=== PATIENT | female | born 1995 | race Caucasian/White ===

== ENCOUNTER → 2021-03-24 14:12 | Outpatient (CLI) | payer OTHER, SELFPAY ==
[2021-03-24 16:12] LABS: T4 Free Direct 0.92 ng/dL (0.76-1.46); Thyroid Stim Hormone (TSH) 1.01 uIU/mL (0.358-3.74)
== END ==
PROVIDERS: PCP Family Medicine; Referring Provider Family Medicine; Visit Provider Family Medicine
DX: L65.9 Nonscarring hair loss, unspecified (principal)
CPT/HCPCS: 36415; 84439; 84443

== ENCOUNTER 2021-07-17 16:51 | Outpatient (CLI) | payer OTHER, SELFPAY ==
[2021-07-21 12:01] LABS: Chlamydia By Nucleic Acid AMP Negative (Negative)
[2021-07-21 12:23] LABS: Gonococcus By Nucleic Acid AMP Negative (Negative)
[2021-07-26 15:49] LABS: HPV Reflexed? NOT INDICATED
== END 2021-07-17 23:59 | disposition home or self-care (01) ==
PROVIDERS: PCP Family Medicine; Visit Provider Obstetrics & Gynecology
DX: Z11.3 Encounter for screening for infections with a predominantly sexual mode of transmission (principal); Z12.4 Encounter for screening for malignant neoplasm of cervix
CPT/HCPCS: 87491; 87591; 88175; G0145

== ENCOUNTER → 2023-04-13 | Outpatient (CLI) | payer OTHER, SELFPAY ==
[2023-04-13 16:09] LABS: Anion Gap 9 (5-15); BUN 13 mg/dL (7-18); BUN/Creat Ratio 17.9 RATIO (10-20); Calcium,Total 9.5 mg/dL (8.5-10.1); Chloride 107 mmol/L (98-107); Creatinine, Serum 0.73 mg/dL (0.55-1.02); EST Glomerular Filtration Rate 103 mL/min (>60); Est Glom Filt Rate - Afr Amer 125 mL/min (>60); Glucose 81 mg/dL (74-106); Potassium 3.9 mmol/L (3.5-5.1); Sodium Level 140 mmol/L (136-145)
== END | disposition home or self-care (01) ==
PROVIDERS: PCP Family Medicine; Referring Provider Family Medicine; Visit Provider Family Medicine
DX: Z90.5 Acquired absence of kidney (principal)
CPT/HCPCS: 36415; 80048; 81001

== ENCOUNTER → 2023-11-01 | Outpatient (CLI) | payer OTHER, SELFPAY ==
[2023-11-01 18:07] LABS: hCG Titer Quant., Serum < 1 mIU/mL (1-3)
[2023-11-01 18:34] LABS: T4 Free Direct 0.79 ng/dL (0.76-1.46); Thyroid Stim Hormone (TSH) 1.23 uIU/mL (0.358-3.74)
== END | disposition home or self-care (01) ==
PROVIDERS: PCP Family Medicine; Referring Provider Family Medicine; Visit Provider Family Medicine
DX: N92.6 Irregular menstruation, unspecified (principal)
CPT/HCPCS: 36415; 84439; 84443; 84702

== ENCOUNTER → 2024-06-20 | Outpatient (CLI) | payer OTHER, SELFPAY ==
[2024-06-22 21:07] LABS: Chlamydia By Nucleic Acid AMP Negative (Negative); Gonococcus By Nucleic Acid AMP Negative (Negative)
[2024-06-28 10:35] LABS: HPV Reflexed? NOT INDICATED
== END | disposition home or self-care (01) ==
LOC: LABSPEC 15:46
PROVIDERS: PCP Family Medicine; Referring Provider Obstetrics & Gynecology; Visit Provider Obstetrics & Gynecology
DX: O09.90 Supervision of high risk pregnancy, unspecified, unspecified trimester (principal); Z12.4 Encounter for screening for malignant neoplasm of cervix; Z3A.00 Weeks of gestation of pregnancy not specified
CPT/HCPCS: 87086; 87491; 87591; 88175; G0145

== ENCOUNTER → 2024-07-04 | Outpatient (CLI) | payer OTHER, SELFPAY ==
[2024-07-04 15:19] LABS: Absolute Lymphocyte Count 2.31 X10^3/uL (0.83-4.51); Absolute Neutrophil Count 7.1 X10^3/uL (2.0-7.7); Basophil# 0.02 X10^3/uL; Basophil% 0.2 % (0-1); Eosinophil# 0.05 X10^3/uL; Eosinophils% 0.5 % (0-5); Hematocrit 38.3 % (37-47); Hemoglobin 13.2 g/dL (12.0-15.0); Lymphocyte # 2.31 X10^3/ul (0.83-4.51); Lymphocyte % 23.3 % (19-41); Mean Corp Hgb Conc 34.5 g/dL (32-36); Mean Corpuscular Volume 84.2 fL (81-99); Mean Platelet Vol. 9.4 fl (6.2-12.0); Monocyte# 0.35 X10^3/uL; Monocyte% 3.5 % (0-10); NRBC Flagged by Analyzer 0 % (0-5); Neutrophil # 7.14 X10^3/uL (2.7-7.7); Neutrophil % 72.2 % (47-70); Platelet Count 258 K/mm3 (150-450); RBC Distribution Width CV 12.9 % (11.6-14.6); RBC Distribution Width SD 39.3 fl (35.1-43.9); Red Blood Count 4.55 M/mm3 (4.2-5.4); White Blood Count 9.9 K/mm3 (4.4-11.0)
[2024-07-04 16:50] LABS: Hepatitis B Surface Antigen Nonreactive (Nonreactive); Hepatitis C Antibody Nonreactive (Nonreactive); Syphilis Antibodies Nonreactive (Nonreactive)
[2024-07-04 16:57] LABS: Rubella IgG REAC (Nonreactive)
[2024-07-04 17:05] LABS: HIV Nonreactive (Nonreactive)
[2024-07-04 22:27] LABS: Hemoglobin A1c 5.3 % (<=5.6)
== END | disposition home or self-care (01) ==
PROVIDERS: PCP Family Medicine; Referring Provider Obstetrics & Gynecology; Visit Provider Obstetrics & Gynecology
DX: O09.90 Supervision of high risk pregnancy, unspecified, unspecified trimester (principal); Z3A.00 Weeks of gestation of pregnancy not specified
CPT/HCPCS: 36415; 83036; 85025; 86703; 86762; 86780; 86803; 86850; 86900; 86901; 87340

== ENCOUNTER → 2024-08-20 | Outpatient (CLI) | payer OTHER, SELFPAY | END | disposition home or self-care (01) | PROVIDERS: PCP Family Medicine; Referring Provider Obstetrics & Gynecology; Visit Provider Obstetrics & Gynecology | DX: Z34.90 Encounter for supervision of normal pregnancy, unspecified, unspecified trimester (principal); Z3A.00 Weeks of gestation of pregnancy not specified | CPT/HCPCS: 36415 ==

== ENCOUNTER → 2024-10-15 | Outpatient (CLI) | payer OTHER, SELFPAY ==
[2024-10-15 17:07] LABS: Hematocrit 33.8 % (37-47); Hemoglobin 11.3 g/dL (12.0-15.0); Immature Granulocytes Count 0.060 X10^3/uL (0.0-0.0); Mean Corp Hgb Conc 33.4 g/dL (32-36); Mean Corpuscular Volume 87.6 fL (81-99); Mean Platelet Vol. 9.7 fl (6.2-12.0); NRBC Flagged by Analyzer 0 % (0-5); Platelet Count 252 K/mm3 (150-450); RBC Distribution Width CV 13.8 % (11.6-14.6); RBC Distribution Width SD 44.2 fl (35.1-43.9); Red Blood Count 3.86 M/mm3 (4.2-5.4); White Blood Count 9.8 K/mm3 (4.4-11.0)
[2024-10-15 18:05] LABS: Glucose Challenge Gest 1H 50g 106 mg/dL (70-140); HIV Nonreactive (Nonreactive); Syphilis Antibodies Nonreactive (Nonreactive)
--- OUTSIDE RECORDS SUMMARY | 2024-10-18 02:09 | XMS RPT_ITS | CCD ---
Author Organization [facility] CliniSymt Care Team Providers Care Spring Clipper Name Role Phone HESHAM ST H Unavailable Unavailable KINKOPFFIDELINA Unavailable Unavailable ZULYCUBA HESHAM H Unavailable Unavailable Dr. Ji Baer Primary Care Provider [phone] Dr. Ji Baer Referring Provider Dr. Karina Bravo Attending Provider Dr. Ji Baer Primary Care Provider Dr. Ji Baer Referring Provider TRISH Young Attending Provider Keyur LEROY, Dr. Sen Primary Care Provider Keyur LEROY, Dr. Sen Referring Provider Dr. Karina Bravo DO Attending Provider Dr. Karina Bravo DO Referring Provider Tomi Cavanaugh CNM Attending Provider [phone] Dr. Mayelin Garcia MD Attending Provider Dr. Mayelin Garcia MD Referring Provider Ekaterina Lagos Attending Provider [phone] TOMI CAVANAUGH Referring Unavailable KASI PADGETT Attending Unavailable NO PRIMARY CARE, Primary Care Unavailable TOMI CAVANAUGH Referring Unavailable NO PRIMARY CARE, Primary Care Unavailable TOMI CAVANAUGH Attending Unavailable ABRAN BRAR Attending Unavailable AARON LAI Referring Unavailable COCO BAER B Primary Care UnavailCoco Espinosa Primary Care Unavailable Karina Bravo Attending Unavailabl e [place], [facility] [place] Referring Unavailable [facility] Primary Care Unavailable Vande Rubi, Karina Attending Unavailabl e [place], [facility] Referring Unavailable [facility] [place] Primary Care Unavailable Ekaterina Kim NP Attending Unavailable [place], [facility] [place] Referring Unavailable [place], [facility] Unavailable Tomi Cavanaugh Attending Unavailable [place], [facility] [place] Referring Unavailable Mayelin Garcia Attending Unavailable [place], [place] Primary Care Unavailable [place], [facility] Referring Unavailable Tomi Cavanaugh Attending Unavailable [place], [facility] Primary [facility] Unavailable [place], [facility] Referring Unavailable [facility] Primary [facility] Unavailable Kam Venegas, Karina Attending Unavailabl e Vande Gomezde, Karina Referring Unavailabl e [place], [place] Primary Care Unavailable Vanddeedee Venegas, Karina Attending Unavailabl e Vande Velde, Karina Referring Unavailabl e [place], [facility] Referring Unavailable [facility] [place] Primary Care Unavailable [facility] Attending Unavailable [facility] Primary Care Unavailable Mayelin Garcia Attending Unavailable Mayelin Garcia Referring Unavailable Medications Current Medications Medication Drug Class(es) Dates Sig (Normalized) Sig (Original) Mv-Mn 777-Ym-Yx6-Dha-Epa-F thom 180 mcg-35 mg- 25 mg-5 mg tablet,chewable (3 sources) Start: 05-29-2024 Mv-Mn 120-Pb-Zk3-Dha-Epa- Fish 180 mcg-35 mg- 25 mg-5 mg tablet,chewable Active {tbl} PO May 29, 2024 1:00am Pnv No.967-Vx-Ef6-Dha-Ep a-Fish 180 mcg-35 mg- 25 mg-5 mg tablet,chewable (2 sources) Start: 05-29-2024 Pnv No.464-Gr-An2-Dha-E pa-Fish 180 mcg-35 mg- 25 mg-5 mg tablet,chewable Active {tbl} PO May 29, 2024 1:00am Completed/Discontinued Medications Medication Drug Class(es) Dates Sig (Normalized) Sig (Original) cephalexin 500 mg oral capsule (6 sources) Cephalosporin Antibacterial Start: 04-13-2023 End: 04-23-2023 take 1 capsule by mouth every twelve hours Cephalexin 500 mg capsule Discontinued 500 mg PO Q12H 20 10 0 April 13, 2023 1:00am April 22, 2023 1:00am April 23, 2023 1:27am docosahexaenoic acid 200 mg oral capsule (5 sources) Start: 12-07-2023 End: 05-29-2024 Docosahexaenoic Acid ( Dha) 200 mg capsule Discontinued mg PO December 07, 2023 12:00am May 29, 2024 10:47am doxycycline hyclate 100 mg oral capsule (11 sources) Tetracycline-class Drug Start: 12-07-2023 End: 12-14-2023 take 1 capsule by mouth twice daily Doxycycline Hyclate 100 mg capsule Discontinued 100 mg PO TWICE A DAY 14 7 0 December 07, 2023 2:45pm December 13, 2023 12:00am December 14, 2023 12:03am Start: 04-13-2023 End: 07-22-2023 take 1 capsule by mouth once daily Doxycycline Hyclate 100 mg capsule Discontinued 100 mg PO DAILY April 13, 2023 1:00am July 22, 2023 4:30pm levonorgestrel 0.767988 mg/hr intrauterine system (12 sources) Progestin, Progestin-containing Intrauterine Device Start: 07-20-2022 End: 12-07-2023 Levonorgestrel (Ina) 14 mcg/24 hrs (3 yrs) 13.5 mg intrauterine device Discontinued 1 NMA INTRA-UTER ONCE July 20, 2022 12:00am December 07, 2023 2:21pm as a single dose Start: 07-20-2022 Levonorgestrel (Ina) 14 mcg/24 hrs (3 yrs) 13.5 mg intrauterine device Active 1 DEVICE INTRA-UTER ONCE July 19, 2022 11:00pm as a single dose Start: 08-14-2021 End: 07-20-2022 Levonorgestrel (Liletta) 20. 1 mcg/24 hrs (6 yrs) 52 mg intrauterine device Discontinued 1 NMA INTRA-UTER ONCE August 14, 2021 12:00am July 20, 2022 8:41am as a single dose Start: 08-14-2021 End: 07-20-2022 Levonorgestrel (Liletta) 20. 1 mcg/24 hrs (6 yrs) 52 mg intrauterine device Discontinued 1 DEVICE INTRA-UTER ONCE August 13, 2021 11:00pm July 20, 2022 7:41am as a single dose Problems Active Problems Problem Classification Problem Date Documented Date Episodic/Chronic Anxiety disorders (20 sources) Anxiety; Translations: [Anxiety disorder, unspecified] Onset: 08-20-2024 05-29-2024 Chronic Contraceptive and procreative management (5 sources) Patient encounter status; Translations: [Encounter for removal of intrauterine contraceptive device] 05-29-2024 Episodic Genitourinary symptoms and ill-defined conditions (7 sources) Dysuria; Translations: [Dysuria] 04-13-2023 Episodic Immunizations and screening for infectious disease (1 source) Contact with and (suspected) exposure to other viral communicable diseases; Translations: [Contact with or suspected exposure to other viral communicable disease] Episodic Menstrual disorders (1 source) Irregular menstruation, unspecified; Translations: [Irregular menstruation, unspecified] Onset: 11-19-2023 Chronic Other complications of (19 sources) Maternal obesity complicating , childbirth and the puerperium, antepartum; Translations: [Obesity complicating , unspecified trimester] 05-29-2024 Chronic Comment on above: HgbA1c Other complications of (1 source) Obesity complicating , unspecified trimester; Translations: [Obesity complicating , unspecified trimester] Onset: 08-20-2024 Chronic Other complications of (19 sources) High risk ; Translations: [Supervision of high risk , unspecified, unspecified trimester] 05-29-2024 Episodic Comment on above: , YESI 01/22/25, Espinoza PRR,, YESI , Espinoza Other complications of (1 source) Supervision of high risk , unspecified, unspecified trimester; Translations: [Supervision of high risk , unspecified, unspecified trimester] Onset: 09-17-2024 Episodic Other and delivery including normal (20 sources) ; Translations: [Encounter for supervision of normal , unspecified, unspecified trimester] Onset: 08-24-2024 05-29-2024 Episodic Comment on above: elects NIPT with Gen ale & Carrier testing NIPT low risk, jalen er declined afp ordered. NIPT low risk, jalen er declined. AFP negative. Other skin disorders (17 sources) Hidradenitis suppurativa; Translations: [Hidradenitis suppurativa] 04-13-2023 Episodic Other skin disorders (1 source) Hidradenitis suppurativa; Translations: [Hidradenitis suppurativa] Onset: 08-20-2024 Episodic Residual codes; unclassified (6 sources) History of nephrectomy; Translations: [Acquired absence of kidney] 07-17-2021 Episodic Comment on above: left-didn't develop Residual codes; unclassified (1 source) 17 weeks gestation of ; Translations: [17 weeks gestation of ] Onset: 08-20-2024 Episodic Screening and history of mental health and substance abuse codes (17 sources) History of clinical finding in subject; Translations: [Personal history of nicotine dependence] Onset: 08-20-2024 05-29-2024 Episodic Comment on above: Pt stopped vaping 05/19/24, education provided Past or Other Problems Problem Classification Problem Date Documented Da te Episodic/Chronic Other screening for suspected conditions (not mental disorders or infectious disease) (1 source) Encounter for screening for malignant neoplasm of cervix; Translations: [Encounter for screening for malignant neoplasm of cervix] Onset: 07-04-2024 Episodic Results Test Name Value Interpretation Reference Range Facility Progress Noteon 10-01-2024 Director Of Assessment Authentication Interface Message Text New patient 10/02/2024 RE: Chetna Rodriguez Caitlin : 1995 AGE: 29 y.o. [facility]#: [id number] Gestational Age: 24 Weeks Delivery Hospital: [facility] Reason for visit: Chief Complaint Patient presents with ECHO echo for inadequate cardiac views on perinatologist ultrasound. Other indications:None OB History 1 Para Term AB Living 0 SAB IAB Ectopic Multiple Live Births Counseling and/or coordination of care (face to face time in the office/outpatient setting or floor/unit time in the hospital) was greater than 40 minutes which is more than 50% of the total time of 60 minutes spent on the encounter. In addition, the following items were performed before, during, and after this visit: Synthesis of current imaging findings. Results for orders placed or performed in visit on 10/01/24 Echo [facility] [place] [address] [email or web address] ------- Echocardiogram Report M-mode, complete 2D, complete spectral Doppler, and color Doppler PATIENT: Chetna Tucker STUDY DATE/TIME: Oct 01 2024 12:04PM HEIGHT: : 1995 WEIGHT: AGE: 29year(s) BSA/BMI: / 35kg/m^2 GENDER: F BP: 131 / 57 LOCATION: [facility] REFERRING PHYSICIAN: Aaron Lai ORDERING PROVIDER: Aaron Lai READING PHYSICIAN: JANET Elkins HR RECRUITER: Jacqueline Ricks RDCS ------- SUMMARY: No significant congenital heart disease identified. 1. Normal echocardiogram. 2. Normal biventricular size and function. 3. No atrioventricular valve regurgitation. 4. Normal three vessel view, main pulmonary artery 4.2 mm, aorta 3.6 mm and superior vena cava 2.6 mm. 5. Normally related great arteries. 6. Left aortic arch with left patent ductus arteriosus. 7. Normal systemic and pulmonary venous connections. 8. This study is limited in evaluating minor valve abnormalities, septal defects, partial anomalous pulmonary venous connection, and aortic arch abnormalities. 9. The above findings, including the limitations, were discussed with the patient. Recommendations: follow-up if java j2ee architect hears a heart murmur or otherwise clinically indicated. ------- REASON FOR EXAM: Suboptimal cardiac views. ------- : : - Maternal age: 30yr. - : 1. - Parity: 0. - Estimated delivery date: 01/22/2025. - Gestational age: 23 [id number]. ------- STUDY AND PROCEDURE DATA: The patient is . Procedure Description: New ([id number]) . Study status: Routine. Location: lab. Procedure: Transabdominal echocardiogram was performed for congenital heart disease evaluation. Patient status: Outpatient. Blood pressure: 131/57 ------- FINDINGS: DESCRIPTION One fetus is present. Normal three vessel view,main pulmonary artery 4.5 mm, aorta 3.6 mm and superior vena cava 2.6 mm. The rhythm is sinus rhythm, with a heart rate of 155bpm. The position is vertex. Normal Doppler pattern of the ductus venosus, umbilical artery, and vein. Three vessel cord. ANATOMIC RELATIONSHIPS - Normal viceral situs. Left sided stomach. Left sided cardiac apex (levocardia). Normally related great vessels. VEINS AND ATRIA Atrial septum - There is a patent foramen ovale. There is a cubie-xu-morr shunt. Left atrium: - The atrium is normal in size. Right atrium: - The atrium is normal in size. Systemic veins - Inferior vena cava and superior vena cava seen entering normally into the right atrium. Pulmonary veins - There are at least 2 out of 4 pulmonary veins seen entering normally into the left atrium, with normal Doppler pattern. A-V CANAL Tricuspid valve - The valve is structurally normal. There is no regurgitation. - There is normal biphasic inflow spectral Doppler. Mitral valve - The valve is structurally normal. There is no regurgitation. - There is normal biphasic inflow spectral Doppler. VENTRICLES Right ventricle - The cavity size is normal. Wall thickness is normal. Systolic function is qualitatively normal. Ventricular septum - There is no evidence of a ventricular septal defect. Left ventricle - The cavity size is normal. Wall thickness is normal. Systolic function is quantitatively normal. The fractional shortening (MM) is 41%. The ejection fraction (MM, Teichholz) is 77%. CONOTRUNCUS Aortic valve - The valve is str (more content not included)... Normal [facility] Laboratory - Chemistry and C hemistry - challengeOrdered By: Ekaterina Kim on 09-17-2024 Glucose Ql (U) Negative [facility] Laboratory - UrinalysisOrder ed By: Ekaterina Kim on 09-17-2024 Protein Ql (U) Negative [facility] Digital Designer Office Visit Reporton 09-17-2024 Digital Designer Office Visit Report [facility]'s [address], [address] [place] [address] OFFICE VISIT Date of Service: 09/17/24 MR#: [id number] Acct: [id number] Name: CHETNA TUCKER Rep #: [id number] : 1995 Provider: SIOBHAN noyola Age/Sex: 29/F Location: [facility] [place] Status: Signed Intake Vital Signs 07/23/24 13:51 08/20/24 13:44 09/17/24 13:45 Height 5 ft 9 in 5 ft 9 in 5 ft 9 in Weight: 242 lb BMI 35.7 BP 124/82 H Intake Visit Reasons: 22wk ob Chief Complaint: 22 Week OB Hypo Splasher Required: No Is patient in pain?: No Allergies No Known Allergies Allergy (Verified 09/17/24 13:46) Medications ???Medication ???Instructions ???Recorded ???Confirmed ???Type mv-mn 110-FA 180 mcg-om3 35 mg-dha tab PO 05/29/24 09/17/24 History 25 mg-epa 5 mg-fish oil chew tablet Last Menstrual Period: 04/17/24 Zika: Zika virus screening: Negative : No PFSH PFSH Medical History History of nicotine vaping Hidradenitis suppurativa Encounter for IUD removal Seasonal allergies S/p nephrectomy Surgical History [place] teeth extracted History of nephrectomy, right Family History Mother Kidney disease Heart disease Hypertension Grandmother Heart disease Maternal Kidney disease Maternal Hypertension Maternal Diabetes Maternal Father Hypertension Social History adopted: No household members: spouse housing: house current occupational status: employed current occupation: [employer] current occupational exposures/hazards: No pets and animals: Yes (2) pets and animals: dog(s) history of recent travel: No sexually active: Yes Smoking Status: Former smoker quit date: 05/19/24 Electronic Cigarette Use: with nicotine how long ago did patient quit smokin weeks ago quit status: quit date established alcohol intake: current details: occasionally- not while drinking substance use type: does not use well-balanced diet: about half the time caffeine: Yes Type: coffee Number of servings: 1 eating out: 1-3 times/week during the past year weight has: remained stable what type of physical activity do you participate in: none frequency: 1-2 times per week dat/sikhism: None seatbelt use: always do you feel safe at home: Yes additional social history: -[facility] History 1 Elective abortions Hx Para 0 Spontaneous abortions Hx # Term Pregnancies Ectopic pregnancies Hx # Pregnancies Multiple births # of living children HPI 22wk ob Details: CHETNA TUCKER is a 29 year old who presents for routine OB visit. OB Visit YESI Calculator Estimated Delivery Date Method Current WG Current Estimate 01/22/25 LMP (Certain) 21w 6d Other Estimates 01/23/25 Ultrasound #1 21w 5d Expected Delivery Route/Plan Labor Preferences- CB/BF classes: [] labor support person: [] labor intervention preferences: [] pain management options preferred: [] cut cord/dad catch: [] : [] PP control planned: [] discussed possible routes of delivery and associated risks: [] special requests: [] Specific Issue/Plans Covid status: [] Flu vaccine: [] Tdap vaccine: [] Rhogam: [] LARC form signed: [] Problem list reviewed and updated with the most current plan of care details and appropriate orders placed. Relevant counseling for the gestational age provided. Continue routine care and follow up unless otherwise noted in visit notes/problem list details Initial Weight: 237 lb Date -???-???-???-???-???-?? ?-???-???-???-???-???-? ??- EGA Weight BP Urine Prot -???-???-???-???-???-?? ?-???-???-???-???-???-? ??- Glucose FHR FuHt Pres Dilation -???-???-???-???-???-?? ?-???-???-???-???-???-? ??- Effaced St Visit Note 06/20/24 -???-???-???-???-???-?? ?-???-???-???-???-???-? ??- 9w 1d 237 lb 4 oz (+4 oz) 128/84 -???-???-???-???-???-?? ?-???-???-???-???-???-? ??- 185 -???-???-???-???-???-?? ?-???-???-???-???-???-? ??- JV- CRL cons istent with LMP. desires NIPT. 07/23/24 -???-???-???-???-???-?? ?-???-???-???-???-???-? ??- 13w 6d 235 lb (-2 lb) 133/85 Negative -???-???-???-???-???-?? ?-???-???-???-???-???-? ??- Negative 160 -???-???-???-???-???-?? ?-???-???-???-???-???-? ??- KW- no vb/cr amping. US ordered. handheld US and fht and movement noted. KW- no vb/cramping. US ordered. shah ndheld US and fht and movement noted. accepts AFP next visit 08/20/24 -???-???-???-???-???-?? ?-???-???-???-???-???-? ??- 17w 6d 237 lb (+0 oz) 121/82 Negative (more content not included)... Normal [facility] [id number] 09-07-2024 [facility] Misc. Normal [facility] Comment on above: Order Comment: [id number] 1msAFP SERUM RT Result Comment: TEST RESULTS LIMITS AFP, Serum, Open Spina Bifida Results The MOM and risk factors of this report have been modified based on new information supplied to us by the client or their designated patient admitting representative. The Weight was changed from Not provided. to 237. This is a corrected report. The previously reported result was: Test Results: *Screen Negative* Gest. Age on Collection Date 17.9 weeks Gestat. Age Based On As provided Recalculations are not recommended when gestational dating by LMP and ultrasound are within 10 days. [age] YESI [age] yr Race Weight 237 lbs Insulin Dep Diabetes No Multiple Gestation No AFP Value 26.3 ng/mL AFP MoM 0.81 OSBR Risk 1 [place] [id number] Interpretation Interpretation: Screen Negative This result is screen negative for OSB. The AFP MoM calculated is based on the gestational age provided. MS-AFP can identify up to 80% of open neural tube defects. Closed neural tube defects and some open defects may not be detected by this test. This test does not screen for Down Syndrome or Trisomy 18. If screening for Down Syndrome or Trisomy 18 is desired, contact [facility] to discuss available options. The [employer] recommends amniocentesis be offered to women age 35 and older. Comment: Dulce Ramirez, Ph.D., [facility] Director References: Available Upon Request. Multiples Of Median Cutoffs For AFP Elevations Dawn 2.5 Black 2.8 IDD 2.0 Twins 4.5 Abbreviation Definitions IDD - Insulin Dep Diabetes OSBR - Open Spina Bifida Risk For further inquiries contact [facility] or [facility] at [phone]. This test was developed and its performance characteristics determined by [employer]. It has not been cleared or approved by the Food and Drug Administration. TESTING PERFORMED AT [facility]. ORIGINAL REPORT ON FILE IN LAB CONTAINS ADDITIONAL TEST SITE INFORMATION. Performed By: #### L [id number] ####[facility] [id number] [place], [place], [id number] Laboratory - Chemistry and C hemistry - challengeOrdered By: Mayelin Garcia on 08-20-2024 Glucose Ql (U) Negative [facility] Laboratory - UrinalysisOrder ed By: Mayelin Garcia on 08-20-2024 Protein Ql (U) Negative [facility] Digital Designer Office Visit Reporton 08-20-2024 Digital Designer Office Visit Report [facility]'s [address], [address] [place] [address] OFFICE VISIT Date of Service: 08/20/24 MR#: [id number] Acct: [id number] Name: CHETNA TUCKER Rep #: [id number] : 1995 Provider: Dr. Mayelin grullon MD Age/Sex: 28/F Location: [facility] [place] Status: Signed Intake Vital Signs 06/20/24 14:06 07/23/24 13:51 08/20/24 13:43 08/20/24 13:44 Height 5 ft 9 in 5 ft 9 in 5 ft 9 in 5 ft 9 in Weight: 235 lb 237 lb BMI 34.7 34.9 BP 133/85 H 121/82 H Intake Visit Reasons: 18wk ob Hypo Splasher Required: No Is patient in pain?: No Allergies No Known Allergies Allergy (Verified 08/20/24 13:43) Medications ???Medication ???Instructions ???Recorded ???Confirmed ???Type PNV 178-FA 180 mcg-om3 35 mg-dha tab PO 05/29/24 08/20/24 History 25 mg-epa 5 mg-fish oil chew tablet Last Menstrual Period: 04/17/24 Zika: Zika virus screening: Negative : No PFSH PFSH Medical History (Updated 08/20/24 @ 14:[address] Mayelin Garcia MD) History of nicotine vaping Hidradenitis suppurativa Encounter for IUD removal Seasonal allergies S/p nephrectomy Surgical History [place] teeth extracted History of nephrectomy, right Family History Mother Kidney disease Heart disease Hypertension Grandmother Heart disease Maternal Kidney disease Maternal Hypertension Maternal Diabetes Maternal Father Hypertension Social History adopted: No household members: spouse housing: house current occupational status: employed current occupation: [employer] current occupational exposures/hazards: No pets and animals: Yes (2) pets and animals: dog(s) history of recent travel: No sexually active: Yes Smoking Status: Former smoker quit date: 05/19/24 Electronic Cigarette Use: with nicotine how long ago did patient quit smokin weeks ago quit status: quit date established alcohol intake: current details: occasionally- not while drinking substance use type: does not use well-balanced diet: about half the time caffeine: Yes Type: coffee Number of servings: 1 eating out: 1-3 times/week during the past year weight has: remained stable what type of physical activity do you participate in: none frequency: 1-2 times per week dat/sikhism: None seatbelt use: always do you feel safe at home: Yes additional social history: -[facility] History 1 Elective abortions Hx Para 0 Spontaneous abortions Hx # Term Pregnancies Ectopic pregnancies Hx # Pregnancies Multiple births # of living children HPI 18wk ob Details: CHETNA TUCKER is a 28 year old who presents for routine OB visit. OB Visit YESI Calculator Estimated Delivery Date Method Current WG Current Estimate 01/22/25 LMP (Certain) 17w 6d Other Estimates 01/23/25 Ultrasound #1 17w 5d Expected Delivery Route/Plan Labor Preferences- CB/BF classes: [] labor support person: [] labor intervention preferences: [] pain management options preferred: [] cut cord/dad catch: [] : [] PP control planned: [] discussed possible routes of delivery and associated risks: [] special requests: [] Specific Issue/Plans Covid status: [] Flu vaccine: [] Tdap vaccine: [] Rhogam: [] LARC form signed: [] Problem list reviewed and updated with the most current plan of care details and appropriate orders placed. Relevant counseling for the gestational age provided. Continue routine care and follow up unless otherwise noted in visit notes/problem list details Initial Weight: 237 lb Date -???-???-???-???-???-?? ?-???-???-???-???-???-? ??- EGA Weight BP Urine Prot -???-???-???-???-???-?? ?-???-???-???-???-???-? ??- Glucose FHR FuHt Pres Dilation -???-???-???-???-???-?? ?-???-???-???-???-???-? ??- Effaced St Visit Note 06/20/24 -???-???-???-???-???-?? ?-???-???-???-???-???-? ??- 9w 1d 237 lb 4 oz (+4 oz) 128/84 -???-???-???-???-???-?? ?-???-???-???-???-???-? ??- 185 -???-???-???-???-???-?? ?-???-???-???-???-???-? ??- JV- CRL cons istent with LMP. desires NIPT. 07/23/24 -???-???-???-???-???-?? ?-???-???-???-???-???-? ??- 13w 6d 235 lb (-2 lb) 133/85 Negative -???-???-???-???-???-?? ?-???-???-???-???-???-? ??- Negative 160 -???-???-???-???-???-?? ?-???-???-???-???-???-? ??- KW- no vb/cr amping. US ordered. handheld US and fht and movement noted. KW- no vb/cramping. US ordered. shah ndheld US and fht and movement noted. accepts AFP next visit 08/20/24 -???-???-???-???-???-?? ?-???-???-???-???-???-? ??- 17w 6d 237 lb (+ (more content not included)... Normal [facility] Laboratory - Chemistry and C hemistry - challengeOrdered By: Tomi Cavanaugh on 07-23-2024 Glucose Ql (U) Negative [facility] Laboratory - UrinalysisOrder ed By: Tomi Cavanaugh on 07-23-2024 Protein Ql (U) Negative [facility] Digital Designer Office Visit Reporton 07-23-2024 Digital Designer Office Visit Report [facility]'s [address], [address] [place] [address] OFFICE VISIT Date of Service: 07/23/24 MR#: [id number] Acct: [id number] Name: CHETNA TUCKER Rep #: [id number] : 1995 Provider: ROZINA Nolan ams Age/Sex: 28/F Location: [facility] [place] Status: Signed Intake Vital Signs 12/07/23 14:21 06/20/24 14:06 07/23/24 13:51 Height 5 ft 9 in 5 ft 9 in 5 ft 9 in Weight: 237 lb 4 oz 235 lb BMI 35.0 34.7 BP 128/84 H 133/85 H Intake Visit Reasons: 14wk OB Chief Complaint: 14wk OB Hypo Splasher Required: No Is patient in pain?: No Allergies No Known Allergies Allergy (Verified 07/23/24 13:48) Medications ???Medication ???Instructions ???Recorded ???Confirmed ???Type PNV 178-FA 180 mcg-om3 35 mg-dha tab PO 05/29/24 07/23/24 History 25 mg-epa 5 mg-fish oil chew tablet Last Menstrual Period: 04/17/24 : No PFSH PFSH Medical History Encounter for IUD removal Seasonal allergies S/p nephrectomy Surgical History [place] teeth extracted History of nephrectomy, right Family History Mother Kidney disease Heart disease Hypertension Grandmother Heart disease Maternal Kidney disease Maternal Hypertension Maternal Diabetes Maternal Father Hypertension Social History adopted: No household members: spouse housing: house current occupational status: employed current occupation: [employer] current occupational exposures/hazards: No pets and animals: Yes (2) pets and animals: dog(s) history of recent travel: No sexually active: Yes Smoking Status: Former smoker quit date: 05/19/24 Electronic Cigarette Use: with nicotine how long ago did patient quit smokin weeks ago quit status: quit date established alcohol intake: current details: occasionally- not while drinking substance use type: does not use well-balanced diet: about half the time caffeine: Yes Type: coffee Number of servings: 1 eating out: 1-3 times/week during the past year weight has: remained stable what type of physical activity do you participate in: none frequency: 1-2 times per week dat/sikhism: None seatbelt use: always do you feel safe at home: Yes additional social history: -[facility] History 1 Elective abortions Hx Para 0 Spontaneous abortions Hx # Term Pregnancies Ectopic pregnancies Hx # Pregnancies Multiple births # of living children HPI 14wk OB Details: CHETNA TUCKER is a 28 year old who presents for routine OB visit. OB Visit YESI Calculator Estimated Delivery Date Method Current WG Current Estimate 01/22/25 LMP (Certain) 13w 6d Other Estimates 01/23/25 Ultrasound #1 13w 5d Expected Delivery Route/Plan Labor Preferences- CB/BF classes: [] labor support person: [] labor intervention preferences: [] pain management options preferred: [] cut cord/dad catch: [] : [] PP control planned: [] discussed possible routes of delivery and associated risks: [] special requests: [] Specific Issue/Plans Covid status: [] Flu vaccine: [] Tdap vaccine: [] Rhogam: [] LARC form signed: [] Problem list reviewed and updated with the most current plan of care details and appropriate orders placed. Relevant counseling for the gestational age provided. Continue routine care and follow up unless otherwise noted in visit notes/problem list details Initial Weight: Not Recorded Date -???-???-???-???-???-?? ?-???-???-???-???-???-? ??- EGA Weight BP Urine Prot -???-???-???-???-???-?? ?-???-???-???-???-???-? ??- Glucose FHR FuHt Pres Dilation -???-???-???-???-???-?? ?-???-???-???-???-???-? ??- Effaced St Visit Note 06/20/24 -???-???-???-???-???-?? ?-???-???-???-???-???-? ??- 9w 1d 237 lb 4 oz 128/84 -???-???-???-???-???-?? ?-???-???-???-???-???-? ??- 185 -???-???-???-???-???-?? ?-???-???-???-???-???-? ??- JV- CRL cons istent with LMP. desires NIPT. 07/23/24 -???-???-???-???-???-?? ?-???-???-???-???-???-? ??- 13w 6d 235 lb 133/85 Negative -???-???-???-???-???-?? ?-???-???-???-???-???-? ??- Negative 160 -???-???-???-???-???-?? ?-???-???-???-???-???-? ??- KW- no vb/cr amping. US ordered. handheld US and fht and movement noted. KW- no vb/cramping. US ordered. shah ndheld US and fht and movement noted. accepts AFP next visit ACOG First Trimester First Trimester: Discussed ROS Const Reports system reviewed and no additional complaints, except as documented Eyes Reports system reviewed and no additional co (more content not included)... Normal [facility] Absolute lymphocyte countOrd ered By: Karina Rubi on 07-04-2024 Lymphocytes Auto (Unsp spec) [#/Vol] 2.31 10*3/uL 0.83-4.51 [facility] Absolute neutrophil countOrd ered By: Karina Rubi on 07-04-2024 Neutrophils (Bld) [#/Vol] 7.1 10*3/uL 2.0-7.7 [facility] Automated lymphocyte count a s percentage of total leukocytesOrdered By: Karina Rubi on 07-04-2024 Lymphocytes/100 WBC Auto (Unsp spec) 23.3 % 19-41 [facility] Basophil percentageOrdered B y: Karina Rubi on 07-04-2024 Basophils/100 WBC (Bld) 0.2 % 0-1 [facility] CBC W/Diff, Automatedon 06-10 Absolute Lymph 2.31 X10 3/uL Normal 0.83-4.51 [facility] Comment on above: Performed By: #### L 900.0098, L3890.6006, L509.4006, L501.9985, L3890.6102, BTS, L3890.6301, L100.0100, L509.8002 #### [facility] Laboratory [address] [place], [place], [id number] Absolute Neut 7.1 X10 3/uL Normal 2.0-7.7 [facility] Comment on above: Performed By: #### L 900.0098, L3890.6006, L509.4006, L501.9985, L3890.6102, BTS, L3890.6301, L100.0100, L509.8002 #### [facility] [address] [place], [address] Basophils/100 WBC (Bld) 0.2 % Normal 0-1 [facility] Comment on above: Performed By: #### L 900.0098, L3890.6006, L509.4006, L501.9985, L3890.6102, BTS, L3890.6301, L100.0100, L509.8002 #### [facility] [address] [place], [address] Eosinophils/100 WBC (Bld) 0.5 % Normal 0-5 [facility] Comment on above: Performed By: #### L 900.0098, L3890.6006, L509.4006, L501.9985, L3890.6102, BTS, L3890.6301, L100.0100, L509.8002 #### [facility] [address] [place], [address] Erythrocyte distribution width (RBC) [Ratio] 12.9 % Normal 11.6-14.6 [facility] Comment on above: Performed By: #### L 900.0098, L3890.6006, L509.4006, L501.9985, L3890.6102, BTS, L3890.6301, L100.0100, L509.8002 #### [facility] [address] [place], [address] Hematocrit (Bld) [Volume fraction] 38.3 % Normal 37-47 [facility] Comment on above: Performed By: #### L 900.0098, L3890.6006, L509.4006, L501.9985, L3890.6102, BTS, L3890.6301, L100.0100, L509.8002 #### [facility] [address] [place], [address] Hemoglobin (Bld) [Mass/Vol] 13.2 g/dL Normal 12.0-15.0 [facility] Comment on above: Performed By: #### L 900.0098, L3890.6006, L509.4006, L501.9985, L3890.6102, BTS, L3890.6301, L100.0100, L509.8002 #### [facility] [address] [place], [address] IG% 0.300 Normal 0.0-0.9 [facility] Comment on above: Result Comment: IG% - Immature Granulocytes (promyelocytes, myelocytes and metamyelocytes) > 1% indicates that a LEFT SHIFT is Present. Performed By: #### L 900.0098, L3890.6006, L509.4006, L501.9985, L3890.6102, BTS, L3890.6301, L100.0100, L509.8002 #### [facility] [address] [place], [address] Lymphocytes/100 WBC (Bld) 23.3 % Normal 19-41 [facility] Comment on above: Performed By: #### L 900.0098, L3890.6006, L509.4006, L501.9985, L3890.6102, BTS, L3890.6301, L100.0100, L509.8002 #### [facility] [address] [place], [address] MCH (RBC) [Entitic mass] 29.0 pg Normal 27.0-32.0 [facility] Comment on above: Performed By: #### L 900.0098, L3890.6006, L509.4006, L501.9985, L3890.6102, BTS, L3890.6301, L100.0100, L509.8002 #### [facility] [address] [place], [address] MCHC (RBC) [Mass/Vol] 34.5 g/dL Normal 32-36 [facility] Comment on above: Performed By: #### L 900.0098, L3890.6006, L509.4006, L501.9985, L3890.6102, BTS, L3890.6301, L100.0100, L509.8002 #### [facility] [address] [place], [address] MCV (RBC) [Entitic vol] 84.2 fL Normal 81-99 [facility] Comment on above: Performed By: #### L 900.0098, L3890.6006, L509.4006, L501.9985, L3890.6102, BTS, L3890.6301, L100.0100, L509.8002 #### [facility] [address] [place], [address] Monocytes/100 WBC (Bld) 3.5 % Normal 0-10 [facility] Comment on above: Performed By: #### L 900.0098, L3890.6006, L509.4006, L501.9985, L3890.6102, BTS, L3890.6301, L100.0100, L509.8002 #### [facility] [address] [place], [address] Neutrophils/100 WBC (Bld) 72.2 % High 47-70 [facility] Comment on above: Performed By: #### L 900.0098, L3890.6006, L509.4006, L501.9985, L3890.6102, BTS, L3890.6301, L100.0100, L509.8002 #### [facility] [address] [place], [address] Nucleated RBC (Bld) [#/Vol] 0 10*3/uL Normal 0-5 [facility] Comment on above: Performed By: #### L 900.0098, L3890.6006, L509.4006, L501.9985, L3890.6102, BTS, L3890.6301, L100.0100, L509.8002 #### [facility] [address] [place], [address] ( Platelet mean volume (Bld) [Entitic vol] 9.4 fL Normal 6.2-12.0 [facility] Comment on above: Performed By: #### L 900.0098, L3890.6006, L509.4006, L501.9985, L3890.6102, BTS, L3890.6301, L100.0100, L509.8002 #### [facility] [address] [place], [address] ( Platelets (Bld) [#/Vol] 258 10*3/uL Normal 150-450 [facility] Comment on above: Performed By: #### L 900.0098, L3890.6006, L509.4006, L501.9985, L3890.6102, BTS, L3890.6301, L100.0100, L509.8002 #### [facility] [address] [place], [address] ( RBC (Bld) [#/Vol] 4.55 10*6/uL Normal 4.2-5.4 [facility] Comment on above: Performed By: #### L 900.0098, L3890.6006, L509.4006, L501.9985, L3890.6102, BTS, L3890.6301, L100.0100, L509.8002 #### [facility] [address] [place], [address] RDW SD 39.3 fl Normal 35.1-43.9 [facility] Comment on above: Performed By: #### L 900.0098, L3890.6006, L509.4006, L501.9985, L3890.6102, BTS, L3890.6301, L100.0100, L509.8002 #### [facility] [address] [place], [address] WBC (Bld) [#/Vol] 9.9 10*3/uL Normal 4.4-11.0 [facility] Comment on above: Performed By: #### L 900.0098, L3890.6006, L509.4006, L501.9985, L3890.6102, BTS, L3890.6301, L100.0100, L509.8002 #### [facility] [address] [place], [place], [id number] (352) Eosinophil percentageOrdered By: Karina Venegas on 07-04-2024 Eosinophils/100 WBC (Bld) 0.5 % 0-5 [facility] Erythrocyte distribution wid th ratioOrdered By: Karina Venegas on 07-04-2024 Erythrocyte distribution width (RBC) [Ratio] 12.9 % 11.6-14.6 [facility] Erythrocyte distribution wid th standard deviationOrdered By: Karina Venegas on 07-04-2024 Erythrocyte distribution width (RBC) [Entitic vol] 39.3 fL 35.1-43.9 [facility] Erythrocyte distribution width (RBC) [Ratio] 39.3 fl 35.1-43.9 [facility] HBV surface Ag Ql (S)Ordered By: Karina Venegas on 07-04-2024 Hepatitis B Surface Antigen Non-Reactive Nonreactive [facility] Comment on above: Reactive: Presumptiv e evidence of HBV. Repeatedly reactive samples must be confirmed using a neutralization test ([employer] HBsAg Confirmatory Test)Non-Reactive: HBsAg not detected; does not exclude the possibility of exposure to HBV Hematocrit Auto (Bld) [Volum e fraction]Ordered By: Karina Venegas on 07-04-2024 Hematocrit (Bld) [Volume fraction] 38.3 % 37-47 [facility] Hemoglobin A1con 07-04-2024 HbA1c (Bld) [Mass fraction] 5.3 % Low <=5.6 [facility] Comment on above: Performed By: #### L 900.0098, L3890.6006, L509.4006, L501.9985, L3890.6102, BTS, L3890.6301, L100.0100, L509.8002 ####[facility] [id number] [place], [address] Hemoglobin A1c percentageOrd ered By: Karina Venegas on 07-04-2024 HbA1c (Bld) [Mass fraction] 5.3 % Low >5.7 [facility] Hemoglobin measurementOrdere d By: Karina Venegas on 07-04-2024 Hemoglobin (Bld) [Mass/Vol] 13.2 g/dL 12.0-15.0 [facility] Hepatitis C antibodyOrdered By: Karina Venegas on 07-04-2024 Hepatitis C Antibody Non-Reactive Nonreactive [facility] Comment on above: Reactive: Presumptiv e evidence of antibodies to HCV. Follow CDC recommendations for supplemental testing.Non-Reactive: Antibodies to HCV were not detected; does not exclude the possibility of exposure to HCVReactive Results are presumptive evidence of antibodies to HCV. Follow CDC recommendations for supplemental testing.Order confirmation testing: HCV Quant by PCR testing - HCVPCR #[id number] Non Reactive: < 0.8 Equivocal: >/= 0.8 to < 1.0 Reactive: >/= 1.0The CDC requires that a reactive/equivocal HCV antibody result be sent out for confirmation. HCV Quant by PCR testing. Immature granulocytes/100 WB C Auto (Bld)Ordered By: Karina Venegas on 07-04-2024 Immature granulocytes/100 WBC (Bld) 0.300 % 0.0-0.9 [facility] Comment on above: IG% - Immature Granu locytes (promyelocytes, myelocytes and metamyelocytes) > 1% indicates that a LEFT SHIFT is Present. L3890.6006on 07-04-2024 HIV Non-Reactive Normal Nonreactive [facility] Comment on above: Result Comment: Non- Reactive Reactive Repeatedly reactive samples must be confirmed according to CDC recommended confirmatory algorithms. The subresults for either HIVAG or AHIV can be used as an aid in the selection of the confirmation algorithm for reactive samples. [facility]. Order the HIV antibody detection and differentiation: [id number] Performed By: #### L 900.0098, L3890.6006, L509.4006, L501.9985, L3890.6102, BTS, L3890.6301, L100.0100, L509.8002 ####[facility] [id number] [facility]. [place], [place], [address] L3890.6102on 07-04-2024 HEP B Surf Ag Non-Reactive Normal Nonreactive [facility] Comment on above: Result Comment: Reac tive: Presumptive evidence of HBV. Repeatedly reactive samples must be confirmed using a neutralization test ([employer] HBsAg Confirmatory Test) Non-Reactive: HBsAg not detected; does not exclude the possibility of exposure to HBV Performed By: #### L 900.0098, L3890.6006, L509.4006, L501.9985, L3890.6102, BTS, L3890.6301, L100.0100, L509.8002 ####[facility] [address] [place], [place], [id number] L3890.6301on 07-04-2024 Hepatitis C Ab Non-Reactive Normal Nonreactive [facility] Comment on above: Result Comment: Reac tive: Presumptive evidence of antibodies to HCV. Follow CDC recommendations for supplemental testing. Non-Reactive: Antibodies to HCV were not detected; does not exclude the possibility of exposure to HCV Reactive Results are presumptive evidence of antibodies to HCV. Follow CDC recommendations for supplemental testing. Order confirmation testing: HCV Quant by PCR testing - HCVPCR #[id number] Non Reactive: < 0.8 Equivocal: >/= 0.8 to < 1.0 Reactive: >/= 1.0 The CDC requires that a reactive/equivocal HCV antibody result be sent out for confirmation. HCV Quant by PCR testing. Performed By: #### L 900.0098, L3890.6006, L509.4006, L501.9985, L3890.6102, BTS, L3890.6301, L100.0100, L509.8002 ####[facility] [id number] [facility] [place], [address] L509.4006on 07-04-2024 Rubella IgG REAC Normal Nonreactive [facility] Comment on above: Result Comment: Anti body Result: Interpretation Non-Reactive: Non-Immune Reactive: Immune The following results were obtained with the [employer] Rubella IgG assay. Results from assays of other manufacturers cannot be used interchangeably. Performed By: #### L 900.0098, L3890.6006, L509.4006, L501.9985, L3890.6102, BTS, L3890.6301, L100.0100, L509.8002 #### [facility] [address] [place], [address] L509.8002on 07-04-2024 Syphilis Abs Non-Reactive Normal Nonreactive [facility] Comment on above: Performed By: #### L 900.0098, L3890.6006, L509.4006, L501.9985, L3890.6102, BTS, L3890.6301, L100.0100, L509.8002 ####[facility] [id number] [facility]. [place], [place], [address] Laboratory - Microbiology an d Antimicrobial susceptibilityOrdered By: Karina Venegas on 07-04-2024 HBV surface Ag Ql (S) Non-Reactive Nonreactive [facility] Comment on above: Reactive: Presumptiv e evidence of HBV. Repeatedly reactive samples must be confirmed using a neutralization test ([employer] HBsAg Confirmatory Test)Non-Reactive: HBsAg not detected; does not exclude the possibility of exposure to HBV Lymphocytes Auto (Unsp spec) [#/Vol]Ordered By: Karina Venegas on 07-04-2024 Lymphocytes (Bld) [#/Vol] 2.31 10*3/uL 0.83-4.51 [facility] Lymphocytes/100 WBC Auto (Un sp spec)Ordered By: Karina Venegas on 07-04-2024 Lymphocytes/100 WBC (Bld) 23.3 % 19-41 [facility] MCV (mean corpuscular volume ) determinationOrdered By: Karina Venegas on 07-04-2024 MCV (RBC) [Entitic vol] 84.2 fL 81-99 [facility] Mean corpuscular hemoglobin (MCH) determinationOrdered By: Karina Venegas on 07-04-2024 MCH (RBC) [Entitic mass] 29.0 pg 27.0-32.0 [facility] Mean corpuscular hemoglobin concentration (MCHC) determinationOrdered By: Karina Venegas on 07-04-2024 MCHC (RBC) [Mass/Vol] 34.5 g/dL 32-36 [facility] Mean platelet volume determi nationOrdered By: Karina Venegas on 07-04-2024 Platelet mean volume (Bld) [Entitic vol] 9.4 fL 6.2-12.0 [facility] Miscellaneous procedureOrder ed By: Karina Venegas on 07-04-2024 Miscellaneous Test Comment SEE SCANNED REPORT [facility] Monocyte percentageOrdered B y: Karina Venegas on 07-04-2024 Monocytes/100 WBC (Bld) 3.5 % 0-10 [facility] NATERAon 07-04-2024 NATURA SEE SCANNED REPORT Normal [facility] Comment on above: Order Comment: Comme nts: NIPT with gender carrier testing Performed By: #### L 900.0098, L3890.6006, L509.4006, L501.9985, L3890.6102, BTS, L3890.6301, L100.0100, L509.8002 #### [facility] [address] [place], [address] Neutrophil percentageOrdered By: Karina Venegas on 07-04-2024 Neutrophils/100 WBC (Bld) 72.2 % High 47-70 [facility] No Panel InformationOrdered By: Karina Venegas on 07-04-2024 HIV (1&2) Antibody Non-Reactive Nonreactive [facility] Comment on above: Non-ReactiveReactive Repeatedly reactive samples must be confirmed according to CDC recommended confirmatory algorithms. The subresults for either HIVAG or AHIV can be used as an aid in the selection of the confirmation algorithm for reactive samples.Send out specimens with Reactive results to [facility] for confirmation.Order the HIV antibody detection and differentiation: roman#[id number] Nucleated red blood cell per centageOrdered By: Karina Venegas on 07-04-2024 Nucleated RBC/100 WBC (Bld) [Ratio] 0 % 0-5 [facility] Platelet countOrdered By: Richmond Venegas on 07-04-2024 Platelets (Bld) [#/Vol] 258 10*3/uL 150-450 [facility] RBC Auto (Bld) [#/Vol]Ordere d By: Karina Venegas on 07-04-2024 RBC (Bld) [#/Vol] 4.55 10*6/uL 4.2-5.4 [facility] Rubella immune status determ ination by IgG antibody assayOrdered By: Karina Venegas on 07-04-2024 Rubella IgG Antibody REAC Nonreactive [facility] Comment on above: Antibody Result: Int erpretationNon-Reactive: Non-ImmuneReactive: ImmuneThe following results were obtained with the [employer] Rubella IgG assay. Results from assays of other manufacturers cannot be used interchangeably. T. pallidum abOrdered By: Richmond Venegas on 07-04-2024 Syphilis Total Antibody Non-Reactive Nonreactiv e [facility] Type AND Screenon 07-04-2024 Ab SCREEN GEL Negative Normal [facility] Comment on above: Order Comment: PN Performed By: #### L 900.0098, L3890.6006, L509.4006, L501.9985, L3890.6102, BTS, L3890.6301, L100.0100, L509.8002 #### [facility] [address] [place], [address] White blood cell (WBC) count Ordered By: Karina Venegas on 07-04-2024 WBC (Bld) [#/Vol] 9.9 10*3/uL 4.4-11.0 [facility] PAP I-G w/rfx hrHPV-Aptimaon 06-27-2024 ADEQ Comment Normal . [facility] Comment on above: Order Comment: Speci men Comment: [id number] Specimen Comment: Source.............Cervix Specimen Comment: LMP / Prev Treat...[id number] Specimen Comment: Other.............. Specimen Comment: No. of containers..01 ThinPrep Vial Result Comment: Sati sfactory for evaluation. Endocervical and/or squamous metaplastic cells (endocervical component) are present. Performed By: #### M 100.2200, L7000.1800, L7400.0353 #### [facility] [address] [facility]. [place], [place], [id number] COMM . Normal . [facility] Comment on above: Order Comment: Speci men Comment: [id number] Specimen Comment: Source.............Cervix Specimen Comment: LMP / Prev Treat...[id number] Specimen Comment: Other.............. Specimen Comment: No. of containers..01 ThinPrep Vial Performed By: #### M 100.2200, L7000.1800, L7400.0353 #### [facility] [address] [facility]. [place], [place], [id number] COMMENT Comment Normal . [facility] Comment on above: Order Comment: Speci men Comment: [id number] Specimen Comment: Source.............Cervix Specimen Comment: LMP / Prev Treat...[id number] Specimen Comment: Other.............. Specimen Comment: No. of containers..01 ThinPrep Vial Result Comment: This liquid based ThinPrep(R) pap test was screened with the use of an image guided system. Performed By: #### M 100.2200, L7000.1800, L7400.0353 #### [facility] [address] [place], [place], [id number] DIAG Comment Normal . [facility] Comment on above: Order Comment: Speci men Comment: [id number] Specimen Comment: Source.............Cervix Specimen Comment: LMP / Prev Treat...[id number] Specimen Comment: Other.............. Specimen Comment: No. of containers..01 ThinPrep Vial Result Comment: NEGA TIVE FOR INTRAEPITHELIAL LESION OR MALIGNANCY. THIS SPECIMEN WAS RESCREENED PART OF OUR LARGE ENGINE ASSEMBLER PROGRAM. Performed By: #### M 100.2200, L7000.1800, L7400.0353 #### [facility] [address] [place], [place], [id number] HPV RFLX Comment Normal . [facility] Comment on above: Order Comment: Speci men Comment: [id number] Specimen Comment: Source.............Cervix Specimen Comment: LMP / Prev Treat...[id number] Specimen Comment: Other.............. Specimen Comment: No. of containers..01 ThinPrep Vial Result Comment: The HPV DNA reflex criteria were not met with this specimen result therefore, no HPV testing was performed. Performed at: [facility] - [address] [id number] Soda Dialyzer: Kathleen Plata MD, Phone: [phone] Performed at: [facility] [id number] [place] [id number] Soda Dialyzer: Hermann Zee MD, Phone: [phone] Performed By: #### M 100.2200, L7000.1800, L7400.0353 #### [facility] [address] [place], [place], [id number] PAPSMR Comment Normal . [facility] Comment on above: Order Comment: Speci men Comment: [id number] Specimen Comment: Source.............Cervix Specimen Comment: LMP / Prev Treat...[id number] Specimen Comment: Other.............. Specimen Comment: No. of containers..01 ThinPrep Vial Result Comment: The Pap smear is a screening test designed to aid in the detection of premalignant and malignant conditions of the uterine cervix. It is not a diagnostic procedure and should not be used as the sole means of detecting cervical cancer. Both false-positive and false-negative reports do occur. Performed By: #### M 100.2200, L7000.1800, L7400.0353 #### [facility] [address] [place], [place], [id number] PERFORM Comment Normal . [facility] Comment on above: Order Comment: Speci men Comment: [id number] Specimen Comment: Source.............Cervix Specimen Comment: LMP / Prev Treat...[id number] Specimen Comment: Other.............. Specimen Comment: No. of containers..01 ThinPrep Vial Result Comment: Maisha Roberts Clay Miller (ASCP) Performed By: #### M 100.2200, L7000.1800, L7400.0353 #### [facility] [address] [place], [place], [id number] QC REV Comment Normal . [facility] Comment on above: Order Comment: Speci men Comment: [id number] Specimen Comment: Source.............Cervix Specimen Comment: LMP / Prev Treat...[id number] Specimen Comment: Other.............. Specimen Comment: No. of containers..01 ThinPrep Vial Result Comment: Robert Flowers, Clay Miller Performed By: #### M 100.2200, L7000.1800, L7400.0353 #### [facility] [address] [place], [address] Chlamydia/GC LANNY aptimaon CHLAMY,NUC ACID Negative Normal Negative [facility] Comment on above: Performed By: #### M 100.2200, L7000.1800, L7400.0353 #### [facility] [address] [place], [address] GC BY NUC ACID Negative Normal Negative [facility] Comment on above: Result Comment: Perf ormed at: =[facility] - [facility] [address] [id number] Soda Dialyzer: Kathleen Plata MD, Phone: [phone] Performed By: #### M 100.2200, L7000.1800, L7400.0353 #### [facility] [address] [place], [address] Urine Cultureon 06-21-2024 URC Culture exhibits no growth. Normal [facility] Comment on above: Performed By: #### M 100.2200, L7000.1800, L7400.0353 #### [facility] [address] [place], [address] C. trachomatis rRNA LANNY+prob e Ql (Unsp spec)Ordered By: Karina Venegas on 06-20-2024 Chlamydia DNA (LANNY) Negative Negative [facility] Cervical or vagninal specime n microscopic examination by cytology stain (reported asOrdered By: Karina Venegas on 06-20-2024 Cytology report Cyto stain Doc (Cvx/Vag) Comment . [facility] Comment on above: The Pap smear is a s creening test designed to aid in thedetection of premalignant and malignant conditions of theuterine cervix. It is not a diagnostic procedure andshould not be used as the sole means of detecting cervicalcancer. Both false-positive and false-negative reports dooccur. Chlamydia trachomatis rRNA d etection by probe and target amplification methodOrdered By: Karina Venegas on 06-20-2024 C. trachomatis rRNA LANNY+probe Ql (Unsp spec) Negative Negative [facility] Blow Pit Helper Cyto stain Nom (C vx/Vag) [ID]Ordered By: Karina Venegas on 06-20-2024 Pap Smear Performed By Comment . [facility] Comment on above: Jovita Roberts, Cyto technologist (ASCP) Cytology report Cyto stain D oc (Cvx/Vag)Ordered By: Karina Venegas on 06-20-2024 Thin Prep Pap Smear Comment . [facility] Comment on above: The Pap smear is a s creening test designed to aid in thedetection of premalignant and malignant conditions of theuterine cervix. It is not a diagnostic procedure andshould not be used as the sole means of detecting cervicalcancer. Both false-positive and false-negative reports dooccur. Image-guided ThinPrep PapOrd ered By: Karina Venegas on 06-20-2024 Pap Smear Note Comment . [facility] Comment on above: This liquid based Th inPrep(R) pap test was screened withthe use of an image guided system. Image-guided liquid-based Pa pOrdered By: Karina Venegas on 06-20-2024 Pap Smear Diagnosis Comment . [facility] Comment on above: NEGATIVE FOR INTRAEP ITHELIAL LESION OR MALIGNANCY.THIS SPECIMEN WAS RESCREENED PART OF OUR LARGE ENGINE ASSEMBLER PROGRAM. Image-guided liquid-based ce rvical Pap w high-risk HPV+reflex to HPV 16+18Ordered By: Karina Venegas on 06-20-2024 Human Papillomavirus Screen Comment . [facility] Comment on above: The HPV DNA reflex c nidia were not met with this specimenresult therefore, no HPV testing was performed.Performed at: [facility] - [facility] [id number] Director: Kathleen Plata MD, Phone: [phone] at: [facility] [id number] [place], [place] [id number] Director: Hermann Zee MD, Phone: [phone] Laboratory - CytologyOrdered By: Karina Venegas on 06-20-2024 Blow Pit Helper Cyto stain Nom (Cvx/Vag) [ID] Comment . [facility] Comment on above: Jovita Roberts, Cyto technologist (ASCP) Laboratory - Miscellaneous t estsOrdered By: Karina Venegas on 06-20-2024 Service comment (Unsp spec) [Interp] . . [facility] Neisseria gonorrhoeae nuclei c acid detection by amplified probe techniqueOrdered By: Karina Venegas on 06-20-2024 N. gonorrhoeae DNA LANNY+probe Ql (Unsp spec) Negative Negative [facility] Comment on above: Performed at: [address] [id number] Director: Kathleen Plata MD, Phone: [phone] No Panel InformationOrdered By: Karina Venegas on 06-20-2024 Pap Smear QC Review Comment . [facility] Comment on above: Brenda Flowers Cyto technologist Pap Smear Specimen Adequacy Comment . [facility] Comment on above: Satisfactory for mary luation. Endocervical and/or squamous metaplasticcells (endocervical component) are present. Digital Designer Office Visit Reporton 06-20-2024 Digital Designer Office Visit Report [facility] [address], [address] [place] [address] OFFICE VISIT Date of Service: 06/20/24 MR#: [id number] Acct: [id number] Name: CHETNA TUCKER Rep #: [id number] : 1995 Provider: Dr. Karina Shaikh, Age/Sex: 28/F Location: [facility] [place] Status: Signed Intake Vital Signs 12/07/23 14:21 06/20/24 14:06 Height 5 ft 9 in 5 ft 9 in Weight: 237 lb 4 oz BMI 35.0 BP 128/84 H Intake Visit Reasons: New OB, LMP 04/17, YESI 01/22 Hypo Splasher Required: No Is patient in pain?: No Allergies No Known Allergies Allergy (Verified 06/20/24 14:06) Medications ???Medication ???Instructions ???Recorded ???Confirmed ???Type PNV 178-FA 180 mcg-om3 35 mg-dha tab PO 05/29/24 06/20/24 History 25 mg-epa 5 mg-fish oil chew tablet Last Menstrual Period: 04/17/24 Zika: Zika virus screening: Negative : No PFSH PFSH Medical History Encounter for IUD removal Seasonal allergies S/p nephrectomy Surgical History [place] teeth extracted History of nephrectomy, right Family History Mother Kidney disease Heart disease Hypertension Grandmother Heart disease Maternal Kidney disease Maternal Hypertension Maternal Diabetes Maternal Father Hypertension Social History adopted: No household members: spouse housing: house service: No current occupational status: employed current occupation: [employer] current occupational exposures/hazards: No pets and animals: Yes (2) pets and animals: dog(s) history of recent travel: No sexually active: Yes Smoking Status: Former smoker quit date: 05/19/24 Electronic Cigarette Use: with nicotine smoking status stop date: 05/19/24 how long ago did patient quit smokin weeks ago quit status: quit date established alcohol intake: current details: occasionally- not while drinking substance use type: does not use well-balanced diet: about half the time caffeine: Yes Type: coffee Number of servings: 1 eating out: 1-3 times/week during the past year weight has: remained stable what type of physical activity do you participate in: none frequency: 1-2 times per week dat/sikhism: None seatbelt use: always do you feel safe at home: Yes additional social history: -[facility] History 1 Elective abortions Hx Para 0 Spontaneous abortions Hx # Term Pregnancies Ectopic pregnancies Hx # Pregnancies Multiple births # of living children HPI New OB, LMP 04/17, YESI 01/22 Details: CHETNA TUCKER is a 28 year old who presents for New OB visit. OB Visit YESI Calculator Estimated Delivery Date Method Current WG Current Estimate 01/22/25 LMP (Certain) 9w 1d Other Estimates 01/23/25 Ultrasound #1 9w 0d Comments: HIV: Urine Culture: Sequential Screen: NIPT Screen: Estimated Due Date: 01/22/25 Expected Delivery Route/Plan Labor Preferences- CB/BF classes: [] labor support person: [] labor intervention preferences: [] pain management options preferred: [] cut cord/dad catch: [] : [] PP control planned: [] discussed possible routes of delivery and associated risks: [] special requests: [] Specific Issue/Plans Covid status: [] Flu vaccine: [] Tdap vaccine: [] Rhogam: [] LARC form signed: [] Problem list reviewed and updated with the most current plan of care details and appropriate orders placed. Relevant counseling for the gestational age provided. Continue routine care and follow up unless otherwise noted in visit notes/problem list details Initial Weight: Not Recorded Date -???-???-???-???-???-?? ?-???-???-???-???-???-? ??- EGA Weight BP Urine Prot -???-???-???-???-???-?? ?-???-???-???-???-???-? ??- Glucose FHR FuHt Pres Dilation -???-???-???-???-???-?? ?-???-???-???-???-???-? ??- Effaced St Visit Note 06/20/24 -???-???-???-???-???-?? ?-???-???-???-???-???-? ??- 9w 1d 237 lb 4 oz 128/84 -???-???-???-???-???-?? ?-???-???-???-???-???-? ??- 185 -???-???-???-???-???-?? ?-???-???-???-???-???-? ??- JV- CRL cons istent with LMP. desires NIPT. Menstrual History Last Menstrual Period: 04/17/24 Reported LMP: definite Normal amount/duration: Yes Frequency in days: 28 On hormonal BC at conception: No hCG+: 05/21/24 Antepartum Record Genetic Screening: Congenital Heart Defect: Other, Neural Tube Defect: Other, Hemoglobinopathy Or Carrier: Other, Cystic Fibrosis: Other, Chromosome Abnormality: Other, Bjorn-Sachs: Other, Hemophilia: Other, I (more content not included)... Normal [facility] Service comment (Unsp spec) [Interp]Ordered By: Karina Venegas on 06-20-2024 Pap Smear Comment (3) . . [facility] Urine cultureOrdered By: Amalia Venegas on 06-20-2024 Bacteria identified Cx Nom (U) Culture exhibits no growth. [facility] Digital Designer Office Visit Reporton 12-07-2023 Digital Designer Office Visit Report [facility] [address] [place] [address], [address] [place] [address] OFFICE VISIT Date of Service: 12/07/23 MR#: [id number] Acct: [id number] Name: CHETNA TUCKER Rep #: [id number] : 1995 Provider: Dr. Karina Shaikh DO Age/Sex: 28/F Location: [facility] [place] Status: Signed Intake Vital Signs 07/22/23 16:26 12/07/23 14:21 12/07/23 14:21 Height 5 ft 9 in 5 ft 9 in 5 ft 9 in Weight: 236 lb 6 oz BMI 34.9 BP 129/88 H Intake Visit Reasons: IUD REMOVAL Hypo Splasher Required: No Is patient in pain?: No Allergies No Known Allergies Allergy (Verified 07/22/23 16:24) Medications ???Medication ???Instructions ???Recorded ???Confirmed ???Type docosahexaenoic acid 200 mg mg PO 12/07/23 12/07/23 History capsule ( DHA) doxycycline hyclate 100 mg capsule 100 mg PO BID 7 days #14 caps 12/07/23 12/07/23 Rx Post menopausal: No Patient : No : No PFSH Medical History S/p nephrectomy Family History Mother Kidney disease Heart disease Grandmother Heart disease Father Hypertension Social History Smoking Status: Never smoker alcohol intake: current details: occasionally substance use type: does not use caffeine: Yes what type of physical activity do you participate in: walking and weight training frequency: 1-2 times per week seatbelt use: always do you feel safe at home: Yes additional social history: -[employer] HPI IUD REMOVAL Details: CHETNA TUCKER is a 28 year old who presents for IUD removal. she would like to get . She also has an active HS outbreak. History 0 Elective abortions Hx Para Spontaneous abortions Hx # Term Pregnancies Ectopic pregnancies Hx # Pregnancies Multiple births # of living children ROS Const ROS Unobtainable: All systems reviewed are unremarkable except as noted in H Resp Resp: Reports system reviewed and no additional complaints, except as documented; Denies cough GI GI: Reports as per HPI Psych Psych: Reports system reviewed and no additional complaints, except as documented Exam Const General: cooperative, healthy appearing, comfortable and no acute distress Resp Effort Inspection: normal respiratory effort General: bimanual renal exam normal bilaterally External Female Exam: normal appearance of the urethra Urethra: normal appearance of the urethra Speculum Exam - Vagina: normal appearance of the vagina Speculum Exam - Cervix: normal appearance of the cervix Bimanual Exam- Adnexa, other: normal adnexae Other: The IUD strings appear normal and adequately placed IUD is suspected based on the exam today. Skin General: no rashes or lesions noted Psych Appearance: grossly normal Speech and Movement: speech and movement normal Office Procedures IUD Removal IUD Removal Details: Sign out documentation: Completed Procedure: Speculum placed in vagina, IUD string visualized and grasped with ring forceps. IUD easily removed in its entirety and patient tolerated well. Coding Level of Care Code Off vis,est,level 3 Diagnoses Encounter for IUD removal Z30.432 Hidradenitis suppurativa L73.2 Assessment and Plan Assessment and Plan (1) Encounter for IUD removal: Status: Acute Plan: IUD removed without complications recommend continuing PNV (2) Hidradenitis suppurativa: Status: Acute Plan: rx for doxycline sent to pharmacy Orders: Orders IUD Removal Today Z30.432 - Encounter for removal of intrauterine contraceptive device Medications: Changed From doxycycline hyclate 100 mg PO DAILY To doxycycline hyclate 100 mg PO BID 14 caps 0RF 7 days 12/07/23 1448 Date Karina Bravo DO [facility] Signature: Date (if applicable) CC: Normal [facility] T4 Free Directon 11-01-2023 T4 FREE DIRECT 0.79 ng/dL Normal 0.76-1.46 [facility] Comment on above: Order Comment: Order Date: 11/01/23Order Info: [id number] - TSHOrder Info: 3024-7 - T4F Performed By: #### L 501.9520, L506.0400 ####[facility] [address] [facility]. [place], [place], [id number] Thyroid Stim Hormone (TSH)on 11-01-2023 TSH 1.23 uIU/mL Normal 0.358-3.74 [facility] Comment on above: Order Comment: Order Date: 11/01/23Order Info: [id number] - TSHOrder Info: 3024-7 - T4F Performed By: #### L 501.9520, L506.0400 ####[facility] [address] [place], [place], [address] hCG Titer Quant., Serumon HCG QUANT. < 1 Normal 1-3 [facility] Comment on above: Result Comment: hCG levels with Gestational Age Gestational Age hCG mIU/mL (IU/L) 0.2 - 1 week 5 - 50 1-2 weeks 50 - 500 2-3 weeks 100 - 5000 3-4 weeks 500 - 22983 4-5 weeks 1000 - 86679 5-6 weeks 07269 - 100,000 6-8 weeks 14876 - 200,000 2-3 months 71712 - 100,000 Performed By: #### L 700.8000 ####[facility] [address] [place], [address] Basophil percentageOrdered B y: Ji Baer on 04-13-2023 Chloride [Moles/Vol] 107 mmol/L 98-107 [facility] Glucose [Mass/Vol] 81 mg/dL 74-106 [facility] Potassium [Moles/Vol] 3.9 mmol/L 3.5-5.1 [facility] Sodium [Moles/Vol] 140 mmol/L 136-145 [facility] Laboratory - Chemistry and C hemistry - challengeOrdered By: Ji Baer on 04-13-2023 CO2 [Moles/Vol] 24.0 mmol/L 21.0-32.0 [facility] Urea nitrogen/Creatinine [Mass ratio] 17.9 mg/mg 10-20 [facility] Laboratory - Chemistry and C hemistry - challengeon 04-13-2023 Bilirubin Ql (U) Negative [facility] Glucose Ql (U) Negative [facility] HCG ( test) Ql (U) Negative [facility] Ketones Ql (U) Negative [facility] pH (U) 5.0 [pH] [facility] Specific gravity (U) [Rel density] 1.005 [facility] Urobilinogen (U) [Mass/Vol] 1 mg/dL [facility] Laboratory - Hematology and Cell countson 04-13-2023 Hemoglobin Ql (U) Trace [facility] Laboratory - Specimen inform ationon 04-13-2023 Clarity (U) Cloudy [facility] Color (U) STRAW [facility] Laboratory - Urinalysison Nitrite Ql (U) Negative [facility] Protein Ql (U) Negative [facility] No Panel InformationOrdered By: Ji Baer on 04-13-2023 Estimated GFR (MDRD) Amer 125 mL/min >60 [facility] Comment on above: GFR Calc Estimated GFR (MDRD) Non-Af Amer 103 mL/min >60 [facility] Comment on above: Non- GFR Calc No Panel Informationon 04-13 Urine Leukocytes Positive [facility] Urine Non-Hemolyzed Blood Non-Hemolyzed [facility] Serum or plasma calcium aubree urement (mass/volume)Ordered By: Ji Baer on 04-13-2023 Calcium [Mass/Vol] 9.5 mg/dL 8.5-10.1 [facility] Serum or plasma creatinine m easurement (mass/volume)Ordered By: Ji Baer on 04-13-2023 Creatinine [Mass/Vol] 0.73 mg/dL 0.55-1.02 [facility] Comment on above: The validity of the calculated GFR & GFRAA in patients over 70 years has not been determined. Clinical correlation is essential. Serum or plasma urea nitroge n measurement (mass/volume)Ordered By: Ji Baer on 04-13-2023 Urea nitrogen [Mass/Vol] 13 mg/dL 7-18 [facility] Thin prep Papanicolaou smear with manual screeningOrdered By: Ji Baer on 04-13-2023 Thin prep Papanicolaou smear with manual screening 9 5-15 [facility] Chlamydia trachomatis rRNA d etection by probe and target amplification methodon 07-17-2021 C. trachomatis rRNA LANNY+probe Ql (Unsp spec) Negative Negative [facility] Work Phone: Laboratory - Microbiology an d Antimicrobial susceptibilityon 07-17-2021 N. gonorrhoeae DNA LANNY+probe Ql (Unsp spec) Negative Negative [facility] Work Phone: Comment on above: Performed at: = - [address] [id number] Director: Kathleen Plata MD, Phone: [phone] Laboratory - Chemistry and C hemistry - challengeon 03-24-2021 Free T4 [Mass/Vol] 0.92 ng/dL 0.76-1.46 [facility] Work Phone: No Panel Informationon 03-24 Thyroid Stimulating Hormone (TSH) 1.01 uIU/mL 0.358-3.74 [facility] Work Phone: .GFRon 06-01-2017 eGFR (non-black) mL/min/{1.73_m2} Normal [facility] ([place]) Comment on above: Result Comment: GFR Population mean for , Non- Americans Ages 20-29 = 116 mL/min/1.73 sq.m. Ages 30-39 = 107 mL/min/1.73 sq.m. Ages 40-49 = 99 mL/min/1.73 sq.m. Ages 50-59 = 93 mL/min/1.73 sq.m. Ages 60-69 = 85 mL/min/1.73 sq.m. Ages 70+ = 75 mL/min/1.73 sq.m.Chronic Kidney Disease: Less than 60 mL/min/1.73 square metersEnd Stage Renal Disease: Less than 15 mL/min/1.73 square meters Performed By: #### B MP, GFR ####[place] [address] BMPon 06-01-2017 BUN/Creatinine Ratio 22.1 ratio High 10.0-22.0 [facility] ([place]) Comment on above: Performed By: #### B MP, GFR ####[place] [address] Calcium 9.6 mg/dL Normal 8.4-10.1 [facility] ([place]) Comment on above: Performed By: #### B MP, GFR ####[address] [address] Chloride 108 mmol/L Normal 98-110 [facility] ([place]) Comment on above: Performed By: #### B MP, GFR ####[place] [address] CO2 28 mmol/L Normal 22-32 [facility] ([place]) Comment on above: Performed By: #### B MP, GFR ####[place] [address] Creatinine 0.68 mg/dL Normal 0.50-1.20 [facility] ([place]) Comment on above: Performed By: #### B MP, GFR ####[place] [address] Electrolyte Balance 7.0 mEq/L Normal 4.0-15.0 [facility] ([place]) Comment on above: Performed By: #### B MP, GFR ####[place] [address] Glucose mass conc 107 mg/dL Normal 70-110 [facility] ([place]) Comment on above: Performed By: #### B MP, GFR ####[place] [address] Potassium molar conc 3.9 mmol/L Normal 3.5-5.0 [facility] ([place]) Comment on above: Performed By: #### B MP, GFR ####[place] [address] Sodium 143 mmol/L Normal 136-145 [facility] ([place]) Comment on above: Performed By: #### B MP, GFR ####[place] [address] Urea nitrogen 15.0 mg/dL Normal 8.0-22.0 [facility] ([place]) Comment on above: Performed By: #### B MP, GFR ####[place] [address] ED Note-Provideron 8 ED Note-Provider Normal [facility] ([place]) Pat Eduon 06-01-2017 [facility] ([place]) Patient Summary Documentson 06-01-2017 Patient Summary Documents Normal [facility] [place]) UAon 06-01-2017 UA Appear Cloudy Abnormal [facility] ([place]) Comment on above: Performed By: #### U A, UAMIC ####[address] [address] UA Blood Large Abnormal Neg-Trace [facility] ([place]) Comment on above: Performed By: #### U A, UAMIC ####[address] [address] UA Leuk Est Small Abnormal Negative [facility] ([place]) Comment on above: Performed By: #### U A, UAMIC ####[place] [address] UA Nitrite Negative Normal Negative [facility] ([place]) Comment on above: Performed By: #### U A, UAMIC ####[place] [address] UA pH 6.5 Normal 5.0 - 8.0 [facility] ([place]) Comment on above: Performed By: #### U A, UAMIC ####[place] [address] UA Protein 100 mg/dL Abnormal Negative [facility] ([place]) Comment on above: Performed By: #### U A, UAMIC ####[place] [address] UA Spec Grav 1.015 Normal [facility] ([place]) Comment on above: Performed By: #### U A, UAMIC ####[place] [address] UA Specimen Type Clean Catch Normal [facility] ([place]) Comment on above: Performed By: #### U A, UAMIC ####[place] [address] UA Urobilinogen 0.2 E.U./dL Normal [facility] ([place]) Comment on above: Performed By: #### U A, UAMIC ####[place] [address] Urine, color Straw Normal [facility] ([place]) Comment on above: Performed By: #### U A, UAMIC ####[place] [address] Urine, glucose Negative Normal Negative [facility] ([place]) Comment on above: Performed By: #### U A, UAMIC ####[place] [address] Urine, ketones presence Negative Normal Negative A [facility] ([place]) Comment on above: Performed By: #### U A, UAMIC ####[place] [address] Urine, urobilinogen Negative Normal Neg-Trace [facility] ([place]) Comment on above: Performed By: #### U A, UAMIC ####[place] [address] [place] [address] UAMICon 06-01-2017 UA Bacteria 4+ /hpf Abnormal Negative [facility] ([place]) Comment on above: Performed By: #### U A, UAMIC ####[place] [address] [place], [place] [id number] UA Squam Epithelial 0-2 Normal 0-20 [facility] ([place]) Comment on above: Performed By: #### U A, UAMIC ####[facility] [place], [place] [phone] UA WBC 50-100 Abnormal 0-5 [facility] ([place]) Comment on above: Performed By: #### U A, UAMIC ####[place] [address] [place] [address] Urine, erythrocytes 5-10 Abnormal 0-2 [facility] ([place]) Comment on above: Performed By: #### U A, UAMIC ####[place] [address] CNOVon 12-31-2016 CNOV Office Visit (WSTR) CHETNA GARCIA I ([id number]) 1995 FDate Time Provider Department12/31/16 3:30 PM VÍCTOR KELLEY (KELSEA) WS During your visit today, we recorded the following information about you: Temperature Pulse Respiration Blood pressure 97.9 degrees 72/minute 16/minute 120/80 Weight Last Period 86.7 kg 12/28/16Víctor Kelley CNP 12/31/2016 4:[address] [facility] Basilio I Franco is a 21 year old female who presents today for CC of sinuscongestion. This started 4 days ago. Has tried multiple otc medications withlittle relief. Risk factors recently participated at the fair. Deniespossibility of being .Review of SystemsConstitutional: Negative for chills, fever and weight loss.HENT: Positive for congestion and sore throat. Negative for ear pain andnosebleeds.Eyes: Negative for pain, discharge and redness.Respiratory: Positive for cough. Negative for shortness of breath and wheezing.Musculoskeleta l: Negative for neck pain.No past medical history on file.No past surgical history on file.ALLERGIES Review of patient's allergies indicates no known allergies.MEDICATIONS No prescriptions on file.No family history on file.Social HistorySubstance Use Topics- Smoking status: Never Smoker- Smokeless tobacco: Not on file- Alcohol use Not on fileBlood pressure 120/80, pulse 72, temperature 36.6 ?C (97.9 ?F), temperaturesource Tympanic, resp. rate 16, weight 86.7 kg (191 lb 3.2 oz), last menstrualperiod 12/28/2016.Physical ExamConstitutional: She is well-developed, well-nourished, and in no distress. Nodistress.HENT:Head: Normocephalic and atraumatic.Right Ear: Hearing, tympanic membrane, external ear and ear canal normal.Left Ear: Hearing, tympanic membrane, external ear and ear canal normal.Nose: Nose normal.Mouth/Throat: Uvula is midline, oropharynx is clear and moist and mucousmembranes are normal.Eyes: Conjunctivae, EOM and lids are normal. Pupils are equal, round, andreactive to light. Lids are everted and swept, no foreign bodies found. Righteye exhibits no discharge. Left eye exhibits no discharge. No scleral icterus.Neck: Trachea normal and normal range of motion. Neck supple.Cardiovascular: Normal rate, regular rhythm and normal heart sounds.Pulmonary/Chest: Effort normal and breath sounds normal.Lymphadenopathy: She has no cervical adenopathy.Skin: No rash noted. She is not diaphoretic.ASSESSMENT/ PLAN:1. URI, acute - ICD9: 465.9, ICD10: J06.9- Discussed viral etiology and rationale for treatment.- Symptomatic treatment with prn analgesia- Supportive care with fluids and rest- The patient may also use OTC cough and cold meds as needed, warm salt watergargles, throat lozenges and/or OTC throat spray as needed and nasal salinegtts and suction prn.- Follow up in 3-5 days if symptoms persist or sooner if worsening of symptoms- FLUTICASONE 50 MCG/ACTUATION NASAL SPRAY,SUSPENSIONPrescri ption instructions reviewed with patient as applicable. Patient advisedif symptoms do not improve or if symptoms worsen sooner, to contact the officefor further evaluation by either myself or their primary care physician.Potential red flag symptoms discussed with the patient. Reviewed appropriateaction plan to take if red flag symptoms occur. Patient agreeable to treatmentplan.Cande Suero CNP 12/31/2016 4:14 PM SignedRESPIRATORY INFECTIONGENERAL INFORMATION:An upper respiratory tract infection, or cold, is a viral infection of theairway passages. It can be caused by any one of almost 200 different viruses.Common symptoms include a runny or stuffy nose, sneezing, watery eyes, sorethroat, cough, and slight fever. Colds are contagious, especially during thefirst 3 or 4 days and cannot be cured by antibiotics. They are spread bycoughs, sneezes, and direct contact, especially hqev-oz-jskg. A respiratorytract infection usually clears up in a few days, but some people may be sickfor a week or two.INSTRUCTIONS:1. Be careful not to blow your nose too hard because this may cause a nosebleed.2. Use a cool-mist humidifier (vaporizer) to increase air moisture. This willmake it easier for you to breathe. Do not use hot steam.3. Rest as much as possible and get plenty of sleep.4. Wash your hands often, especially after you blow your nose. Cover yourmouth and nose with a tissue when you sneeze or cough.5. Drink plenty of clear fluids (8 glasses a day) such as water, fruit juice,tea, clear soups, and carbonated beverages.CONTACT YOUR DOCTOR IF :1. Your fever lasts more than 3 days.2. You have a sore throat that gets worse or you see white or yellow spots inyour throat.3. Your cough gets worse or lasts more than 10 days.4. You develop a rash anywhere on your skin.5. You have an earache or a headache.6. You have thick greenish or yellowish discharge from your nose.RETURN IMMEDIATELY IF:1. You cough up thick yellow, green, lackey, or bloody sputum.2. You have difficulty breathing, pain in your chest, or your skin or nailslook lackey or blue.3. You have shaking chills or a temperature over 102 F (39 C).Alley Donahue LPN 12/31/2016 6:11 PM SignedAddended by: ALLEY DONAHUE LPN on: 12/31/2016 06:11 PM Modules accepted: OrdersReferring Provider: SELF [[id number]]Allergies As of Date: 12/31/2016(No Known Allergies)Date Reviewed: 12/31/2016Reviewed by: Víctor ([facility]) [facility] for Visit: Head Congestion [234] Cmt: x4 daysPrimary Visit Diagnosis:URI, acute [J06.9]Order(s):flutica sone (FLONASE) 50 mcg/actuation nasal sprayUse 2 Sprays in each nostril once daily. Rinse mouth after use.Disp: 1 BottleRfl: 1 RAPID STREP TEST B/O [[id number]] Order #: [id number] as of 12/31/2016 Sig: FLUTICASONE 50 MCG/ACTUATION * Use 2 Sprays in each nostril *Problem List As Of Date: 12/31/2016(None) Other instructions from your clinician: RESPIRATORY INFECTION GENERAL INFORMATION: An upper respiratory tract infection, or cold, is a viral infection of the airway passages. It can be caused by any one of almost 200 different viruses. Common symptoms include a runny or stuffy nose, sneezing, watery eyes, sore throat, cough, and slight fever. Colds are contagious, especially during the first 3 or 4 days and cannot be cured by antibiotics. They are spread by coughs, sneezes, and direct contact, especially ctxj-uc-cget. A respiratory tract infection usually clears up in a few days, but some people may be sick for a week or two. INSTRUCTIONS: 1. Be careful not to blow your nose too hard because this may cause a nosebleed. 2. Use a cool-mist humidifier (vaporizer) to increase air moisture. This will make it easier for you to breathe. Do not use hot steam. 3. Rest as much as possible and get plenty of sleep. 4. Wash your hands often, especially after you blow your nose. Cover your mouth and nose with a tissue when you sneeze or cough. 5. Drink plenty of clear fluids (8 glasses a day) such as water, fruit juice, tea, clear soups, and carbonated beverages. CONTACT YOUR DOCTOR IF : 1. Your fever lasts more than 3 days. 2. You have a sore throat that gets worse or you see white or yellow spots in your throat. 3. Your cough gets worse or lasts more than 10 days. 4. You develop a rash anywhere on your skin. 5. You have an earache or a headache. 6. You have thick greenish or yellowish discharge from your nose. RETURN IMMEDIATELY IF: 1. You cough up thick yellow, green, lackey, or bloody sputum. 2. You have difficulty breathing, pain in your chest, or your skin or nails look lackey or blue. 3. You have shaking chills or a temperature over 102 F (39 C).Prescriptions ordered this encounter Disp Refills Start End FLUTICASONE 50 MCG/ACTUATION NASAL S* 1 Jerod* 1 12/31/2016 Route: EACH NOSTRIL Sig: Use 2 Sprays in each nostril once daily. Rinse mouth after use.Letter TextWoosterDepartment of Urgent CareVíctor Kelley CNP[address] [place], [place] [address]Paqci: [phone] Gamez CC# [id number] [address] [place] [id number] WHOM IT MAY CONCERN:This is to confirm that Chetna Shira Gamez had an appointment [facility] by Trisha Suazo 12/31/2016.Sincerely yours,Víctor Kelley CNPEnccarlos Number: [id number] Status:Closed by VÍCTOR KELLEY CNP on 12/31/16 [facility] PROGRESSon 12-31-2016 PROGRESS HNO ID: [id number]: Víctor Toribio) Service: (none)Author Type: Nurse PractitionerType: Progress NotesFiled: 12/31/2016 4:16 PMNote Text:HPIHPI Chetna Gamez is a 21 year old female who presents today for CC ofsinus congestion. This started 4 days ago. Has tried multiple otcmedications with little relief. [facility] Denies possibility of being .Review of SystemsConstitutional: Negative for chills, fever and weight loss.HENT: Positive for congestion and sore throat. Negative for ear pain andnosebleeds.Eyes: Negative for pain, discharge and redness.Respiratory: Positive for cough. Negative for shortness of breath andwheezing.Musculoskel etal: Negative for neck pain.No past medical history on file.No past surgical history on file.ALLERGIES Review of patient's allergies indicates no known allergies.MEDICATIONS No prescriptions on file.No family history on file.Social HistorySubstance Use Topics- Smoking status: Never Smoker- Smokeless tobacco: Not on file- Alcohol use Not on fileBlood pressure 120/80, pulse 72, temperature 36.6 ?C (97.9 ?F),temperature source Tympanic, resp. rate 16, weight 86.7 kg (191 lb 3.2oz), last menstrual period 12/28/2016.Physical ExamConstitutional: She is well-developed, well-nourished, and in no distress.No distress.HENT:Head: Normocephalic and atraumatic.Right Ear: Hearing, tympanic membrane, external ear and ear canal normal.Left Ear: Hearing, tympanic membrane, external ear and ear canal normal.Nose: Nose normal.Mouth/Throat: Uvula is midline, oropharynx is clear and moist and mucousmembranes are normal.Eyes: Conjunctivae, EOM and lids are normal. Pupils are equal, round, andreactive to light. Lids are everted and swept, no foreign bodies found.Right eye exhibits no discharge. Left eye exhibits no discharge. Noscleral icterus.Neck: Trachea normal and normal range of motion. Neck supple.Cardiovascular: Normal rate, regular rhythm and normal heart sounds.Pulmonary/Chest: Effort normal and breath sounds normal.Lymphadenopathy: She has no cervical adenopathy.Skin: No rash noted. She is not diaphoretic.ASSESSMENT/ PLAN:1. URI, acute - ICD9: 465.9, ICD10: J06.9- Discussed viral etiology and rationale for treatment.- Symptomatic treatment with prn analgesia- Supportive care with fluids and rest- The patient may also use OTC cough and cold meds as needed, warm saltwater gargles, throat lozenges and/or OTC throat spray as needed and nasalsaline gtts and suction prn.- Follow up in 3-5 days if symptoms persist or sooner if worsening ofsymptoms- FLUTICASONE 50 MCG/ACTUATION NASAL SPRAY,SUSPENSIONPrescri ption instructions reviewed with patient as applicable. Patientadvised if symptoms do not improve or if symptoms worsen sooner, tocontact the office for further evaluation by either myself or theircarteret health carery care physician. Potential red flag symptoms discussed with thepatient. Reviewed appropriate action plan to take if red flag symptomsoccur. Patient agreeable to treatment plan.Víctor Kelley CNP Normal [facility] Vital Signs Date Time Vital Sign Value Performing Clinician Juan mohan 10-15-2024 14:50-0400 Body height 175.[address] Coco Baer MD Work Phone: [facility] 10-15-2024 14:50-0400 Body mass index (BMI) [Ratio] 35.8 kg/m2 Dr. Coco Baer MD Work Phone: [facility] 10-15-2024 14:50-0400 Body weight 109.[address] Coco Bear MD Work Phone: [facility] 10-15-2024 14:50-0400 Diastolic blood pressure 77 mm[Hg] Dr. Coco Baer MD Work Phone: [facility] 10-15-2024 14:50-0400 Systolic blood pressure 126 mm[Hg] Dr. Coco Baer MD Work Phone: [facility] 09-17-2024 13:45-0400 Body height 175.[address] Coco Baer MD Work Phone: [facility] 09-17-2024 13:45-0400 Body mass index (BMI) [Ratio] 35.7 kg/m2 Dr. Coco Baer MD Work Phone: [facility] 09-17-2024 13:45-0400 Body weight 109.[address] Coco Baer MD Work Phone: [facility] 09-17-2024 13:45-0400 Diastolic blood pressure 82 mm[Hg] Dr. Coco Baer MD Work Phone: 3(252)396-907539 [place] [address] 09-17-2024 13:45-0400 Systolic blood pressure 124 mm[Hg] Dr. Coco Baer MD Work Phone: 3(155)942-929548 [address] 08-20-2024 13:44-0400 Body height 175.[address] Coco Baer MD Work Phone: 3(279)704-241348 [address] 08-20-2024 13:43-0400 Body mass index (BMI) [Ratio] 34.9 kg/m2 Dr. Coco Baer MD Work Phone: 1(321)653-424539 [place] [address] 08-20-2024 13:43-0400 Body weight 107.[address] Coco Baer MD Work Phone: 6(296)092-056939 [place] [address] 08-20-2024 13:43-0400 Diastolic blood pressure 82 mm[Hg] Dr. Coco Baer MD Work Phone: 3(354)433-360339 [place] [address] 08-20-2024 13:43-0400 Systolic blood pressure 121 mm[Hg] Dr. Coco Baer MD Work Phone: 4(076)723-834739 [place] [address] 07-23-2024 13:51-0400 Body mass index (BMI) [Ratio] 34.7 kg/m2 Dr. Coco Baer MD Work Phone: 1(665)290-819739 [place] [address] 07-23-2024 13:51-0400 Body weight 106.[address] Coco Baer MD Work Phone: [facility] 07-23-2024 13:51-0400 Diastolic blood pressure 85 mm[Hg] Dr. Coco Baer MD Work Phone: [facility] 07-23-2024 13:51-0400 Systolic blood pressure 133 mm[Hg] Dr. Coco Baer MD Work Phone: [facility] 06-20-2024 14:06-0400 Body height 175.[address] Coco Baer MD Work Phone: 9(065)800-854439 [place] [address] 06-20-2024 14:06-0400 Body mass index (BMI) [Ratio] 35 kg/m2 Dr. Coco Baer MD Work Phone: 2(927)590-044239 [place] [address] 06-20-2024 14:06-0400 Body weight 107.[address] Coco Baer MD Work Phone: 4(262)490-446448 [address] 06-20-2024 14:06-0400 Diastolic blood pressure 84 mm[Hg] Dr. Coco Baer MD Work Phone: 1(170)147-832739 [place] [address] 06-20-2024 14:06-0400 Systolic blood pressure 128 mm[Hg] Dr. Coco Baer MD Work Phone: 2(404)479-513539 [place] [address] 04-13-2023 11:42-0500 Body temperature 97.8 [degF] Dr. Ji Baer Work Phone: [facility] 04-13-2023 11:42-0500 Diastolic blood pressure 72 mm[Hg] Dr. Ji Baer Work Phone: 1(042)064-291839 [place] [address] 04-13-2023 11:42-0500 Heart rate 66 /min Dr. Ji Baer Work Phone: [facility] 04-13-2023 11:42-0500 Respiratory rate 16 /min Dr. Ji Baer Work Phone: [facility] 04-13-2023 11:42-0500 SaO2% (BldA) [Mass fraction] 100 % Dr. Ji Baer Work Phone: 4(969)714-148339 [place] [address] 04-13-2023 11:42-0500 Systolic blood pressure 102 mm[Hg] Dr. Ji Baer Work Phone: [facility] 07-17-2021 10:05-0400 Body height 175.[address] Ji Baer Work Phone: [facility] Work Phone: 07-17-2021 10:05-0400 Body mass index (BMI) [Ratio] 32.5 kg/m2 Dr. Ji Baer Work Phone: [facility] Work Phone: 07-17-2021 10:05-0400 Body weight 99.[address] Ji Baer Work Phone: [facility] Work Phone: 07-17-2021 10:05-0400 Diastolic blood pressure 90 mm[Hg] Dr. Ji Baer Work Phone: [facility] Work Phone: 07-17-2021 10:05-0400 Systolic blood pressure 124 mm[Hg] Dr. Ji Baer Work Phone: [facility] Work Phone: Encounters Encounter Date Encounter Type Care Provider Facility Start: 10-15-2024 End: 10-15-2024 ambulatory Coco Baer Facility:[facility] Start: 10-15-2024 End: 10-15-2024 Patient encounter procedure Tomi Cavanaugh CNM -[facility] Work Phone: Start: 10-01-2024 End: 10-01-2024 ambulatory ABRAN [facility] Start: 09-17-2024 End: 09-17-2024 Patient encounter procedure Ekaterina MCCANN -[facility] Work Phone: Start: 09-17-2024 End: 09-17-[address] Coco Baer MD Work Phone: [facility] Work Phone: Start: 08-28-2024 End: 08-28-2024 ambulatory TOMI CAVANAUGH [facility] Start: 08-20-2024 End: 08-20-[address] Mayelin Garcia MD -[facility] Work Phone: Start: 08-20-2024 End: 08-20-[address] Coco Baer MD Work Phone: [facility] Work Phone: Start: 08-20-2024 End: 08-20-2024 ambulatory Coco Baer Facility:[facility] Start: 07-23-2024 End: 07-23-2024 Patient encounter procedure Tomi Cavanaugh CNM -[facility] Work Phone: Start: 07-23-2024 End: 07-23-2024 ambulatory Tomi Cavanaugh Facility:[facility] Start: 07-04-2024 End: 07-04-[address] Coco Baer MD Work Phone: [facility] Work Phone: Start: 07-04-2024 End: 07-04-[address] Karina Hill, [facility] Start: 07-04-2024 End: 07-04-2024 ambulatory Coco Baer Facility:[facility] Start: 06-20-2024 End: 06-20-[address] Coco Baer MD Work Phone: [facility] Work Phone: Start: 06-20-2024 End: 06-20-[address] Karina Oliveira, [facility] Work Phone: Start: 06-20-2024 End: 06-20-[address] Karina Bravo DO -[facility] Work Phone: Start: 06-20-2024 End: 06-20-2024 ambulatory Coco Baer Facility:[facility] Start: 06-20-2024 End: 06-20-2024 ambulatory Coco Baer Facility:[facility] Start: 12-07-2023 End: 12-07-2023 ambulatory Coco Baer Facility:[facility] Start: 11-01-2023 End: 11-01-2023 ambulatory Coco Baer Facility:[facility] Start: 04-13-2023 End: 04-13-[address] Ji Baer Work Phone: [facility] Work Phone: Start: 04-13-2023 End: 04-13-[address] Ji Baer Work Phone: [facility] Work Phone: Start: 07-17-2021 End: 07-17-[address] Ji Baer Work Phone: [facility] Start: 07-17-2021 End: 07-17-[address] Ji aBer Work Phone: [facility] Start: 03-24-[address] [facility] [place] Start: 06-01-2017 End: 06-01-2017 Emergency department patient visit [address] Facility: Start: 12-31-2016 End: 12-31-2016 [facility] Date Procedure Procedure Detail Performing Clinician Start: 08-20-[address] Coco Baer MD Work Phone: Comment on above: TEST RESULTS LIMITSAFP, Serum, Open Spin a Bifida Results The MOM and risk factors of this report have been modified based on new information supplied to us by the client or their designated patient admitting representative. The Weight was changed from Not provided. to 237. This is a corrected report. The previously reported result was: Test Results: *Screen Negative* Gest. Age on Collection Date 17.9 weeks Gestat. Age Based On As provided Recalculations are not recommended when gestational dating by LMP and ultrasound are within 10 days. Maternal Age At YESI 29.3 [age] Race Weight 237 lbs Insulin Dep Diabetes No Multiple Gestation No AFP Value 26.3 ng/mL AFP MoM 0.81 OSBR Risk 1 [place] [id number] Interpretation: Screen NegativeThis result is screen negative for OSB. The AFP MoM calculated is based on the gestational age provided. MS-AFP can identify up to 80% of open neural tube defects. Closed neural tube defects and some open defects may not be detected by this test. This test does not screen for Down Syndrome or Trisomy 18. If screening for Down Syndrome or Trisomy 18 is desired, contact [facility] to discuss available options. The [employer] recommends amniocentesis be offered to women age 35 and older.Comment: Dulce Ramirez, Ph.D., DABCCDirectorReferences: Available Upon Request.Multiples Of Median Cutoffs For AFP ElevationsSingleton 2.5 Black 2.8IDD 2.0 Twins 4.5 Abbreviation DefinitionsIDD - Insulin Dep DiabetesOSBR - Open Spina Bifida RiskFor further inquiries contact [employer] at [phone].This test was developed and its performance characteristicsdetermined by [facility]. It has not been cleared or approvedby the Food and Drug Administration. TESTING PERFORMED AT [facility]. ORIGINAL REPORT ON FILE IN LAB CONTAINS ADDITIONAL TEST SITE INFORMATION. Start: 07-04-2024 Hepatitis C antibody measurement Dr. Jesica Baer MD Work Phone: Comment on above: Reactive: Presumptive evidence of antibo dies to HCV. Follow CDC recommendations for supplemental testing.Non-Reactive: Antibodies to HCV were not detected; does not exclude the possibility of exposure to HCVReactive Results are presumptive evidence of antibodies to HCV. Follow CDC recommendations for supplemental testing.Order confirmation testing: HCV Quant by PCR testing - HCVPCR #[id number] Non Reactive: < 0.8 Equivocal: >/= 0.8 to < 1.0 Reactive: >/= 1.0The CDC requires that a reactive/equivocal HCV antibody result be sent out for confirmation. HCV Quant by PCR testing. Start: 07-04-[address] Coco Baer MD Work Phone: Start: 07-04-[address] Coco Baer MD Work Phone: Comment on above: Antibody Result: InterpretationNon-React norma: Non-ImmuneReactive: ImmuneThe following results were obtained with the [employer] Rubella IgG assay. Results from assays of other manufacturers cannot be used interchangeably. Start: 07-04-2024 Serologic test for syphilis Dr. Joellen Baer MD Work Phone: Start: 06-20-2024 Liquid based cervical cytology screening Dr. Coco Baer MD Work Phone: Comment on above: NEGATIVE FOR INTRAEPITHELIAL LESION OR M ALIGNANCY.THIS SPECIMEN WAS RESCREENED PART OF OUR [employer] PROGRAM. This liquid based Th inPrep(R) pap test was screened withthe use of an image guided system. The HPV DNA reflex c riteria were not met with this specimenresult therefore, no HPV testing was performed.Performed at: [facility] [id number] Director: Kathleen Plata MD, Phone: [phone] at: [facility] [id number] [place], [place] [id number] Director: Hermann Zee MD, Phone: [phone] Start: 06-20-[address] Coco Baer MD Work Phone: H/O: surgery S/p nephrectomy Dr. Joellen Baer Work Phone: Plan of Treatment Date Care Activity Detail Author Start: 10-15-2024 CBC W Auto Different ial panel - Blood [facility] Start: 10-15-2024 Measurement of gluco se 2 hours after glucose challenge for glucose tolerance test [facility] Start: 10-15-2024 Serologic test for syphilis [facility] Start: 10-15-2024 [facility] Start: 08-20-2024 Procedure [facility] CBC W Auto Different ial panel - Blood [facility] CBC W Auto Different ial panel - Blood [facility] Erythrocyte mean cor puscular volume determination [facility] Hematocrit [Volume F raction] of Blood [facility] Hemoglobin [Mass/volume] in Blood [facility] Hemoglobin A1c/Hemog lobin.total in Blood [facility] Hepatitis B surface antigen measurement [facility] Hepatitis C antibody measurement [facility] HIV 1+2 Ab+HIV1 p24 Ag [Presence] in Serum or Plasma by Immunoassay [facility] Leukocytes [#/volume] in Blood [facility] Mean corpuscular hem oglobin concentration determination [facility] Mean corpuscular hem oglobin determination [facility] Measurement of gluco se 2 hours after glucose challenge for glucose tolerance test [facility] Neutrophil count [facility] Neutrophil percent d ifferential count [facility] Platelets [#/volume] in Blood [facility] Procedure [facility] Red blood cell count [facility] Red cell distributio n width determination [facility] Rubella IgG measurement [facility] Serologic test for syphilis [facility] Treponema sp Ab [Pre sence] in Serum [facility] Payers Date Payer Category Payer Self-pay [id number] 2023 Unknown [id number] 2017 Unknown [id number] 1997 Unknown [id number] 2.16. [id number] 1997 Unknown [id number] 2.. [id number] 1997 Unknown [id number] 2.16. [id number] Private Health Insurance [id number] Unknown [id number] 2.16.8 [id number] Unknown [id number] 2.16.8 [id number] Unknown [id number] 2.16.8 [id number] Unknown [id number] 2.16.8 [id number] Unknown [id number] 2.16.8 [id number] Unknown [id number] 2.16.8 [id number] Unknown [id number] 2.16.8 [id number] Unknown [id number] 2.16.8 [id number] Unknown [id number] 2.16.8 [id number] Unknown [id number] 2.16.8 [id number] Social History Date Type Detail Facility Start: 07-17-2021 End: 04-13-2023 Tobacco smoking status TNIS Unknown if ever smoked [facility] Start: 1995 Sex Assigned At Female [facility] Start: 05-29-2024 Tobacco smoking stat us TNIS Ex-smoker (finding) [facility] Start: 06-29-2024 End: 07-09-2024 Sex Female (finding) [facility] Clinical Notes 06-20-2024 to 10-15-2024 Note Date & Type Note Facility 10-15-2024 Progress note [facility] 10-15-2024 Progress note Note Date/Time October 15, 2024 3:25pm [facility] [address], [address] [place] [address] OFFICE VISIT Date of Service: 10/15/24 MR#: [id number] Acct: [id number] Name: CHETNA TUCKER Rep # : [id number] : 1995 Provider: ROZINA Cavanaugh Age/Sex: 29/F Location: [facility] [place] Status: Signed Intake Vital Signs 07/23/24 13:51 09/17/24 13:45 10/15/24 14:50 Height 5 ft 9 in 5 ft 9 in 5 ft 9 in Weight: 242 lb 8 oz BMI 35.8 BP 126/77 H Intake Visit Reasons: 26wk ob Chief Complaint: 26wk OB Hypo Splasher Required: No Is patient in pain?: No Allergies No Known Allergies Allergy (Verified 10/15/24 14:49) Medications ?Medication ?Instructions ?Recorded ?Confirmed ?Type mv-mn 110-FA 180 mcg-om3 35 mg-dha tab PO 05/29/2411/02 History 25 mg-epa 5 mg-fish oil chew tablet Last Menstrual Period: 04/17/24 : No PFSH PFSH Medical History History of nicotine vaping Hidradenitis suppurativa Encounter for IUD removal Seasonal allergies S/p nephrectomy Surgical History [place] teeth extracted History of nephrectomy, right Family History Mother Kidney disease Heart disease Hypertension Grandmother Heart disease Maternal Kidney disease Maternal Hypertension Maternal Diabetes Maternal Father Hypertension Social History adopted: No household members: spouse housing: house current occupational status: employed current occupation: [employer] current occupational exposures/hazards: No pets and animals: Yes (2) pets and animals: dog(s) history of recent travel: No sexually active: Yes Smoking Status: Former smoker quit date: 05/19/24 Electronic Cigarette Use: with nicotine how long ago did patient quit smokin weeks ago quit status: quit date established alcohol intake: current details: occasionally- not while drinking substance use type: does not use well-balanced diet: about half the time caffeine: Yes Type: coffee Number of servings: 1 eating out: 1-3 times/week during the past year weight has: remained stable what type of physical activity do you participate in: none frequency: 1-2 times per week dat/sikhism: None seatbelt use: always do you feel safe at home: Yes additional social history: -[facility] [place] History 1 Elective abortions Hx Para 0 Spontaneous abortions Hx # Term Pregnancies Ectopic pregnancies Hx # Pregnancies Multiple births # of living children HPI 26wk ob Details: CHETNA TUCKER is a 29 year old who presents for routine OB visit. OB Visit YESI Calculator Estimated Delivery Date Method Current WG Current Estimate 01/22/25 LMP (Certain) 25w 6d Other Estimates 01/23/25 Ultrasound #1 25w 5d Expected Delivery Route/Plan Labor Preferences- CB/BF classes: [] labor support person: [] labor intervention preferences: [] pain management options preferred: [] cut cord/dad catch: [] : [] PP control planned: [] discussed possible routes of delivery and associated risks: [] special requests: [] Specific Issue/Plans Covid status: [] Flu vaccine: [] Tdap vaccine: [] Rhogam: [] LARC form signed: [] Problem list reviewed and updated with the most current plan of care details and appropriate orders placed. Relevant counseling for the gestational age provided. Continue routine care and follow up unless otherwise noted in visit notes/problem list details Initial Weight: 237 lb Date -?-?-?-?-?-?-?-?-?-?-?-?- EGA Weight BP Urine Prot -?-?-?-?-?-?-?-?-?-?-?-?- Glucose FHR FuHt Pres Dilation -?-?-?-?-?-?-?-?-?-?-?-?- Effaced St Visit Note 06/20/24 -?-?-?-?-?-?-?-?-?-?-?-?- 9w 1d 237 lb 4 oz (+4 oz) 128/84 -?-?-?-?-?-?-?-?-?-?-?-?- 185 -?-?-?-?-?-?-?-?-?-?-?-?- JV- CRL consiste nt with LMP. desires NIPT. 07/23/24 -?-?-?-?-?-?-?-?-?-?-?-?- 13w 6d 235 lb (-2 lb) 133/85 Negative -?-?-?-?-?-?-?-?-?-?-?-?- Negative 160 -?-?-?-?-?-?-?-?-?-?-?-?- KW- no vb/crampi ng. US ordered. handheld US and fht and movement noted. KW- no vb/cramping. US order ed. handheld US and fht and movement noted. accepts AFP next visit 08/20/24 -?-?-?-?-?-?-?-?-?-?-?-?- 17w 6d 237 lb (+0 oz) 121/82 Negative -?-?-?-?-?-?-?-?-?-?-?-?- Negative 150 -?-?-?-?-?-?-?-?-?-?-?-?- SM- no vb crampi ng 09/17/24 -?-?-?-?-?-?-?-?-?-?-?-?- 21w 6d 242 lb (+5 lb) 124/82 Negative -?-?-?-?-?-?-?-?-?-?-?-?- Negative 161 -?-?-?-?-?-?-?-?-?-?-?-?- MH-No VB. Feels well. Has rpt US MFM today to complete anatomy 10/15/24 -?-?-?-?-?-?-?-?-?-?-?-?- 25w 6d 242 lb 8 oz (+5 lb 8 oz) 126/77 Negative -?-?-?-?-?-?-?-?-?-?-?-?- Negative 165 26 -?-?-?-?-?-?-?-?-?-?-?-?- KW- no vb/lof/ct x. good fm. ACOG First Trimester First Trimester: Discussed ROS Const Reports system reviewed and no additional complaints, except as documented Eyes Reports system reviewed and no additional complaints, except as documented ENT Reports system reviewed and no additional complaints, except as documented Card Reports system reviewed and no additional complaints, except as documented Resp Reports system reviewed and no additional complaints, except as documented GI Reports system reviewed and no additional complaints, except as documented, Denies nausea and Denies vomiting Reports system reviewed and no additional complaints, except as documented Musc Reports system reviewed and no additional complaints, except as documented Skin/Breast Reports system reviewed and no additional complaints, except as documented Neuro Yes system reviewed and no additional complaints, except as documented Psych Reports system reviewed and no additional complaints, except as documented Endo Reports system reviewed and no additional complaints, except as documented Tim/Lymph Reports system reviewed and no additional complaints, except as documented Aller/Immun Reports system reviewed and no additional complaints, except as documented Exam Const General: cooperative, healthy appearing and no acute distress Orientation: alert, awake and oriented x3 Neck Neck: normal visual inspection and full ROM Resp Effort & Inspection: normal respiratory effort, able to speak in complete sentences and symmetric chest movement GI Inspection: normal to inspection Palpation: soft and other Other: gravid Skin General: no rashes or lesions noted Neuro General: patient alert, patient awake and patient oriented x3 Cognition: normal cognition Speech: speech normal Gait: normal gait Motor: muscle tone normal throughout Extrem General: normal to inspection and full ROM Psych Appearance: grossly normal Mental Status: mental status grossly normal Mood: congruent mood Affect: normal affect Speech and Movement: speech and movement normal Attitude: cooperative Thought Process: normal Thought Content: normal Judgment: judgment good Results POC Urinalysis 2 Dip (Clinic) Office Urine Glucose Negative Last Edit by Meka Brock on 10/15/24 14:56 Office Urine Protein Negative Last Edit by Meka Brock on 10/15/24 14:56 Coding Level of Care Code OB Routine Diagnoses Supervision of high risk in second trimester O09.92 Trimester: second trimester 25 weeks gestation of Z3A.25 Weeks of gestation: 25 weeks Obesity affecting in second trimester, unspecified obesity type O99.212 Obesity type affecting : unspecified obesity Trimester: second trimester Anxiety F41.9 Assessment and Plan Assessment and Plan (1) Supervision of high-risk : Status: Acute Qualifiers: Trimester: second trimester Qualified Code(s): O09.92 - Supervision of high risk , unspecified, second trimester Comment: PRR,, YESI 01/22/25, Espinoza (2) : Status: Acute Qualifiers: Weeks of gestation: 25 weeks Qualified Code(s): Z3A.25 - 25 weeks gestation of Comment: NIPT low risk, carrier declined. AFP negative. (3) Obesity affecting : Status: Acute Qualifiers: Obesity type affecting : unspecified obesity Trimester: second trimester Qualified Code(s): O99.212 - Obesity complicating , second trimester Comment: HgbA1c (4) Anxiety: Status: Acute Orders: Orders POC Urinalysis 2 Dip (Clinic) Today Plan Details Additional Comments: ACOG trimester education reviewed and updated. see problem list details for updated plan management information and see below for orders placed at this visit. GA appropriate handout given. 10/15/24 1982 <Electronically signed by Tomi lewis CNM> Date _ Tomi Cavanaugh CNM Cosigner Signature: Date (if applicable) CC: ~ [facility] Work Phone: 1(923) 185-484603-12-2025 NotePap Smear Specimen AdequacyMarch 2024 11:59pmComment.Satisfactory for evaluation. Endocervical and/or squamous metaplasticcells (endocervical component)are present.[facility] A#[id number] on above:Satisfactory for evaluation. Endocervical and/or squamous metaplasticcells (endocervical component)are present.06-20-2024 NotePap Smear Specimen AdequacyMarch 2024 11:59pmComment.Satisfactory for evaluation. Endocervical and/or squamous metaplasticcells (endocervical component)are present.[facility] A#[id number] Community HospitalComment on above:Satisfactory for evaluation. Endocervical and/or squamous metaplasticcells (endocervical component)are present.06-20-2024 Evaluation note* Diagnosis Onset Date Resolution Status Admit Date Anxiety acute June 20 1:58pm Hidradenitis suppurativa acute June 20, 2024 1:58pm History of nicotine vaping acute June 20, 2024 1:58pm Obesity affecting acute June 20, 2024 1:58pm acute June 20 1:58pm Supervision of high-risk acute June 20, 2024 1:58pm [facility] Work Phone: 1(701) 347-976003-12-2025 Evaluation note* Diagnosis Onset Date Resolution Status Admit Date Anxiety acute June 20 1:58pm Obesity affecting acute June 20, 2024 1:58pm acute June 20 1:58pm Supervision of high-risk acute June 20, 2024 1:58pm Hidradenitis suppurativa inactive June 20, 2024 1:58pm History of nicotine vaping inactive June 20, 2024 1:58pm Anxiety acute July 23 1:48pm Obesity affecting acute July 23, 2024 1:48pm acute July 23 1:48pm Supervision of high-risk acute July 23, 2024 1:48pm Hidradenitis suppurativa inactive July 23, 2024 1:48pm History of nicotine vaping inactive July 23, 2024 1:48pm Anxiety acute August 20, 2024 1:38pm Obesity affecting acute August 20, 2024 1:38pm acute August 20, 2024 1:38pm Supervision of high-risk acute August 20, 2024 1 :38pm Hidradenitis suppurativa inactive August 20, 2024 1:38pm History of nicotine vaping inactive August 20, 2024 1:38pm [facility] Work Phone: 1(692) 710-594903-12-2025 Evaluation note* Diagnosis Onset Date Resolution Status Admit Date Anxiety acute June 20 1:58pm Obesity affecting acute June 20, 2024 1:58pm acute June 20 1:58pm Supervision of high-risk acute June 20, 2024 1:58pm Hidradenitis suppurativa inactive June 20, 2024 1:58pm History of nicotine vaping inactive June 20, 2024 1:58pm Anxiety acute July 23 1:48pm Obesity affecting acute July 23, 2024 1:48pm acute July 23 1:48pm Supervision of high-risk acute July 23, 2024 1:48pm Hidradenitis suppurativa inactive July 23, 2024 1:48pm History of nicotine vaping inactive July 23, 2024 1:48pm Anxiety acute August 20, 2024 1:38pm Obesity affecting acute August 20, 2024 1:38pm acute August 20, 2024 1:38pm Supervision of high-risk acute August 20, 2024 1 :38pm Hidradenitis suppurativa inactive August 20, 2024 1:38pm History of nicotine vaping inactive August 20, 2024 1:38pm Anxiety acute September 17, 2024 1:33pm Obesity affecting acute September 17, 2024 1:33pm acute September 17, 2024 1:33pm Supervision of high-risk acute September 17, 2024 1 :33pm [facility] Work Phone: 1(360) 984-819003-12-2025 Evaluation note* Diagnosis Onset Date Resolution Status Admit Date Anxiety acute June 20 1:58pm Obesity affecting acute June 20, 2024 1:58pm acute June 20 1:58pm Supervision of high-risk acute June 20, 2024 1:58pm Hidradenitis suppurativa inactive June 20, 2024 1:58pm History of nicotine vaping inactive June 20, 2024 1:58pm Anxiety acute July 23 1:48pm Obesity affecting acute July 23, 2024 1:48pm acute July 23 1:48pm Supervision of high-risk acute July 23, 2024 1:48pm Hidradenitis suppurativa inactive July 23, 2024 1:48pm History of nicotine vaping inactive July 23, 2024 1:48pm Anxiety acute August 20, 2024 1:38pm Obesity affecting acute August 20, 2024 1:38pm acute August 20, 2024 1:38pm Supervision of high-risk acute August 20, 2024 1 :38pm Hidradenitis suppurativa inactive August 20, 2024 1:38pm History of nicotine vaping inactive August 20, 2024 1:38pm Anxiety acute September 17, 2024 1:33pm Obesity affecting acute September 17, 2024 1:33pm acute September 17, 2024 1:33pm Supervision of high-risk acute September 17, 2024 1 :33pm Anxiety acute October 15, 2024 2:28pm Obesity affecting acute October 15, 2024 2:28pm acute October 15, 2024 2:28pm Supervision of high-risk acute October 15, 2024 2 :28pm [facility] Work Phone: Evaluation noteNo assessment information available [facility] Work Phone: Evaluation note* Diagnosis Onset Date Resolution Status Dysuria acute [facility] Work Phone: Reason for referral (narrative)No reason for referral information available[facility] Work Phone: Summary Purpose Family History Relationship Condition Age at Onset Recorded Date/T rosario mother Kidney disorder Unknown Cardiac disease Unknown grandmother Cardiac disease Unknown father Hypertension Unknown Relationship Condition Age at Onset Recorded Date/T rosario mother Kidney disorder Unknown Cardiac disease Unknown Hypertension Unknown grandmother Cardiac disease Unknown Kidney disorder Unknown Diabetes mellitus Unknown father Hypertension Unknown Advance Directives No Advanced Directives Records FoundNo Advanced Directives Records FoundNo Advanced Directives Records FoundNo Advanced Directives Records Found Chief Complaint and Reason for Visit 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) Chief Complaint POSSIBLE UTI EORDER Reason for Visit Dysuria Chief Complaint Admit Date New OB, LMP 1, YESI 01/22June 20, 2 025 1:58pm Reason for Visit Admit Date Anxiety June 20, 2024 1:5 8pm Hidradenitis suppurativa June 20 1:58pm History of nicotine vaping June 20, 2 025 1:58pm Obesity affecting June 20, 2024 1:58pm June 20, 2024 1:5 8pm Supervision of high-risk June 20, 2024 1:58pm Chief Complaint Admit Date New OB, LMP 1, YESI 01/22June 20, 2 025 1:58pm 14wk OB July 23, 2024 1:4 8pm 18wk ob August 20, 2024 1:38p m Reason for Visit Admit Date Anxiety June 20, 2024 1:5 8pm Obesity affecting June 20, 2024 1:58pm June 20, 2024 1:5 8pm Supervision of high-risk June 20, 2024 1:58pm Hidradenitis suppurativa June 20 1:58pm History of nicotine vaping June 20 025 1:58pm Anxiety July 23, 2024 1:4 8pm Obesity affecting July 23, 2024 1:48pm July 23, 2024 1:4 8pm Supervision of high-risk July 23, 2024 1:48pm Hidradenitis suppurativa July 23 1:48pm History of nicotine vaping July 23 025 1:48pm Anxiety August 20, 2024 1:38p m Obesity affecting August 20 1:38pm August 20, 2024 1:38p m Supervision of high-risk August 092024 1:38pm Hidradenitis suppurativa August 20, 2024 1:38pm History of nicotine vaping August 20 1:38pm Chief Complaint Admit Date New OB, LMP 1/7, YESI 01/22June 20, 2 025 1:58pm 14wk OB July 23, 2024 1:4 8pm 18wk ob August 20, 2024 1:38p m 22wk ob September 17, 2024 1:33p m Reason for Visit Admit Date Anxiety June 20, 2024 1:5 8pm Obesity affecting June 20, 2024 1:58pm June 20, 2024 1:5 8pm Supervision of high-risk June 20, 2024 1:58pm Hidradenitis suppurativa June 20 1:58pm History of nicotine vaping June 20 2 025 1:58pm Anxiety July 23, 2024 1:4 8pm Obesity affecting July 23, 2024 1:48pm July 23, 2024 1:4 8pm Supervision of high-risk July 23, 2024 1:48pm Hidradenitis suppurativa July 23 1:48pm History of nicotine vaping July 23 2 025 1:48pm Anxiety August 20, 2024 1:38p m Obesity affecting August 20 1:38pm August 20, 2024 1:38p m Supervision of high-risk August 092024 1:38pm Hidradenitis suppurativa August 20, 2024 1:38pm History of nicotine vaping August 20 1:38pm Anxiety September 17, 2024 1:33p m Obesity affecting September 17 1:33pm September 17, 2024 1:33p m Supervision of high-risk September 17, 2024 1:33pm Chief Complaint Admit Date New OB, LMP 04/17, YESI 01/22June 20 2 025 1:58pm 14wk OB July 23, 2024 1:4 8pm 18wk ob August 20, 2024 1:38p m 22wk ob September 17, 2024 1:33p m 26wk ob October 15, 2024 2:28p m Reason for Visit Admit Date Anxiety June 20, 2024 1:5 8pm Obesity affecting June 20, 2024 1:58pm June 20, 2024 1:5 8pm Supervision of high-risk June 20, 2024 1:58pm Hidradenitis suppurativa June 20 1:58pm History of nicotine vaping June 20 2 025 1:58pm Anxiety July 23, 2024 1:4 8pm Obesity affecting July 23, 2024 1:48pm July 23, 2024 1:4 8pm Supervision of high-risk July 23, 2024 1:48pm Hidradenitis suppurativa July 23 1:48pm History of nicotine vaping July 23, 2 025 1:48pm Anxiety August 20, 2024 1:38p m Obesity affecting August 20 1:38pm August 20, 2024 1:38p m Supervision of high-risk August 092024 1:38pm Hidradenitis suppurativa August 20, 2024 1:38pm History of nicotine vaping August 20 1:38pm Anxiety September 17, 2024 1:33p m Obesity affecting September 17 1:33pm September 17, 2024 1:33p m Supervision of high-risk September 17, 2024 1:33pm Anxiety October 15, 2024 2:28p m Obesity affecting October 15 2:28pm October 15, 2024 2:28p m Supervision of high-risk October 15, 2024 2:28pm Additional Source Comments INFORMATION SOURCE (unrecogn ized section and content) DATE CREATED AUTHOR 10/05/2017 [facility] DATE CREATED AUTHOR AUTHOR'S ORGANIZ ATION 10/13/2017 [facility] ([place] DATE CREATED AUTHOR AUTHOR'S ORGANIZ ATION 10/03/2024 [facility] DATE CREATED AUTHOR AUTHOR'S ORGANIZ ATION 10/12/2024 [facility] Goals (unrecognized section and content) Goals may be documented in a n alternate sectionGoals may be documented in an alternate sectionGoals may be documented in an alternate sectionGoals may be documented in an alternate sectionGoals may be documented in an alternate sectionGoals may be documented in an alternate sectionGoals may be documented in an alternate section Care Teams (unrecognized sec tion and content) Team Status: Active Member Role Status Dates Dr. Ji Baer MD Primary Care Provider Activ e Team Status: Inactive Member Role Status Dates Dr. Ji Baer MD Primary Care Provider, [facility] Provider Active Valerio [place]AM[place], [place] Attending Provider Active Team Status: Inactive Member Role Status Dates Dr. Ji Baer MD Primary Care Provider, Attending Provider, Referring Provider Active Team Status: Active Member Role Status Dates Dr. Coco Baer MD Primary Care Provider Acti ve Team Status: Inactive Member Role Status Dates Dr. Coco Baer MD Primary Care Provider Acti ve Start: June 20, 2024 End: June 20, 2024 Dr. Coco Baer MD Referring Provider Active Start: June 20, 2024 End: June 20, 2024 Dr. Karina Bravo DO Attending Provider Activ e Start: June 20, 2024 End: June 20, 2024 Team Status: Inactive Member Role Status Dates Dr. Coco Baer MD Primary Care Provider Acti ve Start: June 20, 2024 End: June 20, 2024 Dr. Karina Bravo DO Attending Provider Activ e Start: June 20, 2024 End: June 20, 2024 Dr. Karina Bravo DO Referring Provider Activ e Start: June 20, 2024 End: June 20, 2024 Team Status: Inactive Member Role Status Dates Dr. Coco Baer MD Primary Care Provider Acti ve Start: July 04, 2024 End: July 04, 2024 Dr. Karina Bravo DO Attending Provider Activ e Start: July 04, 2024 End: July 04, 2024 Dr. Karina Bravo DO Referring Provider Activ e Start: July 04, 2024 End: July 04, 2024 Team Status: Inactive Member Role Status Dates Dr. Coco Baer MD Primary Care Provider Acti ve Start: July 23, 2024 End: July 23, 2024 Dr. Coco Baer MD Referring Provider Active Start: July 23, 2024 End: July 23, 2024 Tomi Cavanaugh CNM Attending Provider Active S tart: July 23, 2024 End: July 23, 2024 Team Status: Inactive Member Role Status Dates Dr. Coco Baer MD Primary Care Provider Acti ve Start: August 20, 2024 End: August 20, 2024 Dr. Coco Baer MD Referring Provider Active Start: August 20, 2024 End: August 20, 2024 Dr. Mayelin Garcia MD Attending Provider Active Start: August 20, 2024 End: August 20, 2024 Team Status: Inactive Member Role Status Dates Dr. Coco Baer MD Primary Care Provider Acti ve Start: August 20, 2024 End: August 20, 2024 Dr. Mayelin Garcia MD Attending Provider Active Start: August 20, 2024 End: August 20, 2024 Dr. Mayelin Garcia MD Referring Provider Active Start: August 20, 2024 End: August 20, 2024 Team Status: Inactive Member Role Status Dates Dr. Coco Baer MD Primary Care Provider Acti ve Start: September 17, 2024 End: September 17, 2024 Dr. Coco Baer MD Referring Provider Active Start: September 17, 2024 End: September 17, 2024 Ekaterina Kim NP, [employer] Attending Provider Active Start: September 17, 2024 End: September 17, 2024 Team Status: Active Member Role/Relationship Status Dates Dr. Coco Baer MD Primary Care Provider Acti ve Team Status: Inactive Member Role/Relationship Status Dates Dr. Coco Baer MD Primary Care Provider Acti ve Start: June 20, 2024 End: June 20, 2024 Dr. Coco Baer MD Referring Provider Active Start: June 20, 2024 End: June 20, 2024 Dr. Karina Bravo DO Attending Provider Activ e Start: June 20, 2024 End: June 20, 2024 Team Status: Inactive Member Role/Relationship Status Dates Dr. Coco Baer MD Primary Care Provider Acti ve Start: June 20, 2024 End: June 20, 2024 Dr. Karina Bravo DO Attending Provider Activ e Start: June 20, 2024 End: June 20, 2024 Dr. Karina Bravo DO Referring Provider Activ e Start: June 20, 2024 End: June 20, 2024 Team Status: Inactive Member Role/Relationship Status Dates Dr. Coco Baer MD Primary Care Provider Acti ve Start: July 04, 2024 End: July 04, 2024 Dr. Karina Bravo DO Attending Provider Activ e Start: July 04, 2024 End: July 04, 2024 Dr. Karina Bravo DO Referring Provider Activ e Start: July 04, 2024 End: July 04, 2024 Team Status: Inactive Member Role/Relationship Status Dates Dr. Coco Baer MD Primary Care Provider Acti ve Start: July 23, 2024 End: July 23, 2024 Dr. Coco Baer MD Referring Provider Active Start: July 23, 2024 End: July 23, 2024 Tomi Cavanaugh CNM Attending Provider Active S tart: July 23, 2024 End: July 23, 2024 Team Status: Inactive Member Role/Relationship Status Dates Dr. Coco Baer MD Primary Care Provider Acti ve Start: August 20, 2024 End: August 20, 2024 Dr. Coco Baer MD Referring Provider Active Start: August 20, 2024 End: August 20, 2024 Dr. Mayelin Garcia MD Attending Provider Active Start: August 20, 2024 End: August 20, 2024 Team Status: Inactive Member Role/Relationship Status Dates Dr. Coco Baer MD Primary Care Provider Acti ve Start: August 20, 2024 End: August 20, 2024 Dr. Mayelin Garcia MD Attending Provider Active Start: August 20, 2024 End: August 20, 2024 Dr. Mayelin Garcia MD Referring Provider Active Start: August 20, 2024 End: August 20, 2024 Team Status: Inactive Member Role/Relationship Status Dates Dr. Coco Baer MD Primary Care Provider Acti ve Start: September 17, 2024 End: September 17, 2024 Dr. Coco Baer MD Referring Provider Active Start: September 17, 2024 End: September 17, 2024 Ekaterina Kim NP [employer] Attending Provider Active Start: September 17, 2024 End: September 17, 2024 Team Status: Inactive Member Role/Relationship Status Dates Dr. Coco Baer MD Primary Care Provider Acti ve Start: October 15, 2024 End: October 15, 2024 Dr. Coco Baer MD Referring Provider Active Start: October 15, 2024 End: October 15, 2024 Tomi Cavanaugh CNM Attending Provider Active S tart: October 15, 2024 End: October 15, 2024 Team Status: Active Member Role/Relationship Status Dates Dr. Coco Baer MD Primary Care Provider Acti ve Start: October 15, 2024 Ekaterina Kim NP [employer] Attending Provider Active Start: October 15, 2024 FOR RECORDS PERTAINING TO PATIENTS WHO ARE OR HAVE BEEN ENROLLED IN A CHEMICAL DEPENDENCY/SUBSTANCEABUSE PROGRAM, SOME INFORMATION MAY BE OMITTED. This clinical summary was aggregated from multiple sources. Caution should be exercised in using it in the provision of clinical care. This summary normalizes information from multiple sources, and as a consequence, information in this document may materially change the coding, format and clinical context of patient data. In addition, data may be omitted in some cases. CLINICAL DECISIONS SHOULD BE BASED ON THE PRIMARY CLINICAL RECORDS. [facility]. provides no warranty or guarantee of the accuracy or completeness of information in this document.
--- OUTSIDE RECORDS SUMMARY | 2024-10-18 02:09 | XMS RPT_ITS | CCD ---
Author Organization [facility] CliniSyms Care Team Providers Care Files Supervisor Name Role Phone HESHAM ST H Unavailable Unavailable KINKOPFFIDELINA Unavailable Unavailable ZULYCUBA HESHAM H Unavailable Unavailable Dr. Ji Baer Primary Care Provider Dr. Ji Baer Referring Provider Dr. Karina Bravo Attending Provider Dr. Ji Baer Primary Care Provider [phone] Dr. Ji Baer Referring Provider TRISH Young Attending Provider Keyur LEROY, Dr. Sen Primary Care Provider Keyur LEROY, Dr. Sen Referring Provider Dr. Karina Bravo DO Attending Provider Dr. Karina Bravo DO Referring Provider Tomi Cavanaugh CNM Attending Provider [phone] Dr. Mayelin Garcia MD Attending Provider [phone] Dr. Mayelin Garcia MD Referring Provider [phone] Ekaterina Lagos Attending Provider TOMI CAVANAUGH Referring Unavailable KASI PADGETT Attending Unavailable NO PRIMARY CARE, Primary Care Unavailable TOMI CAVANAUGH Referring Unavailable NO PRIMARY CARE, Primary Care Unavailable TOMI CAVANAUGH Attending Unavailable ABRAN BRAR Attending Unavailable AARON LAI Referring Unavailable COCO BAER B Primary Care UnavailCoco Espinosa Primary Care Unavailable Karina Bravo Attending Unavailabl e [facility] Referring Unavailable [facility] Primary Care Unavailable Vande Rubi, Karina Attending Unavailabl e [facility] Referring Unavailable [facility], [place] Primary Care Unavailable Ekaterina Kim NP Attending Unavailable [place], [facility] Referring Unavailable [facility] Unavailable Tomi Cavanaugh Attending Unavailable [place], [facility] Referring Unavailable Mayelin Garcia Attending Unavailable [place], [place] Primary Care Unavailable [facility] Referring Unavailable Tomi Cavanaugh Attending Unavailable [facility] Unavailable [facility] Referring Unavailable [facility] Unavailable Kam Venegas, Karina Attending Unavailabl e Vande Gomezde, Karina Referring Unavailabl e [place], [place] Primary Care Unavailable Vanddeedee Venegas, Karina Attending Unavailabl e Vande Velde, Karina Referring Unavailabl e [facility], [facility] Referring Unavailable [facility], [place] Primary Care [facility]ending Unavailable [facility] Primary Care Unavailable Mayelin Garcia Attending Unavailable Mayelin Garcia Referring Unavailable Medications Current Medications Medication Drug Class(es) Dates Sig (Normalized) Sig (Original) Mv-Mn 074-Lq-Df6-Dha-Epa-F thom 180 mcg-35 mg- 25 mg-5 mg tablet,chewable (3 sources) Start: 05-29-2024 Mv-Mn 437-Gp-Io3-Dha-Epa- Fish 180 mcg-35 mg- 25 mg-5 mg tablet,chewable Active {tbl} PO May 29, 2024 1:00am Pnv No.330-Hb-Xc3-Dha-Ep a-Fish 180 mcg-35 mg- 25 mg-5 mg tablet,chewable (2 sources) Start: 05-29-2024 Pnv No.915-Rp-Kf7-Dha-E pa-Fish 180 mcg-35 mg- 25 mg-5 mg [...] 2023 1:00am July 22, 2023 4:30pm levonorgestrel 0.642002 mg/hr intrauterine system (12 sources) Progestin, Progestin-containing [...] Interpretation Reference Range Facility Progress Noteon 10-01-2024 Senior Investment Manager Authentication Interface Message Text New patient 10/02/2024 RE: Chetna Rodriguez Caitlin : 1995 AGE: 29 y.o. [facility]#: [id number] Gestational Age: 24 Weeks Delivery Hospital: [facility] Reason for visit: Chief Complaint Patient presents [...] performed in visit on 10/01/24 Echo [facility] [place] [address] [email or web address] My [email or web address] ------- Echocardiogram Report M-mode, complete 2D, complete spectral Doppler, and color Doppler PATIENT: Chetna Tucker STUDY DATE/TIME: Oct 01 2024 12:04PM HEIGHT: : 1995 WEIGHT: AGE: 29year(s) BSA/BMI: / 35kg/m^2 GENDER: F BP: 131 / 57 LOCATION: [facility] REFERRING PHYSICIAN: Aaron Lai ORDERING PROVIDER: Aaron Lai READING PHYSICIAN: JANET Elkins DATA CAPTURE CLERK: Jacqueline Ricks RDCS ------- SUMMARY: No significant [...] discussed with the patient. Recommendations: follow-up if lingo cleaner hears a heart murmur or otherwise clinically indicated. ------- REASON FOR EXAM: Suboptimal cardiac views. ------- : : - Maternal age: 30yr. - : 1. - Parity: 0. - Estimated delivery date: 01/22/2025. - Gestational age: 23 dyrpt2uhyd. ------- STUDY AND PROCEDURE DATA: The patient is . Procedure Description: New ([id number]) . Study status: Routine. Location: lab. Procedure: [...] a patent foramen ovale. There is a vmlde-zd-fxtx shunt. Left atrium: - The atrium is [...] is str (more content not included)... Normal [facility] Laboratory - Chemistry and C hemistry - challengeOrdered By: Ekaterina Kim on 09-17-2024 Glucose Ql (U) Negative [facility] Laboratory - UrinalysisOrder ed By: Ekaterina Kim on 09-17-2024 Protein Ql (U) Negative [facility] Identity Access Management Architect Office Visit Reporton 09-17-2024 Identity Access Management Architect Office Visit Report [facility] [address], [address] [place] [address] OFFICE VISIT Date of Service: 09/17/24 MR#: [id number] Acct: [id number] Name: CHETNA TUCKER Rep #: [id number] : 1995 Provider: SIOBHAN noyola Age/Sex: 29/F Location: [facility] Status: Signed Intake Vital Signs 07/23/24 13:51 08/20/24 13:44 09/17/24 13:45 Height 5 ft 9 in 5 ft 9 in 5 ft 9 in Weight: 242 lb BMI 35.7 BP 124/82 H Intake Visit Reasons: 22wk ob Chief Complaint: 22 Week OB Blending Line Attendant Required: No Is patient in pain?: No [...] removal Seasonal allergies S/p nephrectomy Surgical History [place] teeth extracted History of nephrectomy, right Family [...] in: none frequency: 1-2 times per week dat/mormonism: None seatbelt use: always do you feel safe at home: Yes additional social history: -[facility] History 1 Elective abortions Hx Para 0 [...] 121/82 Negative (more content not included)... Normal [facility] L3410.9992on 09-07-2024 [facility] Misc. Normal [facility] Comment on above: Order Comment: [id number] 1msAFP SERUM RT Result Comment: TEST RESULTS LIMITS AFP, Serum, Open Spina Bifida Results The MOM and risk factors of this report have been modified based on new information supplied to us by the client or their designated safety representative. The Weight was changed from Not [...] AFP MoM 0.81 [place] [address] Interpretation Interpretation: Screen Negative This result is [...] Customer Services to discuss available options. The [employer] recommends amniocentesis be offered to women age 35 and older. Comment: Dulce Ramirez, Ph.D., [facility] Director References: Available Upon Request. Multiples Of Median Cutoffs For AFP Elevations Dawn 2.5 Black 2.8 IDD 2.0 Twins 4.5 Abbreviation Definitions IDD - Insulin Dep Diabetes OSBR - Open Spina Bifida Risk For further inquiries contact [facility] at [phone]. This test was developed and its performance characteristics determined by [employer]. It has not been cleared or approved by the Food and Drug Administration. TESTING PERFORMED AT [facility]. ORIGINAL REPORT ON FILE IN LAB CONTAINS ADDITIONAL TEST SITE INFORMATION. Performed By: #### L 3410.9992 ####[facility] [id number] [place], [place], [id number] Laboratory - Chemistry and C hemistry - challengeOrdered By: Mayelin Garcia on 08-20-2024 Glucose Ql (U) Negative [facility] Laboratory - UrinalysisOrder ed By: Mayelin Garcia on 08-20-2024 Protein Ql (U) Negative [facility] Identity Access Management Architect Office Visit Reporton 08-20-2024 Identity Access Management Architect Office Visit Report [facility] [address], [address] [place] [address] OFFICE VISIT Date of Service: 08/20/24 MR#: [id number] Acct: [id number] Name: CHETNA TUCKER Rep #: [id number] : 1995 Provider: Dr. Mayelin grullon MD Age/Sex: 28/F Location: [facility] Status: Signed Intake Vital Signs 06/20/24 14:06 07/23/24 13:51 08/20/24 13:43 08/20/24 13:44 Height 5 ft 9 in 5 ft 9 in 5 ft 9 in 5 ft 9 in Weight: 235 lb 237 lb BMI 34.7 34.9 BP 133/85 H 121/82 H Intake Visit Reasons: 18wk ob Blending Line Attendant Required: No Is patient in pain?: No [...] removal Seasonal allergies S/p nephrectomy Surgical History [place] teeth extracted History of nephrectomy, right Family [...] in: none frequency: 1-2 times per week dat/mormonism: None seatbelt use: always do you feel safe at home: Yes additional social history: -[facility] History 1 Elective abortions Hx Para 0 [...] lb (+ (more content not included)... Normal [facility] Laboratory - Chemistry and C hemistry - challengeOrdered By: Tomi Cavanaugh on 07-23-2024 Glucose Ql (U) Negative [facility] Laboratory - UrinalysisOrder ed By: Tomi Cavanaugh on 07-23-2024 Protein Ql (U) Negative [facility] Identity Access Management Architect Office Visit Reporton 07-23-2024 Identity Access Management Architect Office Visit Report [facility] [address], [address] [place] [address] OFFICE VISIT Date of Service: 07/23/24 MR#: [id number] Acct: [id number] Name: CHETNA TUCKER Rep #: [id number] : 1995 Provider: ROZINA Nolan ams Age/Sex: 28/F Location: [facility] Status: Signed Intake Vital Signs 12/07/23 14:21 06/20/24 14:06 07/23/24 13:51 Height 5 ft 9 in 5 ft 9 in 5 ft 9 in Weight: 237 lb 4 oz 235 lb BMI 35.0 34.7 BP 128/84 H 133/85 H Intake Visit Reasons: 14wk OB Chief Complaint: 14wk OB Blending Line Attendant Required: No Is patient in pain?: No Allergies No Known Allergies Allergy (Verified 07/23/24 13:48) Medications ???Medication ???Instructions ???Recorded ???Confirmed ???Type PNV 178-FA 180 mcg-om3 35 mg-dha tab PO 05/29/24 07/23/24 History 25 mg-epa 5 mg-fish oil chew tablet Last Menstrual Period: 04/17/24 : No PFSH PFSH Medical History Encounter for IUD removal Seasonal allergies S/p nephrectomy Surgical History [place] teeth extracted History of nephrectomy, right Family [...] in: none frequency: 1-2 times per week dat/mormonism: None seatbelt use: always do you feel safe at home: Yes additional social history: -[facility] History 1 Elective abortions Hx Para 0 [...] additional co (more content not included)... Normal [facility] Absolute lymphocyte countOrd ered By: Karina Rubi on 07-04-2024 Lymphocytes Auto (Unsp spec) [#/Vol] 2.31 10*3/uL 0.83-4.51 [facility] Absolute neutrophil countOrd ered By: Karina Rubi on 07-04-2024 Neutrophils (Bld) [#/Vol] 7.1 10*3/uL 2.0-7.7 [facility] Automated lymphocyte count a s percentage of total leukocytesOrdered By: Karina Rubi on 07-04-2024 Lymphocytes/100 WBC Auto (Unsp spec) 23.3 % 19-41 [facility] Basophil percentageOrdered B y: Karina Rubi on 07-04-2024 Basophils/100 WBC (Bld) 0.2 % 0-1 [facility] CBC W/Diff, Automatedon 06-10 Absolute Lymph 2.31 X10 3/uL Normal 0.83-4.51 [facility] Comment on above: Performed By: #### L 900.0098, L3890.6006, L509.4006, L501.9985, L3890.6102, BTS, L3890.6301, L100.0100, L509.8002 #### [facility] Laboratory [address] [place], [place], [id number] Absolute Neut 7.1 X10 3/uL Normal 2.0-7.7 [facility] Comment on above: Performed By: #### L 900.0098, L3890.6006, L509.4006, L501.9985, L3890.6102, BTS, L3890.6301, L100.0100, L509.8002 #### [facility] [address] [place], [address] Basophils/100 WBC (Bld) 0.2 % Normal 0-1 [facility] Comment on above: Performed By: #### L 900.0098, L3890.6006, L509.4006, L501.9985, L3890.6102, BTS, L3890.6301, L100.0100, L509.8002 #### [facility] [address] [place], [address] Eosinophils/100 WBC (Bld) 0.5 % Normal 0-5 [facility] Comment on above: Performed By: #### L 900.0098, L3890.6006, L509.4006, L501.9985, L3890.6102, BTS, L3890.6301, L100.0100, L509.8002 #### [facility] [address] [place], [address] Erythrocyte distribution width (RBC) [Ratio] 12.9 % Normal 11.6-14.6 [facility] Comment on above: Performed By: #### L 900.0098, L3890.6006, L509.4006, L501.9985, L3890.6102, BTS, L3890.6301, L100.0100, L509.8002 #### [facility] [address] [place], [address] Hematocrit (Bld) [Volume fraction] 38.3 % Normal 37-47 [facility] Comment on above: Performed By: #### L 900.0098, L3890.6006, L509.4006, L501.9985, L3890.6102, BTS, L3890.6301, L100.0100, L509.8002 #### [facility] [address] [place], [address] Hemoglobin (Bld) [Mass/Vol] 13.2 g/dL Normal 12.0-15.0 [facility] Comment on above: Performed By: #### L 900.0098, L3890.6006, L509.4006, L501.9985, L3890.6102, BTS, L3890.6301, L100.0100, L509.8002 #### [facility] [address] [place], [address] IG% 0.300 Normal 0.0-0.9 [facility] Comment on above: Result Comment: IG% - Immature Granulocytes (promyelocytes, myelocytes and metamyelocytes) > 1% indicates that a LEFT SHIFT is Present. Performed By: #### L 900.0098, L3890.6006, L509.4006, L501.9985, L3890.6102, BTS, L3890.6301, L100.0100, L509.8002 #### [facility] [address] [place], [address] Lymphocytes/100 WBC (Bld) 23.3 % Normal 19-41 [facility] Comment on above: Performed By: #### L 900.0098, L3890.6006, L509.4006, L501.9985, L3890.6102, BTS, L3890.6301, L100.0100, L509.8002 #### [facility] [address] [place], [address] MCH (RBC) [Entitic mass] 29.0 pg Normal 27.0-32.0 [facility] Comment on above: Performed By: #### L 900.0098, L3890.6006, L509.4006, L501.9985, L3890.6102, BTS, L3890.6301, L100.0100, L509.8002 #### [facility] [address] [place], [address] MCHC (RBC) [Mass/Vol] 34.5 g/dL Normal 32-36 [facility] Comment on above: Performed By: #### L 900.0098, L3890.6006, L509.4006, L501.9985, L3890.6102, BTS, L3890.6301, L100.0100, L509.8002 #### [facility] [address] [place], [address] MCV (RBC) [Entitic vol] 84.2 fL Normal 81-99 [facility] Comment on above: Performed By: #### L 900.0098, L3890.6006, L509.4006, L501.9985, L3890.6102, BTS, L3890.6301, L100.0100, L509.8002 #### [facility] [address] [place], [address] Monocytes/100 WBC (Bld) 3.5 % Normal 0-10 [facility] Comment on above: Performed By: #### L 900.0098, L3890.6006, L509.4006, L501.9985, L3890.6102, BTS, L3890.6301, L100.0100, L509.8002 #### [facility] [address] [place], [address] Neutrophils/100 WBC (Bld) 72.2 % High 47-70 [facility] Comment on above: Performed By: #### L 900.0098, L3890.6006, L509.4006, L501.9985, L3890.6102, BTS, L3890.6301, L100.0100, L509.8002 #### [facility] [address] [place], [address] Nucleated RBC (Bld) [#/Vol] 0 10*3/uL Normal 0-5 [facility] Comment on above: Performed By: #### L 900.0098, L3890.6006, L509.4006, L501.9985, L3890.6102, BTS, L3890.6301, L100.0100, L509.8002 #### [facility] [address] [place], [address] ( Platelet mean volume (Bld) [Entitic vol] 9.4 fL Normal 6.2-12.0 [facility] Comment on above: Performed By: #### L 900.0098, L3890.6006, L509.4006, L501.9985, L3890.6102, BTS, L3890.6301, L100.0100, L509.8002 #### [facility] [address] [place], [address] ( Platelets (Bld) [#/Vol] 258 10*3/uL Normal 150-450 [facility] Comment on above: Performed By: #### L 900.0098, L3890.6006, L509.4006, L501.9985, L3890.6102, BTS, L3890.6301, L100.0100, L509.8002 #### [facility] [address] [place], [address] ( RBC (Bld) [#/Vol] 4.55 10*6/uL Normal 4.2-5.4 [facility] Comment on above: Performed By: #### L 900.0098, L3890.6006, L509.4006, L501.9985, L3890.6102, BTS, L3890.6301, L100.0100, L509.8002 #### [facility] [address] [place], [address] RDW SD 39.3 fl Normal 35.1-43.9 [facility] Comment on above: Performed By: #### L 900.0098, L3890.6006, L509.4006, L501.9985, L3890.6102, BTS, L3890.6301, L100.0100, L509.8002 #### [facility] [address] [place], [address] WBC (Bld) [#/Vol] 9.9 10*3/uL Normal 4.4-11.0 [facility] Comment on above: Performed By: #### L 900.0098, L3890.6006, L509.4006, L501.9985, L3890.6102, BTS, L3890.6301, L100.0100, L509.8002 #### [facility] [address] [place], [place], [id number] (898) Eosinophil percentageOrdered By: Karina Venegas on 07-04-2024 Eosinophils/100 WBC (Bld) 0.5 % 0-5 [facility] Erythrocyte distribution wid th ratioOrdered By: Karina Venegas on 07-04-2024 Erythrocyte distribution width (RBC) [Ratio] 12.9 % 11.6-14.6 [facility] Erythrocyte distribution wid th standard deviationOrdered By: Karina Venegas on 07-04-2024 Erythrocyte distribution width (RBC) [Entitic vol] 39.3 fL 35.1-43.9 [facility] Erythrocyte distribution width (RBC) [Ratio] 39.3 fl 35.1-43.9 [facility] HBV surface Ag Ql (S)Ordered By: Karina Venegas on 07-04-2024 Hepatitis B Surface Antigen Non-Reactive Nonreactive [facility] Comment on above: Reactive: Presumptiv e evidence of HBV. Repeatedly reactive samples must be confirmed using a neutralization test ([employer] HBsAg Confirmatory Test)Non-Reactive: HBsAg not detected; does not exclude the possibility of exposure to HBV Hematocrit Auto (Bld) [Volum e fraction]Ordered By: Karina Venegas on 07-04-2024 Hematocrit (Bld) [Volume fraction] 38.3 % 37-47 [facility] Hemoglobin A1con 07-04-2024 HbA1c (Bld) [Mass fraction] 5.3 % Low <=5.6 [facility] Comment on above: Performed By: #### L 900.0098, L3890.6006, L509.4006, L501.9985, L3890.6102, BTS, L3890.6301, L100.0100, L509.8002 ####[facility] [id number] [place], [address] Hemoglobin A1c percentageOrd ered By: Karina Venegas on 07-04-2024 HbA1c (Bld) [Mass fraction] 5.3 % Low >5.7 [facility] Hemoglobin measurementOrdere d By: Karina Venegas on 07-04-2024 Hemoglobin (Bld) [Mass/Vol] 13.2 g/dL 12.0-15.0 [facility] Hepatitis C antibodyOrdered By: Karina Venegas on 07-04-2024 Hepatitis C Antibody Non-Reactive Nonreactive [facility] Comment on above: Reactive: Presumptiv e evidence of antibodies to HCV. Follow CDC recommendations for supplemental testing.Non-Reactive: Antibodies to HCV were not detected; does not exclude the possibility of exposure to HCVReactive Results are presumptive evidence of antibodies to HCV. Follow CDC recommendations for supplemental testing.Order confirmation testing: HCV Quant by PCR testing - HCVPCR #[id number] Non Reactive: < 0.8 Equivocal: >/= 0.8 to < 1.0 Reactive: >/= 1.0The CDC requires that a reactive/equivocal HCV antibody result be sent out for confirmation. HCV Quant by PCR testing. Immature granulocytes/100 WB C Auto (Bld)Ordered By: Karina Venegas on 07-04-2024 Immature granulocytes/100 WBC (Bld) 0.300 % 0.0-0.9 [facility] Comment on above: IG% - Immature Granu locytes (promyelocytes, myelocytes and metamyelocytes) > 1% indicates that a LEFT SHIFT is Present. L3890.6006on 07-04-2024 HIV Non-Reactive Normal Nonreactive [facility] Comment on above: Result Comment: Non- Reactive Reactive Repeatedly reactive samples must be confirmed according to CDC recommended confirmatory algorithms. The subresults for either HIVAG or AHIV can be used as an aid in the selection of the confirmation algorithm for reactive samples. Send out specimens with Reactive results to [facility] for confirmation. Order the HIV antibody detection and differentiation: lc#[id number] Performed By: #### L 900.0098, L3890.6006, L509.4006, L501.9985, L3890.6102, BTS, L3890.6301, L100.0100, L509.8002 ####[facility] [id number] [facility]. [place], [place], [address] L3890.6102on 07-04-2024 HEP B Surf Ag Non-Reactive Normal Nonreactive [facility] Comment on above: Result Comment: Reac tive: Presumptive evidence of HBV. Repeatedly reactive samples must be confirmed using a neutralization test ([employer] HBsAg Confirmatory Test) Non-Reactive: HBsAg not detected; does not exclude the possibility of exposure to HBV Performed By: #### L 900.0098, L3890.6006, L509.4006, L501.9985, L3890.6102, BTS, L3890.6301, L100.0100, L509.8002 ####[facility] [address] [place], [place], [id number] L3890.6301on 07-04-2024 Hepatitis C Ab Non-Reactive Normal Nonreactive [facility] Comment on above: Result Comment: Reac tive: Presumptive evidence of antibodies to HCV. Follow CDC recommendations for supplemental testing. Non-Reactive: Antibodies to HCV were not detected; does not exclude the possibility of exposure to HCV Reactive Results are presumptive evidence of antibodies to HCV. Follow CDC recommendations for supplemental testing. Order confirmation testing: HCV Quant by PCR testing - HCVPCR #[id number] Non Reactive: < 0.8 Equivocal: >/= 0.8 to < 1.0 Reactive: >/= 1.0 The CDC requires that a reactive/equivocal HCV antibody result be sent out for confirmation. HCV Quant by PCR testing. Performed By: #### L 900.0098, L3890.6006, L509.4006, L501.9985, L3890.6102, BTS, L3890.6301, L100.0100, L509.8002 ####[facility] [id number] [facility] [place], [address] L509.4006on 07-04-2024 Rubella IgG REAC Normal Nonreactive [facility] Comment on above: Result Comment: Anti body Result: Interpretation Non-Reactive: Non-Immune Reactive: Immune The following results were obtained with the [employer] Rubella IgG assay. Results from assays of other manufacturers cannot be used interchangeably. Performed By: #### L 900.0098, L3890.6006, L509.4006, L501.9985, L3890.6102, BTS, L3890.6301, L100.0100, L509.8002 #### [facility] [address] [place], [address] L509.8002on 07-04-2024 Syphilis Abs Non-Reactive Normal Nonreactive [facility] Comment on above: Performed By: #### L 900.0098, L3890.6006, L509.4006, L501.9985, L3890.6102, BTS, L3890.6301, L100.0100, L509.8002 ####[facility] [id number] [facility] [place], [place], [address] Laboratory - Microbiology an d Antimicrobial susceptibilityOrdered By: Karina Venegas on 07-04-2024 HBV surface Ag Ql (S) Non-Reactive Nonreactive [facility] Comment on above: Reactive: Presumptiv e evidence of HBV. Repeatedly reactive samples must be confirmed using a neutralization test ([employer] HBsAg Confirmatory Test)Non-Reactive: HBsAg not detected; does not exclude the possibility of exposure to HBV Lymphocytes Auto (Unsp spec) [#/Vol]Ordered By: Karina Venegas on 07-04-2024 Lymphocytes (Bld) [#/Vol] 2.31 10*3/uL 0.83-4.51 [facility] Lymphocytes/100 WBC Auto (Un sp spec)Ordered By: Karina Venegas on 07-04-2024 Lymphocytes/100 WBC (Bld) 23.3 % 19-41 [facility] MCV (mean corpuscular volume ) determinationOrdered By: Karina Venegas on 07-04-2024 MCV (RBC) [Entitic vol] 84.2 fL 81-99 [facility] Mean corpuscular hemoglobin (MCH) determinationOrdered By: Karina Venegas on 07-04-2024 MCH (RBC) [Entitic mass] 29.0 pg 27.0-32.0 [facility] Mean corpuscular hemoglobin concentration (MCHC) determinationOrdered By: Karina Venegas on 07-04-2024 MCHC (RBC) [Mass/Vol] 34.5 g/dL 32-36 [facility] Mean platelet volume determi nationOrdered By: Karina Venegas on 07-04-2024 Platelet mean volume (Bld) [Entitic vol] 9.4 fL 6.2-12.0 [facility] Miscellaneous procedureOrder ed By: Karina Venegas on 07-04-2024 Miscellaneous Test Comment SEE SCANNED REPORT [facility] Monocyte percentageOrdered B y: Karina Venegas on 07-04-2024 Monocytes/100 WBC (Bld) 3.5 % 0-10 [facility] NATERAon 07-04-2024 NATURA SEE SCANNED REPORT Normal [facility] Comment on above: Order Comment: Comme nts: NIPT with gender carrier testing Performed By: #### L 900.0098, L3890.6006, L509.4006, L501.9985, L3890.6102, BTS, L3890.6301, L100.0100, L509.8002 #### [facility] [address] [place], [address] Neutrophil percentageOrdered By: Karina Venegas on 07-04-2024 Neutrophils/100 WBC (Bld) 72.2 % High 47-70 [facility] No Panel InformationOrdered By: Karina Venegas on 07-04-2024 HIV (1&2) Antibody Non-Reactive Nonreactive [facility] Comment on above: Non-ReactiveReactive Repeatedly reactive samples must be confirmed according to CDC recommended confirmatory algorithms. The subresults for either HIVAG or AHIV can be used as an aid in the selection of the confirmation algorithm for reactive samples.Send out specimens with Reactive results to [facility] for confirmation.Order the HIV antibody detection and differentiation: [id number]#[id number] Nucleated red blood cell per centageOrdered By: Karina Venegas on 07-04-2024 Nucleated RBC/100 WBC (Bld) [Ratio] 0 % 0-5 [facility] Platelet countOrdered By: Richmond Venegas on 07-04-2024 Platelets (Bld) [#/Vol] 258 10*3/uL 150-450 [facility] RBC Auto (Bld) [#/Vol]Ordere d By: Karina Venegas on 07-04-2024 RBC (Bld) [#/Vol] 4.55 10*6/uL 4.2-5.4 [facility] Rubella immune status determ ination by IgG antibody assayOrdered By: Karina Venegas on 07-04-2024 Rubella IgG Antibody REAC Nonreactive [facility] Comment on above: Antibody Result: Int erpretationNon-Reactive: Non-ImmuneReactive: ImmuneThe following results were obtained with the [employer] Rubella IgG assay. Results from assays of other manufacturers cannot be used interchangeably. T. pallidum abOrdered By: Richmond Venegas on 07-04-2024 Syphilis Total Antibody Non-Reactive Nonreactiv e [facility] Type AND Screenon 07-04-2024 Ab SCREEN GEL Negative Normal [facility] Comment on above: Order Comment: PN Performed By: #### L 900.0098, L3890.6006, L509.4006, L501.9985, L3890.6102, BTS, L3890.6301, L100.0100, L509.8002 #### [facility] [address] [place], [address] White blood cell (WBC) count Ordered By: Karina Venegas on 07-04-2024 WBC (Bld) [#/Vol] 9.9 10*3/uL 4.4-11.0 [facility] PAP I-G w/rfx hrHPV-Aptimaon 06-27-2024 ADEQ Comment Normal . [facility] Comment on above: Order Comment: Speci men Comment: [id number] Specimen Comment: Source.............Cervix Specimen Comment: LMP / Prev Treat...[id number] Specimen Comment: Other.............. Specimen Comment: No. of containers..01 ThinPrep Vial Result Comment: Sati sfactory for evaluation. Endocervical and/or squamous metaplastic cells (endocervical component) are present. Performed By: #### M 100.2200, L7000.1800, L7400.0353 #### [facility] [address] [facility] [place], [place], [id number] COMM . Normal . [facility] Comment on above: Order Comment: Speci men Comment: [id number] Specimen Comment: Source.............Cervix Specimen Comment: LMP / Prev Treat...[id number] Specimen Comment: Other.............. Specimen Comment: No. of containers..01 ThinPrep Vial Performed By: #### M 100.2200, L7000.1800, L7400.0353 #### [facility] [address] [facility] [place], [place], [address] COMMENT Comment Normal . [facility] Comment on above: Order Comment: Speci men Comment: [id number] Specimen Comment: Source.............Cervix Specimen Comment: LMP / Prev Treat...[id number] Specimen Comment: Other.............. Specimen Comment: No. of containers..01 ThinPrep Vial Result Comment: This liquid based ThinPrep(R) pap test was screened with the use of an image guided system. Performed By: #### M 100.2200, L7000.1800, L7400.0353 #### [facility] [address] [place], [place], [id number] DIAG Comment Normal . [facility] Comment on above: Order Comment: Speci men Comment: [id number] Specimen Comment: Source.............Cervix Specimen Comment: LMP / Prev Treat...[id number] Specimen Comment: Other.............. Specimen Comment: No. of containers..01 ThinPrep Vial Result Comment: NEGA TIVE FOR INTRAEPITHELIAL LESION OR MALIGNANCY. THIS SPECIMEN WAS RESCREENED PART OF OUR METAL RIVET MACHINE OPERATOR PROGRAM. Performed By: #### M 100.2200, L7000.1800, L7400.0353 #### [facility] [address] [place], [place], [address] HPV RFLX Comment Normal . [facility] Comment on above: Order Comment: Speci men Comment: [id number] Specimen Comment: Source.............Cervix Specimen Comment: LMP / Prev Treat...[id number] Specimen Comment: Other.............. Specimen Comment: No. of containers..01 ThinPrep Vial Result Comment: The HPV DNA reflex criteria were not met with this specimen result therefore, no HPV testing was performed. Performed at: [facility] - [address] [id number] Timber Killer: Kathleen Plata MD, Phone: [phone] Performed at: [facility]to [facility] [address] [place] [id number] Timber Killer: Hermann Zee MD, Phone: [phone] Performed By: #### M 100.2200, L7000.1800, L7400.0353 #### [facility] [address] [place], [place], [address] PAPSMR Comment Normal . [facility] Comment on above: Order Comment: Speci men Comment: [id number] Specimen Comment: Source.............Cervix Specimen Comment: LMP / Prev Treat...[id number] Specimen Comment: Other.............. Specimen Comment: No. of [...] By: #### M 100.2200, L7000.1800, L7400.0353 #### [facility] [address] [place], [place], [address] PERFORM Comment Normal . [facility] Comment on above: Order Comment: Speci men Comment: [id number] Specimen Comment: Source.............Cervix Specimen Comment: LMP / Prev Treat...[id number] Specimen Comment: Other.............. Specimen Comment: No. of containers..01 ThinPrep Vial Result Comment: Maisha Roberts Recovery Agent (ASCP) Performed By: #### M 100.2200, L7000.1800, L7400.0353 #### [facility] [address] [place], [place], [address] QC REV Comment Normal . [facility] Comment on above: Order Comment: Speci men Comment: [id number] Specimen Comment: Source.............Cervix Specimen Comment: LMP / Prev Treat...[id number] Specimen Comment: Other.............. Specimen Comment: No. of containers..01 ThinPrep Vial Result Comment: Robert Flowers, Recovery Agent Performed By: #### M 100.2200, L7000.1800, L7400.0353 #### [facility] [address] [place], [address] Chlamydia/GC LANNY aptimaon CHLAMY,NUC ACID Negative Normal Negative [facility] Comment on above: Performed By: #### M 100.2200, L7000.1800, L7400.0353 #### [facility] [address] [place], [address] GC BY NUC ACID Negative Normal Negative [facility] Comment on above: Result Comment: Perf ormed at: =G - [facility] [address] [id number] Timber Killer: Kathleen Plata MD, Phone: [phone] Performed By: #### M 100.2200, L7000.1800, L7400.0353 #### [facility] [address] [place], [address] Urine Cultureon 06-21-2024 URC Culture exhibits no growth. Normal [facility] Comment on above: Performed By: #### M 100.2200, L7000.1800, L7400.0353 #### [facility] [address] [place], [address] C. trachomatis rRNA LANNY+prob e Ql (Unsp spec)Ordered By: Karina Venegas on 06-20-2024 Chlamydia DNA (LANNY) Negative Negative [facility] Cervical or vagninal specime n microscopic examination by cytology stain (reported asOrdered By: Karina Venegas on 06-20-2024 Cytology report Cyto stain Doc (Cvx/Vag) Comment . [facility] Comment on above: The Pap smear is [...] rRNA LANNY+probe Ql (Unsp spec) Negative Negative [facility] Miller Head Wet Process Cyto stain Nom (C vx/Vag) [ID]Ordered By: Karina Venegas on 06-20-2024 Pap Smear Performed By Comment . [facility] Comment on above: Jovita Roberts, Cyto technologist (ASCP) Cytology report Cyto stain D oc (Cvx/Vag)Ordered By: Karina Venegas on 06-20-2024 Thin Prep Pap Smear Comment . [facility] Comment on above: The Pap smear is a s creening test designed to aid in thedetection of premalignant and malignant conditions of theuterine cervix. It is not a diagnostic procedure andshould not be used as the sole means of detecting cervicalcancer. Both false-positive and false-negative reports dooccur. Image-guided ThinPrep PapOrd ered By: Karina Venegas on 06-20-2024 Pap Smear Note Comment . [facility] Comment on above: This liquid based Th inPrep(R) pap test was screened withthe use of an image guided system. Image-guided liquid-based Pa pOrdered By: Karina Venegas on 06-20-2024 Pap Smear Diagnosis Comment . [facility] Comment on above: NEGATIVE FOR INTRAEP ITHELIAL LESION OR MALIGNANCY.THIS SPECIMEN WAS RESCREENED PART OF OUR METAL RIVET MACHINE OPERATOR PROGRAM. Image-guided liquid-based ce rvical Pap w high-risk HPV+reflex to HPV 16+18Ordered By: Karina Venegas on 06-20-2024 Human Papillomavirus Screen Comment . [facility] Comment on above: The HPV DNA reflex c nidia were not met with this specimenresult therefore, no HPV testing was performed.Performed at: [facility] - [facility] [id number] Director: Kathleen Plata MD, Phone: [phone] at: [facility] Cyto [address] [place], [place] [id number] Director: Hermann Zee MD, Phone: [phone] Laboratory - CytologyOrdered By: Karina Venegas on 06-20-2024 Miller Head Wet Process Cyto stain Nom (Cvx/Vag) [ID] Comment . [facility] Comment on above: Jovita Roberts, Cyto technologist (ASCP) Laboratory - Miscellaneous t estsOrdered By: Karina Venegas on 06-20-2024 Service comment (Unsp spec) [Interp] . . [facility] Neisseria gonorrhoeae nuclei c acid detection by amplified probe techniqueOrdered By: Karina Venegas on 06-20-2024 N. gonorrhoeae DNA LANNY+probe Ql (Unsp spec) Negative Negative [facility] Comment on above: Performed at: [address] [id number] Director: Kathleen Plata MD, Phone: [phone] No Panel InformationOrdered By: Karina Venegas on 06-20-2024 Pap Smear QC Review Comment . [facility] Comment on above: Brenda Flowers Cyto technologist Pap Smear Specimen Adequacy Comment . [facility] Comment on above: Satisfactory for mary luation. Endocervical and/or squamous metaplasticcells (endocervical component) are present. Identity Access Management Architect Office Visit Reporton 06-20-2024 Identity Access Management Architect Office Visit Report [facility] [address], [address] [place] [address] OFFICE VISIT Date of Service: 06/20/24 MR#: [id number] Acct: [id number] Name: CHETNA TUCKER Rep #: [id number] : 1995 Provider: Dr. Karina Shaikh, Age/Sex: 28/F Location: [facility] Status: Signed Intake Vital Signs 12/07/23 14:21 06/20/24 14:06 Height 5 ft 9 in 5 ft 9 in Weight: 237 lb 4 oz BMI 35.0 BP 128/84 H Intake Visit Reasons: New OB, LMP 04/17, YESI 01/22 Blending Line Attendant Required: No Is patient in pain?: No [...] removal Seasonal allergies S/p nephrectomy Surgical History [place] teeth extracted History of nephrectomy, right Family [...] in: none frequency: 1-2 times per week dat/mormonism: None seatbelt use: always do you feel safe at home: Yes additional social history: -[facility] History 1 Elective abortions Hx Para 0 [...] Other, I (more content not included)... Normal [facility] Service comment (Unsp spec) [Interp]Ordered By: Karina Venegas on 06-20-2024 Pap Smear Comment (3) . . [facility] Urine cultureOrdered By: Amalia Venegas on 06-20-2024 Bacteria identified Cx Nom (U) Culture exhibits no growth. [facility] Identity Access Management Architect Office Visit Reporton 12-07-2023 Identity Access Management Architect Office Visit Report [facility] [address] [place] [address], [address] [place] [address] OFFICE VISIT Date of Service: 12/07/23 MR#: [id number] Acct: [id number] Name: CHETNA TUCKER Rep #: [id number] : 1995 Provider: Dr. Karina Shaikh DO Age/Sex: 28/F Location: [facility] Status: Signed Intake Vital Signs 07/22/23 16:26 12/07/23 14:21 12/07/23 14:21 Height 5 ft 9 in 5 ft 9 in 5 ft 9 in Weight: 236 lb 6 oz BMI 34.9 BP 129/88 H Intake Visit Reasons: IUD REMOVAL Blending Line Attendant Required: No Is patient in pain?: No [...] days 12/07/23 1448 Date Karina Bravo DO [facility] Signature: Date (if applicable) CC: Normal [facility] T4 Free Directon 11-01-2023 T4 FREE DIRECT 0.79 ng/dL Normal 0.76-1.46 [facility] Comment on above: Order Comment: Order Date: 11/01/23Order Info: [id number] - TSHOrder Info: 3024-7 - T4F Performed By: #### L 501.9520, L506.0400 ####[facility] [address] [facility] [place], [place], [id number] Thyroid Stim Hormone (TSH)on 11-01-2023 TSH 1.23 uIU/mL Normal 0.358-3.74 [facility] Comment on above: Order Comment: Order Date: 11/01/23Order Info: [id number] - TSHOrder Info: 3024-7 - T4F Performed By: #### L 501.9520, L506.0400 ####[facility] [address] [place], [place], [address] hCG Titer Quant., Serumon HCG QUANT. < 1 Normal 1-3 [facility] Comment on above: Result Comment: hCG levels with Gestational Age Gestational Age hCG mIU/mL (IU/L) 0.2 - 1 week 5 - 50 1-2 weeks 50 - 500 2-3 weeks 100 - 5000 3-4 weeks 500 - 24908 4-5 weeks 1000 - 67421 5-6 weeks 88448 - 100,000 6-8 weeks 25388 - 200,000 2-3 months 30377 - 100,000 Performed By: #### L 700.8000 ####[facility] [address] [place], [address] Basophil percentageOrdered B y: Ji Baer on 04-13-2023 Chloride [Moles/Vol] 107 mmol/L 98-107 [facility] Glucose [Mass/Vol] 81 mg/dL 74-106 [facility] Potassium [Moles/Vol] 3.9 mmol/L 3.5-5.1 [facility] Sodium [Moles/Vol] 140 mmol/L 136-145 [facility] Laboratory - Chemistry and C hemistry - challengeOrdered By: Ji Baer on 04-13-2023 CO2 [Moles/Vol] 24.0 mmol/L 21.0-32.0 [facility] Urea nitrogen/Creatinine [Mass ratio] 17.9 mg/mg 10-20 [facility] Laboratory - Chemistry and C hemistry - challengeon 04-13-2023 Bilirubin Ql (U) Negative [facility] Glucose Ql (U) Negative [facility] HCG ( test) Ql (U) Negative [facility] Ketones Ql (U) Negative [facility] pH (U) 5.0 [pH] [facility] Specific gravity (U) [Rel density] 1.005 [facility] Urobilinogen (U) [Mass/Vol] 1 mg/dL [facility] Laboratory - Hematology and Cell countson 04-13-2023 Hemoglobin Ql (U) Trace [facility] Laboratory - Specimen inform ationon 04-13-2023 Clarity (U) Cloudy [facility] Color (U) STRAW [facility] Laboratory - Urinalysison Nitrite Ql (U) Negative [facility] Protein Ql (U) Negative [facility] No Panel InformationOrdered By: Ji Baer on 04-13-2023 Estimated GFR (MDRD) Amer 125 mL/min >60 [facility] Comment on above: GFR Calc Estimated GFR (MDRD) Non-Af Amer 103 mL/min >60 [facility] Comment on above: Non- GFR Calc No Panel Informationon 04-13 Urine Leukocytes Positive [facility] Urine Non-Hemolyzed Blood Non-Hemolyzed [facility] Serum or plasma calcium aubree urement (mass/volume)Ordered By: Ji Baer on 04-13-2023 Calcium [Mass/Vol] 9.5 mg/dL 8.5-10.1 [facility] Serum or plasma creatinine m easurement (mass/volume)Ordered By: Ji Baer on 04-13-2023 Creatinine [Mass/Vol] 0.73 mg/dL 0.55-1.02 [facility] Comment on above: The validity of the calculated GFR & GFRAA in patients over 70 years has not been determined. Clinical correlation is essential. Serum or plasma urea nitroge n measurement (mass/volume)Ordered By: Ji Baer on 04-13-2023 Urea nitrogen [Mass/Vol] 13 mg/dL 7-18 [facility] Thin prep Papanicolaou smear with manual screeningOrdered By: Ji Baer on 04-13-2023 Thin prep Papanicolaou smear with manual screening 9 5-15 [facility] Chlamydia trachomatis rRNA d etection by probe and target amplification methodon 07-17-2021 C. trachomatis rRNA LANNY+probe Ql (Unsp spec) Negative Negative [facility] Work Phone: Laboratory - Microbiology an d Antimicrobial susceptibilityon 07-17-2021 N. gonorrhoeae DNA LANNY+probe Ql (Unsp spec) Negative Negative [facility] Work Phone: Comment on above: Performed at: = - [address] [id number] Director: Kathleen Plata MD, Phone: [phone] Laboratory - Chemistry and C hemistry - challengeon 03-24-2021 Free T4 [Mass/Vol] 0.92 ng/dL 0.76-1.46 [facility] Work Phone: No Panel Informationon 03-24 Thyroid Stimulating Hormone (TSH) 1.01 uIU/mL 0.358-3.74 [facility] Work Phone: .GFRon 06-01-2017 eGFR (non-black) mL/min/{1.73_m2} Normal [facility] ([place]) Comment on above: Result Comment: GFR Population [...] meters Performed By: #### B MP, GFR ####[place] [address] BMPon 06-01-2017 BUN/Creatinine Ratio 22.1 ratio High 10.0-22.0 [facility] ([place]) Comment on above: Performed By: #### B MP, GFR ####[place] [address] Calcium 9.6 mg/dL Normal 8.4-10.1 [facility] ([place]) Comment on above: Performed By: #### B MP, GFR ####[address] [address] Chloride 108 mmol/L Normal 98-110 [facility] ([place]) Comment on above: Performed By: #### B MP, GFR ####[place] [address] CO2 28 mmol/L Normal 22-32 [facility] ([place]) Comment on above: Performed By: #### B MP, GFR ####[place] [address] Creatinine 0.68 mg/dL Normal 0.50-1.20 [facility] ([place]) Comment on above: Performed By: #### B MP, GFR ####[place] [address] Electrolyte Balance 7.0 mEq/L Normal 4.0-15.0 [facility] ([place]) Comment on above: Performed By: #### B MP, GFR ####[place] [address] Glucose mass conc 107 mg/dL Normal 70-110 [facility] ([place]) Comment on above: Performed By: #### B MP, GFR ####[place] [address] Potassium molar conc 3.9 mmol/L Normal 3.5-5.0 [facility] ([place]) Comment on above: Performed By: #### B MP, GFR ####[place] [address] Sodium 143 mmol/L Normal 136-145 [facility] ([place]) Comment on above: Performed By: #### B MP, GFR ####[place] [address] Urea nitrogen 15.0 mg/dL Normal 8.0-22.0 [facility] ([place]) Comment on above: Performed By: #### B MP, GFR ####[place] [address] ED Note-Provideron 8 ED Note-Provider Normal [facility] ([place]) Pat Eduon 06-01-2017 [facility] ([place]) Patient Summary Documentson 06-01-2017 Patient Summary Documents Normal [facility] ([place]) UAon 06-01-2017 UA Appear Cloudy Abnormal [facility] ([place]) Comment on above: Performed By: #### U A, UAMIC ####[address] [address] UA Blood Large Abnormal Neg-Trace [facility] ([place]) Comment on above: Performed By: #### U A, UAMIC ####[address] [address] UA Leuk Est Small Abnormal Negative [facility] ([place]) Comment on above: Performed By: #### U A, UAMIC ####[place] [address] UA Nitrite Negative Normal Negative [facility] ([place]) Comment on above: Performed By: #### U A, UAMIC ####[place] [address] UA pH 6.5 Normal 5.0 - 8.0 [facility] ([place]) Comment on above: Performed By: #### U A, UAMIC ####[place] [address] UA Protein 100 mg/dL Abnormal Negative [facility] ([place]) Comment on above: Performed By: #### U A, UAMIC ####[place] [address] UA Spec Grav 1.015 Normal [facility] ([place]) Comment on above: Performed By: #### U A, UAMIC ####[place] [address] UA Specimen Type Clean Catch Normal [facility] ([place]) Comment on above: Performed By: #### U A, UAMIC ####[place] [address] UA Urobilinogen 0.2 E.U./dL Normal [facility] ([place]) Comment on above: Performed By: #### U A, UAMIC ####[place] [address] Urine, color Straw Normal [facility] ([place]) Comment on above: Performed By: #### U A, UAMIC ####[place] [address] Urine, glucose Negative Normal Negative [facility] ([place]) Comment on above: Performed By: #### U A, UAMIC ####[place] [address] Urine, ketones presence Negative Normal Negative A [facility] ([place]) Comment on above: Performed By: #### U A, UAMIC ####[place] [address] Urine, urobilinogen Negative Normal Neg-Trace [facility] ([place]) Comment on above: Performed By: #### U A, UAMIC ####[place] [address] [address] [place] [address] UAMICon 06-01-2017 UA Bacteria 4+ /hpf Abnormal Negative [facility] ([place]) Comment on above: Performed By: #### U A, UAMIC ####[place] [address] [address] [place], [place] [address] UA Squam Epithelial 0-2 Normal 0-20 [facility] ([place]) Comment on above: Performed By: #### U A, UAMIC ####[facility] [place], [place] [address] UA WBC 50-100 Abnormal 0-5 [facility] ([place]) Comment on above: Performed By: #### U A, UAMIC ####[place] [address] [address] [place] [address] Urine, erythrocytes 5-10 Abnormal 0-2 [facility] ([place]) Comment on above: Performed By: #### U A, UAMIC ####[place] [address] CNOVon 12-31-2016 CNOV Office Visit (WSTR) CHETNA GARCIA I ([id number]) 1995 FDate Time Provider Department12/31/16 3:30 PM VÍCTOR KELLEY (KELSEA) WS During your visit today, we recorded the following information about you: Temperature Pulse Respiration Blood pressure 97.9 degrees 72/minute 16/minute 120/80 Weight Last Period 86.7 kg 12/28/16Víctor Kelley CNP 12/31/2016 4:16 PM [facility] Basilio I Franco is a 21 [...] spread bycoughs, sneezes, and direct contact, especially [id number]-fyij. A respiratorytract infection usually clears up in [...] 12/31/2016(No Known Allergies)Date Reviewed: 12/31/2016Reviewed by: Víctor ([facility]) [facility] for Visit: Head Congestion [234] Cmt: x4 daysPrimary Visit Diagnosis:URI, acute [J06.9]Order(s):flutica sone (FLONASE) 50 mcg/actuation nasal sprayUse 2 Sprays in each nostril once daily. Rinse mouth after use.Disp: 1 BottleRfl: 1 RAPID STREP TEST B/O [[id number]] Order #: [id number] as of 12/31/2016 Sig: FLUTICASONE 50 MCG/ACTUATION [...] by coughs, sneezes, and direct contact, especially gmow-rh-rmlx. A respiratory tract infection usually clears up [...] use.Letter TextWoosterDepartment of Urgent CareVíctor Kelley CNP[address] [place], [place] [address]Ghsrg: [phone] Gamez CC# [id number] [address] [place] [phone] WHOM IT MAY CONCERN:This is to confirm that Chetna Shira Gamez had an appointment [facility] by Trisha Suazo 12/31/2016.Sincerely yours,Víctor Kelley CNPEnccarlos Number: [id number] Status:Closed by VÍCTOR KELLEY CNP on 12/31/16 [facility] PROGRESSon 12-31-2016 PROGRESS HNO ID: [id number]: Víctor Toribio) Service: (none)Author Type: Nurse PractitionerType: Progress NotesFiled: 12/31/2016 4:16 PMNote Text:HPIHPI Chetna Gamez is a 21 year old female who presents today for CC ofsinus congestion. This started 4 days ago. Has tried multiple otcmedications with little relief. [facility] Denies possibility of being .Review of SystemsConstitutional: [...] for further evaluation by either myself or [facility]. Potential red flag symptoms discussed with thepatient. Reviewed appropriate action plan to take if red flag symptomsoccur. Patient agreeable to treatment plan.Víctor Kelley CNP Normal [facility] Vital Signs Date Time Vital Sign Value Performing Clinician Juan mohan 10-15-2024 14:50-0400 Body height 175.[address] Coco Baer MD Work Phone: [facility] 10-15-2024 14:50-0400 Body mass index (BMI) [Ratio] 35.8 kg/m2 Dr. Coco Baer MD Work Phone: [facility] 10-15-2024 14:50-0400 Body weight 109.[address] Coco Baer MD Work Phone: [facility] 10-15-2024 14:50-0400 Diastolic blood pressure 77 mm[Hg] Dr. Coco Baer MD Work Phone: [facility] 10-15-2024 14:50-0400 Systolic blood pressure 126 mm[Hg] Dr. Coco Baer MD Work Phone: [facility] 09-17-2024 13:45-0400 Body height 175.[address] Coco Baer MD Work Phone: [facility] 09-17-2024 13:45-0400 Body mass index (BMI) [Ratio] 35.7 kg/m2 Dr. Coco Baer MD Work Phone: [facility] 09-17-2024 13:45-0400 Body weight 109.[address] Coco Baer MD Work Phone: [facility] 09-17-2024 13:45-0400 Diastolic blood pressure 82 mm[Hg] Dr. Coco Baer MD Work Phone: 7(203)330-806756 [place] [address] 09-17-2024 13:45-0400 Systolic blood pressure 124 mm[Hg] Dr. Coco Baer MD Work Phone: 8(534)032-390611 [address] 08-20-2024 13:44-0400 Body height 175.[address] Coco Baer MD Work Phone: 0(474)414-364211 [address] 08-20-2024 13:43-0400 Body mass index (BMI) [Ratio] 34.9 kg/m2 Dr. Coco Baer MD Work Phone: 1(031)099-636256 [place] [address] 08-20-2024 13:43-0400 Body weight 107.[address] Coco Baer MD Work Phone: 1(288)520-860556 [place] [address] 08-20-2024 13:43-0400 Diastolic blood pressure 82 mm[Hg] Dr. Coco Baer MD Work Phone: 6(448)507-677756 [place] [address] 08-20-2024 13:43-0400 Systolic blood pressure 121 mm[Hg] Dr. Coco Baer MD Work Phone: 7(626)294-654056 [place] [address] 07-23-2024 13:51-0400 Body mass index (BMI) [Ratio] 34.7 kg/m2 Dr. Coco Baer MD Work Phone: 7(052)277-265056 [place] [address] 07-23-2024 13:51-0400 Body weight 106.[address] Coco Baer MD Work Phone: [facility] 07-23-2024 13:51-0400 Diastolic blood pressure 85 mm[Hg] Dr. Coco Baer MD Work Phone: [facility] 07-23-2024 13:51-0400 Systolic blood pressure 133 mm[Hg] Dr. Coco Baer MD Work Phone: [facility] 06-20-2024 14:06-0400 Body height 175.[address] Coco Baer MD Work Phone: 1(714)174-269656 [place] [address] 06-20-2024 14:06-0400 Body mass index (BMI) [Ratio] 35 kg/m2 Dr. Coco Baer MD Work Phone: 2(985)460-961456 [place] [address] 06-20-2024 14:06-0400 Body weight 107.[address] Coco Baer MD Work Phone: 6(101)215-882311 [address] 06-20-2024 14:06-0400 Diastolic blood pressure 84 mm[Hg] Dr. Coco Baer MD Work Phone: 3(002)123-495356 [place] [address] 06-20-2024 14:06-0400 Systolic blood pressure 128 mm[Hg] Dr. Coco Baer MD Work Phone: 4(158)744-552456 [place] [address] 04-13-2023 11:42-0500 Body temperature 97.8 [degF] Dr. Ji Baer Work Phone: [facility] 04-13-2023 11:42-0500 Diastolic blood pressure 72 mm[Hg] Dr. Ji Baer Work Phone: 3(624)637-646456 [place] [address] 04-13-2023 11:42-0500 Heart rate 66 /min Dr. Ji Baer Work Phone: [facility] 04-13-2023 11:42-0500 Respiratory rate 16 /min Dr. Ji Baer Work Phone: [facility] 04-13-2023 11:42-0500 SaO2% (BldA) [Mass fraction] 100 % Dr. Ji Baer Work Phone: 6(323)669-243856 [place] [address] 04-13-2023 11:42-0500 Systolic blood pressure 102 mm[Hg] Dr. Ji Baer Work Phone: [facility] 07-17-2021 10:05-0400 Body height 175.[address] Ji Baer Work Phone: [facility] Work Phone: 07-17-2021 10:05-0400 Body mass index (BMI) [Ratio] 32.5 kg/m2 Dr. Ji Baer Work Phone: [facility] Work Phone: 07-17-2021 10:05-0400 Body weight 99.[address] Ji Baer Work Phone: [facility] Work Phone: 07-17-2021 10:05-0400 Diastolic blood pressure 90 mm[Hg] Dr. Ji Baer Work Phone: [facility] Work Phone: 07-17-2021 10:05-0400 Systolic blood pressure 124 mm[Hg] Dr. Ji Baer Work Phone: [facility] Work Phone: Encounters Encounter Date Encounter Type Care Provider Facility Start: 10-15-2024 End: 10-15-2024 ambulatory Coco Baer Facility[facility] Start: 10-15-2024 End: 10-15-2024 Patient encounter procedure Tomi Cavanaugh CNM -[facility] Work Phone: Start: 10-01-2024 End: 10-01-2024 [facility]ulatory [facility] Start: 09-17-2024 End: 09-17-2024 Patient encounter procedure Ekaterina MCCANN -[facility] Work Phone: Start: 09-17-2024 End: 09-17-[address] Coco Baer MD Work Phone: [facility] Work Phone: Start: 08-28-2024 End: 08-28-2024 ambulatory TOMI CAVANAUGH [facility] Start: 08-20-2024 End: 08-20-[address] Mayelin Garcia MD -[facility] Work Phone: Start: 08-20-2024 End: 08-20-[address] Coco Baer MD Work Phone: [facility] Work Phone: Start: 08-20-2024 End: 08-20-2024 ambulatory Coco Baer Facility:[facility] Start: 07-23-2024 End: 07-23-2024 Patient encounter procedure Tomi Cavanaugh CNM -[facility] Work Phone: Start: 07-23-2024 End: 07-23-2024 ambulatory Tomi Cavanaugh Facility:[facility] Start: 07-04-2024 End: 07-04-[address] Coco Baer MD Work Phone: [facility] Work Phone: Start: 07-04-2024 End: 07-04-[address] Karina Hill, [facility] Start: 07-04-2024 End: 07-04-2024 ambulatory Coco Baer Facility:[facility] Start: 06-20-2024 End: 06-20-[address] Coco Baer MD Work Phone: [facility] Work Phone: Start: 06-20-2024 End: 06-20-[address] Karina Oliveira, [facility] Work Phone: Start: 06-20-2024 End: 06-20-[address] Karina Bravo DO -[facility] Work Phone: Start: 06-20-2024 End: 06-20-2024 ambulatory Coco Baer Facility:[facility] Start: 06-20-2024 End: 06-20-2024 ambulatory Coco Baer Facility:[facility] Start: 12-07-2023 End: 12-07-2023 ambulatory Coco Baer Facility:[facility] Start: 11-01-2023 End: 11-01-2023 ambulatory Coco Baer Facility:[facility] Start: 04-13-2023 End: 04-13-[address] Ji Baer Work Phone: [facility] Work Phone: Start: 04-13-2023 End: 04-13-[address] Ji Baer Work Phone: [facility] Work Phone: Start: 07-17-2021 End: 07-17-[address] Ji Baer Work Phone: [facility], [facility] Start: 07-17-2021 End: 07-17-[address] Ji Baer Work Phone: [facility] Start: 03-24-[address] [facility] [place] Start: 06-01-2017 End: 06-01-2017 Emergency department patient visit [facility] [facility] Facility: Start: 12-31-2016 End: 12-31-2016 [facility] Procedures Date Procedure Procedure Detail Performing Clinician Start: 08-20-[address] Coco Baer MD Work Phone: Comment on above: TEST RESULTS LIMITSAFP, Serum, Open Spin a Bifida Results The MOM and risk factors of this report have been modified based on new information supplied to us by the client or their designated safety representative. The Weight was changed from Not [...] AFP MoM 0.81 OSBR Risk 1 [place] [id number] Interpretation: Screen NegativeThis result is screen negative [...] Customer Services to discuss available options. The [place] [employer] recommends amniocentesis be offered to women age 35 and older.Comment: Dulce Ramirez, Ph.D., DABCCDirectorReferences: Available Upon Request.Multiples Of Median Cutoffs For AFP ElevationsSingleton 2.5 Black 2.8IDD 2.0 Twins 4.5 Abbreviation DefinitionsIDD - Insulin Dep DiabetesOSBR - Open Spina Bifida RiskFor further inquiries contact [employer] at [phone].This test was developed and its performance characteristicsdetermined by [employer]. It has not been cleared or approvedby the Food and Drug Administration. TESTING PERFORMED AT [facility]. ORIGINAL REPORT ON FILE IN LAB CONTAINS [...] HCV Quant by PCR testing - HCVPCR #[id number] Non Reactive: < 0.8 Equivocal: >/= 0.8 [...] ALIGNANCY.THIS SPECIMEN WAS RESCREENED PART OF OUR METAL RIVET MACHINE OPERATOR PROGRAM. This liquid based Th inPrep(R) pap test was screened withthe use of an image guided system. The HPV DNA reflex c riteria were not met with this specimenresult therefore, no HPV testing was performed.Performed at: [facility] [id number] Director: Kathleen Plata MD, Phone: [phone] at: [facility] [address] [place], [place] [id number] Director: Hermann Zee MD, Phone: [phone] Start: 06-20-[address] Coco Baer MD Work Phone: H/O: surgery S/p nephrectomy Dr. Joellen Baer Work Phone: Plan of Treatment Date Care Activity Detail Author Start: 10-15-2024 CBC W Auto Different ial panel - Blood [facility] Start: 10-15-2024 Measurement of gluco se 2 hours after glucose challenge for glucose tolerance test [facility] Start: 10-15-2024 Serologic test for syphilis [facility] Start: 10-15-2024 [facility] Start: 08-20-2024 Procedure [facility] CBC W Auto Different ial panel - Blood [facility] CBC W Auto Different ial panel - Blood [facility] Erythrocyte mean cor puscular volume determination [facility] Hematocrit [Volume F raction] of Blood [facility] Hemoglobin [Mass/volume] in Blood [facility] Hemoglobin A1c/Hemog lobin.total in Blood [facility] Hepatitis B surface antigen measurement [facility] Hepatitis C antibody measurement [facility] HIV 1+2 Ab+HIV1 p24 Ag [Presence] in Serum or Plasma by Immunoassay [facility] Leukocytes [#/volume] in Blood [facility] Mean corpuscular hem oglobin concentration determination [facility] Mean corpuscular hem oglobin determination [facility] Measurement of gluco se 2 hours after glucose challenge for glucose tolerance test [facility] Neutrophil count [facility] Neutrophil percent d ifferential count [facility] Platelets [#/volume] in Blood [facility] Procedure [facility] Red blood cell count [facility] Red cell distributio n width determination [facility] Rubella IgG measurement [facility] Serologic test for syphilis [facility] Treponema sp Ab [Pre sence] in Serum [facility] Payers Date Payer Category Payer Self-pay [id number] 2023 Unknown [id number] 2017 Unknown [id number] 1997 Unknown [id number] 2.16. [id number] 1997 Unknown [id number] 2.. [id number] 1997 Unknown [id number] 2.16. [id number] Private Health Insurance [id number] Unknown [id number] 2.16.8 [id number] Unknown [id number] 2.16.8 [id number] Unknown [id number] 2.16.8 [id number] Unknown [id number] 2.16.8 [id number] Unknown [id number] 2.16.8 [id number] Unknown [id number] 2.16.8 [id number] Unknown [id number] 2.16.8 [id number] Unknown [id number] 2.16.8 [id number] Unknown [id number] 2.16.8 [id number] Unknown [id number] 2.16.8 [id number] Social History Date Type Detail Facility Start: 07-17-2021 End: 04-13-2023 Tobacco smoking status WYIS Unknown if ever smoked [facility] Start: 1995 Sex Assigned At Female W [facility] Start: 05-29-2024 Tobacco smoking stat us WYIS Ex-smoker (finding) [facility] Start: 06-29-2024 End: 07-09-2024 Sex Female (finding) [facility] Clinical Notes 06-20-2024 to 10-15-2024 Note Date & Type Note Facility 10-15-2024 Progress note [facility] 10-15-2024 Progress note Note Date/Time October 15, 2024 3:25pm [facility] [address], [address] [place] [address] OFFICE VISIT Date of Service: 10/15/24 MR#: [id number] Acct: [id number] Name: CHETNA TUCKER Rep # : [id number] : 1995 Provider: ROZINA Cavanaugh Age/Sex: 29/F Location: [facility] Status: Signed Intake Vital Signs 07/23/24 13:51 09/17/24 13:45 10/15/24 14:50 Height 5 ft 9 in 5 ft 9 in 5 ft 9 in Weight: 242 lb 8 oz BMI 35.8 BP 126/77 H Intake Visit Reasons: 26wk ob Chief Complaint: 26wk OB 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 GA appropriate handout given. 10/15/24 1469 <Electronically signed by Tomi lewis CNM> Date _ Tomi Cavanaugh CNM Cosigner Signature: Date (if applicable) CC: ~ [facility] Work Phone: 1(371) 298-559203-12-2025 NotePap Smear Specimen AdequacyMarch 2024 11:59pmComment.Satisfactory for evaluation. Endocervical and/or squamous metaplasticcells (endocervical component)are present.[facility] A#[id number] on above:Satisfactory for evaluation. Endocervical and/or squamous metaplasticcells (endocervical component)are present.06-20-2024 NotePap Smear Specimen AdequacyMarch 2024 11:59pmComment.Satisfactory for evaluation. Endocervical and/or squamous metaplasticcells (endocervical component)are present.[facility] INTER[facility]ACED A#[id number] Community HospitalComment on above:Satisfactory for evaluation. Endocervical and/or squamous metaplasticcells (endocervical component)are present.06-20-2024 Evaluation note* Diagnosis Onset Date Resolution Status Admit Date Anxiety acute June 20 1:58pm Hidradenitis suppurativa acute June 20, 2024 1:58pm History of nicotine vaping acute June 20, 2024 1:58pm Obesity affecting acute June 20, 2024 1:58pm acute June 20 1:58pm Supervision of high-risk acute June 20, 2024 1:58pm [facility] Work Phone: 1(172) 482-894403-12-2025 Evaluation note* Diagnosis Onset Date Resolution Status [...] nicotine vaping inactive August 20, 2024 1:38pm [facility] Work Phone: 1(442) 349-753003-12-2025 Evaluation note* Diagnosis Onset Date Resolution Status [...] high-risk acute September 17, 2024 1 :33pm [facility] Work Phone: 1(288) 771-988303-12-2025 Evaluation note* Diagnosis Onset Date Resolution Status [...] high-risk acute October 15, 2024 2 :28pm [facility] Work Phone: Evaluation noteNo assessment information available [facility] Work Phone: Evaluation note* Diagnosis Onset Date Resolution Status Dysuria acute [facility] Work Phone: Reason for referral (narrative)No reason for referral information availableThe [facility] Work Phone: Summary Purpose Family History Relationship [...] for Visit Chief Complaint 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 Ji Baer MD Primary Care Provider, [facility] Provider Active Valerio CHAMBERS, PA Attending Provider [...] End: September 17, 2024 Ekaterina Kim NP, NURSE COORDINATOR-C Attending Provider Active Start: September 17, 2024 End: September 17, 2024 Team Status: Active Member Role/Relationship Status Dates Dr. Coco Baer MD Primary Care Provider Acti ve Team Status: Inactive Member Role/Relationship Status Dates Dr. Coco aBer MD Primary Care Provider Acti ve Start: [...] End: September 17, 2024 Ekaterina Kim NP NURSE COORDINATOR-C Attending Provider Active Start: September 17, 2024 [...] Start: October 15, 2024 Ekaterina Kim NP NURSE COORDINATOR-C Attending Provider Active Start: October 15, 2024 [...] BE BASED ON THE PRIMARY CLINICAL RECORDS. [facility] [email or web address] [facility]. provides no warranty or guarantee of the accuracy or completeness of information in this document.
== END | disposition home or self-care (01) ==
PROVIDERS: PCP Family Medicine; Visit Provider Nurse Practitioner Women's Health
DX: O09.90 Supervision of high risk pregnancy, unspecified, unspecified trimester (principal); Z13.1 Encounter for screening for diabetes mellitus; Z3A.00 Weeks of gestation of pregnancy not specified
CPT/HCPCS: 36415; 82950; 85025; 86703; 86780

== ENCOUNTER → 2024-12-25 | Outpatient (CLI) | payer OTHER, SELFPAY | END | disposition home or self-care (01) | LOC: LABSPEC 15:42 | PROVIDERS: PCP Family Medicine; Referring Provider Advanced Practice Midwife; Visit Provider Advanced Practice Midwife | DX: O09.93 Supervision of high risk pregnancy, unspecified, third trimester (principal); Z3A.36 36 weeks gestation of pregnancy | CPT/HCPCS: 87081 ==

== ENCOUNTER → 2025-01-08 | Outpatient (CLI) | payer OTHER, SELFPAY ==
--- NOTE | 2025-01-08 17:55 | US_ITS ---
PROCEDURE: OB LIMITED WITH BIOMETRICS 01/08/2025 REASON FOR EXAM: GROWTH Routine survey, limited care TECHNIQUE: Procedure Code: USOBGROWTH Modality: US Procedure: OB LIMITED WITH BIOMETRICS COMPARISON: None FINDINGS Number: 1 Position: Vertex Placental Position: Anterior, grade 2 Placental Abnormalities: None DIMENSIONS: Biparietal Diameter: 8.9 cm/36 weeks 1 day Head Circumference: 33.4 cm/38 weeks 1 day Abdominal Circumference: 34.7 cm/38 weeks 4 days Femur Length: 7.1 cm/36 weeks 4 days ESTIMATED WEIGHT: 3297 g +/-494 g ESTIMATED WEIGHT PERCENTILE (24+ weeks): 56 ESTIMATED GESTATIONAL AGE: By Ultrasound: 37 weeks 2 days ESTIMATED DATE OF DELIVERY: By Ultrasound: 01/27/2025 BIOPHYSICAL ASSESSMENT: Amniotic Fluid Volume: 12, largest pocket measuring 3.9 cm Cardiac Motion: 148 (average) Trunk and Limb Motion: Present. US/OB Limited With Biometrics IMPRESSION: Single live intrauterine at 37 weeks 2 days by current ultrasound wit h YESI of 01/27/2025. Heart rate at 148 beats per minute. No suspicious sonographic findings Reading Location: [id number]
== END | disposition home or self-care (01) ==
LOC: US 17:52
PROVIDERS: PCP Family Medicine; Referring Provider Obstetrics & Gynecology; Visit Provider Obstetrics & Gynecology
DX: Z34.90 Encounter for supervision of normal pregnancy, unspecified, unspecified trimester (principal)
CPT/HCPCS: 76816

== ENCOUNTER → 2025-01-23 | Outpatient (CLI) | payer OTHER, SELFPAY ==
--- NOTE | 2025-01-23 12:46 | US_ITS ---
PROCEDURE: OB LIMITED (NO BIOMETRICS) 01/23/2025 REASON FOR EXAM: ASTYA TECHNIQUE: Procedure Code: USOBL Modality: US Procedure: OB LIMITED (NO BIOMETRICS) COMPARISON: Prior study dated January 08, 2025. FINDINGS Number: 1 Position: Vertex Placental Position: Anterior and not low-lying Placental Abnormalities: No evidence of previa. ESTIMATED GESTATIONAL AGE: Baseline: 40 weeks and 1 day By Ultrasound: 39 weeks and 3 days ESTIMATED DATE OF DELIVERY: Baseline: January 22, 2025 By Ultrasound: January 27, 2025 BIOPHYSICAL ASSESSMENT: Amniotic Fluid Volume: 4.5 cm Amniotic Fluid Index: 12.6 cm (8-24 cm normal range) Cardiac Motion: 140 beats per minute (average) Trunk and Limb Motion: Present. MATERNAL ANATOMY: Adnexa: Neither maternal ovary is successfully identified. US/OB Limited (No Biometrics) IMPRESSION: Single live intrauterine gestation with mean gestational age of 39 weeks and 3 days. Normal amniotic fluid index. Reading Location: [facility]
--- NOTE | 2025-01-23 12:46 | US_ITS ---
PROCEDURE: OB LIMITED (NO BIOMETRICS) 01/23/2025 REASON FOR EXAM: SATYA TECHNIQUE: Procedure Code: USOBL Modality: US Procedure: OB LIMITED (NO BIOMETRICS) COMPARISON: Prior study dated January 08, 2025. FINDINGS Number: 1 Position: Vertex Placental Position: Anterior and not low-lying Placental Abnormalities: No evidence of previa. ESTIMATED GESTATIONAL AGE: Baseline: 40 weeks and 1 day By Ultrasound: 39 weeks and 3 days ESTIMATED DATE OF DELIVERY: Baseline: January 22, 2025 By Ultrasound: January 27, 2025 BIOPHYSICAL ASSESSMENT: Amniotic Fluid Volume: 4.5 cm Amniotic Fluid Index: 12.6 cm (8-24 cm normal range) Cardiac Motion: 140 beats per minute (average) Trunk and Limb Motion: Present. MATERNAL ANATOMY: Adnexa: Neither maternal ovary is successfully identified. US/OB Limited (No Biometrics) IMPRESSION: Single live intrauterine gestation with mean gestational age of 39 weeks and 3 days. Normal amniotic fluid index. Reading Location: [facility]
== END | disposition home or self-care (01) ==
LOC: US 12:45
PROVIDERS: PCP Family Medicine; Referring Provider Obstetrics & Gynecology; Visit Provider Obstetrics & Gynecology
DX: O26.843 Uterine size-date discrepancy, third trimester (principal); O09.93 Supervision of high risk pregnancy, unspecified, third trimester; Z3A.00 Weeks of gestation of pregnancy not specified
CPT/HCPCS: 76815

== ENCOUNTER 2025-01-28 19:17 | Inpatient (IN) | payer OTHER, SELFPAY ==
--- OUTSIDE RECORDS SUMMARY | 2025-01-28 18:56 | XMS RPT_ITS | CCD ---
Author Organization [facility] Care Team Providers Care Senior Adults Director Name Role Phone GIANCARLO STNE Jose Daniel Unavailable Unavailable SHANTFIDELINA BARRY Unavailable Unavailable JAYCOBPRINCE HESHAM H Unavailable Unavailable Dr. Ji Baer Primary Care Provider [phone] Dr. Ji Baer Referring Provider Dr. Karina Bravo Attending Provider [phone] Dr. Ji Baer Primary Care Provider [phone] Dr. Ji Baer Referring Provider TRISH Young Attending Provider [phone] Dr. Coco Baer MD Primary Care Provider Dr. Coco Baer MD Referring Provider Dr. Karina Bravo DO Attending Provider Dr. Karina Bravo DO Referring Provider Tomi Cavanaugh CNM Attending Provider [phone] Dr. Mayelin Garcia MD Attending Provider Dr. Mayelin Garcia MD Referring Provider [phone] Ekaterina Lagos Attending Provider [phone] TOMI CAVANAUGH Referring Unavailable KASI PADGETT Attending Unavailable NO PRIMARY MD ARAMIS Primary Care Unavailable TOMI CAVANAUGH Referring Unavailable NO PRIMARY CAREMD Primary Care Unavailable TOMI CAVANAUGH Attending Unavailable ABRAN BRAR Attending Unavailable AARON LAI Referring Unavailable COCO BAER Primary Care Unavailjames Baer MD, Dr. Sen Primary Care Provider Kam Venegas DO, Dr. Collins Attending Provider Kam Venegas DO, Dr. Collins Referring Provider Keyur LEROY, Dr. Sen Referring Provider Keyur LEROY, Dr. Sen Primary Care Provider Kam Venegas DO, Dr. Collins Attending Provider Keyur LEROY, Dr. Sen Primary Care Provider Keyur LEROY, Dr. Sen Referring Provider Tomi Cavanaugh CNM Attending Provider [phone] Keyur LEROY, Dr. Sen Primary Care Provider Keyur LEROY, Dr. Sen Referring Provider [phone] Jose LEROY, Dr. Dick Attending Provider Keyur LEROY, Dr. Sen [facility] Physicia n Julio OSHEA-C, Ekaterina Attending Physician [phone] Tomi Cavanaugh CNM Attending Physician [phone] Kam Venegas DO, Dr. Collins Attending Physician Jose LEROY, Dr. Dick Attending Physician Tomi Cavanaugh CNM Referring Provider [phone] Kam Venegas DO, Dr. Collins Referring Provider Coco Baer Primary Care Unavailable Tomi Cavanaugh Attending Unavailable Tomi Cavanaugh Referring Unavailable Coco Baer Primary Care Unavailable Coco Baer Referring Unavailable Mayelin Garcia Attending Unavailable Coco Baer Referring Unavailable Karina Bravo Attending Unavailabl e Coco Baer Primary Care Unavailable Karina Bravo Attending Unavailabl Coco Medina Primary Care Unavailable Coco Baer Referring Unavailable Karina Bravo Referring Unavailabl e Karina Bravo Attending Unavailabl e [facility] Primary Care Unavailable [facility] Primary Care Unavailable Mayelin Garcia Referring Unavailable Mayelin Garcia Attending Unavailable [facility] Primary Care Unavailable Julio PALLIATIVE SENIOR NP, Ekaterina Attending Unavailable Vande VeldeKarina Attending Unavailabl e Vande Velde, Karina Admitting Unavailabl e Vande Velde, Karina Referring Unavailabl e [facility] Primary Care Unavailable [facility] [place] Referring Unavailable Tomi Cavanaugh Attending Unavailable [facility] Primary Care Unavailable [facility] Primary Care Unavailable Maylein Garcia Referring Unavailable Mayelin Garcia Attending Unavailable Andrewe Rubi, Karina Referring Unavailabl e Vande Velde, Karina Attending Unavailabl e [facility] Care Unavailable [facility] [place] Referring Unavailable [facility] Primary Care Unavailable Mayelin Garcia Attending Unavailable [facility] [place] Referring Unavailable [facility] Primary Care Unavailable Tomi Cavanaugh Attending Unavailable [facility] Primary Care Unavailable [facility] [place] Referring Unavailable Julio PALLIATIVE SENIOR NP, Ekaterina Attending Unavailable [facility] Primary Care Unavailable [facility] [place] Referring Unavailable Tomi Cavanaugh Attending Unavailable [facility] [place] Referring Unavailable Mayelin Garcia Attending Unavailable [facility] Care Unavailable [facility] Primary Care Unavailable [facility] [place] Referring Unavailable Julio PALLIATIVE SENIOR NPEkaterina Attending Unavailable [facility] Primary Care Unavailable [facility] [place] Referring Unavailable Tomi Cavanaugh Attending Unavailable Kam Venegas, Karina Attending Unavailabl e [facility] Primary Care Unavailable [facility] [place] Referring Unavailable [facility] Primary Care Unavailable [facility] Referring Unavailable Julio PALLIATIVE SENIOR NP, Ekaterina Attending Unavailable [facility] Primary Care Unavailable [facility] Referring Unavailable Mayelin Garcia Attending Unavailable Vande VeldeKarina Attending Unavailabl e Vande Velde, Karina Referring Unavailabl e [facility] Care Unavailable Medications Current Medications Medication Drug Class(es) Dates Sig (Normalized) Sig (Original) Breast Pump device (7 sources) Start: 11-13-2024 Breast Pump device Active 0 .ROUTE .MEDSULY 1 0 November 13, 2024 12:00am As directed famotidine 20 mg oral tablet (9 sources) Histamine-2 Receptor Antagonist Start: 01-03-2025 take 1 tablet by mouth twice daily Famotidine (Pepcid) 20 mg tablet Active 20 mg PO TWICE A DAY 60 January 03, 2025 3:06pm Complies with drug therapy Start: 01-03-2025 take 1 tablet by sang th twice daily Start: 11-26-2024 End: 01-03-2025 take 1 tablet by mouth twice daily Famotidine (Pepcid) 20 mg tablet Discontinued 20 mg PO TWICE A DAY 60 November 26, 2024 12:00am January 03, 2025 3:06pm Mv-Mn 305-Pv-Nt1-Dha-Epa-Fis h 180 mcg-35 mg- 25 mg-5 mg tablet,chewable (12 sources) Start: 05-29-2024 Mv-Mn 110-Fa-O g3-Dnl-Ook-Fish 180 mcg-35 mg- 25 mg-5 mg tablet,chewable Active {tbl} PO May 29, 2024 1:00am Complies with drug therapy Start: 05-29-2024 Start: 05-29-2024 Mv-Mn 110-Fa-O f6-Lrv-Dzn-Fish 180 mcg-35 mg- 25 mg-5 mg tablet,chewable Active {tbl} PO May 29, 2024 1:00am Pnv No.801-Rb-Tq2-Dha-Epa-Fi sh 180 mcg-35 mg- 25 mg-5 mg tablet,chewable (2 sources) Start: 05-29-2024 Pnv No.034-Zi-Qv5-Dha-Epa-Fi sh 180 mcg-35 mg- 25 mg-5 mg tablet,chewable Active {tbl} PO May 29, 2024 1:00am Completed/Discontinued Medications Medication Drug Class(es) Dates Sig (Normalized) Sig (Original) cephalexin 500 mg oral capsule (15 sources) Cephalosporin Antibacterial Start: 04-13-2023 End: 04-23-2023 take 1 capsule by mouth every twelve hours Cephalexin 500 mg capsule Discontinued 500 mg PO Q12H 20 10 0 April 13, 2023 1:00am April 22, 2023 1:00am April 23, 2023 1:27am docosahexaenoic acid 200 mg oral capsule (14 sources) Start: 12-07-2023 End: 05-29-2024 Docosahexaenoic Acid ( Dha) 200 mg capsule Discontinued mg PO December 07, 2023 12:00am May 29, 2024 10:47am doxycycline hyclate 100 mg oral capsule (20 sources) Tetracycline-class Drug Start: 12-07-2023 End: 12-14-2023 [...] 2023 1:00am July 22, 2023 4:30pm levonorgestrel 0.820588 mg/hr intrauterine system (20 sources) Progestin, Progestin-containing Intrauterine Device Start: 07-20-2022 [...] sources) Anxiety; Translations: [Anxiety disorder, unspecified] Onset: 01-22-2025 05-29-2024 Chronic Contraceptive and procreative management (14 sources) Patient encounter status; Translations: [Encounter for removal of intrauterine contraceptive device] 05-29-2024 Episodic Genitourinary symptoms and ill-defined conditions (16 sources) Dysuria; Translations: [Dysuria] 04-13-2023 Episodic Immunizations and screening for infectious disease (2 sources) Contact with and (suspected) exposure to other viral communicable diseases; Translations: [Contact with or suspected exposure to other viral communicable disease] Onset: 11-13-2024 Episodic Other complications of (20 sources) Maternal obesity complicating , childbirth and the puerperium, antepartum; Translations: [Obesity complicating , unspecified trimester] 05-29-2024 Chronic Comment on above: HgbA1c Other complications of (1 source) Obesity complicating , second trimester; Translations: [Obesity complicating , second trimester] Onset: 01-22-2025 Chronic Other complications of (1 source) Obesity complicating , unspecified trimester; Translations: [Obesity complicating , unspecified trimester] Onset: 08-20-2024 Chronic Other complications of (20 sources) High risk ; Translations: [Supervision of high risk , unspecified, unspecified trimester] 05-29-2024 Episodic Comment on above: , YESI 01/22/25, Espinoza PRR,, YESI , Espinoza PRR,, YESI , Espinoza, having a girl "[place]" Other complications of (2 sources) Uterine size-date discrepancy, third trimester; Translations: [Uterine size-date discrepancy, third trimester] Onset: 01-22-2025 Episodic Other complications of (2 sources) Supervision of high risk , unspecified, third trimester; Translations: [Supervision of high risk , unspecified, third trimester] Onset: 01-22-2025 Episodic Other and delivery including normal (20 sources) ; Translations: [Encounter for supervision of normal , unspecified, unspecified trimester] Onset: 01-18-2025 05-29-2024 Episodic Comment on above: elects NIPT with Gen ale & Carrier testing NIPT low risk, jalen er declined afp ordered. NIPT low risk, jalen er declined. AFP negative. GBS neg, NIPT low ri sk, carrier declined. AFP negative. GBS neg, NIPT low ri sk, carrier declined. AFP negative, nml growth Other skin disorders (20 sources) Hidradenitis suppurativa; Translations: [Hidradenitis suppurativa] 04-13-2023 Episodic Residual codes; unclassified (15 sources) History of nephrectomy; Translations: [Acquired absence of kidney] 07-17-2021 Episodic Comment on above: left-didn't develop Residual codes; unclassified (1 source) 40 weeks gestation of ; Translations: [40 weeks gestation of ] Onset: 01-22-2025 Episodic Residual codes; unclassified (1 source) 39 weeks gestation of ; Translations: [39 weeks gestation of ] Onset: 01-17-2025 Episodic Residual codes; unclassified (1 source) 38 weeks gestation of ; Translations: [38 weeks gestation of ] Onset: 01-10-2025 Episodic Residual codes; unclassified (1 source) 37 weeks gestation of ; Translations: [37 weeks gestation of ] Onset: 01-03-2025 Episodic Residual codes; unclassified (1 source) 36 weeks gestation of ; Translations: [36 weeks gestation of ] Onset: 12-25-2024 Episodic Residual codes; unclassified (1 source) 31 weeks gestation of ; Translations: [31 weeks gestation of ] Onset: 11-26-2024 Episodic Residual codes; unclassified (1 source) 29 weeks gestation of ; Translations: [29 weeks gestation of ] Onset: 11-13-2024 Episodic Past or Other Problems Problem Classification Problem Date Documented Da te Episodic/Chronic Other complications of (1 source) Supervision of high risk , unspecified, unspecified trimester; Translations: [Supervision of high risk , unspecified, unspecified trimester] Onset: 10-17-2024 Episodic Other complications of (1 source) Supervision of high risk , unspecified, second trimester; Translations: [Supervision of high risk , unspecified, second trimester] Onset: 10-15-2024 Episodic Other screening for suspected conditions (not mental disorders or infectious disease) (1 source) Encounter for screening for malignant neoplasm of cervix; Translations: [Encounter for screening for malignant neoplasm of cervix] Onset: 07-04-2024 Episodic Other skin disorders (1 source) Hidradenitis suppurativa; Translations: [Hidradenitis suppurativa] Onset: 08-20-2024 Episodic Residual codes; unclassified (1 source) 25 weeks gestation of ; Translations: [25 weeks gestation of ] Onset: 10-15-2024 Episodic Residual codes; unclassified (1 source) 17 weeks gestation of ; Translations: [17 weeks gestation of ] Onset: 08-20-2024 Episodic Screening and history of mental health and substance abuse codes (20 sources) History of clinical finding in subject; Translations: [Personal history of nicotine dependence] Onset: 08-20-2024 05-29-2024 Episodic Comment on above: Pt stopped vaping 05/19/24, education provided Results Test Name Value Interpretation Reference Range Facility OB Limited (No Biometrics)on 01-23-2025 OB Limited (No Biometrics) [facility] [address] [place] [address] [id number] OB Limited (No Biometrics) MR#: [id number] Acct: [id number] Name: CHETNA TUCKER Rep #: [id number] : 1995 F 29 From: Robin lock MD PCP: Dr. Coco Baer MD Status: REG CLI Study: OB Limited (No Biometrics) Date of Exam: 01/23 Exam# [id number] Ordering Dr: Mayelin Garcia PROCEDURE: OB LIMITED (NO BIOMETRICS) 01/23/2025 REASON FOR EXAM: SATYA TECHNIQUE: Procedure Code: USOBL Modality: US Procedure: OB LIMITED (NO BIOMETRICS) COMPARISON: Prior study dated January 08, 2025. FINDINGS Number: 1 Position: Vertex Placental Position: Anterior and not low-lying Placental Abnormalities: No evidence of previa. ESTIMATED GESTATIONAL AGE: Baseline: 40 weeks and 1 day By Ultrasound: 39 weeks and 3 days ESTIMATED DATE OF DELIVERY: Baseline: January 22, 2025 By Ultrasound: January 27, 2025 BIOPHYSICAL ASSESSMENT: Amniotic Fluid Volume: 4.5 cm Amniotic Fluid Index: 12.6 cm (8-24 cm normal range) Cardiac Motion: 140 beats per minute (average) Trunk and Limb Motion: Present. MATERNAL ANATOMY: Adnexa: Neither maternal ovary is successfully identified. US/OB Limited (No Biometrics) IMPRESSION: Single live intrauterine gestation with mean gestational age of 39 weeks and 3 days. Normal amniotic fluid index. Reading Location: [place] [address] CC: Dr. Coco Baer MD; Dr. Mayelin Garcia MD Sex Worker Or Escort: Signed [facility] Network Controller Office Visit Reporton 01-22-2025 Network Controller Office Visit Report [facility] [address], [address] [place] [address] OFFICE VISIT Date of Service: 01/22/25 MR#: [id number] Acct: [id number] Name: CHETNA TUCKER Rep #: [id number] : 1995 Provider: Dr. Mayelin grullon MD Age/Sex: 29/F Location: [facility] Status: Signed Intake Vital Signs 11/13/24 13:46 01/17/25 15:06 01/22/25 14:50 Height 5 ft 9 in 5 ft 9 in 5 ft 9 in Weight: 256 lb 3 oz BMI 37.8 BP 123/88 H Intake Visit Reasons: 40 WK *HAPPY DUE DATE Steel Turner Required: No Is patient in pain?: No Allergies No Known Allergies Allergy (Verified 01/22/25 14:50) Medications ???Medication ???Instructions ???Recorded ???Confirmed ???Type mv-mn 110-FA 180 mcg-om3 35 mg-dha tab PO 05/29/24 01/22/25 History 25 mg-epa 5 mg-fish oil chew tablet breast pump #1 ea 11/13/24 01/22/25 Rx famotidine 20 mg tablet (Pepcid) 20 mg PO BID #60 tabs 01/03/25 Rx Last Menstrual Period: 04/17/24 Zika: Zika virus screening: Negative : No PFSH PFSH Medical History History of nicotine vaping Hidradenitis suppurativa Encounter for IUD removal Seasonal allergies S/p nephrectomy Surgical History [place] teeth extracted History of nephrectomy, right Family [...] in: none frequency: 1-2 times per week dat/jehovah's witness: None seatbelt use: always do you feel safe at home: Yes additional social history: -[facility] History 1 Elective abortions Hx Para 0 Spontaneous abortions Hx # Term Pregnancies Ectopic pregnancies Hx # Pregnancies Multiple births # of living children HPI 40 WK *HAPPY DUE DATE Details: CHETNA TUCKER is a 29 year old who presents for routine OB visit. OB Visit YESI Calculator Estimated Delivery Date Method Current WG Current Estimate 01/22/25 LMP (Certain) 40w 0d Other Estimates 01/23/25 Ultrasound #1 39w 6d Expected Delivery Route/Plan Labor Preferences- CB/BF classes: yes labor support person: Espinoza labor intervention preferences: pain management options preferred:nitrous, epidural if requested cut cord/dad catch: cord : yes PP control planned: discussed discussed possible routes of delivery and associated risks: [] special requests: [] Specific Issue/Plans Covid status: [] Flu vaccine: [] Tdap vaccine: given 11/13/24 Rhogam: na LARC form signed: yes movement and labor precautions reviewed. Problem list reviewed and updated with the [...] US ordered. handheld US and fht and mo (more content not included)... [facility] Network Controller Office Visit Reporton 01-17-2025 Network Controller Office Visit Report [facility] [address], [address] [place] [address] OFFICE VISIT Date of Service: 01/17/25 MR#: [id number] Acct: [id number] Name: CHETNA TUCKER Rep #: [id number] : 1995 Provider: ROZINA Nolan ams Age/Sex: 29/F [place] [facility] [place]: Signed Intake Vital Signs 11/13/24 13:46 01/10/25 14:11 01/17/25 15:06 Height 5 ft 9 in 5 ft 9 in 5 ft 9 in Weight: 255 lb 4 oz BMI 37.7 BP 128/89 H Intake Visit Reasons: 39 WK OB Chief Complaint: 39wk OB Steel Turner Required: No Is patient in pain?: No Allergies No Known Allergies Allergy (Verified 01/17/25 15:07) Medications ???Medication ???Instructions ???Recorded ???Confirmed ???Type mv-mn 110-FA 180 mcg-om3 35 mg-dha tab PO 05/29/24 01/17/25 History 25 mg-epa 5 mg-fish oil chew tablet breast pump #1 ea 11/13/24 01/17/25 Rx famotidine 20 mg tablet (Pepcid) 20 mg PO BID #60 tabs 01/03/2501/03 Rx Last Menstrual Period: 04/17/24 : No PFSH PFSH Medical History History of nicotine vaping Hidradenitis suppurativa Encounter for IUD removal Seasonal allergies S/p nephrectomy Surgical History [place] teeth extracted History of nephrectomy, right Family [...] in: none frequency: 1-2 times per week dat/jehovah's witness: None seatbelt use: always do you feel safe at home: Yes additional social history: -[facility] History 1 Elective abortions Hx Para 0 Spontaneous abortions Hx # Term Pregnancies Ectopic pregnancies Hx # Pregnancies Multiple births # of living children HPI 39 WK OB Details: CHETNA TUCKER is a 29 year old who presents for routine OB visit. OB Visit YESI Calculator Estimated Delivery Date Method Current WG Current Estimate 01/22/25 LMP (Certain) 39w 2d Other Estimates 01/23/25 Ultrasound #1 39w 1d Expected Delivery Route/Plan Labor Preferences- CB/BF classes: yes labor support person: Espinoza labor intervention preferences: pain management options preferred:nitrous, epidural if requested cut cord/dad catch: cord : yes PP control planned: discussed discussed possible routes of delivery and associated risks: [] special requests: [] Specific Issue/Plans Covid status: [] Flu vaccine: [] Tdap vaccine: given 11/13/24 Rhogam: na LARC form signed: yes Problem list reviewed and updated with the [...] fht and movement noted. accepts AFP next (more content not included)... [facility] Network Controller Office Visit Reporton 01-10-2025 Network Controller Office Visit Report [facility] [address], [address] [place] [address] OFFICE VISIT Date of Service: 01/10/25 MR#: [id number] Acct: [id number] Name: CHETNA TUCKER Rep #: [id number] : 1995 Provider: Dr. Mayelin grullon MD Age/Sex: 29/F [place] [facility] Status: Signed Intake Vital Signs 11/13/24 13:46 01/03/25 14:43 01/10/25 14:11 Height 5 ft 9 in 5 ft 9 in 5 ft 9 in Weight: 251 lb 2 oz BMI 37.0 BP 114/81 H Intake Visit Reasons: 38 WK OB Steel Turner Required: No Is patient in pain?: No Allergies No Known Allergies Allergy (Verified 01/10/25 14:09) Medications ???Medication ???Instructions ???Recorded ???Confirmed ???Type mv-mn 110-FA 180 mcg-om3 35 mg-dha tab PO 05/29/24 01/10/25 History 25 mg-epa 5 mg-fish oil chew tablet breast pump #1 ea 11/13/24 01/10/25 Rx famotidine 20 mg tablet (Pepcid) 20 mg PO BID #60 tabs 01/03/2506/05 Rx Last Menstrual Period: 04/17/24 Zika: Zika virus screening: Negative : No PFSH PFSH Medical History History of nicotine vaping Hidradenitis suppurativa Encounter for IUD removal Seasonal allergies S/p nephrectomy Surgical History [place] teeth extracted History of nephrectomy, right Family [...] in: none frequency: 1-2 times per week dat/jehovah's witness: None seatbelt use: always do you feel safe at home: Yes additional social history: -[facility] History 1 Elective abortions Hx Para 0 Spontaneous abortions Hx # Term Pregnancies Ectopic pregnancies Hx # Pregnancies Multiple births # of living children HPI 38 WK OB Details: CHETNA TUCKER is a 29 year old who presents for routine OB visit. OB Visit YESI Calculator Estimated Delivery Date Method Current WG Current Estimate 01/22/25 LMP (Certain) 38w 2d Other Estimates 01/23/25 Ultrasound #1 38w 1d Expected Delivery Route/Plan Labor Preferences- CB/BF classes: yes labor support person: Espinoza labor intervention preferences: pain management options preferred:nitrous, epidural if requested cut cord/dad catch: cord : yes PP control planned: discussed discussed possible routes of delivery and associated risks: [] special requests: [] Specific Issue/Plans Covid status: [] Flu vaccine: [] Tdap vaccine: given 11/13/24 Rhogam: na LARC form signed: yes Problem list reviewed and updated with the [...] ordered. shah ndheld US and fht and (more content not included)... [facility] OB Limited With Biometricson 01-08-2025 OB Limited With Biometrics [facility] [address] [place] [address] OB Limited With Biometrics MR#: [id number] Acct: [id number] Name: CHETNA TUCKER Rep #: [id number] : 1995 F 29 From: Jon Odom MD PCP: Dr. Coco Baer MD Status: [facility] Study: OB Limited With Biometrics Date of Exam: 01/08 Exam# [id number] Ordering Dr: Karina Bravo DO PROCEDURE: OB LIMITED WITH BIOMETRICS 01/08/2025 REASON FOR EXAM: GROWTH Routine survey, limited care TECHNIQUE: Procedure Code: USOBGROWTH Modality: US Procedure: OB LIMITED WITH BIOMETRICS COMPARISON: None FINDINGS Number: 1 Position: Vertex Placental Position: Anterior, grade 2 Placental Abnormalities: None DIMENSIONS: Biparietal Diameter: 8.9 cm/36 weeks 1 day Head Circumference: 33.4 cm/38 weeks 1 day Abdominal Circumference: 34.7 cm/38 weeks 4 days Femur Length: 7.1 cm/36 weeks 4 days ESTIMATED WEIGHT: 3297 g +/-494 g ESTIMATED WEIGHT PERCENTILE (24+ weeks): 56 ESTIMATED GESTATIONAL AGE: By Ultrasound: 37 weeks 2 days ESTIMATED DATE OF DELIVERY: By Ultrasound: 01/27/2025 BIOPHYSICAL ASSESSMENT: Amniotic Fluid Volume: 12, largest pocket measuring 3.9 cm Cardiac Motion: 148 (average) Trunk and Limb Motion: Present. US/OB Limited With Biometrics IMPRESSION: Single live intrauterine at 37 weeks 2 days by current ultrasound with YESI of 01/27/2025. Heart rate at 148 beats per minute. No suspicious sonographic findings Reading Location: [id number] CC: Dr. Coco Baer MD; Dr. Karina Bravo DO Sex Worker Or Escort: Signed [facility] - Chemistry and C hemistry - challengeOrdered By: Karina Venegas on 01-03-2025 Glucose Ql (U) Negative [facility] - UrinalysisOrder ed By: Karina Venegas on 01-03-2025 Protein Ql (U) Negative [facility] Network Controller Office Visit Reporton 01-03-2025 Network Controller Office Visit Report [facility] [address], [address] [place] [address] OFFICE VISIT Date of Service: 01/03/25 MR#: [id number] Acct: [id number] Name: CHETNA TUCKER Rep #: [id number] : 1995 Provider: Dr. Karina Shaikh DO Age/Sex: 29/F [place] [facility] Status: Signed Intake Vital Signs 11/13/24 13:46 12/25/24 15:03 01/03/25 14:43 Height 5 ft 9 in 5 ft 9 in 5 ft 9 in Weight: 253 lb BMI 37.3 BP 128/84 H Intake Visit Reasons: 37 WK OB Chief Complaint: 37wk OB Steel Turner Required: No Is patient in pain?: No Allergies No Known Allergies Allergy (Verified 01/03/25 14:41) Medications ???Medication ???Instructions ???Recorded ???Confirmed ???Type mv-mn 110-FA 180 mcg-om3 35 mg-dha tab PO 05/29/24 01/03/25 History 25 mg-epa 5 mg-fish oil chew tablet breast pump #1 ea 11/13/24 01/03/25 Rx famotidine 20 mg tablet (Pepcid) 20 mg PO BID #60 tabs 01/03/25 Rx Last Menstrual Period: 04/17/24 : No PFSH PFSH Medical History History of nicotine vaping Hidradenitis suppurativa Encounter for IUD removal Seasonal allergies S/p nephrectomy Surgical History [place] teeth extracted History of nephrectomy, right Family [...] in: none frequency: 1-2 times per week dat/jehovah's witness: None seatbelt use: always do you feel safe at home: Yes additional social history: -[facility] History 1 Elective abortions Hx Para 0 Spontaneous abortions Hx # Term Pregnancies Ectopic pregnancies Hx # Pregnancies Multiple births # of living children HPI 37 WK OB Details: CHETAN TUCKER is a 29 year old who presents for routine OB visit. OB Visit YESI Calculator Estimated Delivery Date Method Current WG Current Estimate 01/22/25 LMP (Certain) 37w 2d Other Estimates 01/23/25 Ultrasound #1 37w 1d Expected Delivery Route/Plan Labor Preferences- CB/BF classes: yes labor support person: Espinoza labor intervention preferences: pain management options preferred:nitrous, epidural if requested cut cord/dad catch: cord : yes PP control planned: discussed discussed possible routes of delivery and associated risks: [] special requests: [] Specific Issue/Plans Covid status: [] Flu vaccine: [] Tdap vaccine: given 11/13/24 Rhogam: na LARC form signed: yes Problem list reviewed and updated with the [...] and fht and movement noted. accepts AFP (more content not included)... [facility] Rule out Beta Strep (Grp. B) on 12-27-2024 BERNADINE Group B Beta Streptococcus is not isolated. Normal [facility] Comment on above: Performed By: #### M 100.3400 #### [facility] [address] [place] [address]. [place], [address] Laboratory - Chemistry and C hemistry - challengeOrdered By: Tomi Cavanaugh on 12-25-2024 Glucose Ql (U) Negative [facility] - UrinalysisOrder ed By: Tomi Cavanaugh on 12-25-2024 Protein Ql (U) Negative [facility] Network Controller Office Visit Reporton 12-25-2024 Network Controller Office Visit Report [facility] [address], [address] [place] [address] OFFICE VISIT Date of Service: 12/25/24 MR#: [id number] Acct: [id number] Name: CHETNA TUCKER Rep #: [id number] : 1995 Provider: ROZINA Nolan ams Age/Sex: 29/F Location: [facility] Status: Signed Intake Vital Signs 11/13/24 13:46 12/11/24 13:27 12/25/24 15:03 Height 5 ft 9 in 5 ft 9 in 5 ft 9 in Weight: 248 lb 8 oz BMI 36.6 BP 131/85 H Intake Visit Reasons: 36 WK OB Chief Complaint: 36wk OB Steel Turner Required: No Is patient in pain?: No Allergies No Known Allergies Allergy (Verified 12/25/24 15:04) Medications ???Medication ???Instructions ???Recorded ???Confirmed ???Type mv-mn 110-FA 180 mcg-om3 35 mg-dha tab PO 05/29/24 12/25/24 History 25 mg-epa 5 mg-fish oil chew tablet breast pump #1 ea 11/13/24 12/25/24 Rx famotidine 20 mg tablet (Pepcid) 20 mg PO BID #60 tabs 11/26/24 Rx Last Menstrual Period: 04/17/24 : No PFSH PFSH Medical History History of nicotine vaping Hidradenitis suppurativa Encounter for IUD removal Seasonal allergies S/p nephrectomy Surgical History [place] teeth extracted History of nephrectomy, right Family [...] in: none frequency: 1-2 times per week dat/jehovah's witness: None seatbelt use: always do you feel safe at home: Yes additional social history: -[facility]- [facility] History 1 Elective abortions Hx Para 0 Spontaneous abortions Hx # Term Pregnancies Ectopic pregnancies Hx # Pregnancies Multiple births # of living children HPI 36 WK OB Details: CHETNA TUCKER is a 29 year old who presents for routine OB visit. OB Visit YESI Calculator Estimated Delivery Date Method Current WG Current Estimate 01/22/25 LMP (Certain) 36w 0d Other Estimates 01/23/25 Ultrasound #1 35w 6d Expected Delivery Route/Plan Labor Preferences- CB/BF classes: yes labor support person: Espinoza labor intervention preferences: pain management options preferred:nitrous, epidural if requested cut cord/dad catch: cord : yes PP control planned: discussed discussed possible routes of delivery and associated risks: [] special requests: [] Specific Issue/Plans Covid status: [] Flu vaccine: [] Tdap vaccine: given 11/13/24 Rhogam: na LARC form signed: yes Problem list reviewed and updated with the [...] fht and movement noted. accepts AFP next (more content not included)... [facility] Screening beta-hemolytic Str eptococcus cultureOrdered By: Tomi Cavanaugh on 12-25-2024 Beta-hemolytic Streptococcus culture Group B Beta Streptococcus is not isolated. [facility] - Chemistry and C hemistry - challengeOrdered By: Ekaterina Kim on 12-11-2024 Glucose Ql (U) Negative [facility] - UrinalysisOrder ed By: Ekaterina Kim on 12-11-2024 Protein Ql (U) Negative [facility] Controller Office Visit Reporton 12-11-2024 Network Controller Office Visit Report [address], [address] [place] [address] OFFICE VISIT Date of Service: 12/11/24 MR#: [id number] Acct: [id number] Name: CHETNA TUCKER Rep #: [id number] : 1995 Provider: SIOBHAN noyola Age/Sex: 29/F [place] [facility] [place]: Signed Intake Vital Signs 10/15/24 14:50 11/26/24 13:11 12/11/24 13:23 12/11/24 13:27 Height 5 ft 9 in 5 ft 9 in 5 ft 9 in 5 ft 9 in Weight: 248 lb 2 oz BMI 36.6 BP 124/82 H Intake Visit Reasons: 34wk ob Chief Complaint: 34 Week OB Steel Turner Required: No Is patient in pain?: No Allergies No Known Allergies Allergy (Verified 12/11/24 13:22) Medications ???Medication ???Instructions ???Recorded ???Confirmed ???Type mv-mn 110-FA 180 mcg-om3 35 mg-dha tab PO 05/29/24 12/11/24 History 25 mg-epa 5 mg-fish oil chew tablet breast pump #1 ea 11/13/24 12/11/24 Rx famotidine 20 mg tablet (Pepcid) 20 mg PO BID #60 tabs 11/26/2406/05 Rx Last Menstrual Period: 04/17/24 Zika: Zika virus screening: Negative : No PFSH PFSH Medical History History of nicotine vaping Hidradenitis suppurativa Encounter for IUD removal Seasonal allergies S/p nephrectomy Surgical History [place] teeth extracted History of nephrectomy, right Family [...] in: none frequency: 1-2 times per week dat/jehovah's witness: None seatbelt use: always do you feel safe at home: Yes additional social history: -[facility]- [facility] History 1 Elective abortions Hx Para 0 Spontaneous abortions Hx # Term Pregnancies Ectopic pregnancies Hx # Pregnancies Multiple births # of living children HPI 34wk ob Details: CHETNA TUCKER is a 29 year old who presents for routine OB visit. OB Visit YESI Calculator Estimated Delivery Date Method Current WG Current Estimate 01/22/25 LMP (Certain) 34w 0d Other Estimates 01/23/25 Ultrasound #1 33w 6d Expected Delivery Route/Plan Labor Preferences- CB/BF classes: yes labor support person: Espinoza labor intervention preferences: pain management options preferred:nitrous, epidural if requested cut cord/dad catch: cord : yes PP control planned: discussed discussed possible routes of delivery and associated risks: [] special requests: [] Specific Issue/Plans Covid status: [] Flu vaccine: [] Tdap vaccine: given 11/13/24 Rhogam: na LARC form signed: yes Problem list reviewed and updated with the [...] handheld US and fht and movement noted. (more content not included)... Normal [facility] - Chemistry and C hemistry - challengeOrdered By: Mayelin Garcia on 11-26-2024 Glucose Ql (U) Negative [facility] - UrinalysisOrder ed By: Mayelin Garcia on 11-26-2024 Protein Ql (U) Negative [facility] Controller Office Visit Reporton 11-26-2024 Network Controller Office Visit Report [facility] [address], [address] [place] [address] OFFICE VISIT Date of Service: 11/26/24 MR#: [id number] Acct: [id number] Name: CHETNA TUCKER Rep #: [id number] : 1995 Provider: Dr. Mayelin grullon MD Age/Sex: 29/F [place] [facility] [place]: Signed Intake Vital Signs 10/15/24 14:50 11/13/24 13:46 11/26/24 13:11 Height 5 ft 9 in 5 ft 9 in 5 ft 9 in Weight: 245 lb 8 oz BMI 36.2 BP 124/78 H Intake Visit Reasons: 32wk ob Steel Turner Required: No Is patient in pain?: No Allergies No Known Allergies Allergy (Verified 11/26/24 13:11) Medications ???Medication ???Instructions ???Recorded ???Confirmed ???Type mv-mn 110-FA 180 mcg-om3 35 mg-dha tab PO 05/29/24 11/26/24 History 25 mg-epa 5 mg-fish oil chew tablet breast pump #1 ea 11/13/24 11/26/24 Rx famotidine 20 mg tablet (Pepcid) 20 mg PO BID #60 tabs 11/26/24 Rx Last Menstrual Period: 04/17/24 Zika: Zika virus screening: Negative : No PFSH PFSH Medical History History of nicotine vaping Hidradenitis suppurativa Encounter for IUD removal Seasonal allergies S/p nephrectomy Surgical History [place] teeth extracted History of nephrectomy, right Family [...] in: none frequency: 1-2 times per week dat/jehovah's witness: None seatbelt use: always do you feel safe at home: Yes additional social history: -[facility] History 1 Elective abortions Hx Para 0 Spontaneous abortions Hx # Term Pregnancies Ectopic pregnancies Hx # Pregnancies Multiple births # of living children HPI 32wk ob Details: CHETNA TUCKER is a 29 year old who presents for routine OB visit. OB Visit YESI Calculator Estimated Delivery Date Method Current WG Current Estimate 01/22/25 LMP (Certain) 31w 6d Other Estimates 01/23/25 Ultrasound #1 31w 5d Expected Delivery Route/Plan Labor Preferences- CB/BF classes: yes labor support person: Espinoza labor intervention preferences: pain management options preferred:nitrous, epidural if requested cut cord/dad catch: cord : yes PP control planned: discussed discussed possible routes of delivery and associated risks: [] special requests: [] Specific Issue/Plans Covid status: [] Flu vaccine: [] Tdap vaccine: given 11/13/24 Rhogam: na LARC form signed: yes Problem list reviewed and updated with the [...] ordered. shah ndheld US and fht and mo (more content not included)... Normal [facility] - Chemistry and C hemistry - challengeOrdered By: Ekaterina Kim on 11-13-2024 Glucose Ql (U) Negative [facility] - UrinalysisOrder ed By: Ekaterina Kim on 11-13-2024 Protein Ql (U) Negative [facility] Controller Office Visit Reporton 11-13-2024 Network Controller Office Visit Report [address], [address] [place] [address] OFFICE VISIT Date of Service: 11/13/24 MR#: [id number] Acct: [id number] Name: CHETNA TUCKER Rep #: [id number] : 1995 Provider: SIOBHAN noyola Age/Sex: 29/F [place] [facility] Status: Signed with Addenda ADDENDUM by Ekaterina Anglin on 11/13/24 at 1408 Office Procedure Documentation entered by Ekaterina Anglin 11/13/24 14:08: Immunizations Adacel(Tdap Adolesn/Adult)(PF) 2 Lf-(2.5-5-3-5)-5 Lf/0.5 mL IM syringe Performing Provider: Ekaterina Kim NP, SIOBHAN Performing Location: [facility] Administered by: Ekaterina Anglin on 11/13/24 14:07 Dose Route Admin Location Dispensed Lot Number Expiration Date [place] Man ufacturer 0.5 mL IM Left Deltoid 0.5 mL [id number] 10/08/26 47787-991-91 [employer] VIS Given Date VIS Provided VIS Publication Date 11/13/24 Single Vaccine 24 Eligibility Eligibility Date Funding Source Not Applicable Date cc: * Signed Intake Vital Signs 10/15/24 14:50 10/29/24 13:49 11/13/24 13:43 11/13/24 13:46 Height 5 ft 9 in 5 ft 9 in 5 ft 9 in 5 ft 9 in Weight: 242 lb 1 oz BMI 35.7 BP 120/81 H Intake Visit Reasons: 30wk ob Chief Complaint: 30 Week OB Steel Turner Required: No Is patient in pain?: No Allergies No Known Allergies Allergy (Verified 11/13/24 13:42) Medications ???Medication ???Instructions ???Recorded ???Confirmed ???Type mv-mn 110-FA 180 mcg-om3 35 mg-dha tab PO 05/29/24 11/13/24 History 25 mg-epa 5 mg-fish oil chew tablet breast pump #1 ea 11/13/24 11/13/24 Rx Last Menstrual Period: 04/17/24 Zika: Zika virus screening: Negative : Yes PFSH PFSH Medical History History of nicotine vaping Hidradenitis suppurativa Encounter for IUD removal Seasonal allergies S/p nephrectomy Surgical History [place] teeth extracted History of nephrectomy, right Family [...] in: none frequency: 1-2 times per week dat/jehovah's witness: None seatbelt use: always do you feel safe at home: Yes additional social history: -[employer]- [place] [address] History 1 Elective abortions Hx Para 0 Spontaneous abortions Hx # Term Pregnancies Ectopic pregnancies Hx # Pregnancies Multiple births # of living children HPI 30wk ob Details: CHETNA TUCKER is a 29 year old who presents for routine OB visit. OB Visit YESI Calculator Estimated Delivery Date Method Current WG Current Estimate 01/22/25 LMP (Certain) 30w 0d Other Estimates 01/23/25 Ultrasound #1 29w 6d Expected Delivery Route/Plan Labor Preferences- CB/BF classes: yes labor support person: Espinoza labor intervention preferences: pain management options preferred:nitrous, epidural if requested cut cord/dad catch: cord : yes PP control planned: discussed discussed possible routes of delivery and associated risks: [] special requests: [] Specific Issue/Plans Covid status: [] Flu vaccine: [] Tdap vaccine: given 11/13/24 Rhogam: na LARC form signed: yes Problem list reviewed and updated with the most current plan of care details and appropriate orders placed. Relevant counseling for the gestational age provided. Continue routine care and follow up unless otherwise noted in visit notes/problem list details Initial Weight: 237 lb Date -???-???-???-???-???-?? ?-???-???-???-???-???-? ??- EGA Weight BP Urine Prot -???-???-? (more content not included)... Normal [facility] - Chemistry and C hemistry - challengeOrdered By: Karina Venegas on 10-29-2024 Glucose Ql (U) Negative [facility] - UrinalysisOrder ed By: Karina Venegas on 10-29-2024 Protein Ql (U) Negative [facility] Controller Office Visit Reporton 10-29-2024 Network Controller Office Visit Report [facility] [address], [address] [place] [address] OFFICE VISIT Date of Service: 10/29/24 MR#: [id number] Acct: [id number] Name: CHETNA TUCKER Rep #: [id number] : 1995 Provider: Dr. Karina Shaikh DO Age/Sex: 29/F Location: [facility] Status: Signed Intake Vital Signs 07/23/24 13:51 10/15/24 14:50 10/29/24 13:48 10/29/24 13:49 Height 5 ft 9 in 5 ft 9 in 5 ft 9 in 5 ft 9 in Weight: 243 lb BMI 35.9 BP 125/76 H Intake Visit Reasons: 28wk ob Steel Turner Required: No Is patient in pain?: No Allergies No Known Allergies Allergy (Verified 10/29/24 13:48) Medications ???Medication ???Instructions ???Recorded ???Confirmed ???Type mv-mn 110-FA 180 mcg-om3 35 mg-dha tab PO 05/29/24 10/29/24 History 25 mg-epa 5 mg-fish oil chew tablet Last Menstrual Period: 04/17/24 Zika: Zika virus screening: Negative : No PFSH PFSH Medical History History of nicotine vaping Hidradenitis suppurativa Encounter for IUD removal Seasonal allergies S/p nephrectomy Surgical History [place] teeth extracted History of nephrectomy, right Family History Mother Kidney disease Heart disease Hypertension Grandmother Heart disease Maternal Kidney disease Maternal Hypertension Maternal Diabetes Maternal Father Hypertension Social History adopted: No household members: spouse housing: house current occupational status: employed 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 OB Visit YESI Calculator Estimated Delivery Date Method Current WG Current Estimate 01/22/25 LMP (Certain) 27w 6d Other Estimates 01/23/25 Ultrasound #1 27w 5d Expected Delivery Route/Plan Labor Preferences- CB/BF [...] 17w 6d 237 lb (+0 oz) 121/82 Negativ (more content not included)... Normal [facility] Absolute lymphocyte countOrd ered By: Ekaterina Kim on 10-15-2024 Lymphocytes Auto (Unsp spec) [#/Vol] 2.03 10*3/uL 0.83-4.51 [facility] Absolute neutrophil countOrd ered By: Ekaterina Kim on 10-15-2024 Neutrophils (Bld) [#/Vol] 7.4 10*3/uL 2.0-7.7 [facility] Automated lymphocyte count a s percentage of total leukocytesOrdered By: Ekaterina Ogtings on 10-15-2024 Lymphocytes/100 WBC Auto (Unsp spec) 20.7 % 19-41 [facility] Basophil percentageOrdered B y: Ekaterina Wagners on 10-15-2024 Basophils/100 WBC (Bld) 0.1 % 0-1 [facility] CBC W/Diff, Automatedon Absolute Lymph 2.03 X10 3/uL Normal 0.83-4.51 [facility] Comment on above: Performed By: #### L 100.0100, L501.0250, L509.8002, L3890.6006 #### [facility] [address] [place], [address] Absolute Neut 7.4 X10 3/uL Normal 2.0-7.7 [facility] Comment on above: Performed By: #### L 100.0100, L501.0250, L509.8002, L3890.6006 #### [facility] [address] [place], [address] Basophils/100 WBC (Bld) 0.1 % Normal 0-1 [facility] Comment on above: Performed By: #### L 100.0100, L501.0250, L509.8002, L3890.6006 #### [facility] [address] [place], [address] Eosinophils/100 WBC (Bld) 0.4 % Normal 0-5 [facility] Comment on above: Performed By: #### L 100.0100, L501.0250, L509.8002, L3890.6006 #### [facility] [address] [place], [address] Erythrocyte distribution width (RBC) [Ratio] 13.8 % Normal 11.6-14.6 [facility] Comment on above: Performed By: #### L 100.0100, L501.0250, L509.8002, L3890.6006 #### [facility] [address] [place], [address] Hematocrit (Bld) [Volume fraction] 33.8 % Low 37-47 [facility] Comment on above: Performed By: #### L 100.0100, L501.0250, L509.8002, L3890.6006 #### [facility] [address] [place], [address] Hemoglobin (Bld) [Mass/Vol] 11.3 g/dL Low 12.0-15.0 [facility] Comment on above: Performed By: #### L 100.0100, L501.0250, L509.8002, L3890.6006 #### [facility] [address] [place], [address] IG% 0.600 Normal 0.0-0.9 [facility] Comment on above: Result Comment: IG% - Immature Granulocytes (promyelocytes, myelocytes and metamyelocytes) > 1% indicates that a LEFT SHIFT is Present. Performed By: #### L 100.0100, L501.0250, L509.8002, L3890.6006 #### [facility] [address] [place], [address] Lymphocytes/100 WBC (Bld) 20.7 % Normal 19-41 [facility] Comment on above: Performed By: #### L 100.0100, L501.0250, L509.8002, L3890.6006 #### [facility] [address] [place], [address] MCH (RBC) [Entitic mass] 29.3 pg Normal 27.0-32.0 [facility] Comment on above: Performed By: #### L 100.0100, L501.0250, L509.8002, L3890.6006 #### [facility] [address] [place], [address] MCHC (RBC) [Mass/Vol] 33.4 g/dL Normal 32-36 [facility] Comment on above: Performed By: #### L 100.0100, L501.0250, L509.8002, L3890.6006 #### [facility] [address] [place], [address] MCV (RBC) [Entitic vol] 87.6 fL Normal 81-99 [facility] Comment on above: Performed By: #### L 100.0100, L501.0250, L509.8002, L3890.6006 #### [facility] [address] [place], [address] Monocytes/100 WBC (Bld) 3.5 % Normal 0-10 [facility] Comment on above: Performed By: #### L 100.0100, L501.0250, L509.8002, L3890.6006 #### [facility] [address] [place], [address] Neutrophils/100 WBC (Bld) 74.7 % High 47-70 [facility] Comment on above: Performed By: #### L 100.0100, L501.0250, L509.8002, L3890.6006 #### [facility] [address] [place], [address] Nucleated RBC (Bld) [#/Vol] 0 10*3/uL Normal 0-5 [facility] Comment on above: Performed By: #### L 100.0100, L501.0250, L509.8002, L3890.6006 #### [facility] [address] [place], [address] Platelet mean volume (Bld) [Entitic vol] 9.7 fL Normal 6.2-12.0 [facility] Comment on above: Performed By: #### L 100.0100, L501.0250, L509.8002, L3890.6006 #### [facility] [address] [place], [address] Platelets (Bld) [#/Vol] 252 10*3/uL Normal 150-450 [facility] Comment on above: Performed By: #### L 100.0100, L501.0250, L509.8002, L3890.6006 #### [facility] [address] [place], [address] RBC (Bld) [#/Vol] 3.86 10*6/uL Low 4.2-5.4 [facility] Comment on above: Performed By: #### L 100.0100, L501.0250, L509.8002, L3890.6006 #### [facility] [address] [place], [address] RDW SD 44.2 fl High 35.1-43.9 [facility] Comment on above: Performed By: #### L 100.0100, L501.0250, L509.8002, L3890.6006 #### [facility] [address] [place], [address] WBC (Bld) [#/Vol] 9.8 10*3/uL Normal 4.4-11.0 [facility] Comment on above: Performed By: #### L 100.0100, L501.0250, L509.8002, L3890.6006 #### [facility] [address] [place], [address] Eosinophil percentageOrdered By: Ekaterina Kim on 10-15-2024 Eosinophils/100 WBC (Bld) 0.4 % 0-5 [facility] Erythrocyte distribution wid th ratioOrdered By: Ekaterina Kim on 10-15-2024 Erythrocyte distribution width (RBC) [Ratio] 13.8 % 11.6-14.6 [facility] Erythrocyte distribution wid th standard deviationOrdered By: Ekaterina Julio on 10-15-2024 Erythrocyte distribution width (RBC) [Ratio] 44.2 fl High 35.1-43.9 [facility] Glucose Challenge Gest 1H 50 chuy 10-15-2024 GLU GEST 50g 1H 106 mg/dL Normal 70-140 [facility] Comment on above: Performed By: #### L 100.0100, L501.0250, L509.8002, L3890.6006 #### [facility] [address] [facility] [place], [address] Glucose measurement at 2 romeo rs post-dose gestational glucose tolerance testOrdered By: Ekaterina Kim on 10-15-2024 Glucose [Mass/Vol] 106 mg/dL 70-140 [facility] HIVon 10-15-2024 HIV Non-Reactive Normal Nonreactive [facility] Comment on above: Result Comment: Non- Reactive Reactive Repeatedly reactive samples must be confirmed according to CDC recommended confirmatory algorithms. The subresults for either HIVAG or AHIV can be used as an aid in the selection of the confirmation algorithm for reactive samples. Send out specimens with Reactive results to [facility] for confirmation. Order the HIV antibody detection and differentiation: #[id number] Performed By: #### L 100.0100, L501.0250, L509.8002, L3890.6006 ####[facility] [id number] [facility] [place], [address] Hematocrit Auto (Bld) [Volum e fraction]Ordered By: Ekaterina Kim on 10-15-2024 Hematocrit (Bld) [Volume fraction] 33.8 % Low 37-47 [facility] Hemoglobin measurementOrdere d By: Ekaterina Kim on 10-15-2024 Hemoglobin (Bld) [Mass/Vol] 11.3 g/dL Low 12.0-15.0 [facility] Immature granulocytes/100 WB C Auto (Bld)Ordered By: Ekaterina Kim on 10-15-2024 Immature granulocytes/100 WBC (Bld) 0.600 % 0.0-0.9 [facility] Comment on above: IG% - Immature Granu locytes (promyelocytes, myelocytes and metamyelocytes) > 1% indicates that a LEFT SHIFT is Present. Laboratory - Chemistry and C hemistry - challengeOrdered By: Tomi Cavanaugh on 10-15-2024 Glucose Ql (U) Negative [facility] - UrinalysisOrder ed By: Tomi Cavanaugh on 10-15-2024 Protein Ql (U) Negative [facility] MCV (mean corpuscular volume ) determinationOrdered By: Ekaterina Kim on 10-15-2024 MCV (RBC) [Entitic vol] 87.6 fL 81-99 [facility] Mean corpuscular hemoglobin (MCH) determinationOrdered By: Ekaterina Kim on 10-15-2024 MCH (RBC) [Entitic mass] 29.3 pg 27.0-32.0 [facility] Mean corpuscular hemoglobin concentration (MCHC) determinationOrdered By: Ekaterina Kim on 10-15-2024 MCHC (RBC) [Mass/Vol] 33.4 g/dL 32-36 [facility] Mean platelet volume determi nationOrdered By: Ekaterina Kim on 10-15-2024 Platelet mean volume (Bld) [Entitic vol] 9.7 fL 6.2-12.0 [facility] Monocyte percentageOrdered B y: Ekaterina Kim on 10-15-2024 Monocytes/100 WBC (Bld) 3.5 % 0-10 [facility] Neutrophil percentageOrdered By: Ekaterina Kim on 10-15-2024 Neutrophils/100 WBC (Bld) 74.7 % High 47-70 [facility] No Panel InformationOrdered By: Ekaterina Kim on 10-15-2024 HIV (1&2) Antibody Non-Reactive Nonreactive [facility] Comment on above: Non-ReactiveReactive Repeatedly reactive samples must be confirmed according to CDC recommended confirmatory algorithms. The subresults for either HIVAG or AHIV can be used as an aid in the selection of the confirmation algorithm for reactive samples.Send out specimens with Reactive results to [facility] for confirmation.Order the HIV antibody detection and differentiation: #[id number] Nucleated red blood cell per centageOrdered By: Ekaterina Kim on 10-15-2024 Nucleated RBC/100 WBC (Bld) [Ratio] 0 % 0-5 [facility] Network Controller Office Visit Reporton 10-15-2024 Network Controller Office Visit Report [facility] [address], [address] [place] [address] OFFICE VISIT Date of Service: 10/15/24 MR#: [id number] Acct: [id number] Name: CHETNA TUCKER Rep #: [id number] : 1995 Provider: ROZINA Nolan ams Age/Sex: 29/F [place] [facility] [place]: Signed Intake Vital Signs 07/23/24 13:51 09/17/24 13:45 10/15/24 14:50 Height 5 ft 9 in 5 ft 9 in 5 ft 9 in Weight: 242 lb 8 oz BMI 35.8 BP 126/77 H Intake Visit Reasons: 26wk ob Chief Complaint: 26wk OB Steel Turner Required: No Is patient in pain?: No Allergies No Known Allergies Allergy (Verified 10/15/24 14:49) Medications ???Medication ???Instructions ???Recorded ???Confirmed ???Type mv-mn 110-FA 180 mcg-om3 35 mg-dha tab PO 05/29/24 10/15/24 History 25 mg-epa 5 mg-fish oil chew tablet Last Menstrual Period: 04/17/24 : No PFSH PFSH Medical History History of nicotine vaping Hidradenitis suppurativa Encounter for IUD removal Seasonal allergies S/p nephrectomy Surgical History [place] teeth extracted History of nephrectomy, right Family [...] in: none frequency: 1-2 times per week dat/jehovah's witness: None seatbelt use: always do you feel safe at home: Yes additional social history: -[facility] History 1 Elective abortions Hx Para 0 [...] 6d 237 lb (+0 oz) 121/82 Negative -???-???-???-???-???-?? ?-???-???-???-???-???-? ??- Negative (more content not included)... Normal [facility] Platelet countOrdered By: Georges Kim on 10-15-2024 Platelets (Bld) [#/Vol] 252 10*3/uL 150-450 [facility] RBC Auto (Bld) [#/Vol]Ordere d By: Ekaterina Kim on 10-15-2024 RBC (Bld) [#/Vol] 3.86 10*6/uL Low 4.2-5.4 [facility] Syphilis Antibodieson 2024 Syphilis Abs Non-Reactive Normal Nonreactive [facility] Comment on above: Performed By: #### L 100.0100, L501.0250, L509.8002, L3890.6006 ####[facility] [address] [place], [address] White blood cell (WBC) count Ordered By: Ekaterina Kim on 10-15-2024 WBC (Bld) [#/Vol] 9.8 10*3/uL 4.4-11.0 [facility] Progress Noteon 10-01-2024 [employer] Assistant Authentication Interface Message Text New patient 10/02/2024 RE: Chetna Rodriguez Kirkavery : 1995 AGE: 29 y.o. CSN#: [id number] Gestational Age: 24 Weeks Delivery Hospital: [facility] Reason for visit: Chief Complaint Patient [...] or performed in visit on 10/01/24 Echo [facility] [place] [address] [email or web address] ------- Echocardiogram Report M-mode, complete 2D, complete spectral Doppler, and color Doppler PATIENT: Chetna Tucker STUDY DATE/TIME: Oct 01 2024 12:04PM HEIGHT: : 1995 WEIGHT: AGE: 29year(s) BSA/BMI: / 35kg/m^2 GENDER: F BP: 131 / 57 LOCATION: [facility] REFERRING PHYSICIAN: Aaron Lai ORDERING PROVIDER: Aaron Lai READING PHYSICIAN: JANET Elkins PROCESSING TECH: Jacqueline Ricks RDCS ------- SUMMARY: No significant [...] discussed with the patient. Recommendations: follow-up if coding file clerk hears a heart murmur or otherwise clinically indicated. ------- REASON FOR EXAM: Suboptimal cardiac views. ------- : : - Maternal age: 30yr. - : 1. - Parity: 0. - Estimated delivery date: 01/22/2025. - Gestational age: 23 rqczp1nawk. ------- STUDY AND PROCEDURE DATA: The patient is . Procedure Description: New ([id number]) . Study status: Routine. Location: lab. Procedure: [...] a patent foramen ovale. There is a zsyuc-wa-tyyp shunt. Left atrium: - The atrium is [...] is str (more content not included)... Normal [facility] Laboratory - Chemistry and C hemistry - challengeOrdered By: Ekaterina Kim on 09-17-2024 Glucose Ql (U) Negative [facility] Laboratory - UrinalysisOrder ed By: Ekaterina Kim on 09-17-2024 Protein Ql (U) Negative [facility] Network Controller Office Visit Reporton 09-17-2024 Network Controller Office Visit Report [address], [address] [place] [address] OFFICE VISIT Date of Service: 09/17/24 MR#: [id number] Acct: [id number] Name: CHETNA TUCKER Rep #: [id number] : 1995 Provider: SIOBHAN noyola Age/Sex: 29/F [place] [facility] [place]: Signed Intake Vital Signs 07/23/24 13:51 08/20/24 13:44 09/17/24 13:45 Height 5 ft 9 in 5 ft 9 in 5 ft 9 in Weight: 242 lb BMI 35.7 BP 124/82 H Intake Visit Reasons: 22wk ob Chief Complaint: 22 Week OB Steel Turner Required: No Is patient in pain?: No [...] removal Seasonal allergies S/p nephrectomy Surgical History [place] teeth extracted History of nephrectomy, right Family [...] in: none frequency: 1-2 times per week dat/jehovah's witness: None seatbelt use: always do you feel safe at home: Yes additional social history: -[employer]- [facility] History 1 Elective abortions Hx Para 0 [...] 121/82 Negative (more content not included)... Normal [facility] L3410.9992on 09-07-2024 [facility] Misc. Normal [facility] Comment on above: Order Comment: [id number] 1msAFP SERUM RT Result Comment: TEST RESULTS LIMITS AFP, Serum, Open Spina Bifida Results The MOM and risk factors of this report have been modified based on new information supplied to us by the client or their designated in home sales representative. The Weight was changed from Not [...] AFP MoM 0.81 [place] 1 [place] [address] Interpretation Interpretation: Screen Negative This result is [...] Customer Services to discuss available options. The [employer] recommends amniocentesis be offered to women age 35 and older. Comment: Dulce Ramirez, Ph.D., [facility] Director References: Available Upon Request. Multiples Of Median Cutoffs For AFP Elevations Dawn 2.5 Black 2.8 IDD 2.0 Twins 4.5 Abbreviation Definitions IDD - Insulin Dep Diabetes OSBR - Open Spina Bifida Risk For further inquiries contact [facility] at [phone]. This test was developed and its performance characteristics determined by [employer]. It has not been cleared or approved by the Food and Drug Administration. TESTING PERFORMED AT [facility]. ORIGINAL REPORT ON FILE IN LAB CONTAINS ADDITIONAL TEST SITE INFORMATION. Performed By: #### L 3410.9992 ####[facility] [address] [place], [address] Laboratory - Chemistry and C hemistry - challengeOrdered By: Mayelin Garcia on 08-20-2024 Glucose Ql (U) Negative [facility] Laboratory - UrinalysisOrder ed By: Mayelin Garcia on 08-20-2024 Protein Ql (U) Negative [facility] Network Controller Office Visit Reporton 08-20-2024 Network Controller Office Visit Report [facility] [address], [address] [place] [address] OFFICE VISIT Date of Service: 08/20/24 MR#: [id number] Acct: [id number] Name: CHETNA TUCKER Rep #: [id number] : 1995 Provider: Dr. Mayelin grullon MD Age/Sex: 28/F [place] [facility] [place]: Signed Intake Vital Signs 06/20/24 14:06 07/23/24 13:51 08/20/24 13:43 08/20/24 13:44 Height 5 ft 9 in 5 ft 9 in 5 ft 9 in 5 ft 9 in Weight: 235 lb 237 lb BMI 34.7 34.9 BP 133/85 H 121/82 H Intake Visit Reasons: 18wk ob Steel Turner Required: No Is patient in pain?: No [...] removal Seasonal allergies S/p nephrectomy Surgical History [place] teeth extracted History of nephrectomy, right Family [...] in: none frequency: 1-2 times per week dat/jehovah's witness: None seatbelt use: always do you feel safe at home: Yes additional social history: -[facility]- [facility] History 1 Elective abortions Hx Para 0 [...] lb (+ (more content not included)... Normal [facility] Laboratory - Chemistry and C hemistry - challengeOrdered By: Tomi Cavanaugh on 07-23-2024 Glucose Ql (U) Negative [facility] Laboratory - UrinalysisOrder ed By: Tomi Cavanaugh on 07-23-2024 Protein Ql (U) Negative [facility] Network Controller Office Visit Reporton 07-23-2024 Network Controller Office Visit Report [facility] [address], [address] [place] [address] OFFICE VISIT Date of Service: 07/23/24 MR#: [id number] Acct: [id number] Name: CHETNA TUCKER Rep #: [id number] : 1995 Provider: ROZINA Nolan ams Age/Sex: 28/F [place] [facility] [place]: Signed Intake Vital Signs 12/07/23 14:21 06/20/24 14:06 07/23/24 13:51 Height 5 ft 9 in 5 ft 9 in 5 ft 9 in Weight: 237 lb 4 oz 235 lb BMI 35.0 34.7 BP 128/84 H 133/85 H Intake Visit Reasons: 14wk OB Chief Complaint: 14wk OB Steel Turner Required: No Is patient in pain?: No Allergies No Known Allergies Allergy (Verified 07/23/24 13:48) Medications ???Medication ???Instructions ???Recorded ???Confirmed ???Type PNV 178-FA 180 mcg-om3 35 mg-dha tab PO 05/29/24 07/23/24 History 25 mg-epa 5 mg-fish oil chew tablet Last Menstrual Period: 01/07/25 : No PFSH PFSH Medical History Encounter for IUD removal Seasonal allergies S/p nephrectomy Surgical History [place] teeth extracted History of nephrectomy, right Family [...] in: none frequency: 1-2 times per week dat/jehovah's witness: None seatbelt use: always do you feel safe at home: Yes additional social history: -[facility] History 1 Elective abortions Hx Para 0 [...] additional co (more content not included)... Normal [facility] Absolute lymphocyte countOrd ered By: Karina Venegas on 07-04-2024 Lymphocytes Auto (Unsp spec) [#/Vol] 2.31 10*3/uL 0.83-4.51 [facility] Absolute neutrophil countOrd ered By: Karina Venegas on 07-04-2024 Neutrophils (Bld) [#/Vol] 7.1 10*3/uL 2.0-7.7 [facility] Automated lymphocyte count a s percentage of total leukocytesOrdered By: Karina Venegas on 07-04-2024 Lymphocytes/100 WBC Auto (Unsp spec) 23.3 % 19-41 [facility] Basophil percentageOrdered B y: Karina Rubi on 07-04-2024 Basophils/100 WBC (Bld) 0.2 % 0-1 [facility] CBC W/Diff, Automatedon 06-10 Absolute Lymph 2.31 X10 3/uL Normal 0.83-4.51 [facility] Comment on above: Performed By: #### L 3890.6006, L509.4006, L501.9985, L3890.6102, BTS, L3890.6301, L100.0100, L509.8002, L900.0098 ####[facility] [address] [place], [place], [id number] Absolute Neut 7.1 X10 3/uL Normal 2.0-7.7 [facility] Comment on above: Performed By: #### L 3890.6006, L509.4006, L501.9985, L3890.6102, BTS, L3890.6301, L100.0100, L509.8002, L900.0098 ####[facility] [address] [place], [address] Basophils/100 WBC (Bld) 0.2 % Normal 0-1 [facility] Comment on above: Performed By: #### L 3890.6006, L509.4006, L501.9985, L3890.6102, BTS, L3890.6301, L100.0100, L509.8002, L900.0098 ####[facility] [address] [place], [address] Eosinophils/100 WBC (Bld) 0.5 % Normal 0-5 [facility] Comment on above: Performed By: #### L 3890.6006, L509.4006, L501.9985, L3890.6102, BTS, L3890.6301, L100.0100, L509.8002, L900.0098 ####[facility] [address] [place], [address] Erythrocyte distribution width (RBC) [Ratio] 12.9 % Normal 11.6-14.6 [facility] Comment on above: Performed By: #### L 3890.6006, L509.4006, L501.9985, L3890.6102, BTS, L3890.6301, L100.0100, L509.8002, L900.0098 ####[facility] [address] [place], [address] Hematocrit (Bld) [Volume fraction] 38.3 % Normal 37-47 [facility] Comment on above: Performed By: #### L 3890.6006, L509.4006, L501.9985, L3890.6102, BTS, L3890.6301, L100.0100, L509.8002, L900.0098 ####[facility] [address] [place], [address] Hemoglobin (Bld) [Mass/Vol] 13.2 g/dL Normal 12.0-15.0 [facility] Comment on above: Performed By: #### L 3890.6006, L509.4006, L501.9985, L3890.6102, BTS, L3890.6301, L100.0100, L509.8002, L900.0098 ####[facility] [address] [facility] [place], [address] IG% 0.300 Normal 0.0-0.9 [facility] Comment on above: Result Comment: IG% - Immature Granulocytes (promyelocytes, myelocytes and metamyelocytes) > 1% indicates that a LEFT SHIFT is Present. Performed By: #### L 3890.6006, L509.4006, L501.9985, L3890.6102, BTS, L3890.6301, L100.0100, L509.8002, L900.0098 ####[facility] [address] [place], [address] Lymphocytes/100 WBC (Bld) 23.3 % Normal 19-41 [facility] Comment on above: Performed By: #### L 3890.6006, L509.4006, L501.9985, L3890.6102, BTS, L3890.6301, L100.0100, L509.8002, L900.0098 ####[facility] [address] [place], [address] MCH (RBC) [Entitic mass] 29.0 pg Normal 27.0-32.0 [facility] Comment on above: Performed By: #### L 3890.6006, L509.4006, L501.9985, L3890.6102, BTS, L3890.6301, L100.0100, L509.8002, L900.0098 ####[facility] [address] [place], [address] MCHC (RBC) [Mass/Vol] 34.5 g/dL Normal 32-36 [facility] Comment on above: Performed By: #### L 3890.6006, L509.4006, L501.9985, L3890.6102, BTS, L3890.6301, L100.0100, L509.8002, L900.0098 ####[facility] [address] [place], [address] MCV (RBC) [Entitic vol] 84.2 fL Normal 81-99 [facility] Comment on above: Performed By: #### L 3890.6006, L509.4006, L501.9985, L3890.6102, BTS, L3890.6301, L100.0100, L509.8002, L900.0098 ####[facility] [address] [facility] [place], [address] Monocytes/100 WBC (Bld) 3.5 % Normal 0-10 [facility] Comment on above: Performed By: #### L 3890.6006, L509.4006, L501.9985, L3890.6102, BTS, L3890.6301, L100.0100, L509.8002, L900.0098 ####[facility] [address] [place], [address] Neutrophils/100 WBC (Bld) 72.2 % High 47-70 [facility] Comment on above: Performed By: #### L 3890.6006, L509.4006, L501.9985, L3890.6102, BTS, L3890.6301, L100.0100, L509.8002, L900.0098 ####[facility] [address] [place], [address] Nucleated RBC (Bld) [#/Vol] 0 10*3/uL Normal 0-5 [facility] Comment on above: Performed By: #### L 3890.6006, L509.4006, L501.9985, L3890.6102, BTS, L3890.6301, L100.0100, L509.8002, L900.0098 ####[facility] [address] [place], [address] Platelet mean volume (Bld) [Entitic vol] 9.4 fL Normal 6.2-12.0 [facility] Comment on above: Performed By: #### L 3890.6006, L509.4006, L501.9985, L3890.6102, BTS, L3890.6301, L100.0100, L509.8002, L900.0098 ####[facility] [address] [place], [address] Platelets (Bld) [#/Vol] 258 10*3/uL Normal 150-450 [facility] Comment on above: Performed By: #### L 3890.6006, L509.4006, L501.9985, L3890.6102, BTS, L3890.6301, L100.0100, L509.8002, L900.0098 ####[facility] [address] [place], [address] RBC (Bld) [#/Vol] 4.55 10*6/uL Normal 4.2-5.4 [facility] Comment on above: Performed By: #### L 3890.6006, L509.4006, L501.9985, L3890.6102, BTS, L3890.6301, L100.0100, L509.8002, L900.0098 ####[facility] [address] [place], [address] RDW SD 39.3 fl Normal 35.1-43.9 [facility] Comment on above: Performed By: #### L 3890.6006, L509.4006, L501.9985, L3890.6102, BTS, L3890.6301, L100.0100, L509.8002, L900.0098 ####[facility] [address] [place], [address] WBC (Bld) [#/Vol] 9.9 10*3/uL Normal 4.4-11.0 [facility] Comment on above: Performed By: #### L 3890.6006, L509.4006, L501.9985, L3890.6102, BTS, L3890.6301, L100.0100, L509.8002, L900.0098 ####[facility] [address] [place], [address] Eosinophil percentageOrdered By: Karina Venegas on 07-04-2024 Eosinophils/100 WBC (Bld) 0.5 % 0-5 [facility] Erythrocyte distribution wid th ratioOrdered By: Karina Venegas on 07-04-2024 Erythrocyte distribution width (RBC) [Ratio] 12.9 % 11.6-14.6 [facility] Erythrocyte distribution wid th standard deviationOrdered By: Karina Venegas on 07-04-2024 Erythrocyte distribution width (RBC) [Entitic vol] 39.3 fL 35.1-43.9 [facility] Erythrocyte distribution width (RBC) [Ratio] 39.3 fl 35.1-43.9 [facility] HBV surface Ag Ql (S)Ordered By: Karina Venegas on 07-04-2024 Hepatitis B Surface Antigen Non-Reactive Nonreactive [facility] Comment on above: Reactive: Presumptiv e evidence of HBV. Repeatedly reactive samples must be confirmed using a neutralization test ([employer] HBsAg Confirmatory Test)Non-Reactive: HBsAg not detected; does not exclude the possibility of exposure to HBV Hematocrit Auto (Bld) [Volum e fraction]Ordered By: Karina Venegas on 07-04-2024 Hematocrit (Bld) [Volume fraction] 38.3 % 37-47 [facility] Hemoglobin A1con 07-04-2024 HbA1c (Bld) [Mass fraction] 5.3 % Low <=5.6 [facility] Comment on above: Performed By: #### L 3890.6006, L509.4006, L501.9985, L3890.6102, BTS, L3890.6301, L100.0100, L509.8002, L900.0098 ####[facility] [address] [place], [address] Hemoglobin A1c percentageOrd ered By: Karina Venegas on 07-04-2024 HbA1c (Bld) [Mass fraction] 5.3 % Low >5.7 [facility] Hemoglobin measurementOrdere d By: Karina Venegas on 07-04-2024 Hemoglobin (Bld) [Mass/Vol] 13.2 g/dL 12.0-15.0 [facility] Hepatitis C antibodyOrdered By: Karina Venegas on 07-04-2024 Hepatitis C Antibody Non-Reactive Nonreactive [facility] Comment on above: Reactive: Presumptiv e evidence of antibodies to HCV. Follow CDC recommendations for supplemental testing.Non-Reactive: Antibodies to HCV were not detected; does not exclude the possibility of exposure to HCVReactive Results are presumptive evidence of antibodies to HCV. Follow CDC recommendations for supplemental testing.Order confirmation testing: HCV Quant by PCR testing - HCVPCR #[id number] Non Reactive: < 0.8 Equivocal: >/= 0.8 to < 1.0 Reactive: >/= 1.0The CDC requires that a reactive/equivocal HCV antibody result be sent out for confirmation. HCV Quant by PCR testing. Immature granulocytes/100 WB C Auto (Bld)Ordered By: Karina Venegas on 07-04-2024 Immature granulocytes/100 WBC (Bld) 0.300 % 0.0-0.9 [facility] Comment on above: IG% - Immature Granu locytes (promyelocytes, myelocytes and metamyelocytes) > 1% indicates that a LEFT SHIFT is Present. L3890.6006on 07-04-2024 HIV Non-Reactive Normal Nonreactive [facility] Comment on above: Result Comment: Non- Reactive Reactive Repeatedly reactive samples must be confirmed according to CDC recommended confirmatory algorithms. The subresults for either HIVAG or AHIV can be used as an aid in the selection of the confirmation algorithm for reactive samples. [facility]. Order the HIV antibody detection and differentiation: lc#[id number] Performed By: #### L 3890.6006, L509.4006, L501.9985, L3890.6102, BTS, L3890.6301, L100.0100, L509.8002, L900.0098 ####[facility] [address] [facility] [place], [place], [address] L3890.6102on 07-04-2024 HEP B Surf Ag Non-Reactive Normal Nonreactive [facility] Comment on above: Result Comment: Reac tive: Presumptive evidence of HBV. Repeatedly reactive samples must be confirmed using a neutralization test ([employer] HBsAg Confirmatory Test) Non-Reactive: HBsAg not detected; does not exclude the possibility of exposure to HBV Performed By: #### L 3890.6006, L509.4006, L501.9985, L3890.6102, BTS, L3890.6301, L100.0100, L509.8002, L900.0098 ####[facility] [address] [facility] [place], [place], [address] L3890.6301on 07-04-2024 Hepatitis C Ab Non-Reactive Normal Nonreactive [facility] Comment on above: Result Comment: Reac tive: Presumptive evidence of antibodies to HCV. Follow CDC recommendations for supplemental testing. Non-Reactive: Antibodies to HCV were not detected; does not exclude the possibility of exposure to HCV Reactive Results are presumptive evidence of antibodies to HCV. Follow CDC recommendations for supplemental testing. Order confirmation testing: HCV Quant by PCR testing - HCVPCR lc#[id number] Non Reactive: < 0.8 Equivocal: >/= 0.8 to < 1.0 Reactive: >/= 1.0 The CDC requires that a reactive/equivocal HCV antibody result be sent out for confirmation. HCV Quant by PCR testing. Performed By: #### L 3890.6006, L509.4006, L501.9985, L3890.6102, BTS, L3890.6301, L100.0100, L509.8002, L900.0098 ####[facility] [address] [place], [address] L509.4006on 07-04-2024 Rubella IgG REAC Normal Nonreactive [facility] Comment on above: Result Comment: Anti body Result: Interpretation Non-Reactive: Non-Immune Reactive: Immune The following results were obtained with the [employer] Rubella IgG assay. Results from assays of other manufacturers cannot be used interchangeably. Performed By: #### L 3890.6006, L509.4006, L501.9985, L3890.6102, BTS, L3890.6301, L100.0100, L509.8002, L900.0098 ####[facility] [address] [place], [address] L509.8002on 07-04-2024 Syphilis Abs Non-Reactive Normal Nonreactive [facility] Comment on above: Performed By: #### L 3890.6006, L509.4006, L501.9985, L3890.6102, BTS, L3890.6301, L100.0100, L509.8002, L900.0098 ####[facility] [address] [facility] [place], [address] Laboratory - Microbiology an d Antimicrobial susceptibilityOrdered By: Karina Venegas on 07-04-2024 HBV surface Ag Ql (S) Non-Reactive Nonreactive [facility] Comment on above: Reactive: Presumptiv e evidence of HBV. Repeatedly reactive samples must be confirmed using a neutralization test ([employer] HBsAg Confirmatory Test)Non-Reactive: HBsAg not detected; does not exclude the possibility of exposure to HBV Lymphocytes Auto (Unsp spec) [#/Vol]Ordered By: Karina Venegas on 07-04-2024 Lymphocytes (Bld) [#/Vol] 2.31 10*3/uL 0.83-4.51 [facility] Lymphocytes/100 WBC Auto (Un sp spec)Ordered By: Karina Venegas on 07-04-2024 Lymphocytes/100 WBC (Bld) 23.3 % 19-41 [facility] MCV (mean corpuscular volume ) determinationOrdered By: Karina Venegas on 07-04-2024 MCV (RBC) [Entitic vol] 84.2 fL 81-99 [facility] Mean corpuscular hemoglobin (MCH) determinationOrdered By: Karina Venegas on 07-04-2024 MCH (RBC) [Entitic mass] 29.0 pg 27.0-32.0 [facility] Mean corpuscular hemoglobin concentration (MCHC) determinationOrdered By: Karina Venegas on 07-04-2024 MCHC (RBC) [Mass/Vol] 34.5 g/dL 32-36 [facility] Mean platelet volume determi nationOrdered By: Karina Venegas on 07-04-2024 Platelet mean volume (Bld) [Entitic vol] 9.4 fL 6.2-12.0 [facility] Miscellaneous procedureOrder ed By: Karina Venegas on 07-04-2024 Miscellaneous Test Comment SEE SCANNED REPORT [facility] Monocyte percentageOrdered B y: Karina Venegas on 07-04-2024 Monocytes/100 WBC (Bld) 3.5 % 0-10 [facility] NATERAon 07-04-2024 NATURA SEE SCANNED REPORT Normal [facility] Comment on above: Order Comment: Comme nts: NIPT with gender carrier testing Performed By: #### L 3890.6006, L509.4006, L501.9985, L3890.6102, BTS, L3890.6301, L100.0100, L509.8002, L900.0098 ####[facility] [address] [place], [place], [id number] Neutrophil percentageOrdered By: Karina Venegas on 07-04-2024 Neutrophils/100 WBC (Bld) 72.2 % High 47-70 [facility] No Panel InformationOrdered By: Karina Venegas on 07-04-2024 HIV (1&2) Antibody Non-Reactive Nonreactive [facility] Comment on above: Non-ReactiveReactive Repeatedly reactive samples must be confirmed according to CDC recommended confirmatory algorithms. The subresults for either HIVAG or AHIV can be used as an aid in the selection of the confirmation algorithm for reactive samples.Send out specimens with Reactive results to [facility] for confirmation.Order the HIV antibody detection and differentiation: #[id number] Nucleated red blood cell per centageOrdered By: Karina Venegas on 07-04-2024 Nucleated RBC/100 WBC (Bld) [Ratio] 0 % 0-5 [facility] Platelet countOrdered By: Richmond Venegas on 07-04-2024 Platelets (Bld) [#/Vol] 258 10*3/uL 150-450 [facility] RBC Auto (Bld) [#/Vol]Ordere d By: Karina Venegas on 07-04-2024 RBC (Bld) [#/Vol] 4.55 10*6/uL 4.2-5.4 [facility] Rubella immune status determ ination by IgG antibody assayOrdered By: Karina Venegas on 07-04-2024 Rubella IgG Antibody REAC Nonreactive [facility] Comment on above: Antibody Result: Int erpretationNon-Reactive: Non-ImmuneReactive: ImmuneThe following results were obtained with the [employer] Rubella IgG assay. Results from assays of other manufacturers cannot be used interchangeably. T. pallidum abOrdered By: Richmond Venegas on 07-04-2024 Syphilis Total Antibody Non-Reactive Nonreactiv e [facility] Type AND Screenon 07-04-2024 Ab SCREEN GEL Negative Normal [facility] Comment on above: Order Comment: PN Performed By: #### L 3890.6006, L509.4006, L501.9985, L3890.6102, BTS, L3890.6301, L100.0100, L509.8002, L900.0098 ####[facility] [address] [place], [place], [address] White blood cell (WBC) count Ordered By: Karina Venegas on 07-04-2024 WBC (Bld) [#/Vol] 9.9 10*3/uL 4.4-11.0 [facility] PAP I-G w/rfx hrHPV-Aptimaon 06-27-2024 ADEQ Comment Normal . [facility] Comment on above: Order Comment: Speci men Comment: [id number] Comment: Source.............CervixSpecimen Comment: LMP / Prev Treat...[id number] Comment: Other..............Specimen Comment: No. of containers..01 ThinPrep Vial Result Comment: Sati sfactory for evaluation. Endocervical and/or squamous metaplastic cells (endocervical component) are present. Performed By: #### M 100.2200, L7000.1800, L7400.0353 ####[facility] [address] [facility] [place], [place], [id number] COMM . Normal . [facility] Comment on above: Order Comment: Speci men Comment: [id number] Comment: Source.............CervixSpecimen Comment: LMP / Prev Treat...[id number] Comment: Other..............Specimen Comment: No. of containers..01 ThinPrep Vial Performed By: #### M 100.2200, L7000.1800, L7400.0353 ####[facility] [address] [facility]. [place], [place], [address] COMMENT Comment Normal . [facility] Comment on above: Order Comment: Speci men Comment: [id number] Comment: Source.............CervixSpecimen Comment: LMP / Prev Treat...GAB=[id number] Comment: Other..............Specimen Comment: No. of containers..01 ThinPrep Vial Result Comment: This liquid based ThinPrep(R) pap test was screened with the use of an image guided system. Performed By: #### M 100.2200, L7000.1800, L7400.0353 ####[facility] [address] [place], [place], [address] DIAG Comment Normal . [facility] Comment on above: Order Comment: Speci men Comment: [id number] Comment: Source.............CervixSpecimen Comment: LMP / Prev Treat...RXY=[id number] Comment: Other..............Specimen Comment: No. of containers..01 ThinPrep Vial Result Comment: NEGA TIVE FOR INTRAEPITHELIAL LESION OR MALIGNANCY. THIS SPECIMEN WAS RESCREENED PART OF OUR PATTERN PERFORATING MACHINE OPERATOR PROGRAM. Performed By: #### M 100.2200, L7000.1800, L7400.0353 ####[facility] [address] [place], [place], [address] HPV RFLX Comment Normal . [facility] Comment on above: Order Comment: Speci men Comment: [id number] Comment: Source.............CervixSpecimen Comment: LMP / Prev Treat...GMI=[id number] Comment: Other..............Specimen Comment: No. of containers..01 ThinPrep Vial Result Comment: The HPV DNA reflex criteria were not met with this specimen result therefore, no HPV testing was performed. Performed at: [address] [id number] Program Arranger: Kathleen Plata MD, Phone: [phone] Performed at: [facility] [address] [address] [place], [place] [id number] Program Arranger: Hermann Zee MD, Phone: [phone] Performed By: #### M 100.2200, L7000.1800, L7400.0353 ####[facility] [address] [place], [place], [address] PAPSMR Comment Normal . [facility] Comment on above: Order Comment: Speci men Comment: [id number] Comment: Source.............CervixSpecimen Comment: LMP / Prev Treat...[id number]=[id number] Comment: Other..............Specimen Comment: No. of containers..01 ThinPrep Vial Result Comment: The Pap smear is a screening test designed to aid in the detection of premalignant and malignant conditions of the uterine cervix. It is not a diagnostic procedure and should not be used as the sole means of detecting cervical cancer. Both false-positive and false-negative reports do occur. Performed By: #### M 100.2200, L7000.1800, L7400.0353 ####[facility] [address] [place], [place], [address] PERFORM Comment Normal . [facility] Comment on above: Order Comment: Speci men Comment: [id number] Comment: Source.............CervixSpecimen Comment: LMP / Prev Treat...CYX=[id number] Comment: Other..............Specimen Comment: No. of containers..01 ThinPrep Vial Result Comment: Maisha Roberts Wallcovering Texturer (ASCP) Performed By: #### M 100.2200, L7000.1800, L7400.0353 ####[facility] [address] [place], [place], [address] QC REV Comment Normal . [facility] Comment on above: Order Comment: Speci men Comment: [id number] Comment: Source.............CervixSpecimen Comment: LMP / Prev Treat...WQM=[id number] Comment: Other..............Specimen Comment: No. of containers..01 ThinPrep Vial Result Comment: Robert Flowers, Wallcovering Texturer Performed By: #### M 100.2200, L7000.1800, L7400.0353 ####[facility] [address] [place], [address] Chlamydia/GC LANNY aptimaon CHLAMY,NUC ACID Negative Normal Negative [facility] Comment on above: Performed By: #### M 100.2200, L7000.1800, L7400.0353 ####[facility] [address] [place], [address] GC BY NUC ACID Negative Normal Negative [facility] Comment on above: Result Comment: Perf ormed at: =G - [facility] [id number] Program Arranger: Kathleen Plata MD, Phone: [phone] Performed By: #### M 100.2200, L7000.1800, L7400.0353 ####[facility] [address] [place], [address] Urine Cultureon 06-21-2024 URC Culture exhibits no growth. Normal [facility] Comment on above: Performed By: #### M 100.2200, L7000.1800, L7400.0353 ####[facility] [address] [place], [address] C. trachomatis rRNA LANNY+prob e Ql (Unsp spec)Ordered By: Karina Venegas on 06-20-2024 Chlamydia DNA (LANNY) Negative Negative [facility] Cervical or vagninal specime n microscopic examination by cytology stain (reported asOrdered By: Karina Venegas on 06-20-2024 Cytology report Cyto stain Doc (Cvx/Vag) Comment . [facility] Comment on above: The Pap smear [...] rRNA LANNY+probe Ql (Unsp spec) Negative Negative [facility] Computer Help Desk Representative Cyto stain Nom (C vx/Vag) [ID]Ordered By: Karina Venegas on 06-20-2024 Pap Smear Performed By Comment . [facility] Comment on above: Jovita Roberts, Cyto technologist (ASCP) Cytology report Cyto stain D oc (Cvx/Vag)Ordered By: Karina Venegas on 06-20-2024 Thin Prep Pap Smear Comment . [facility] Comment on above: The Pap smear is a s creening test designed to aid in thedetection of premalignant and malignant conditions of theuterine cervix. It is not a diagnostic procedure andshould not be used as the sole means of detecting cervicalcancer. Both false-positive and false-negative reports dooccur. Image-guided ThinPrep PapOrd ered By: Karina Venegas on 06-20-2024 Pap Smear Note Comment . [facility] Comment on above: This liquid based Th inPrep(R) pap test was screened withthe use of an image guided system. Image-guided liquid-based Pa pOrdered By: Karina Venegas on 06-20-2024 Pap Smear Diagnosis Comment . [facility] Comment on above: NEGATIVE FOR INTRAEP ITHELIAL LESION OR MALIGNANCY.THIS SPECIMEN WAS RESCREENED PART OF OUR PATTERN PERFORATING MACHINE OPERATOR PROGRAM. Image-guided liquid-based ce rvical Pap w high-risk HPV+reflex to HPV 16+18Ordered By: Karina Venegas on 06-20-2024 Human Papillomavirus Screen Comment . [facility] Comment on above: The HPV DNA reflex violet jcaob were not met with this specimenresult therefore, no HPV testing was performed.Performed at: [facility] [address] [id number] Director: Kathleen Plata MD, Phone: [phone] at: [facility] [place] [address] [place], [place] [id number] Director: Hermann Zee MD, Phone: [phone] Laboratory - CytologyOrdered By: Karina Venegas on 06-20-2024 Computer Help Desk Representative Cyto stain Nom (Cvx/Vag) [ID] Comment . [facility] Comment on above: Jovita Roberts, Cyto technologist (ASCP) Laboratory - Miscellaneous t estsOrdered By: Karina Venegas on 06-20-2024 Service comment (Unsp spec) [Interp] . . [facility] Neisseria gonorrhoeae nuclei c acid detection by amplified probe techniqueOrdered By: Karina Venegas on 06-20-2024 N. gonorrhoeae DNA LANNY+probe Ql (Unsp spec) Negative Negative [facility] Comment on above: Performed at: =[facility] - [facility] [address] [id number] Director: Kathleen Plata MD, Phone: [phone] No Panel InformationOrdered By: Karina Venegas on 06-20-2024 Pap Smear QC Review Comment . [facility] Comment on above: Brenda Flowers, Cyto technologist Pap Smear Specimen Adequacy Comment . [facility] Comment on above: Satisfactory for mary luation. Endocervical and/or squamous metaplasticcells (endocervical component) are present. Network Controller Office Visit Reporton 06-20-2024 Network Controller Office Visit Report [facility] [address], [address] [place] [address] OFFICE VISIT Date of Service: 06/20/24 MR#: [id number] Acct: [id number] Name: CHETNA TUCKER Rep #: [id number] : 1995 Provider: Dr. Karina Shaikh, Age/Sex: 28/F Location: [facility] Status: Signed Intake Vital Signs 12/07/23 14:21 06/20/24 14:06 Height 5 ft 9 in 5 ft 9 in Weight: 237 lb 4 oz BMI 35.0 BP 128/84 H Intake Visit Reasons: New OB, LMP 04/17, YESI 01/22 Steel Turner Required: No Is patient in pain?: No [...] removal Seasonal allergies S/p nephrectomy Surgical History [place] teeth extracted History of nephrectomy, right Family [...] in: none frequency: 1-2 times per week dat/jehovah's witness: None seatbelt use: always do you feel safe at home: Yes additional social history: -[facility] History 1 Elective abortions Hx Para 0 [...] Other, I (more content not included)... Normal [facility] Service comment (Unsp spec) [Interp]Ordered By: Karina Venegas on 06-20-2024 Pap Smear Comment (3) . . [facility] Urine cultureOrdered By: Amalia Venegas on 06-20-2024 Bacteria identified Cx Nom (U) Culture exhibits no growth. [facility] Basophil percentageOrdered B y: Ji Baer on 04-13-2023 Chloride [Moles/Vol] 107 mmol/L 98-107 [facility] Glucose [Mass/Vol] 81 mg/dL 74-106 [facility] Potassium [Moles/Vol] 3.9 mmol/L 3.5-5.1 [facility] Sodium [Moles/Vol] 140 mmol/L 136-145 [facility] Laboratory - Chemistry and C hemistry - challengeOrdered By: Ji Baer on 04-13-2023 CO2 [Moles/Vol] 24.0 mmol/L 21.0-32.0 [facility] Urea nitrogen/Creatinine [Mass ratio] 17.9 mg/mg 10-20 [facility] Laboratory - Chemistry and C hemistry - challengeon 04-13-2023 Bilirubin Ql (U) Negative [facility] Glucose Ql (U) Negative [facility] HCG ( test) Ql (U) Negative [facility] Ketones Ql (U) Negative [facility] pH (U) 5.0 [pH] [facility] Specific gravity (U) [Rel density] 1.005 [facility] Urobilinogen (U) [Mass/Vol] 1 mg/dL [facility] Laboratory - Hematology and Cell countson 04-13-2023 Hemoglobin Ql (U) Trace [facility] Laboratory - Specimen inform ationon 04-13-2023 Clarity (U) Cloudy [facility] Color (U) STRAW [facility] Laboratory - Urinalysison Nitrite Ql (U) Negative [facility] Protein Ql (U) Negative [facility] No Panel InformationOrdered By: Ji Baer on 04-13-2023 Estimated GFR (MDRD) Amer 125 mL/min >60 [facility] Comment on above: GFR Calc Estimated GFR (MDRD) Non-Af Amer 103 mL/min >60 [facility] Comment on above: Non- GFR Calc No Panel Informationon 04-13 Urine Leukocytes Positive [facility] Urine Non-Hemolyzed Blood Non-Hemolyzed [facility] Serum or plasma calcium aubree urement (mass/volume)Ordered By: Ji Baer on 04-13-2023 Calcium [Mass/Vol] 9.5 mg/dL 8.5-10.1 [facility] Serum or plasma creatinine m easurement (mass/volume)Ordered By: Ji Baer on 04-13-2023 Creatinine [Mass/Vol] 0.73 mg/dL 0.55-1.02 [facility] Comment on above: The validity of the calculated GFR & GFRAA in patients over 70 years has not been determined. Clinical correlation is essential. Serum or plasma urea nitroge n measurement (mass/volume)Ordered By: Ji Baer on 04-13-2023 Urea nitrogen [Mass/Vol] 13 mg/dL 7-18 [facility] Thin prep Papanicolaou smear with manual screeningOrdered By: Ji Baer on 04-13-2023 Thin prep Papanicolaou smear with manual screening 9 5-15 [facility] Chlamydia trachomatis rRNA d etection by probe and target amplification methodon 07-17-2021 C. trachomatis rRNA LANNY+probe Ql (Unsp spec) Negative Negative [facility] Work Phone: Laboratory - Microbiology an d Antimicrobial susceptibilityon 07-17-2021 N. gonorrhoeae DNA LANNY+probe Ql (Unsp spec) Negative Negative [facility] Work Phone: Comment on above: Performed at: =[facility] [address] [id number] Director: Kathleen Plata MD, Phone: [phone] Laboratory - Chemistry and C hemistry - challengeon 03-24-2021 Free T4 [Mass/Vol] 0.92 ng/dL 0.76-1.46 [facility] Work Phone: No Panel Informationon 03-24 Thyroid Stimulating Hormone (TSH) 1.01 uIU/mL 0.358-3.74 [facility] Work Phone: .GFRon 06-01-2017 eGFR (non-black) mL/min/{1.73_m2} Normal [facility] ([place]) Comment on above: Result Comment: GFR Population [...] meters Performed By: #### B MP, GFR ####[place] [address] BMPon 06-01-2017 BUN/Creatinine Ratio 22.1 ratio High 10.0-22.0 [facility] ([place]) Comment on above: Performed By: #### B MP, GFR ####[place] [address] Calcium 9.6 mg/dL Normal 8.4-10.1 [facility] ([place]) Comment on above: Performed By: #### B MP, GFR ####[place] [address] Chloride 108 mmol/L Normal 98-110 [facility] ([place]) Comment on above: Performed By: #### B MP, GFR ####[place] [address] CO2 28 mmol/L Normal 22-32 [facility] ([place]) Comment on above: Performed By: #### B MP, GFR ####[place] [address] Creatinine 0.68 mg/dL Normal 0.50-1.20 [facility] ([place]) Comment on above: Performed By: #### B MP, GFR ####[place] [address] Electrolyte Balance 7.0 mEq/L Normal 4.0-15.0 [facility] ([place]) Comment on above: Performed By: #### B MP, GFR ####[place] [address] Glucose mass conc 107 mg/dL Normal 70-110 [facility] ([place]) Comment on above: Performed By: #### B MP, GFR ####[place] [address] Potassium molar conc 3.9 mmol/L Normal 3.5-5.0 [facility] ([place]) Comment on above: Performed By: #### B MP, GFR ####[place] [address] Sodium 143 mmol/L Normal 136-145 [facility] ([place]) Comment on above: Performed By: #### B MP, GFR ####[place] [address] Urea nitrogen 15.0 mg/dL Normal 8.0-22.0 [facility] ([place]) Comment on above: Performed By: #### B MP, GFR ####[address] [address] ED Note-Provideron 8 ED Note-Provider Normal [facility] ([place]) Pat Eduon 06-01-2017 Pat Edu Normal [facility] ([place]) Patient Summary Documentson 06-01-2017 Patient Summary Documents Normal [facility] ([place] UAon 06-01-2017 UA Appear Cloudy Abnormal [facility] ([place] Comment on above: Performed By: #### U A, UAMIC ####[address] [address] UA Blood Large Abnormal Neg-Trace [facility] ([place]) Comment on above: Performed By: #### U A, UAMIC ####[place] [address] UA Leuk Est Small Abnormal Negative [facility] ([place]) Comment on above: Performed By: #### U A, UAMIC ####[place] [address] UA Nitrite Negative Normal Negative [facility] ([place]) Comment on above: Performed By: #### U A, UAMIC ####[place] [address] UA pH 6.5 Normal 5.0 - 8.0 [facility] ([place]) Comment on above: Performed By: #### U A, UAMIC ####[place] [address] UA Protein 100 mg/dL Abnormal Negative [facility] ([place]) Comment on above: Performed By: #### U A, UAMIC ####[place] [address] UA Spec Grav 1.015 Normal [facility] ([place]) Comment on above: Performed By: #### U A, UAMIC ####[place] [address] UA Specimen Type Clean Catch Normal [facility] ([place]) Comment on above: Performed By: #### U A, UAMIC ####[place] [address] UA Urobilinogen 0.2 E.U./dL Normal [facility] ([place]) Comment on above: Performed By: #### U A, UAMIC ####[place] [address] Urine, color Straw Normal [facility] ([place]) Comment on above: Performed By: #### U A, UAMIC ####[place] [address] Urine, glucose Negative Normal Negative [facility] ([place]) Comment on above: Performed By: #### U A, UAMIC ####[place] [address] Urine, ketones presence Negative Normal Negative A [facility] ([place]) Comment on above: Performed By: #### U A, UAMIC ####[place] [address] Urine, urobilinogen Negative Normal Neg-Trace [facility] ([place]) Comment on above: Performed By: #### U A, UAMIC ####[place] [address] UAMICon 06-01-2017 UA Bacteria 4+ /hpf Abnormal Negative [facility] ([place]) Comment on above: Performed By: #### U A, UAMIC ####[place] [address] UA Squam Epithelial 0-2 Normal 0-20 [facility] ([place]) Comment on above: Performed By: #### U A, UAMIC ####[place] [address] UA WBC 50-100 Abnormal 0-5 [facility] ([place]) Comment on above: Performed By: #### U A, UAMIC ####[place] [address] Urine, erythrocytes 5-10 Abnormal 0-2 [facility] ([place]) Comment on above: Performed By: #### U A, UAMIC ####[place] [address] CNOVon 12-31-2016 CNOV Office Visit (UCWSTR) BENJAMIN CHETNA Lewis I ([id number]) 1995 FDate Time Provider Department12/31/16 3:30 PM VÍCTOR KELLEY) [facility] During your visit today, we recorded the following information about you: Temperature Pulse Respiration Blood pressure 97.9 degrees 72/minute 16/minute 120/80 Weight Last Period 86.7 kg 12/28/16Víctor Kelley CNP 12/31/2016 4:16 [facility] a 21 year old [...] spread bycoughs, sneezes, and direct contact, especially makk-as-ykqz. A respiratorytract infection usually clears up in [...] a temperature over 102 F (39 C).Alley Fleming LPN 12/31/2016 6:11 PM SignedAddended by: ALLEY FLEMING LPN on: 12/31/2016 06:11 PM Modules accepted: OrdersReferring Provider: SELF [200]Allergies As of Date: 12/31/2016(No Known Allergies)Date Reviewed: 12/31/2016Reviewed by: [facility] AssessedReason for Visit: Head Congestion [234] Cmt: x4 daysPrimary Visit Diagnosis:URI, acute [J06.9]Order(s):flutica sone (FLONASE) 50 mcg/actuation nasal sprayUse 2 Sprays in each nostril once daily. Rinse mouth after use.Disp: 1 BottleRfl: 1 RAPID STREP TEST B/O [9203415] Order #: [id number] as of 12/31/2016 Sig: FLUTICASONE 50 MCG/ACTUATION [...] by coughs, sneezes, and direct contact, especially iahf-lr-hgwt. A respiratory tract infection usually clears up [...] use.Letter TextWoosterDepartment of Urgent CareVíctor Kelley CNP[address] [place], [place] [address]Jsdqf: [phone] Gamez CCF# [id number] [address] [facility] [id number] WHOM IT MAY CONCERN:This is to confirm that Chetna Gamez had an appointment and [facility] by Trisha Suazo 12/31/2016.Sincerely yours,Víctor Kelley CNPEncounter Number: [id number] Status:Closed by VÍCTOR KELLEY CNP on 12/31/16 Normal [facility] PROGRESSon 12-31-2016 PROGRESS HNO ID: [id number]: Víctor (Lesvia) Service: (none)Author Type: Nurse PractitionerType: Progress NotesFiled: 12/31/2016 4:16 PMNote Text:HPIHPI Chetna Gamez is a 21 year old female who presents today for CC ofsinus congestion. This started 4 days ago. Has tried multiple otcmedications with little relief. Risk factors [facility]. Denies possibility of being .Review of [...] for further evaluation by either myself or theirprimary care physician. Potential red flag symptoms discussed with thepatient. Reviewed appropriate action plan to take if red flag symptomsoccur. Patient agreeable to treatment plan.Víctor Kelley CNP Normal [facility] Vital Signs Date Time Vital Sign Value Performing Clinician Faci marques 01-10-2025 14:11-0400 Body height 175.[address] Coco Baer MD Work Phone: [facility] 01-10-2025 14:11-0400 Body mass index (BMI) [Ratio] 37 kg/m2 Dr. Coco Baer MD Work Phone: 1([phone] [place] [address] 01-10-2025 14:11-0400 Body weight 113.[address] Coco Baer MD Work Phone: 7([phone] [place] [address] 01-10-2025 14:11-0400 Diastolic blood pressure 81 mm[Hg] Dr. Coco Baer MD Work Phone: 0(397)[phone] [place] [address] 01-10-2025 14:11-0400 Systolic blood pressure 114 mm[Hg] Dr. Coco Baer MD Work Phone: 1([phone])803-150697 [place] [address] 01-03-2025 14:43-0400 Body height 175.[address] Coco Baer MD Work Phone: 3([phone])891-033797 [place] [address] 01-03-2025 14:43-0400 Body mass index (BMI) [Ratio] 37.3 kg/m2 Dr. Coco Baer MD Work Phone: 1(553)924-215697 [place] [address] 01-03-2025 14:43-0400 Body weight 114.[address] Coco Baer MD Work Phone: 6([phone])695-573697 [place] [address] 01-03-2025 14:43-0400 Diastolic blood pressure 84 mm[Hg] Dr. Coco Baer MD Work Phone: 1([phone] [place] [address] 01-03-2025 14:43-0400 Systolic blood pressure 128 mm[Hg] Dr. Coco Baer MD Work Phone: 3([phone])290-518097 [place] [address] 12-25-2024 15:03-0400 Body height 175.[address] Coco Baer MD Work Phone: 6(774)825-284497 [place] [address] 12-25-2024 15:03-0400 Body mass index (BMI) [Ratio] 36.6 kg/m2 Dr. Coco Baer MD Work Phone: 1([phone])282-877296 [place] [address] 12-25-2024 15:03-0400 Body weight 112.[address] Coco Baer MD Work Phone: 9(521)097-646796 [place] [address] 12-25-2024 15:03-0400 Diastolic blood pressure 85 mm[Hg] Dr. Coco Baer MD Work Phone: 7(135)[phone] [address] 12-25-2024 15:03-0400 Systolic blood pressure 131 mm[Hg] Dr. Coco Baer MD Work Phone: 9(490)084-114197 [place] [address] 12-11-2024 13:27-0400 Body height 175.[address] Coco Baer MD Work Phone: [phone] [place] [address] 12-11-2024 13:23-0400 Body mass index (BMI) [Ratio] 36.6 kg/m2 Dr. Coco Baer MD Work Phone: 2(760)537-849197 [place] [address] 12-11-2024 13:23-0400 Body weight 112.[address] Coco Baer MD Work Phone: 9(311)651-440797 [place] [address] 12-11-2024 13:23-0400 Diastolic blood pressure 82 mm[Hg] Dr. Coco Baer MD Work Phone: 7(159)650-892897 [place] [address] 12-11-2024 13:23-0400 Systolic blood pressure 124 mm[Hg] Dr. Coco Baer MD Work Phone: 0(319)931-757997 [place] [address] 11-26-2024 13:11-0400 Body height 175.[address] Coco Baer MD Work Phone: 0(665)640-666097 [place] [address] 11-26-2024 13:11-0400 Body mass index (BMI) [Ratio] 36.2 kg/m2 Dr. Coco Baer MD Work Phone: 2(801)613-812597 [place] [address] 11-26-2024 13:11-0400 Body weight 111.[address] Coco Baer MD Work Phone: 9(846)024-618797 [place] [address] 11-26-2024 13:11-0400 Diastolic blood pressure 78 mm[Hg] Dr. Coco Baer MD Work Phone: [facility] 11-26-2024 13:11-0400 Systolic blood pressure 124 mm[Hg] Dr. Coco Baer MD Work Phone: 6(179)785-583496 [place] [address] 11-13-2024 13:46-0400 Body height 175.[address] Coco Baer MD Work Phone: 7(664)514-499006 [address] 11-13-2024 13:43-0400 Body mass index (BMI) [Ratio] 35.7 kg/m2 Dr. Coco Baer MD Work Phone: 2(129)329-261597 [place] [address] 11-13-2024 13:43-0400 Body weight 109.[address] Coco Baer MD Work Phone: 0(865)139-917097 [place] [address] 11-13-2024 13:43-0400 Diastolic blood pressure 81 mm[Hg] Dr. Coco Baer MD Work Phone: 7(761)244-254697 [place] [address] 11-13-2024 13:43-0400 Systolic blood pressure 120 mm[Hg] Dr. Coco Baer MD Work Phone: 9(875)083-879606 [address] 10-29-2024 13:49-0400 Body height 175.[address] Coco Baer MD Work Phone: 5(415)371-273097 [place] [address] 10-29-2024 13:48-0400 Body mass index (BMI) [Ratio] 35.9 kg/m2 Dr. Coco Baer MD Work Phone: 3(627)113-864096 [place] [address] 10-29-2024 13:48-0400 Body weight 110.[address] Coco Baer MD Work Phone: 0(254)986-298697 [place] [address] 10-29-2024 13:48-0400 Diastolic blood pressure 76 mm[Hg] Dr. Coco Baer MD Work Phone: 2(283)168-997697 [place] [address] 10-29-2024 13:48-0400 Systolic blood pressure 125 mm[Hg] Dr. Coco Baer MD Work Phone: 3(602)368-277696 [place] [address] 10-15-2024 14:50-0400 Body height 175.[address] Coco Baer MD Work Phone: 8(585)923-467896 [place] [address] 10-15-2024 14:50-0400 Body mass index (BMI) [Ratio] 35.8 kg/m2 Dr. Coco Baer MD Work Phone: 5(257)567-537197 [place] [address] 10-15-2024 14:50-0400 Body weight 109.[address] Coco Baer MD Work Phone: 3(816)379-568197 [place] [address] 10-15-2024 14:50-0400 Diastolic blood pressure 77 mm[Hg] Dr. Coco Baer MD Work Phone: 6(310)721-506897 [place] [address] 10-15-2024 14:50-0400 Systolic blood pressure 126 mm[Hg] Dr. Coco Baer MD Work Phone: 9(574)878-583897 [place] [address] 09-17-2024 13:45-0400 Body height 175.[address] Coco Baer MD Work Phone: 5(005)455-542797 [place] [address] 09-17-2024 13:45-0400 Body mass index (BMI) [Ratio] 35.7 kg/m2 Dr. Coco Baer MD Work Phone: 7(569)586-364497 [place] [address] 09-17-2024 13:45-0400 Body weight 109.[address] Coco Baer MD Work Phone: 6(995)319-079897 [place] [address] 09-17-2024 13:45-0400 Diastolic blood pressure 82 mm[Hg] Dr. Coco Baer MD Work Phone: 3(018)319-789197 [place] [address] 09-17-2024 13:45-0400 Systolic blood pressure 124 mm[Hg] Dr. Coco Baer MD Work Phone: 7(164)715-902397 [place] [address] 08-20-2024 13:44-0400 Body height 175.[address] Coco Baer MD Work Phone: 5(912)278-727597 [place] [address] 08-20-2024 13:43-0400 Body mass index (BMI) [Ratio] 34.9 kg/m2 Dr. Coco Baer MD Work Phone: [facility] 08-20-2024 13:43-0400 Body weight 107.[address] Coco Baer MD Work Phone: [facility] 08-20-2024 13:43-0400 Diastolic blood pressure 82 mm[Hg] Dr. Coco Baer MD Work Phone: 0(127)213-942396 [place] [address] 08-20-2024 13:43-0400 Systolic blood pressure 121 mm[Hg] Dr. Coco Baer MD Work Phone: 9(213)206-265397 [place] [address] 07-23-2024 13:51-0400 Body mass index (BMI) [Ratio] 34.7 kg/m2 Dr. Coco Baer MD Work Phone: 9(756)308-365306 [address] 07-23-2024 13:51-0400 Body weight 106.[address] Coco Baer MD Work Phone: 9(115)734-221197 [place] [address] 07-23-2024 13:51-0400 Diastolic blood pressure 85 mm[Hg] Dr. Coco Baer MD Work Phone: 7(515)286-721206 [address] 07-23-2024 13:51-0400 Systolic blood pressure 133 mm[Hg] Dr. Coco Baer MD Work Phone: 9(552)286-971506 [address] 06-20-2024 14:06-0400 Body height 175.[address] Coco Baer MD Work Phone: 5(447)070-834006 [address] 06-20-2024 14:06-0400 Body mass index (BMI) [Ratio] 35 kg/m2 Dr. Coco Baer MD Work Phone: 4(672)148-660606 [address] 06-20-2024 14:06-0400 Body weight 107.[address] Coco Baer MD Work Phone: 7(379)650-288706 [address] 06-20-2024 14:06-0400 Diastolic blood pressure 84 mm[Hg] Dr. Coco Baer MD Work Phone: 1(820)046-115206 [address] 06-20-2024 14:06-0400 Systolic blood pressure 128 mm[Hg] Dr. Coco Baer MD Work Phone: [facility] 04-13-2023 11:42-0500 Body temperature 97.8 [degF] Dr. Ji Baer Work Phone: [facility] 04-13-2023 11:42-0500 Diastolic blood pressure 72 mm[Hg] Dr. Ji Baer Work Phone: [facility] 04-13-2023 11:42-0500 Heart rate 66 /min Dr. Ji Baer Work Phone: [facility] 04-13-2023 11:42-0500 Respiratory rate 16 /min Dr. Ji Baer Work Phone: [facility] 04-13-2023 11:42-0500 SaO2% (BldA) [Mass fraction] 100 % Dr. Ji Baer Work Phone: [facility] 04-13-2023 11:42-0500 Systolic blood pressure 102 mm[Hg] Dr. Ji Baer Work Phone: [facility] 07-17-2021 10:05-0400 Body height 175.[address] Ji Baer Work Phone: [facility] Work Phone: 07-17-2021 10:05-0400 Body mass index (BMI) [Ratio] 32.5 kg/m2 Dr. Ji Baer Work Phone: [facility] Work Phone: 07-17-2021 10:05-0400 Body weight 99.[address] Ji Baer Work Phone: [facility] Work Phone: 07-17-2021 10:05-0400 Diastolic blood pressure 90 mm[Hg] Dr. Ji Baer Work Phone: [facility] Work Phone: 07-17-2021 10:05-0400 Systolic blood pressure 124 mm[Hg] Dr. Ji Baer Work Phone: [facility] Work Phone: Encounters Encounter Date Encounter Type Care Provider Facility Start: 01-23-2025 ambulatory Coco Baer Faci lity:[facility] Start: 01-22-2025 End: 01-22-2025 ambulatory [facility] Facility:[facility] Start: 01-22-2025 ambulatory [facility] Kam Venegas Fa cility:[facility] Start: 01-17-2025 End: 01-17-2025 ambulatory [facility] Facility:[facility] Start: 01-10-2025 End: 01-10-[address] Mayelin Garcia MD -[facility] Work Phone: Start: 01-10-2025 End: 01-10-[address] Coco Baer MD Work Phone: -[facility] Start: 01-08-[address] Karina Bravo DO -[facility] Work Phone: Start: 01-08-2025 End: 01-08-2025 ambulatory Karina Bravo Facility:[facility] Start: 01-03-2025 End: 01-03-[address] Karina Bravo DO -[facility] Work Phone: Start: 01-03-2025 End: 01-03-[address] Coco Baer MD Work Phone: -[facility] Start: 12-25-2024 End: 12-25-2024 Patient encounter procedure Tomi Cavanaugh CNM -[facility] Work Phone: Start: 12-25-2024 End: 12-25-[address] Coco Baer MD Work Phone: -[facility] Start: 12-25-2024 End: 12-25-2024 ambulatory Coco Baer Facility:[facility] Start: 12-11-2024 End: 12-11-2024 Patient encounter procedure Ekaterina MCCANN -[facility] Work Phone: Start: 12-11-2024 End: 12-11-[address] Coco Baer MD Work Phone: [facility] Start: 11-26-2024 End: 11-26-[address] Mayelin Garcia MD -[facility] Work Phone: Start: 11-26-2024 End: 11-26-[address] Coco Baer MD Work Phone: [facility] Start: 11-13-2024 End: 11-13-2024 Patient encounter procedure Ekaterina MCCANN -[facility] Work Phone: Start: 11-13-2024 End: 11-13-[address] Coco Baer MD Work Phone: [facility] Start: 10-29-2024 End: 10-29-[address] Karina Bravo DO -[facility] Work Phone: Start: 10-29-2024 End: 10-29-[address] Coco Baer MD Work Phone: [facility] Start: 10-15-2024 End: 10-15-2024 Patient encounter procedure Tomi Cavanaugh CNM -[facility] Work Phone: Start: 10-15-2024 End: 10-15-[address] Coco Baer MD Work Phone: [facility] Start: 10-15-2024 End: 10-15-2024 ambulatory Coco Baer Facility:[facility] Start: 10-01-2024 End: 10-01-2024 ambulatory [facility] Start: 09-17-2024 End: 09-17-2024 Patient encounter procedure Ekaterina MCCANN -[facility] Work Phone: Start: 09-17-2024 End: 09-17-[address] Coco Baer MD Work Phone: [facility] Work Phone: Start: 08-28-2024 End: 08-28-2024 ambulatory TOMI Lewis MAO [facility] Start: 08-20-2024 End: 08-20-[address] Mayelin Garcia MD -[facility] Work Phone: Start: 08-20-2024 End: 08-20-[address] Coco Baer MD Work Phone: [facility] Work Phone: Start: 08-20-2024 End: 08-20-2024 ambulatory Coco Baer Facility:[facility] Start: 07-23-2024 End: 07-23-2024 Patient encounter procedure Tomi Cavanaugh CNM -[facility] Work Phone: Start: 07-23-2024 End: 07-23-2024 ambulatory Coco Baer Facility:[facility] Start: 07-04-2024 End: 07-04-[address] Coco Baer MD Work Phone: [facility] Work Phone: Start: 07-04-2024 End: 07-04-[address] Karina Bravo DO -Lab, [facility] Start: 07-04-2024 End: 07-04-2024 ambulatory Karina Bravo Facility:[facility] Start: 06-20-2024 End: 06-20-[address] Coco Baer MD Work Phone: [facility] Work Phone: Start: 06-20-2024 End: 06-20-[address] Karina Bravo DO -Laboratory, [facility] Work Phone: Start: 06-20-2024 End: 06-20-[address] Karina Bravo DO -[facility] Work Phone: Start: 06-20-2024 End: 06-20-2024 ambulatory Coco Baer Facility:[facility] Start: 06-20-2024 End: 06-20-2024 ambulatory Karina Bravo Facility:[facility] Start: 04-13-2023 End: 04-13-[address] Ji Baer Work Phone: [facility] Work Phone: Start: 04-13-2023 End: 04-13-[address] Ji Baer Work Phone: [facility] Work Phone: Start: 07-17-2021 End: 07-17-[address] [facility] Start: 07-17-2021 End: 07-17-[address] Ji Baer Work Phone: [facility] Start: 03-24-[address] Ji Baer Work Phone: [facility] Start: 06-01-2017 End: 06-01-2017 Emergency department patient visit [facility] Facility: Start: 12-31-2016 End: 12-31-2016 Ambulatory [facility] Procedures Date Procedure Procedure Detail Performing Clinician Start: 01-08-2025 Ultrasound scan for growth Dr. Jesica Baer MD Work Phone: Start: 12-25-2024 Beta-hemolytic Streptococcus culture Dr. Coco Baer MD Work Phone: Start: 10-15-2024 Serologic test for syphilis Dr. Joellen Baer MD Work Phone: Start: 08-20-[address] Coco Baer MD Work Phone: Comment on above: TEST RESULTS LIMITSAFP, Serum, Open Spin a Bifida Results The MOM and risk factors of this report have been modified based on new information supplied to us by the client or their designated in home sales representative. The Weight was changed from Not [...] AFP MoM 0.81 OSBR Risk 1 [place] [id number] Interpretation: Screen NegativeThis result is screen negative [...] Customer Services to discuss available options. The [employer] recommends amniocentesis be offered to women age 35 and older.Comment: Dulce Ramirez, Ph.D., DABCCDirectorReferences: Available Upon Request.Multiples Of Median Cutoffs For AFP ElevationsSingleton 2.5 Black 2.8IDD 2.0 Twins 4.5 Abbreviation DefinitionsIDD - Insulin Dep DiabetesOSBR - Open Spina Bifida RiskFor further inquiries contact [employer] at [phone].This test was developed and its performance characteristicsdetermined by [facility]. It has not been cleared or approvedby the Food and Drug Administration. TESTING PERFORMED AT [facility]. ORIGINAL REPORT ON FILE IN LAB CONTAINS [...] HCV Quant by PCR testing - HCVPCR #[id number] Non Reactive: < 0.8 Equivocal: >/= 0.8 [...] ALIGNANCY.THIS SPECIMEN WAS RESCREENED PART OF OUR PATTERN PERFORATING MACHINE OPERATOR PROGRAM. This liquid based Th inPrep(R) pap test was screened withthe use of an image guided system. The HPV DNA reflex c riteria were not met with this specimenresult therefore, no HPV testing was performed.Performed at: [address], [place] [id number] Director: Kathleen Plata MD, Phone: [phone] at: [facility] [address] [place], [place] [id number] Director: Hermann Zee MD, Phone: [phone] Start: 06-20-[address] Coco Baer MD Work Phone: H/O: surgery S/p nephrectomy Dr. Joellen Baer Work Phone: Plan of Treatment Date Care Activity Detail Author Start: 01-08-2025 Ultrasound scan for growth [facility] Start: 01-08-2025 Patient encounter procedure Registered Clinical -Ultrasound [facility] Work Phone: Start: 01-03-2025 End: 01-03-2025 Patient encounter procedure Anxiety -[facility] Work Phone: Start: 10-15-2024 CBC W Auto Different ial panel - Blood [facility] Start: 10-15-2024 Measurement of gluco se 2 hours after glucose challenge for glucose tolerance test [facility] Start: 10-15-2024 Serologic test for syphilis [facility] Start: 10-15-2024 [facility] Start: 08-20-2024 Procedure [facility] CBC W Auto Different ial panel - Blood [facility] CBC W Auto Different ial panel - Blood [facility] Erythrocyte mean corpuscular volume determination [facility] Hematocrit [Volume Fraction] of Blood [facility] Hemoglobin [Mass/vol ume] in Blood [facility] Hemoglobin A1c/Hemoglobin.total in Blood [facility] Hepatitis B surface antigen measurement [facility] Hepatitis C antibody measurement [facility] HIV 1+2 Ab+HIV1 p24 Ag [Presence] in Serum or Plasma by Immunoassay [facility] Leukocytes [#/volume ] in Blood [facility] Mean corpuscular hemoglobin concentration determination [facility] Mean corpuscular hemoglobin determination [facility] Measurement of gluco se 2 hours after glucose challenge for glucose tolerance test [facility] Neutrophil count [facility] Neutrophil percent differential count [facility] Platelets [#/volume] in Blood [facility] Procedure [facility] Red blood cell count [facility] Red cell distributio n width determination [facility] Rubella IgG measurement [facility] Serologic test for syphilis [facility] Streptococcus agalac tiae [Presence] in Unspecified specimen by Organism specific culture [facility] Treponema sp Ab [Pre sence] in Serum [facility] Ultrasound scan for growth [facility] Immunizations Immunization Date Immunization Notes Care Provider Fa cility 11-13-2024 tetanus toxoid, reduced diphtheria toxoid, and acellular pertussis vaccine, adsorbed Dr. Coco Baer MD Work Phone: [facility] Payers Date Payer Category Payer Self-pay [id number] 2024 Unknown [id number] 2017 Unknown [id number] 1997 Unknown [id number] 2. [id number] 1997 Unknown [id number] . [id number] 1997 Unknown [id number] 2. 840.1.590067.3.579.2.479 Private Health Insurance [id number] Unknown [id number] 2.16.8 40.1.265639.3.579.2.462 Unknown [id number] 2.16.8 40.1.987621.3.579.2.462 Unknown [id number] 2.16.8 40.1.361823.3.579.2.462 Unknown [id number] 2.16.8 40.1.999566.3.579.2.462 Unknown [id number] 2.16.8 40.1.454516.3.579.2.462 Unknown [id number] 2.16.8 40.1.800388.3.579.2.462 Unknown [id number] 2.16.8 40.1.879753.3.579.2.462 Unknown [id number] 2.16.8 40.1.725943.3.579.2.462 Unknown [id number] 2.16.8 40.1.144477.3.579.2.462 Unknown [id number] 2.16.8 40.1.101808.3.579.2.462 Unknown [id number] 2.16.8 40.1.192769.3.579.2.462 Unknown [id number] 2.16.8 40.1.035872.3.579.2.462 Unknown [id number] 2.16.8 40.1.927121.3.579.2.462 Unknown [id number] 2.16.8 40.1.199660.3.579.2.462 Unknown [id number] 2.16.8 40.1.736013.3.579.2.462 Unknown [id number] 2.16.8 40.1.711330.3.579.2.462 Unknown [id number] 2.16.8 40.1.662999.3.579.2.462 Unknown [id number] 2.16.8 40.1.112589.3.579.2.462 Unknown [id number] 2.16.8 40.1.306123.3.579.2.462 Unknown [id number] 2.16.8 40.1.251004.3.579.2.462 Unknown [id number] 2.16.8 40.1.174708.3.579.2.462 Unknown [id number] 2.16.8 40.1.144983.3.579.2.462 Social History Date Type Detail Facility Start: 07-17-2021 End: 04-13-2023 Tobacco smoking status NHIS Unknown if ever smoked [facility] Start: 1995 Sex Assigned At Female [facility] Start: 05-29-2024 Tobacco smoking stat us NHIS Ex-smoker (finding) [facility] Start: 06-29-2024 End: 07-09-2024 Sex Female (finding) [facility] Sex Female [facility] Clinical Notes 06-20-2024 to 01-10-2025 Note Date & Type Note Facility 01-10-2025 Progress note [facility] 01-10-2025 Progress note Note Date/Time January 10, 2025 2:30pm [facility] [address], [address] [place] [address] OFFICE VISIT Date of Service: 01/10/25 MR#: [id number] Acct: [id number] Name: CHETNA TUCKER Rep # : [id number] : 1995 Provider: Dr. Guy Garcia MD Age/Sex: 29/F [facility] Status: Signed Intake Vital Signs 11/13/24 13:46 01/03/25 14:43 01/10/25 14:11 Height 5 ft 9 in 5 ft 9 in 5 ft 9 in Weight: 251 lb 2 oz BMI 37.0 BP 114/81 H Intake Visit Reasons: 38 WK OB Steel Turner Required: No Is patient in pain?: No Allergies No Known Allergies Allergy (Verified 01/10/25 14:09) Medications ?Medication ?Instructions ?Recorded ?Confirmed ?Type mv-mn 110-FA 180 mcg-om3 35 mg-dha tab PO 05/29/2406/05 History 25 mg-epa 5 mg-fish oil chew tablet breast pump #1 ea 11/13/24 01/10/25 Rx famotidine 20 mg tablet (Pepcid) 20 mg PO BID #60 tabs 01/03/25 01/10/25 Rx Last Menstrual Period: 04/17/24 Zika: Zika virus screening: Negative : No PFSH PFSH Medical History History of nicotine vaping Hidradenitis suppurativa Encounter for IUD removal Seasonal allergies S/p nephrectomy Surgical History [place] teeth extracted History of nephrectomy, right Family History Mother Kidney disease Heart disease Hypertension Grandmother Heart disease Maternal Kidney disease Maternal Hypertension Maternal Diabetes Maternal Father Hypertension Social History adopted: No household members: spouse housing: house current occupational status: employed 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 OB Visit YESI Calculator Estimated Delivery Date Method Current WG Current Estimate 01/22/25 LMP (Certain) 38w 2d Other Estimates 01/23/25 Ultrasound #1 38w 1d Expected Delivery Route/Plan Labor Preferences- CB/BF classes: yes labor support person: Espinoza labor intervention preferences: pain management options preferred:nitrous, epidural if requested cut cord/dad catch: cord : yes PP control planned: discussed discussed possible routes of delivery and associated risks: [] special requests: [] Specific Issue/Plans Covid status: [] Flu vaccine: [] Tdap vaccine: given 11/13/24 Rhogam: na LARC form signed: yes Problem list reviewed and updated with the [...] -?-?-?-?-?-?-?-?-?-?-?-?- KW- no vb/lof/ct x. good fm. 10/29/24 -?-?-?-?-?-?-?-?-?-?-?-?- 27w 6d 243 lb (+6 lb) 125/76 Negative -?-?-?-?-?-?-?-?-?-?-?-?- Negative 145 29 -?-?-?-?-?-?-?-?-?-?-?-?- JV- no lof, vagi nal bleeding, or cramping. normal gct 11/13/24 -?-?-?-?-?-?-?-?-?-?-?-?- 30w 0d 242 lb 1 oz (+5 lb 1 oz) 120/81 Negative -?-?-?-?-?-?-?-?-?-?-?-?- Negative 140 31 -?-?-?-?-?-?-?-?-?-?-?-?- MH-No VB, LOF. G ood FM. tdap. 11/26/24 -?-?-?-?-?-?-?-?-?-?-?-?- 31w 6d 245 lb 8 oz (+8 lb 8 oz) 124/78 Negative -?-?-?-?-?-?-?-?-?-?-?-?- Negative 140 32 -?-?-?-?-?-?-?-?-?-?-?-?- SM no vb lof goo d fm no reg ctx. discussed heartburn ordered pepcid 12/11/24 -?-?-?-?-?-?-?-?-?-?-?-?- 34w 0d 248 lb 2 oz (+11 lb 2 oz) 124/82 Negative -?-?-?-?-?-?-?-?-?-?-?-?- Negative 152 34 -?-?-?-?-?-?-?-?-?-?-?-?- MH-No VB, LOF. G ood FM. No concerns. 12/25/24 -?-?-?-?-?-?-?-?-?-?-?-?- 36w 0d 248 lb 8 oz (+11 lb 8 oz) 131/85 Negative -?-?-?-?-?-?-?-?-?-?-?-?- Negative 130 36 Cephalic 0 -?-?-?-?-?-?-?-?-?-?-?-?- -4 KW- no v b/lof/ctx. good fm. GBS today. bedside US for position 01/03/25 -?-?-?-?-?-?-?-?-?-?-?-?- 37w 2d 253 lb (+16 lb) 128/84 Negative -?-?-?-?-?-?-?-?-?-?-?-?- Negative 144 37 Cephalic 0 -?-?-?-?-?-?-?-?-?-?-?-?- JV- no lof, vagi nal bleeding, or dec fm. growth scan ordered for maternal obesity. 01/10/25 -?-?-?-?-?-?-?-?-?-?-?-?- 38w 2d 251 lb 2 oz (+14 lb 2 oz) 114/81 Negative -?-?-?-?-?-?-?-?-?-?-?-?- Negative 160 39 Cephalic 0 -?-?-?-?-?-?-?-?-?-?-?-?- SM- no vb lof go od fm no reuglar ctx Notes Visit Date: 10/29/24 Last Updated by: Karina Bravo, DO 141 ACOG First Trimester First Trimester: Discussed Second Trimester Second Trimester: Signs and Symptoms of Labor, Selecting a care provider, Depression/Anxiety and Intimate Partner Violence Third Trimester Third Trimester: Pain Management Plans, Labor support person(s), Immediate Larc, Signs and Symptoms of Preeclampsia, Feeding No , Family Medical Leave or Disability Forms, Depression and Intimate Partner Violence Results POC Urinalysis 2 Dip (Clinic) Office Urine Glucose Negative Last Edit by Ekaterina Anglin on 01/10/25 14:15 Office Urine Protein Negative Last Edit by Ekaterina Anglin on 01/10/25 14:15 Coding Level of Care Code OB Routine Diagnoses Supervision of high risk in third trimester O09.93 Trimester: third trimester 38 weeks gestation of Z3A.38 Weeks of gestation: 38 weeks Obesity affecting in second trimester, unspecified obesity type O99.212 Obesity type affecting : unspecified obesity Trimester: second trimester Anxiety F41.9 Assessment and Plan Assessment and Plan (1) Supervision of high-risk : Status: Acute Qualifiers: Trimester: third trimester Qualified Code(s): O09.93 - Supervision of high risk , unspecified, third trimester Comment: PRR,, YESI 01/22/25, Espinoza, having a girl "Dassel" (2) : Status: Acute Qualifiers: Weeks of gestation: 38 weeks Qualified Code(s): Z3A.38 - 38 weeks gestation of Comment: GBS neg, NIPT low risk, carrier declined. AFP negative, nml growth (3) Obesity affecting : Status: Acute Qualifiers: Obesity type affecting : unspecified obesity Trimester: second trimester Qualified Code(s): O99.212 - Obesity complicating , second trimester Comment: HgbA1c (4) Anxiety: Status: Acute Orders: Orders POC Urinalysis 2 Dip (Clinic) Today 01/10/25 1430 <Electronically signed by Mayelin foley MD> Date _ Mayelin Garcia MD [facility] Signature: Date (if applicable) CC: ~ [facility] Work Phone: 1(920) 496-365909-25-2025 [facility] [address], [address] [place] [address] OFFICE VISIT Date of Service: 01/03/25 MR#: [id number] Acct: [id number] Name: CHETNA TUCKER Rep # : [id number] : 1995 Provider: Dr. Moraima Bravo DO Age/Sex: 29/F [place] [facility] [place]: Signed Intake Vital Signs 11/13/24 13:46 12/25/24 15:03 01/03/25 14:43 Height 5 ft 9 in 5 ft 9 in 5 ft 9 in Weight: 253 lb BMI 37.3 BP 128/84 H Intake Visit Reasons: 37 WK OB Chief Complaint: 37wk OB Steel Turner Required: No Is patient in pain?: No Allergies No Known Allergies Allergy (Verified 01/03/25 14:41) Medications ?Medication ?Instructions ?Recorded ?Confirmed ?Type mv-mn 110-FA 180 mcg-om3 35 mg-dha tab PO 05/29/24 History 25 mg-epa 5 mg-fish oil chew tablet breast pump #1 ea 11/13/24 01/03/25 Rx famotidine 20 mg tablet (Pepcid) 20 mg PO BID #60 tabs 01/03/25 01/03/25 Rx Last Menstrual Period: 04/17/24 : No PFSH PFSH Medical History History of nicotine vaping Hidradenitis suppurativa Encounter for IUD removal Seasonal allergies S/p nephrectomy Surgical History [place] teeth extracted History of nephrectomy, right Family History Mother Kidney disease Heart disease Hypertension Grandmother Heart disease Maternal Kidney disease Maternal Hypertension Maternal Diabetes Maternal Father Hypertension Social History adopted: No household members: spouse housing: house current occupational status: employed 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 OB Visit YESI Calculator Estimated Delivery Date Method Current WG Current Estimate 01/22/25 LMP (Certain) 37w 2d Other Estimates 01/23/25 Ultrasound #1 37w 1d Expected Delivery Route/Plan Labor Preferences- CB/BF classes: yes labor support person: Espinoza labor intervention preferences: pain management options preferred:nitrous, epidural if requested cut cord/dad catch: cord : yes PP control planned: discussed discussed possible routes of delivery and associated risks: [] special requests: [] Specific Issue/Plans Covid status: [] Flu vaccine: [] Tdap vaccine: given 11/13/24 Rhogam: na LARC form signed: yes Problem list reviewed and updated with the most current plan of care details and appropriate ordersplaced. Relevant counseling for the gestational age provided. [...] -?-?-?-?-?-?-?-?-?-?-?-?- KW- no vb/lof/ct x. good fm. 10/29/24 -?-?-?-?-?-?-?-?-?-?-?-?- 27w 6d 243 lb (+6 lb) 125/76 Negative -?-?-?-?-?-?-?-?-?-?-?-?- Negative 145 29 -?-?-?-?-?-?-?-?-?-?-?-?- JV- no lof, vagi nal bleeding, or cramping. normal gct 11/13/24 -?-?-?-?-?-?-?-?-?-?-?-?- 30w 0d 242 lb 1 oz (+5 lb 1 oz) 120/81 Negative -?-?-?-?-?-?-?-?-?-?-?-?- Negative 140 31 -?-?-?-?-?-?-?-?-?-?-?-?- MH-No VB, LOF. G ood FM. tdap. 11/26/24 -?-?-?-?-?-?-?-?-?-?-?-?- 31w 6d 245 lb 8 oz (+8 lb 8 oz) 124/78 Negative -?-?-?-?-?-?-?-?-?-?-?-?- Negative 140 32 -?-?-?-?-?-?-?-?-?-?-?-?- SM no vb lof goo d fm no reg ctx. discussed heartburn ordered pepcid 12/11/24 -?-?-?-?-?-?-?-?-?-?-?-?- 34w 0d 248 lb 2 oz (+11 lb 2 oz) 124/82 Negative -?-?-?-?-?-?-?-?-?-?-?-?- Negative 152 34 -?-?-?-?-?-?-?-?-?-?-?-?- MH-No VB, LOF. G ood FM. No concerns. 12/25/24 -?-?-?-?-?-?-?-?-?-?-?-?- 36w 0d 248 lb 8 oz (+11 lb 8 oz) 131/85 Negative -?-?-?-?-?-?-?-?-?-?-?-?- Negative 130 36 Cephalic 0 -?-?-?-?-?-?-?-?-?-?-?-?- -4 KW- no v b/lof/ctx. good fm. GBS today. bedside US for position 01/03/25 -?-?-?-?-?-?-?-?-?-?-?-?- 37w 2d 253 lb (+16 lb) 128/84 Negative -?-?-?-?-?-?-?-?-?-?-?-?- Negative 144 37 Cephalic 0 -?-?-?-?-?-?-?-?-?-?-?-?- JV- no lof, vagi nal bleeding, or dec fm. growth scan ordered for maternal obesity. Notes Visit Date: 10/29/24 Last Updated by: Karina Bravo, DO 141 ACOG First Trimester First Trimester: Discussed Second Trimester Second Trimester: Signs and Symptoms of Labor, Selecting a care provider, Depression/Anxiety and Intimate Partner Violence Third Trimester Third Trimester: Pain Management Plans, Labor support person(s), Immediate Larc, Signs and Symptoms of Preeclampsia, Infant Feeding No , Family Medical Leave or Disability Forms, Depression and Intimate Partner Violence Results POC Urinalysis 2 Dip (Clinic) Office Urine Glucose Negative Last Edit by Meka Brock on 01/03/25 14:47 Office Urine Protein Negative Last Edit by Meka Brock on 01/03/25 14:47 Coding Level of Care Code OB Routine Diagnoses Supervision of high risk in third trimester O09.93 Trimester: third trimester 37 weeks gestation of Z3A.37 Weeks of gestation: 37 weeks Obesity affecting in second trimester, unspecified obesity type O99.212 Obesity type affecting : unspecified obesity Trimester: second trimester Anxiety F41.9 Assessment and Plan Assessment and Plan (1) Supervision of high-risk : Status: Acute Qualifiers: Trimester: third trimester Qualified Code(s): O09.93 - Supervision of high risk , unspecified, third trimester Comment: PRR,, YESI 01/22/25, Espinoza, having a girl "Dassel" (2) : Status: Acute Qualifiers: Weeks of gestation: 37 weeks Qualified Code(s): Z3A.37 - 37 weeks gestation of Comment: GBS neg, NIPT low risk, carrier declined. AFP negative. (3) Obesity affecting : Status: Acute Qualifiers: Obesity type affecting : unspecified obesity Trimester: second trimester Qualified Code(s): O99.212 - Obesity complicating , second trimester Comment: HgbA1c (4) Anxiety: Status: Acute Orders: Orders POC Urinalysis 2 Dip (Clinic) Today OB Limited With Biometrics Today O99.212 - Obesity complicating , second trimester Medications: Refilled famotidine (Pepcid) 20 mg PO BID 60 tabs 6RF 01/03/25 1514 e Velde DO> Date _ Karina Bravo DO C[facility]ignbryant Signature: Date (if applicable) CC: ~ [facility]09-25-2025 Progress note Author Karina Venegas [facility] Note Date/Time January 03, 2025 3:14pm [facility] [address] [place] [address], [address] [place] [address] OFFICE VISIT Date of Service: 01/03/25 MR#: [id number] Acct: [id number] Name: CHETNA TUCKER Rep # : [id number] : 1995 Provider: Dr. Moraima Bravo, Age/Sex: 29/F [place] [facility] [place]: Signed Intake Vital Signs 11/13/24 13:46 12/25/24 15:03 01/03/25 14:43 Height 5 ft 9 in 5 ft 9 in 5 ft 9 in Weight: 253 lb BMI 37.3 BP 128/84 H Intake Visit Reasons: 37 WK OB Chief Complaint: 37wk OB Steel Turner Required: No Is patient in pain?: No Allergies No Known Allergies Allergy (Verified 01/03/25 14:41) Medications ?Medication ?Instructions ?Recorded ?Confirmed ?Type mv-mn 110-FA 180 mcg-om3 35 mg-dha tab PO 05/29/24 History 25 mg-epa 5 mg-fish oil chew tablet breast pump #1 ea 11/13/24 01/03/25 Rx famotidine 20 mg tablet (Pepcid) 20 mg PO BID #60 tabs 01/03/25 01/03/25 Rx Last Menstrual Period: 04/17/24 : No PFSH PFSH Medical History History of nicotine vaping Hidradenitis suppurativa Encounter for IUD removal Seasonal allergies S/p nephrectomy Surgical History [place] teeth extracted History of nephrectomy, right Family [...] in: none frequency: 1-2 times per week dat/jehovah's witness: None seatbelt use: always do you feel safe at home: Yes additional social history: -[facility]- [facility] History 1 Elective abortions Hx Para 0 Spontaneous abortions Hx # Term Pregnancies Ectopic pregnancies Hx # Pregnancies Multiple births # of living children HPI 37 WK OB Details: CHETNA TUCKER is a 29 year old who presents for routine OB visit. OB Visit YESI Calculator Estimated Delivery Date Method Current WG Current Estimate 01/22/25 LMP (Certain) 37w 2d Other Estimates 01/23/25 Ultrasound #1 37w 1d Expected Delivery Route/Plan Labor Preferences- CB/BF classes: yes labor support person: Espinoza labor intervention preferences: pain management options preferred:nitrous, epidural if requested cut cord/dad catch: cord : yes PP control planned: discussed discussed possible routes of delivery and associated risks: [] special requests: [] Specific Issue/Plans Covid status: [] Flu vaccine: [] Tdap vaccine: given 11/13/24 Rhogam: na LARC form signed: yes Problem list reviewed and updated with the [...] -?-?-?-?-?-?-?-?-?-?-?-?- KW- no vb/lof/ct x. good fm. 10/29/24 -?-?-?-?-?-?-?-?-?-?-?-?- 27w 6d 243 lb (+6 lb) 125/76 Negative -?-?-?-?-?-?-?-?-?-?-?-?- Negative 145 29 -?-?-?-?-?-?-?-?-?-?-?-?- JV- no lof, vagi nal bleeding, or cramping. normal gct 11/13/24 -?-?-?-?-?-?-?-?-?-?-?-?- 30w 0d 242 lb 1 oz (+5 lb 1 oz) 120/81 Negative -?-?-?-?-?-?-?-?-?-?-?-?- Negative 140 31 -?-?-?-?-?-?-?-?-?-?-?-?- -No VB, LOF. G ood FM. tdap. 11/26/24 -?-?-?-?-?-?-?-?-?-?-?-?- 31w 6d 245 lb 8 oz (+8 lb 8 oz) 124/78 Negative -?-?-?-?-?-?-?-?-?-?-?-?- Negative 140 32 -?-?-?-?-?-?-?-?-?-?-?-?- SM no vb lof goo d fm no reg ctx. discussed heartburn ordered pepcid 12/11/24 -?-?-?-?-?-?-?-?-?-?-?-?- 34w 0d 248 lb 2 oz (+11 lb 2 oz) 124/82 Negative -?-?-?-?-?-?-?-?-?-?-?-?- Negative 152 34 -?-?-?-?-?-?-?-?-?-?-?-?- MH-No VB, LOF. G ood FM. No concerns. 12/25/24 -?-?-?-?-?-?-?-?-?-?-?-?- 36w 0d 248 lb 8 oz (+11 lb 8 oz) 131/85 Negative -?-?-?-?-?-?-?-?-?-?-?-?- Negative 130 36 Cephalic 0 -?-?-?-?-?-?-?-?-?-?-?-?- -4 KW- no v b/lof/ctx. good fm. GBS today. bedside US for position 01/03/25 -?-?-?-?-?-?-?-?-?-?-?-?- 37w 2d 253 lb (+16 lb) 128/84 Negative -?-?-?-?-?-?-?-?-?-?-?-?- Negative 144 37 Cephalic 0 -?-?-?-?-?-?-?-?-?-?-?-?- JV- no lof, vagi nal bleeding, or dec fm. growth scan ordered for maternal obesity. Notes Visit Date: 10/29/24 Last Updated by: Karina Bravo, DO 141 ACOG First Trimester First Trimester: Discussed Second Trimester Second Trimester: Signs and Symptoms of Labor, Selecting a care provider, Depression/Anxiety and Intimate Partner Violence Third Trimester Third Trimester: Pain Management Plans, Labor support person(s), Immediate Larc, Signs and Symptoms of Preeclampsia, Feeding No , Family Medical Leave or Disability Forms, Depression and Intimate Partner Violence Results POC Urinalysis 2 Dip (Clinic) Office Urine Glucose Negative Last Edit by Meka Brock on 01/03/25 14:47 Office Urine Protein Negative Last Edit by Meka Brock on 01/03/25 14:47 Coding Level of Care Code OB Routine Diagnoses Supervision of high risk in third trimester O09.93 Trimester: third trimester 37 weeks gestation of Z3A.37 Weeks of gestation: 37 weeks Obesity affecting in second trimester, unspecified obesity type O99.212 Obesity type affecting : unspecified obesity Trimester: second trimester Anxiety F41.9 Assessment and Plan Assessment and Plan (1) Supervision of high-risk : Status: Acute Qualifiers: Trimester: third trimester Qualified Code(s): O09.93 - Supervision of high risk , unspecified, third trimester Comment: PRR,, YESI 01/22/25, Espinoza, having a girl "Dassel" (2) : Status: Acute Qualifiers: Weeks of gestation: 37 weeks Qualified Code(s): Z3A.37 - 37 weeks gestation of Comment: GBS neg, NIPT low risk, carrier declined. AFP negative. (3) Obesity affecting : Status: Acute Qualifiers: Obesity type affecting : unspecified obesity Trimester: second trimester Qualified Code(s): O99.212 - Obesity complicating , second trimester Comment: HgbA1c (4) Anxiety: Status: Acute Orders: Orders POC Urinalysis 2 Dip (Clinic) Today OB Limited With Biometrics Today O99.212 - Obesity complicating , second trimester Medications: Refilled famotidine (Pepcid) 20 mg PO BID 60 tabs 6RF 01/03/25 1514 <Electronically signed by Karina Carrasco DO> Date _ Karina Mercado Signature: Date (if applicable) CC: ~ [facility] Work Phone: 1(884) 664-443009-16-2025 [facility] [address] [place] [address] [address] [place] [address] OFFICE VISIT Date of Service: 12/25/24 MR#: [id number] Acct: [id number] Name: CHETNA TUCKER Rep # : [id number] : 1995 Provider: ROZINA Cavanaugh Age/Sex: 29/F [place] [facility] [place]: Signed Intake Vital Signs 11/13/24 13:46 12/11/24 13:27 12/25/24 15:03 Height 5 ft 9 in 5 ft 9 in 5 ft 9 in Weight: 248 lb 8 oz BMI 36.6 BP 131/85 H Intake Visit Reasons: 36 WK OB Chief Complaint: 36wk OB Steel Turner Required: No Is patient in pain?: No Allergies No Known Allergies Allergy (Verified 12/25/24 15:04) Medications ?Medication ?Instructions ?Recorded ?Confirmed ?Type mv-mn 110-FA 180 mcg-om3 35 mg-dha tab PO 05/29/24 History 25 mg-epa 5 mg-fish oil chew tablet breast pump #1 ea 11/13/24 12/25/24 Rx famotidine 20 mg tablet (Pepcid) 20 mg PO BID #60 tabs 11/26/24 12/25/24 Rx Last Menstrual Period: 04/17/24 : No PFSH PFSH Medical History History of nicotine vaping Hidradenitis suppurativa Encounter for IUD removal Seasonal allergies S/p nephrectomy Surgical History [place] teeth extracted History of nephrectomy, right Family [...] in: none frequency: 1-2 times per week dat/jehovah's witness: None seatbelt use: always do you feel safe at home: Yes additional social history: -Espinoza- [facility] History 1 Elective abortions Hx Para 0 Spontaneous abortions Hx # Term Pregnancies Ectopic pregnancies Hx # Pregnancies Multiple births # of living children HPI 36 WK OB Details: CHETNA TUCKER is a 29 year old who presents for routine OB visit. OB Visit YESI Calculator Estimated Delivery Date Method Current WG Current Estimate 01/22/25 LMP (Certain) 36w 0d Other Estimates 01/23/25 Ultrasound #1 35w 6d Expected Delivery Route/Plan Labor Preferences- CB/BF classes: yes labor support person: Espinoza labor intervention preferences: pain management options preferred:nitrous, epidural if requested cut cord/dad catch: cord : yes PP control planned: discussed discussed possible routes of delivery and associated risks: [] special requests: [] Specific Issue/Plans Covid status: [] Flu vaccine: [] Tdap vaccine: given 11/13/24 Rhogam: na LARC form signed: yes Problem list reviewed and updated with the most current plan of care details and appropriate ordersplaced. Relevant counseling for the gestational age provided. [...] oz (+5 lb 8 oz) 126/77 Negative -?-?-?-?--?-?-?-?-?-?-?-?- Negative 165 26 -?-?-?-?-?-?-?-?-?-?-?-?- KW- no vb/lof/ct x. good fm. 10/29/24 -?-?-?-?-?-?-?-?-?-?-?-?- 27w 6d 243 lb (+6 lb) 125/76 Negative -?-?-?-?-?-?-?-?-?-?-?-?- Negative 145 29 -?-?-?-?-?-?-?-?-?-?-?-?- JV- no lof, vagi nal bleeding, or cramping. normal gct 11/13/24 -?-?-?-?-?-?-?-?-?-?-?-?- 30w 0d 242 lb 1 oz (+5 lb 1 oz) 120/81 Negative -?-?-?-?-?-?-?-?-?-?-?-?- Negative 140 31 -?-?-?-?-?-?-?-?-?-?-?-?- MH-No VB, LOF. G ood FM. tdap. 11/26/24 -?-?-?-?-?-?-?-?-?-?-?-?- 31w 6d 245 lb 8 oz (+8 lb 8 oz) 124/78 Negative -?-?-?-?-?-?-?-?-?-?-?-?- Negative 140 32 -?-?-?-?-?-?-?-?-?-?-?-?- SM no vb lof goo d fm no reg ctx. discussed heartburn ordered pepcid 12/11/24 -?-?-?-?-?-?-?-?-?-?-?-?- 34w 0d 248 lb 2 oz (+11 lb 2 oz) 124/82 Negative -?-?-?-?-?-?-?-?-?-?-?-?- Negative 152 34 -?-?-?-?-?-?-?-?-?-?-?-?- MH-No VB, LOF. G ood FM. No concerns. 12/25/24 -?-?-?-?-?-?-?-?-?-?-?-?- 36w 0d 248 lb 8 oz (+11 lb 8 oz) 131/85 Negative -?-?-?-?-?-?-?-?-?-?-?-?- Negative 130 36 Cephalic 0 -?-?-?-?-?-?-?-?-?-?-?-?- -4 KW- no v b/lof/ctx. good fm. GBS today. bedside US for position Notes Visit Date: 10/29/24 Last Updated by: Karina Bravo, DO 141 ACOG First Trimester First Trimester: Discussed Second Trimester Second Trimester: Signs and Symptoms of Labor, Selecting a care provider, Depression/Anxiety and Intimate Partner Violence Third Trimester Third Trimester: Pain Management Plans, Labor support person(s), Immediate Larc, Signs and Symptoms of Preeclampsia, Feeding No , Family Medical Leave or Disability Forms, Depression and Intimate Partner Violence ROS Const Reports system reviewed and no [...] Negative Last Edit by Meka Brock on 12/25/24 15:09 Office Urine Protein Negative Last Edit by Meka Brock on 12/25/24 15:09 Coding Level of Care Code OB Routine Diagnoses Supervision of high risk in third trimester O09.93 Trimester: third trimester 36 weeks gestation of Z3A.36 Weeks of gestation: 36 weeks Obesity affecting in second trimester, unspecified obesity type O99.212 Obesity type affecting : unspecified obesity Trimester: second trimester Anxiety F41.9 Assessment and Plan Assessment and Plan (1) Supervision of high-risk : Status: Acute Qualifiers: Trimester: third trimester Qualified Code(s): O09.93 - Supervision of high risk , unspecified, third trimester Comment: PRR,, YESI 01/22/25, Espinoza, having a girl "Dassel" (2) : Status: Acute Qualifiers: Weeks of gestation: 36 weeks Qualified Code(s): Z3A.36 - 36 weeks gestation of Comment: NIPT low risk, carrier declined. AFP negative. (3) Obesity affecting : Status: Acute Qualifiers: Obesity type affecting : unspecified obesity Trimester: second trimester Qualified Code(s): O99.212 - Obesity complicating , second trimester Comment: HgbA1c (4) Anxiety: Status: Acute Orders: Orders POC Urinalysis 2 Dip (Clinic) Today Culture, Group B Streptococcus Today O09.93 - Supervision of high risk , unspecified, third trimester, Z3A.36 - 36 weeks gestation of Plan Details Additional Comments: ACOG trimester education reviewed and updated. see problem list details for updated plan management information and see below for orders placed atthis visit. [place] appropriate handout given. 12/25/24 1532 s CNM> Date _ Tomi Mao ROZINA Cosigner Signature: Date (if applicable) CC: ~ [facility]09-16-2025 Progress note Author Tomi Cavanaugh [facility] Note Date/Time December 25, 2024 3:32pm [facility] [address] [place] [address], [address] [place] [address] OFFICE VISIT Date of Service: 12/25/24 MR#: [id number] Acct: [id number] Name: CHETNA TUCKER Rep # : [id number] : 1995 Provider: ROZINA Cavanaugh Age/Sex: 29/F [place] [facility] [place]: Signed Intake Vital Signs 11/13/24 13:46 12/11/24 13:27 12/25/24 15:03 Height 5 ft 9 in 5 ft 9 in 5 ft 9 in Weight: 248 lb 8 oz BMI 36.6 BP 131/85 H Intake Visit Reasons: 36 WK OB Chief Complaint: 36wk OB Steel Turner Required: No Is patient in pain?: No Allergies No Known Allergies Allergy (Verified 12/25/24 15:04) Medications ?Medication ?Instructions ?Recorded ?Confirmed ?Type mv-mn 110-FA 180 mcg-om3 35 mg-dha tab PO 05/29/24 History 25 mg-epa 5 mg-fish oil chew tablet breast pump #1 ea 11/13/24 12/25/24 Rx famotidine 20 mg tablet (Pepcid) 20 mg PO BID #60 tabs 11/26/24 12/25/24 Rx Last Menstrual Period: 04/17/24 : No PFSH PFSH Medical History History of nicotine vaping Hidradenitis suppurativa Encounter for IUD removal Seasonal allergies S/p nephrectomy Surgical History [place] teeth extracted History of nephrectomy, right Family History Mother Kidney disease Heart disease Hypertension Grandmother Heart disease Maternal Kidney disease Maternal Hypertension Maternal Diabetes Maternal Father Hypertension Social History adopted: No household members: spouse housing: house current occupational status: employed 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 OB Visit YESI Calculator Estimated Delivery Date Method Current WG Current Estimate 01/22/25 LMP (Certain) 36w 0d Other Estimates 01/23/25 Ultrasound #1 35w 6d Expected Delivery Route/Plan Labor Preferences- CB/BF classes: yes labor support person: Espinoza labor intervention preferences: pain management options preferred:nitrous, epidural if requested cut cord/dad catch: cord : yes PP control planned: discussed discussed possible routes of delivery and associated risks: [] special requests: [] Specific Issue/Plans Covid status: [] Flu vaccine: [] Tdap vaccine: given 11/13/24 Rhogam: na LARC form signed: yes Problem list reviewed and updated with the [...] oz (+5 lb 8 oz) 126/77 Negative -?-?-?-?--?-?-?-?-?-?-?-?- Negative 165 26 -?-?-?-?-?-?-?-?-?-?-?-?- KW- no vb/lof/ct x. good fm. 10/29/24 -?-?-?-?-?-?-?-?-?-?-?-?- 27w 6d 243 lb (+6 lb) 125/76 Negative -?-?-?-?-?-?-?-?-?-?-?-?- Negative 145 29 -?-?-?-?-?-?-?-?-?-?-?-?- JV- no lof, vagi nal bleeding, or cramping. normal gct 11/13/24 -?-?-?-?-?-?-?-?-?-?-?-?- 30w 0d 242 lb 1 oz (+5 lb 1 oz) 120/81 Negative -?-?-?-?-?-?-?-?-?-?-?-?- Negative 140 31 -?-?-?-?-?-?-?-?-?-?-?-?- MH-No VB, LOF. G ood FM. tdap. 11/26/24 -?-?-?-?-?-?-?-?-?-?-?-?- 31w 6d 245 lb 8 oz (+8 lb 8 oz) 124/78 Negative -?-?-?-?-?-?-?-?-?-?-?-?- Negative 140 32 -?-?-?-?-?-?-?-?-?-?-?-?- SM no vb lof goo d fm no reg ctx. discussed heartburn ordered pepcid 12/11/24 -?-?-?-?-?-?-?-?-?-?-?-?- 34w 0d 248 lb 2 oz (+11 lb 2 oz) 124/82 Negative -?-?-?-?-?-?-?-?-?-?-?-?- Negative 152 34 -?-?-?-?-?-?-?-?-?-?-?-?- MH-No VB, LOF. G ood FM. No concerns. 12/25/24 -?-?-?-?-?-?-?-?-?-?-?-?- 36w 0d 248 lb 8 oz (+11 lb 8 oz) 131/85 Negative -?-?-?-?-?-?-?-?-?-?-?-?- Negative 130 36 Cephalic 0 -?-?-?-?-?-?-?-?-?-?-?-?- -4 KW- no v b/lof/ctx. good fm. GBS today. bedside US for position Notes Visit Date: 10/29/24 Last Updated by: Karina Bravo, DO 141 ACOG First Trimester First Trimester: Discussed Second Trimester Second Trimester: Signs and Symptoms of Labor, Selecting a care provider, Depression/Anxiety and Intimate Partner Violence Third Trimester Third Trimester: Pain Management Plans, Labor support person(s), Immediate Larc, Signs and Symptoms of Preeclampsia, Infant Feeding No , Family Medical Leave or Disability Forms, Depression and Intimate Partner Violence ROS Const Reports system reviewed and no [...] Negative Last Edit by Meka Brock on 12/25/24 15:09 Office Urine Protein Negative Last Edit by Meka Brock on 12/25/24 15:09 Coding Level of Care Code OB Routine Diagnoses Supervision of high risk in third trimester O Trimester: third trimester 36 weeks gestation of Z3A.36 Weeks of gestation: 36 weeks Obesity affecting in second trimester, unspecified obesity type O99.212 Obesity type affecting : unspecified obesity Trimester: second trimester Anxiety F41.9 Assessment and Plan Assessment and Plan (1) Supervision of high-risk : Status: Acute Qualifiers: Trimester: third trimester Qualified Code(s): O09.93 - Supervision of high risk , unspecified, third trimester Comment: PRR,, YESI 01/22/25, Espinoza, having a girl "Dassel" (2) : Status: Acute Qualifiers: Weeks of gestation: 36 weeks Qualified Code(s): Z3A.36 - 36 weeks gestation of Comment: NIPT low risk, carrier declined. AFP negative. (3) Obesity affecting : Status: Acute Qualifiers: Obesity type affecting : unspecified obesity Trimester: second trimester Qualified Code(s): O99.212 - Obesity complicating , second trimester Comment: HgbA1c (4) Anxiety: Status: Acute Orders: Orders POC Urinalysis 2 Dip (Clinic) Today Culture, Group B Streptococcus Today O09.93 - Supervision of high risk , unspecified, third trimester, Z3A.36 - 36 weeks gestation of Plan Details Additional Comments: ACOG trimester education reviewed and updated. see problem list details for updated plan management information and see below for orders placed at this visit. [place] appropriate handout given. 12/25/24 7959 <Electronically signed by Tomi lewis CNM> Date _ Tomi Cavanaugh CNM Cosigner Signature: Date (if applicable) CC: ~ [facility] Work Phone: 1(241) 825-669608-18-2025 [facility] [address], [address] [place] [address] OFFICE VISIT Date of Service: 11/26/24 MR#: [id number] Acct: [id number] Name: CHETNA TUCKER Rep # : [id number] : 1995 Provider: Dr. Guy Garcia MD Age/Sex: 29/F [place] [facility] [place]: Signed Intake Vital Signs 10/15/24 14:50 11/13/24 13:46 11/26/24 13:11 Height 5 ft 9 in 5 ft 9 in 5 ft 9 in Weight: 245 lb 8 oz BMI 36.2 BP 124/78 H Intake Visit Reasons: 32wk ob Steel Turner Required: No Is patient in pain?: No Allergies No Known Allergies Allergy (Verified 11/26/24 13:11) Medications ?Medication ?Instructions ?Recorded ?Confirmed ?Type mv-mn 110-FA 180 mcg-om3 35 mg-dha tab PO 05/29/24 History 25 mg-epa 5 mg-fish oil chew tablet breast pump #1 ea 11/13/24 11/26/24 Rx famotidine 20 mg tablet (Pepcid) 20 mg PO BID #60 tabs 11/26/24 11/26/24 Rx Last Menstrual Period: 04/17/24 Zika: Zika virus screening: Negative : No PFSH PFSH Medical History History of nicotine vaping Hidradenitis suppurativa Encounter for IUD removal Seasonal allergies S/p nephrectomy Surgical History [place] teeth extracted History of nephrectomy, right Family [...] in: none frequency: 1-2 times per week dat/jehovah's witness: None seatbelt use: always do you feel safe at home: Yes additional social history: -[facility]- [facility] History 1 Elective abortions Hx Para 0 Spontaneous abortions Hx # Term Pregnancies Ectopic pregnancies Hx # Pregnancies Multiple births # of living children HPI 32wk ob Details: CHETNA TUCKER is a 29 year old who presents for routine OB visit. OB Visit YESI Calculator Estimated Delivery Date Method Current WG Current Estimate 01/22/25 LMP (Certain) 31w 6d Other Estimates 01/23/25 Ultrasound #1 31w 5d Expected Delivery Route/Plan Labor Preferences- CB/BF classes: yes labor support person: Espinoza labor intervention preferences: pain management options preferred:nitrous, epidural if requested cut cord/dad catch: cord : yes PP control planned: discussed discussed possible routes of delivery and associated risks: [] special requests: [] Specific Issue/Plans Covid status: [] Flu vaccine: [] Tdap vaccine: given 11/13/24 Rhogam: na LARC form signed: yes Problem list reviewed and updated with the most current plan of care details and appropriate ordersplaced. Relevant counseling for the gestational age provided. [...] -?-?-?-?-?-?-?-?-?-?-?-?- KW- no vb/lof/ct x. good fm. 10/29/24 -?-?-?-?-?-?-?-?-?-?-?-?- 27w 6d 243 lb (+6 lb) 125/76 Negative -?-?-?-?-?-?-?-?-?-?-?-?- Negative 145 29 -?-?-?-?-?-?-?-?-?-?-?-?- JV- no lof, vagi nal bleeding, or cramping. normal gct 11/13/24 -?-?-?-?-?-?-?-?-?-?-?-?- 30w 0d 242 lb 1 oz (+5 lb 1 oz) 120/81 Negative -?-?-?-?-?-?-?-?-?-?-?-?- Negative 140 31 -?-?-?-?-?-?-?-?-?-?-?-?- MH-No VB, LOF. G ood FM. tdap. 11/26/24 -?-?-?-?-?-?-?-?-?-?-?-?- 31w 6d 245 lb 8 oz (+8 lb 8 oz) 124/78 Negative -?-?-?-?-?-?-?-?-?-?-?-?- Negative 140 32 -?-?-?-?-?-?-?-?-?-?-?-?- SM no vb lof goo d fm no reg ctx. discussed heartburn ordered pepcid Notes Visit Date: 10/29/24 Last Updated by: Karina Bravo, DO 141 ACOG First Trimester First Trimester: Discussed Second Trimester Second Trimester: Signs and Symptoms of Labor, Selecting a care provider, Depression/Anxiety and Intimate Partner Violence Third Trimester Third Trimester: Pain Management Plans, Labor support person(s), Immediate Larc, Signs and Symptoms of Preeclampsia, Infant Feeding No , Family Medical Leave or Disability Forms, Depression and Intimate Partner Violence Results POC Urinalysis 2 Dip (Clinic) Office Urine Glucose Negative Last Edit by Ekaterina Anglin on 11/26/24 13:16 Office Urine Protein Negative Last Edit by Ekaterina Anglin on 11/26/24 13:16 Coding Level of Care Code OB Routine Diagnoses Supervision of high risk in third trimester O09.93 Trimester: third trimester 31 weeks gestation of Z3A.31 Weeks of gestation: 31 weeks Obesity affecting in second trimester, unspecified obesity type O99.212 Obesity type affecting : unspecified obesity Trimester: second trimester Anxiety F41.9 Assessment and Plan Assessment and Plan (1) Supervision of high-risk : Status: Acute Qualifiers: Trimester: third trimester Qualified Code(s): O09.93 - Supervision of high risk , unspecified, third trimester Comment: Kathy STEWARTP0, YESI 01/22/25, Espinoza, having a girl "Dassel" (2) : Status: Acute Qualifiers: Weeks of gestation: 31 weeks Qualified Code(s): Z3A.31 - 31 weeks gestation of Comment: NIPT low risk, carrier declined. AFP negative. (3) Obesity affecting : Status: Acute Qualifiers: Obesity type affecting : unspecified obesity Trimester: second trimester Qualified Code(s): O99.212 - Obesity complicating , second trimester Comment: HgbA1c (4) Anxiety: Status: Acute Orders: Orders POC Urinalysis 2 Dip (Clinic) Today Medications: New famotidine (Pepcid) 20 mg PO BID 60 tabs 6RF 11/26/24 1328 og LEROY> Date _ Mayelin Garcia MD [facility] Signature: Date (if applicable) CC: ~ [facility] [id number] [facility] [address] [place] [address], [address] [place] [address] OFFICE VISIT Date of Service: 11/13/24 MR#: [id number] Acct: [id number] Name: CHETNA TUCKER Rep # : [id number] : 1995 Provider: SIOBHAN Kim Age/Sex: 29/F [place] [facility] [place]: Signed Intake Vital Signs 10/15/24 14:50 10/29/24 13:49 11/13/24 13:43 11/13/24 13:46 Height 5 ft 9 in 5 ft 9 in 5 ft 9 in 5 ft 9 in Weight: 242 lb 1 oz BMI 35.7 BP 120/81 H Intake Visit Reasons: 30wk ob Chief Complaint: 30 Week OB Steel Turner Required: No Is patient in pain?: No Allergies No Known Allergies Allergy (Verified 11/13/24 13:42) Medications ?Medication ?Instructions ?Recorded ?Confirmed ?Type mv-mn 110-FA 180 mcg-om3 35 mg-dha tab PO 05/29/2409/02 History 25 mg-epa 5 mg-fish oil chew tablet breast pump #1 ea 11/13/24 11/13/24 Rx Last Menstrual Period: 04/17/24 Zika: Zika virus screening: Negative : Yes PFSH PFSH Medical History History of nicotine vaping Hidradenitis suppurativa Encounter for IUD removal Seasonal allergies S/p nephrectomy Surgical History [place] teeth extracted History of nephrectomy, right Family [...] in: none frequency: 1-2 times per week dat/jehovah's witness: None seatbelt use: always do you feel safe at home: Yes additional social history: -[facility]- [facility] History 1 Elective abortions Hx Para 0 Spontaneous abortions Hx # Term Pregnancies Ectopic pregnancies Hx # Pregnancies Multiple births # of living children HPI 30wk ob Details: CHETNA TUCKER is a 29 year old who presents for routine OB visit. OB Visit YESI Calculator Estimated Delivery Date Method Current WG Current Estimate 01/22/25 LMP (Certain) 30w 0d Other Estimates 01/23/25 Ultrasound #1 29w 6d Expected Delivery Route/Plan Labor Preferences- CB/BF classes: yes labor support person: Espinoza labor intervention preferences: pain management options preferred:nitrous, epidural if requested cut cord/dad catch: cord : yes PP control planned: discussed discussed possible routes of delivery and associated risks: [] special requests: [] Specific Issue/Plans Covid status: [] Flu vaccine: [] Tdap vaccine: given 11/13/24 Rhogam: na LARC form signed: yes Problem list reviewed and updated with the most current plan of care details and appropriate ordersplaced. Relevant counseling for the gestational age provided. Continue routine care and follow up unless otherwise noted in visit notes/problem list details Initial Weight: 237 lb Date -?-?-?-?-?-?-?-?-?-?-?-?- EGA Weight BP Urine Prot -?-?-?-?-?-?-?-?-?-?-?-?- Glucose FHR FuHt Pres Dilation -?-?-?-?-?-?-?-?-?-?-?-?- Effaced St Visit Note 06/20/24 -?-?-?-?-?-?-?-?-?-?-?-?- 9w 1d 237 lb 4 oz (+4 oz) 128/84 -?-?-?--?-?-?-?-?-?-?-?-?- 185 -?-?-?-?-?-?-?-?-?-?-?-?- JV- CRL consiste nt with [...] -?-?-?-?-?-?-?-?-?-?-?-?- KW- no vb/lof/ct x. good fm. 10/29/24 -?-?-?-?-?-?-?-?-?-?-?-?- 27w 6d 243 lb (+6 lb) 125/76 Negative -?-?-?-?-?-?-?-?-?-?-?-?- Negative 145 29 -?-?-?-?-?-?-?-?-?-?-?-?- JV- no lof, vagi nal bleeding, or cramping. normal gct 11/13/24 -?-?-?-?-?-?-?-?-?-?-?-?- 30w 0d 242 lb 1 oz (+5 lb 1 oz) 120/81 Negative -?-?-?-?-?-?-?-?-?-?-?-?- Negative 140 31 -?-?-?-?-?-?-?-?-?-?-?-?- MH-No VB, LOF. G ood FM. tdap. Notes Visit Date: 10/29/24 Last Updated by: Karina Bravo, DO 141 ACOG First Trimester First Trimester: Second Trimester Second Trimester: Signs and Symptoms of Labor, Selecting a care provider, Depression/Anxiety and Intimate Partner Violence Third Trimester Third Trimester: Pain Management Plans, Labor support person(s), Immediate Larc, Signs and Symptoms of Preeclampsia, Infant Feeding Yes , Family Medical Leave or Disability Forms, Depression and Intimate Partner Violence ROS Const Reports system reviewed and no additional complaints, except as documented GI Denies abdominal pain, Denies nausea and Denies vomiting Exam Const General: cooperative Nutritional Appearance: well nourished GI Palpation: soft, nontender and other (gravid) Results POC Urinalysis 2 Dip (Clinic) Office Urine Glucose Negative Last Edit by Katey Wynn on 11/13/24 13 :47 Office Urine Protein Negative Last Edit by Katey Wynn on 11/13/24 13 :47 Coding Level of Care Code OB Routine Diagnoses Supervision of high risk in third trimester O09.93 Trimester: third trimester 29 weeks gestation of Z3A.29 Weeks of gestation: 29 weeks Obesity affecting in second trimester, unspecified obesity type O99.212 Obesity type affecting : unspecified obesity Trimester: second trimester Anxiety F41.9 Assessment and Plan Assessment and Plan (1) Supervision of high-risk : Status: Acute Qualifiers: Trimester: third trimester Qualified Code(s): O09.93 - Supervision of high risk , unspecified, third trimester Comment: PRR,, YESI 01/22/25, Espinoza, having a girl "Dassel" (2) : Status: Acute Qualifiers: Weeks of gestation: 29 weeks Qualified Code(s): Z3A.29 - 29 weeks gestation of Comment: NIPT low risk, carrier declined. AFP negative. (3) Obesity affecting : Status: Acute Qualifiers: Obesity type affecting : unspecified obesity Trimester: second trimester Qualified Code(s): O99.212 - Obesity complicating , second trimester Comment: HgbA1c (4) Anxiety: Status: Acute Orders: Orders POC Urinalysis 2 Dip (Clinic) Today Tdap Immunization Today Z23 - Encounter for immunization Medications: New Adacel(Tdap Adolesn/Adult)(PF) (diph,pertuss(acel),tet vac(PF)) 0.5 mL IM ONCE 0.5 mL 0RF NS Z23 - Encounter for immunization breast pump As directed 1 ea 0RF Plan problem list reviewed and updated for most current plan of care and appropriate orders placed. Relevant counseling for the gestational age appropriate provided and ACOG education checklist updated. Continue routine care and follow up. 11/13/24 1403 s PALLIATIVE SENIOR NP PALLIATIVE SENIOR NP-C> Date _ Ekaterina Kim NP, NP-C Lauren Signature: Date (if applicable) CC: ~ [facility]08-05-2025 Progress note Author Ekaterina Kim [facility] Note Date/Time November 13, 2024 2:0 3pm [facility] [address] [place] [address], [address] [place] [address] OFFICE VISIT Date of Service: 11/13/24 MR#: [id number] Acct: [id number] Name: CHETNA TUCKER Rep # : [id number] : 1995 Provider: SIOBHAN Kim Age/Sex: 29/F [place] [facility] [place]: Signed Intake Vital Signs 10/15/24 14:50 10/29/24 13:49 11/13/24 13:43 11/13/24 13:46 Height 5 ft 9 in 5 ft 9 in 5 ft 9 in 5 ft 9 in Weight: 242 lb 1 oz BMI 35.7 BP 120/81 H Intake Visit Reasons: 30wk ob Chief Complaint: 30 Week OB Steel Turner Required: No Is patient in pain?: No Allergies No Known Allergies Allergy (Verified 11/13/24 13:42) Medications ?Medication ?Instructions ?Recorded ?Confirmed ?Type mv-mn 110-FA 180 mcg-om3 35 mg-dha tab PO 05/29/2409/02 History 25 mg-epa 5 mg-fish oil chew tablet breast pump #1 ea 11/13/24 11/13/24 Rx Last Menstrual Period: 04/17/24 Zika: Zika virus screening: Negative : Yes PFSH PFSH Medical History History of nicotine vaping Hidradenitis suppurativa Encounter for IUD removal Seasonal allergies S/p nephrectomy Surgical History [place] teeth extracted History of nephrectomy, right Family [...] in: none frequency: 1-2 times per week dat/jehovah's witness: None seatbelt use: always do you feel safe at home: Yes additional social history: -[facility]- [facility] History 1 Elective abortions Hx Para 0 Spontaneous abortions Hx # Term Pregnancies Ectopic pregnancies Hx # Pregnancies Multiple births # of living children HPI 30wk ob Details: CHETNA TUCKER is a 29 year old who presents for routine OB visit. OB Visit YESI Calculator Estimated Delivery Date Method Current WG Current Estimate 01/22/25 LMP (Certain) 30w 0d Other Estimates 01/23/25 Ultrasound #1 29w 6d Expected Delivery Route/Plan Labor Preferences- CB/BF classes: yes labor support person: Espinoza labor intervention preferences: pain management options preferred:nitrous, epidural if requested cut cord/dad catch: cord : yes PP control planned: discussed discussed possible routes of delivery and associated risks: [] special requests: [] Specific Issue/Plans Covid status: [] Flu vaccine: [] Tdap vaccine: given 11/13/24 Rhogam: na LARC form signed: yes Problem list reviewed and updated with the [...] 237 lb 4 oz (+4 oz) 128/84 -?-?-?--?-?-?-?-?-?-?-?-?- 185 -?-?-?-?-?-?-?-?-?-?-?-?- JV- CRL consiste nt with [...] -?-?-?-?-?-?-?-?-?-?-?-?- KW- no vb/lof/ct x. good fm. 10/29/24 -?-?-?-?-?-?-?-?-?-?-?-?- 27w 6d 243 lb (+6 lb) 125/76 Negative -?-?-?-?-?-?-?-?-?-?-?-?- Negative 145 29 -?-?-?-?-?-?-?-?-?-?-?-?- JV- no lof, vagi nal bleeding, or cramping. normal gct 11/13/24 -?-?-?-?-?-?-?-?-?-?-?-?- 30w 0d 242 lb 1 oz (+5 lb 1 oz) 120/81 Negative -?-?-?-?-?-?-?-?-?-?-?-?- Negative 140 31 -?-?-?-?-?-?-?-?-?-?-?-?- MH-No VB, LOF. G ood FM. tdap. Notes Visit Date: 10/29/24 Last Updated by: Karina Bravo, DO 141 ACOG First Trimester First Trimester: Second Trimester Second Trimester: Signs and Symptoms of Labor, Selecting a care provider, Depression/Anxiety and Intimate Partner Violence Third Trimester Third Trimester: Pain Management Plans, Labor support person(s), Immediate Larc, Signs and Symptoms of Preeclampsia, Feeding Yes , Family Medical Leave or Disability Forms, Depression and Intimate Partner Violence ROS Const Reports system reviewed and no additional complaints, except as documented GI Denies abdominal pain, Denies nausea and Denies vomiting Exam Const General: cooperative Nutritional Appearance: well nourished GI Palpation: soft, nontender and other (gravid) Results POC Urinalysis 2 Dip (Clinic) Office Urine Glucose Negative Last Edit by Katey Wynn on 11/13/24 13 :47 Office Urine Protein Negative Last Edit by Katey Wynn on 11/13/24 13 :47 Coding Level of Care Code OB Routine Diagnoses Supervision of high risk in third trimester O09.93 Trimester: third trimester 29 weeks gestation of Z3A.29 Weeks of gestation: 29 weeks Obesity affecting in second trimester, unspecified obesity type O99.212 Obesity type affecting : unspecified obesity Trimester: second trimester Anxiety F41.9 Assessment and Plan Assessment and Plan (1) Supervision of high-risk : Status: Acute Qualifiers: Trimester: third trimester Qualified Code(s): O09.93 - Supervision of high risk , unspecified, third trimester Comment: PRR,, YESI 01/22/25, [place], having a girl "Dassel" (2) : Status: Acute Qualifiers: Weeks of gestation: 29 weeks Qualified Code(s): Z3A.29 - 29 weeks gestation of Comment: NIPT low risk, carrier declined. AFP negative. (3) Obesity affecting : Status: Acute Qualifiers: Obesity type affecting : unspecified obesity Trimester: second trimester Qualified Code(s): O99.212 - Obesity complicating , second trimester Comment: HgbA1c (4) Anxiety: Status: Acute Orders: Orders POC Urinalysis 2 Dip (Clinic) Today Tdap Immunization Today Z23 - Encounter for immunization Medications: New Adacel(Tdap Adolesn/Adult)(PF) (diph,pertuss(acel),tet vac(PF)) 0.5 mL IM ONCE 0.5 mL 0RF NS Z23 - Encounter for immunization breast pump As directed 1 ea 0RF Plan problem list reviewed and updated for most current plan of care and appropriate orders placed. Relevant counseling for the gestational age appropriate provided and ACOG education checklist updated. Continue routine care and follow up. 11/13/24 1403 <Electronically signed by Ekaterina lewis NP PALLIATIVE SENIOR NP-C> Date _ Ekaterina Kim NP PALLIATIVE SENIOR NP-C Lauren Signature: Date (if applicable) CC: ~ [facility] Work Phone: 1(872) 778-723107-07-2025 [facility] [address] [place] [address], [address] [place] [address] OFFICE VISIT Date of Service: 10/15/24 MR#: [id number] Acct: [id number] Name: CHETNA TUCKER Rep # : [id number] : 1995 Provider: ROZINA Cavanaugh Age/Sex: 29/F [place] [facility] [place]: Signed Intake Vital Signs 07/23/24 13:51 09/17/24 13:45 10/15/24 14:50 Height 5 ft 9 in 5 ft 9 in 5 ft 9 in Weight: 242 lb 8 oz BMI 35.8 BP 126/77 H Intake Visit Reasons: 26wk ob Chief Complaint: 26wk OB Steel Turner Required: No Is patient in pain?: No [...] removal Seasonal allergies S/p nephrectomy Surgical History [place] teeth extracted History of nephrectomy, right Family [...] in: none frequency: 1-2 times per week dat/jehovah's witness: None seatbelt use: always do you feel safe at home: Yes additional social history: -[facility]- [facility] History 1 Elective abortions Hx Para 0 [...] current plan of care details and appropriate ordersplaced. Relevant counseling for the gestational age provided. [...] information and see below for orders placed atthis visit. [place] appropriate handout given. 10/15/24 1525 s ROZINA> Date _ Tomi Mao ROZINA Cosigner Signature: Date (if applicable) CC: ~ [facility]07-07-2025 Progress note Author Tomi Cavanaugh [facility] Note Date/Time October 15, 2024 3:25p [facility] [address], [address] [address] OFFICE VISIT Date of Service: 10/15/24 MR#: [id number] Acct: [id number] Name: CHETNA TUCKER Rep # : [id number] : 1995 Provider: ROZINA Cavanaugh Age/Sex: 29/F [place] [facility] Status: Signed Intake Vital Signs 07/23/24 13:51 09/17/24 13:45 10/15/24 14:50 Height 5 ft 9 in 5 ft 9 in 5 ft 9 in Weight: 242 lb 8 oz BMI 35.8 BP 126/77 H Intake Visit Reasons: 26wk ob Chief Complaint: 26wk OB Steel Turner Required: No Is patient in pain?: No [...] removal Seasonal allergies S/p nephrectomy Surgical History [place] teeth extracted History of nephrectomy, right Family [...] in: none frequency: 1-2 times per week dat/jehovah's witness: None seatbelt use: always do you feel safe at home: Yes additional social history: -[facility]- [facility] History 1 Elective abortions Hx Para 0 [...] this visit. [place] appropriate handout given. 10/15/24 1525 <Electronically signed by Tomi lewis CNM> Date _ Tomi Cavanaugh CNM Cosigner Signature: Date (if applicable) CC: ~ [facility] Work Phone: 1(121) 433-623106-09-2025 Evaluation note* Diagnosis Onset Date Resolution Status Admit Date Anxiety acute September 17, 2024 1:33pm Obesity affecting acute September 17, 2024 1:33pm acute September 17, 2024 1:33pm Supervision of high-risk acute September 17, 2024 1 :33pm Anxiety acute October 15, 2024 2:28pm Obesity affecting acute October 15, 2024 2:28pm acute October 15, 2024 2:28pm Supervision of high-risk acute October 15, 2024 2 :28pm Anxiety acute October 29 1:45pm Obesity affecting acute October 29, 2024 1:45pm acute October 29 1:45pm Supervision of high-risk acute October 29, 2024 1:45pm Anxiety acute November 13 1:40pm Obesity affecting acute November 13, 2024 1:40pm acute November 13 1:40pm Supervision of high-risk acute November 13, 2024 1:40pm Anxiety acute November 26, 2 025 1:09pm Obesity affecting acute November 26, 2024 1:09pm acute November 26, 2 025 1:09pm Supervision of high-risk acute November 26 1:09pm Anxiety acute December 11, 2024 1:19pm Obesity affecting acute December 11, 2024 1:19pm acute December 11, 2024 1:19pm Supervision of high-risk acute December 11, 2 025 1:19pm Anxiety acute December 3:00pm Obesity affecting acute December 25, 2024 3:00pm acute December 3:00pm Supervision of high-risk acute December 25, 2024 3:00pm [facility] Work Phone: 1(123) 631-112406-09-2025 Evaluation note* Diagnosis Onset Date Resolution Status Admit Date Anxiety acute September 17, 2024 1:33pm Obesity affecting acute September 17, 2024 1:33pm acute September 17, 2024 1:33pm Supervision of high-risk acute September 17, 2024 1 :33pm Anxiety acute October 15, 2024 2:28pm Obesity affecting acute October 15, 2024 2:28pm acute October 15, 2024 2:28pm Supervision of high-risk acute October 15, 2024 2 :28pm Anxiety acute October 29 1:45pm Obesity affecting acute October 29, 2024 1:45pm acute October 29 1:45pm Supervision of high-risk acute October 29, 2024 1:45pm Anxiety acute November 13 1:40pm Obesity affecting acute November 13, 2024 1:40pm acute November 13 1:40pm Supervision of high-risk acute November 13, 2024 1:40pm Anxiety acute November 26, 2 025 1:09pm Obesity affecting acute November 26, 2024 1:09pm acute November 26, 2 025 1:09pm Supervision of high-risk acute November 26 1:09pm Anxiety acute December 11, 2024 1:19pm Obesity affecting acute December 11, 2024 1:19pm acute December 11, 2024 1:19pm Supervision of high-risk acute December 11, 2 025 1:19pm Anxiety acute December 3:00pm Obesity affecting acute December 25, 2024 3:00pm acute December 3:00pm Supervision of high-risk acute December 25, 2024 3:00pm Anxiety acute December 2:40pm Obesity affecting acute January 03, 2025 2:40pm acute December 2:40pm Supervision of high-risk acute January 03, 2025 2:40pm [facility] Work Phone: 1(781) 670-936006-09-2025 Evaluation note* Diagnosis Onset Date Resolution Status Admit Date Anxiety acute September 17, 2024 1:33pm Obesity affecting acute September 17, 2024 1:33pm acute September 17, 2024 1:33pm Supervision of high-risk acute September 17, 2024 1 :33pm Anxiety acute October 15, 2024 2:28pm Obesity affecting acute October 15, 2024 2:28pm acute October 15, 2024 2:28pm Supervision of high-risk acute October 15, 2024 2 :28pm Anxiety acute October 29 1:45pm Obesity affecting acute October 29, 2024 1:45pm acute October 29 1:45pm Supervision of high-risk acute October 29, 2024 1:45pm Anxiety acute November 13 1:40pm Obesity affecting acute November 13, 2024 1:40pm acute November 13 1:40pm Supervision of high-risk acute November 13, 2024 1:40pm Anxiety acute November 26, 2 025 1:09pm Obesity affecting acute November 26, 2024 1:09pm acute November 26, 2 025 1:09pm Supervision of high-risk acute November 26 1:09pm Anxiety acute December 11, 2024 1:19pm Obesity affecting acute December 11, 2024 1:19pm acute December 11, 2024 1:19pm Supervision of high-risk acute December 11, 2 025 1:19pm Anxiety acute December 3:00pm Obesity affecting acute December 25, 2024 3:00pm acute December 3:00pm Supervision of high-risk acute December 25, 2024 3:00pm Anxiety acute December 2:40pm Obesity affecting acute January 03, 2025 2:40pm acute December 2:40pm Supervision of high-risk acute January 03, 2025 2:40pm Anxiety acute January 10, 2 025 2:03pm Obesity affecting acute January 10, 2025 2:03pm acute January 10, 2 025 2:03pm Supervision of high-risk acute January 10 2:03pm [facility] Work Phone: 1(355) 979-347305-12-2025 Evaluation note* Diagnosis Onset Date Resolution Status Admit Date Anxiety acute August 20, 2024 1:38pm Obesity [...] high-risk acute October 15, 2024 2 :28pm Anxiety acute October 29 1:45pm Obesity affecting acute October 29, 2024 1:45pm acute October 29 1:45pm Supervision of high-risk acute October 29, 2024 1:45pm Anxiety acute November 13 1:40pm Obesity affecting acute November 13, 2024 1:40pm acute November 13 1:40pm Supervision of high-risk acute November 13, 2024 1:40pm Anxiety acute November 26, 2 025 1:09pm Obesity affecting acute November 26, 2024 1:09pm acute November 26, 2 025 1:09pm Supervision of high-risk acute November 26 1:09pm [facility] Work Phone: [phone] Evaluation note* Diagnosis Onset Date Resolution Status Admit Date Anxiety acute August 20, 2024 1:38pm Obesity [...] high-risk acute October 15, 2024 2 :28pm Anxiety acute October 29 1:45pm Obesity affecting acute October 29, 2024 1:45pm acute October 29 1:45pm Supervision of high-risk acute October 29, 2024 1:45pm Anxiety acute November 13 1:40pm Obesity affecting acute November 13, 2024 1:40pm acute November 13 1:40pm Supervision of high-risk acute November 13, 2024 1:40pm Anxiety acute November 26, 025 1:09pm Obesity affecting acute November 26, 2024 1:09pm acute November 26, 025 1:09pm Supervision of high-risk acute November 26 1:09pm Anxiety acute December 11, 2024 1:19pm Obesity affecting acute December 11, 2024 1:19pm acute December 11, 2024 1:19pm Supervision of high-risk acute December 11, 025 1:19pm [facility] Work Phone: 1([phone]) 247-948504-14-2025 Evaluation note* Diagnosis Onset Date Resolution Status Admit Date Anxiety acute July 23 1:48pm Obesity affecting [...] high-risk acute October 15, 2024 2 :28pm Anxiety acute October 29 1:45pm Obesity affecting acute October 29, 2024 1:45pm acute October 29 1:45pm Supervision of high-risk acute October 29, 2024 1:45pm [facility] Work Phone: 1([phone]) 789-782104-14-2025 Evaluation note* Diagnosis Onset Date Resolution Status Admit Date Anxiety acute July 23 1:48pm Obesity affecting [...] high-risk acute October 15, 2024 2 :28pm Anxiety acute October 29 1:45pm Obesity affecting acute October 29, 2024 1:45pm acute October 29 1:45pm Supervision of high-risk acute October 29, 2024 1:45pm Anxiety acute November 13 1:40pm Obesity affecting acute November 13, 2024 1:40pm acute November 13 1:40pm Supervision of high-risk acute November 13, 2024 1:40pm [facility] Work Phone: [phone]) [phone] NotePap Smear Specimen AdequacyMarch 2024 11:59pmComment.Satisfactory for evaluation. Endocervical and/or squamous metaplasticcells (endocervical component)are present.[facility] INTER[facility]ACED A#[id number] HospitalComment on above:Satisfactory for evaluation. Endocervical and/or squamous metaplasticcells (endocervical component)are present.06-20-2024 NotePap Smear Specimen AdequacyMar 2024 11:59pmComment.Satisfactory for evaluation. Endocervical and/or squamous metaplasticcells (endocervical component)are present.[facility] INTER[facility]AC[facility] A#[id number] HospitalComment on above:Satisfactory for evaluation. Endocervical and/or squamous metaplasticcells (endocervical component)are present.06-20-2024 Evaluation note* Diagnosis Onset Date Resolution Status Admit Date Anxiety acute June 20 1:58pm Hidradenitis suppurativa acute June 20, 2024 1:58pm History of nicotine vaping acute June 20, 2024 1:58pm Obesity affecting acute June 20, 2024 1:58pm acute June 20 1:58pm Supervision of high-risk acute June 20, 2024 1:58pm [facility] Work Phone: [phone] Evaluation note* Diagnosis Onset Date Resolution Status [...] nicotine vaping inactive August 20, 2024 1:38pm [facility] Work Phone: 1(244) 558-756203-12-2025 Evaluation note* Diagnosis Onset Date Resolution Status [...] high-risk acute September 17, 2024 1 :33pm [facility] Work Phone: [phone] Evaluation note* Diagnosis Onset Date Resolution Status [...] high-risk acute October 15, 2024 2 :28pm [facility] Work Phone: Evaluation noteNo assessment information available [facility] Work Phone: Evaluation note* Diagnosis Onset Date Resolution Status Dysuria acute [facility] Work Phone: Progress note Author Mayelin Garcia [facility] Note Date/Time November 26, 2024 1: 28pm [facility] [address], [address] [place] [address] OFFICE VISIT Date of Service: 11/26/24 MR#: [id number] Acct: [id number] Name: CHETNA TUCKER Rep # : [id number] : 1995 Provider: Dr. Guy Garcia MD Age/Sex: 29/F [place] [facility] [place]: Signed Intake Vital Signs 10/15/24 14:50 11/13/24 13:46 11/26/24 13:11 Height 5 ft 9 in 5 ft 9 in 5 ft 9 in Weight: 245 lb 8 oz BMI 36.2 BP 124/78 H Intake Visit Reasons: 32wk ob [place] Required: No Is patient in pain?: No Allergies No Known Allergies Allergy (Verified 11/26/24 13:11) Medications ?Medication ?Instructions ?Recorded ?Confirmed ?Type mv-mn 110-FA 180 mcg-om3 35 mg-dha tab PO 05/29/24 History 25 mg-epa 5 mg-fish oil chew tablet breast pump #1 ea 11/13/24 11/26/24 Rx famotidine 20 mg tablet (Pepcid) 20 mg PO BID #60 tabs 11/26/24 11/26/24 Rx Last Menstrual Period: 04/17/24 Zika: Zika virus screening: Negative : No PFSH PFSH Medical History History of nicotine vaping Hidradenitis suppurativa Encounter for IUD removal Seasonal allergies S/p nephrectomy Surgical History [place] teeth extracted History of nephrectomy, right Family [...] in: none frequency: 1-2 times per week dat/jehovah's witness: None seatbelt use: always do you feel safe at home: Yes additional social history: -[facility] History 1 Elective abortions Hx Para 0 Spontaneous abortions Hx # Term Pregnancies Ectopic pregnancies Hx # Pregnancies Multiple births # of living children HPI 32wk ob Details: CHETNA TUCKER is a 29 year old who presents for routine OB visit. OB Visit YESI Calculator Estimated Delivery Date Method Current WG Current Estimate 01/22/25 LMP (Certain) 31w 6d Other Estimates 01/23/25 Ultrasound #1 31w 5d Expected Delivery Route/Plan Labor Preferences- CB/BF classes: yes labor support person: Espinoza labor intervention preferences: pain management options preferred:nitrous, epidural if requested cut cord/dad catch: cord : yes PP control planned: discussed discussed possible routes of delivery and associated risks: [] special requests: [] Specific Issue/Plans Covid status: [] Flu vaccine: [] Tdap vaccine: given 11/13/24 Rhogam: na LARC form signed: yes Problem list reviewed and updated with the [...] -?-?-?-?-?-?-?-?-?-?-?-?- KW- no vb/lof/ct x. good fm. 10/29/24 -?-?-?-?-?-?-?-?-?-?-?-?- 27w 6d 243 lb (+6 lb) 125/76 Negative -?-?-?-?-?-?-?-?-?-?-?-?- Negative 145 29 -?-?-?-?-?-?-?-?-?-?-?-?- JV- no lof, vagi nal bleeding, or cramping. normal gct 11/13/24 -?-?-?-?-?-?-?-?-?-?-?-?- 30w 0d 242 lb 1 oz (+5 lb 1 oz) 120/81 Negative -?-?-?-?-?-?-?-?-?-?-?-?- Negative 140 31 -?-?-?-?-?-?-?-?-?-?-?-?- MH-No VB, LOF. G ood FM. tdap. 11/26/24 -?-?-?-?-?-?-?-?-?-?-?-?- 31w 6d 245 lb 8 oz (+8 lb 8 oz) 124/78 Negative -?-?-?-?-?-?-?-?-?-?-?-?- Negative 140 32 -?-?-?-?-?-?-?-?-?-?-?-?- SM no vb lof goo d fm no reg ctx. discussed heartburn ordered pepcid Notes Visit Date: 10/29/24 Last Updated by: Karina Bravo, DO 141 ACOG First Trimester First Trimester: Discussed Second Trimester Second Trimester: Signs and Symptoms of Labor, Selecting a care provider, Depression/Anxiety and Intimate Partner Violence Third Trimester Third Trimester: Pain Management Plans, Labor support person(s), Immediate Larc, Signs and Symptoms of Preeclampsia, Infant Feeding No , Family Medical Leave or Disability Forms, Depression and Intimate Partner Violence Results POC Urinalysis 2 Dip (Clinic) Office Urine Glucose Negative Last Edit by Ekaterina Anglin on 11/26/24 13:16 Office Urine Protein Negative Last Edit by Ekaterina Anglin on 11/26/24 13:16 Coding Level of Care Code OB Routine Diagnoses Supervision of high risk in third trimester O09.93 Trimester: third trimester 31 weeks gestation of Z3A.31 Weeks of gestation: 31 weeks Obesity affecting in second trimester, unspecified obesity type O99.212 Obesity type affecting : unspecified obesity Trimester: second trimester Anxiety F41.9 Assessment and Plan Assessment and Plan (1) Supervision of high-risk : Status: Acute Qualifiers: Trimester: third trimester Qualified Code(s): O09.93 - Supervision of high risk , unspecified, third trimester Comment: PRR,, YESI 01/22/25, Espinoza, having a girl "Dassel" (2) : Status: Acute Qualifiers: Weeks of gestation: 31 weeks Qualified Code(s): Z3A.31 - 31 weeks gestation of Comment: NIPT low risk, carrier declined. AFP negative. (3) Obesity affecting : Status: Acute Qualifiers: Obesity type affecting : unspecified obesity Trimester: second trimester Qualified Code(s): O99.212 - Obesity complicating , second trimester Comment: HgbA1c (4) Anxiety: Status: Acute Orders: Orders POC Urinalysis 2 Dip (Clinic) Today Medications: New famotidine (Pepcid) 20 mg PO BID 60 tabs 6RF 11/26/24 1328 <Electronically signed by Mayelin foley MD> Date _ Mayelin Garcia MD Cosigner Signature: Date (if applicable) CC: ~ 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) Chief Complaint POSSIBLE UTI EORDER Reason for Visit Dysuria Chief Complaint Admit Date New OB, LMP 1, YESI 01/22June 20 025 1:58pm Reason for Visit Admit Date Anxiety June 20, 2024 1:5 8pm Hidradenitis suppurativa June 20 1:58pm History of nicotine vaping June 20 025 1:58pm Obesity affecting June 20, 2024 1:58pm June 20, 2024 1:5 8pm Supervision of high-risk June 20, 2024 1:58pm Chief Complaint Admit Date New OB, LMP 04/17, YESI 01/22June 20 1:58pm 14wk OB July 23, 2024 1:4 8pm 18wk ob August 20, 2024 1:38p m Reason for Visit Admit Date Anxiety June 20, 2024 1:5 8pm Obesity affecting June 20, 2024 1:58pm June 20, 2024 1:5 8pm Supervision of high-risk June 20, 2024 1:58pm Hidradenitis suppurativa June 20 1:58pm History of nicotine vaping June 20 1:58pm Anxiety July 23, 2024 1:4 8pm [...] Date New OB, LMP 04/17, YESI 01/22June 20, 2 025 1:58pm 14wk [...] Date New OB, LMP 04/17, YESI 01/22June 20, 2 025 1:58pm 14wk [...] nicotine vaping June 20, 2 025 1:58pm Anxiety July 23, 2024 [...] Supervision of high-risk October 15, 2024 2:28pm Chief Complaint Admit Date 14wk OB July 23, 2024 1:4 8pm 18wk ob August 20, 2024 1:38p m 22wk ob September 17, 2024 1:33p m 26wk ob October 15, 2024 2:28p m 28wk ob October 29, 2024 1:45 pm Reason for Visit Admit Date Anxiety July 23, 2024 1:4 8pm Obesity [...] Supervision of high-risk October 15, 2024 2:28pm Anxiety October 29, 2024 1:45 pm Obesity affecting October 29 025 1:45pm October 29, 2024 1:45 pm Supervision of high-risk October 29, 2024 1:45pm Chief Complaint Admit Date wk OB July 23, 2024 1:4 8pm 18wk ob August 20, 2024 1:38p m 22wk ob September 17, 2024 1:33p m 26wk ob October 15, 2024 2:28p m 28wk ob October 29, 2024 1:45 pm 30wk ob November 13, 2024 1:4 0pm Reason for Visit Admit Date Anxiety July 23, 2024 1:4 8pm Obesity [...] Supervision of high-risk October 15, 2024 2:28pm Anxiety October 29, 2024 1:45 pm Obesity affecting October 29, 025 1:45pm October 29, 2024 1:45 pm Supervision of high-risk October 29, 2024 1:45pm Anxiety November 13, 2024 1:4 0pm Obesity affecting November 13, 2024 1:40pm November 13, 2024 1:4 0pm Supervision of high-risk Augus 2024 1:40pm Chief Complaint Admit Date wk ob August 20, 2024 1:38p m 22wk ob September 17, 2024 1:33p m 26wk ob October 15, 2024 2:28p m 28wk ob October 29, 2024 1:45 pm 30wk ob November 13, 2024 1:4 0pm 32wk ob November 26, 2024 1: 09pm Reason for Visit Admit Date Anxiety August 20, 2024 1:38p m Obesity [...] Supervision of high-risk October 15, 2024 2:28pm Anxiety October 29, 2024 1:45 pm Obesity affecting October 29, 2 025 1:45pm October 29, 2024 1:45 pm Supervision of high-risk October 29, 2024 1:45pm Anxiety November 13, 2024 1:4 0pm Obesity affecting November 13, 2024 1:40pm November 13, 2024 1:4 0pm Supervision of high-risk Augus t 2024 1:40pm Anxiety November 26, 2024 1: 09pm Obesity affecting November 26, 2024 1:09pm November 26, 2024 1: 09pm Supervision of high-risk Augus t 2024 1:09pm Chief Complaint Admit Date 18wk ob August 20, 2024 1:38p m 22wk ob September 17, 2024 1:33p m 26wk ob October 15, 2024 2:28p m 28wk ob October 29, 2024 1:45 pm 30wk ob November 13, 2024 1:4 0pm 32wk ob November 26, 2024 1: 09pm 34wk ob December 11, 2024 1:19pm Reason for Visit Admit Date Anxiety August 20, 2024 1:38p m Obesity [...] Supervision of high-risk October 15, 2024 2:28pm Anxiety October 29, 2024 1:45 pm Obesity affecting October 29, 2 025 1:45pm October 29, 2024 1:45 pm Supervision of high-risk October 29, 2024 1:45pm Anxiety November 13, 2024 1:4 0pm Obesity affecting November 13, 2024 1:40pm November 13, 2024 1:4 0pm Supervision of high-risk Augus t 2024 1:40pm Anxiety November 26, 2024 1: 09pm Obesity affecting November 26, 2024 1:09pm November 26, 2024 1: 09pm Supervision of high-risk Augus t 2024 1:09pm Anxiety December 11, 2024 1:19pm Obesity affecting December 1:19pm December 11, 2024 1:19pm Supervision of high-risk Septe mber 2024 1:19pm Chief Complaint Admit Date 22wk ob September 17, 2024 1:33p m 26wk ob October 15, 2024 2:28p m 28wk ob October 29, 2024 1:45 pm 30wk ob November 13, 2024 1:4 0pm 32wk ob November 26, 2024 1: 09pm 34wk ob December 11, 2024 1:19pm 36 WK OB December 25, 2024 3:00pm Reason for Visit Admit Date Anxiety September 17, 2024 1:33p m Obesity affecting September 17 1:33pm September 17, 2024 1:33p m Supervision of high-risk September 17, 2024 1:33pm Anxiety October 15, 2024 2:28p m Obesity affecting October 15 2:28pm October 15, 2024 2:28p m Supervision of high-risk October 15, 2024 2:28pm Anxiety October 29, 2024 1:45 pm Obesity affecting October 29, 2 025 1:45pm October 29, 2024 1:45 pm Supervision of high-risk October 29, 2024 1:45pm Anxiety November 13, 2024 1:4 0pm Obesity affecting November 13, 2024 1:40pm November 13, 2024 1:4 0pm Supervision of high-risk Augus t 2024 1:40pm Anxiety November 26, 2024 1: 09pm Obesity affecting November 26, 2024 1:09pm November 26, 2024 1: 09pm Supervision of high-risk Augus t 2024 1:09pm Anxiety December 11, 2024 1:19pm Obesity affecting December 1:19pm December 11, 2024 1:19pm Supervision of high-risk Septdeedee mber 2024 1:19pm Anxiety December 25, 2024 3:00pm Obesity affecting December 252024 3:00pm December 25, 2024 3:00pm Supervision of high-risk Tiffany mber 2024 3:00pm Chief Complaint Admit Date 22wk ob September 17, 2024 1:33p m 26wk ob October 15, 2024 2:28p m 28wk ob October 29, 2024 1:45 pm 30wk ob November 13, 2024 1:4 0pm 32wk ob November 26, 2024 1: 09pm 34wk ob December 11, 2024 1:19pm 36 WK OB December 25, 2024 3:00pm 37 WK OB January 03, 2025 2:40pm OBESITY IN January 08 5:50pm Reason for Visit Admit Date Anxiety September 17, 2024 1:33p m Obesity affecting September 17 1:33pm September 17, 2024 1:33p m Supervision of high-risk September 17, 2024 1:33pm Anxiety October 15, 2024 2:28p m Obesity affecting October 15 2:28pm October 15, 2024 2:28p m Supervision of high-risk October 15, 2024 2:28pm Anxiety October 29, 2024 1:45 pm Obesity affecting October 29, 2 1:45pm October 29, 2024 1:45 pm Supervision of high-risk October 29, 2024 1:45pm Anxiety November 13, 2024 1:4 0pm Obesity affecting November 13, 2024 1:40pm November 13, 2024 1:4 0pm Supervision of high-risk Augus t 2024 1:40pm Anxiety November 26, 2024 1: 09pm Obesity affecting November 26, 2024 1:09pm November 26, 2024 1: 09pm Supervision of high-risk Augus t 2024 1:09pm Anxiety December 11, 2024 1:19pm Obesity affecting December 1:19pm December 11, 2024 1:19pm Supervision of high-risk Septe [email or web address] 1:19pm Anxiety December 25, 2024 3:00pm Obesity affecting December 252024 3:00pm December 25, 2024 3:00pm Supervision of high-risk Septe mber 2024 3:00pm Anxiety January 03, 2025 2:40pm Obesity affecting January 032024 2:40pm January 03, 2025 2:40pm Supervision of high-risk Septe [email or web address] 2:40pm Chief Complaint Admit Date 22wk ob September 17, 2024 1:33p m 26wk ob October 15, 2024 2:28p m 28wk ob October 29, 2024 1:45 pm 30wk ob November 13, 2024 1:4 0pm 32wk ob November 26, 2024 1: 09pm 34wk ob December 11, 2024 1:19pm 36 WK OB December 25, 2024 3:00pm 37 WK OB January 03, 2025 2:40pm OBESITY IN January 08 5:50pm 38 WK OB January 10, 2025 2: 03pm Reason for Visit Admit Date Anxiety September 17, 2024 1:33p m Obesity affecting September 17 1:33pm September 17, 2024 1:33p m Supervision of high-risk September 17, 2024 1:33pm Anxiety October 15, 2024 2:28p m Obesity affecting October 15 2:28pm October 15, 2024 2:28p m Supervision of high-risk October 15, 2024 2:28pm Anxiety October 29, 2024 1:45 pm Obesity affecting October 29, 2 1:45pm October 29, 2024 1:45 pm Supervision of high-risk October 29, 2024 1:45pm Anxiety November 13, 2024 1:4 0pm Obesity affecting November 13, 2024 1:40pm November 13, 2024 1:4 0pm Supervision of high-risk Augus t 2024 1:40pm Anxiety November 26, 2024 1: 09pm Obesity affecting November 26, 2024 1:09pm November 26, 2024 1: 09pm Supervision of high-risk Augus t 2024 1:09pm Anxiety December 11, 2024 1:19pm Obesity affecting December 1:19pm December 11, 2024 1:19pm Supervision of high-risk Septe mber 2024 1:19pm Anxiety December 25, 2024 3:00pm Obesity affecting December 252024 3:00pm December 25, 2024 3:00pm Supervision of high-risk Septe mber 2024 3:00pm Anxiety January 03, 2025 2:40pm Obesity affecting January 032024 2:40pm January 03, 2025 2:40pm Supervision of high-risk Septe mber 2024 2:40pm Anxiety January 10, 2025 2: 03pm Obesity affecting January 10, 2025 2:03pm January 10, 2025 2: 03pm Supervision of high-risk Octob er 2024 2:03pm Additional Source Comments INFORMATION SOURCE (unrecogn ized section and content) DATE CREATED AUTHOR 10/05/2017 [facility] DATE CREATED AUTHOR AUTHOR'S ORGANIZ ATION 10/13/2017 [facility] ([place] DATE CREATED AUTHOR AUTHOR'S ORGANIZ ATION 10/03/2024 [facility] DATE CREATED AUTHOR AUTHOR'S ORGANIZ ATION 01/24/[address] [facility] Goals (unrecognized section and content) Type Care Experience Labor Preferences-CB /BF classes: yeslabor support person: Rubi intervention preferences: pain management options preferred:nitrous, epidural if requestedcut cord/dad catch: cordbreastfeeding: yesPP control planned: discusseddiscussed possible routes of delivery and associated risks: []special requests: [] Care Teams (unrecognized sec tion and content) Team Status: Active Member Role Status Dates Dr. Ji Baer MD Primary Care Provider Activ e Team Status: Inactive Member Role Status Dates Dr. Ji Baer MD Primary Care Provider, Refe rring Provider Active Valerio CHAMBERS, PA Attending Provider [...] 2024 End: September 17, 2024 Ekaterina Kim PALLIATIVE SENIOR NP, PALLIATIVE SENIOR NP-C Attending Provider Active Start: September 17, 2024 [...] End: September 17, 2024 Ekaterina Kim NP, PALLIATIVE SENIOR NP-C Attending Provider Active Start: September 17, 2024 [...] ve Start: October 15, 2024 Ekaterina Kim PALLIATIVE SENIOR NP, PALLIATIVE SENIOR NP-C Attending Provider Active Start: October 15, 2024 Team Status: Inactive Member Role/Relationship Status Dates Dr. Coco Bare MD Primary Care Provider Acti ve Start: October 15, 2024 End: October 15, 2024 Ekaterina Kim PALLIATIVE SENIOR NP, PALLIATIVE SENIOR NP-C Attending Provider Active Start: October 15, 2024 End: October 15, 2024 Team Status: Inactive Member Role/Relationship Status [...] 2024 End: September 17, 2024 Ekaterina Kim PALLIATIVE SENIOR NP, PALLIATIVE SENIOR NP-C Attending Provider Active Start: September 17, 2024 [...] 2024 End: October 15, 2024 Team Status: Inactive Member Role/Relationship Status Dates Dr. Coco Baer MD Primary Care Provider Acti ve Start: October 15, 2024 End: October 15, 2024 Ekaterina Kim PALLIATIVE SENIOR NP, PALLIATIVE SENIOR NP-C Attending Provider Active Start: October 15, 2024 End: October 15, 2024 Team Status: Inactive Member Role/Relationship Status Dates Dr. Coco Baer MD Primary Care Provider Acti ve Start: October 29, 2024 End: October 29, 2024 Dr. Coco Baer MD Referring Provider Active Start: October 29, 2024 End: October 29, 2024 Dr. Karina Bravo DO Attending Provider Activ e Start: October 29, 2024 End: October 29, 2024 Team Status: Inactive Member Role/Relationship Status [...] 20, 2024 End: August 20, 2024 Dr. Mayelni Garcia MD Attending Provider Active Start: August [...] 2024 End: September 17, 2024 Ekaterina Kim PALLIATIVE SENIOR NP, PALLIATIVE SENIOR NP-C Attending Provider Active Start: September 17, 2024 [...] 2024 End: October 15, 2024 Team Status: Inactive Member Role/Relationship Status Dates Dr. Coco Baer MD Primary Care Provider Acti ve Start: October 15, 2024 End: October 15, 2024 Ekaterina Kim PALLIATIVE SENIOR NP, PALLIATIVE SENIOR NP-C Attending Provider Active Start: October 15, 2024 End: October 15, 2024 Team Status: Inactive Member Role/Relationship Status Dates Dr. Coco Baer MD Primary Care Provider Acti ve Start: October 29, 2024 End: October 29, 2024 Dr. Coco Baer MD Referring Provider Active Start: October 29, 2024 End: October 29, 2024 Dr. Karina Bravo DO Attending Provider Activ e Start: October 29, 2024 End: October 29, 2024 Team Status: Inactive Member Role/Relationship Status Dates Dr. Coco Baer MD Primary Care Provider Acti ve Start: November 13, 2024 End: November 13, 2024 Dr. Coco Baer MD Referring Provider Active Start: November 13, 2024 End: November 13, 2024 Ekaterina Kim PALLIATIVE SENIOR NP, PALLIATIVE SENIOR NP-C Attending Provider Active Start: November 13, 2024 End: November 13, 2024 Team Status: Inactive Member Role/Relationship Status [...] 2024 End: September 17, 2024 Ekaterina Kim PALLIATIVE SENIOR NP, PALLIATIVE SENIOR NP-C Attending Provider Active Start: September 17, 2024 [...] 2024 End: October 15, 2024 Team Status: Inactive Member Role/Relationship Status Dates Dr. Coco Baer MD Primary Care Provider Acti ve Start: October 15, 2024 End: October 15, 2024 Ekaterina Kim PALLIATIVE SENIOR NP, PALLIATIVE SENIOR NP-C Attending Provider Active Start: October 15, 2024 End: October 15, 2024 Team Status: Inactive Member Role/Relationship Status Dates Dr. Coco Baer MD Primary Care Provider Acti ve Start: October 29, 2024 End: October 29, 2024 Dr. Coco Baer MD Referring Provider Active Start: October 29, 2024 End: October 29, 2024 Dr. Karina Bravo DO Attending Provider Activ e Start: October 29, 2024 End: October 29, 2024 Team Status: Inactive Member Role/Relationship Status Dates Dr. Coco Baer MD Primary Care Provider Acti ve Start: November 13, 2024 End: November 13, 2024 Dr. Coco Baer MD Referring Provider Active Start: November 13, 2024 End: November 13, 2024 Ekaterina Kim PALLIATIVE SENIOR NP, PALLIATIVE SENIOR NP-C Attending Provider Active Start: November 13, 2024 End: November 13, 2024 Team Status: Inactive Member Role/Relationship Status Dates Dr. Coco Baer MD Primary Care Provider Acti ve Start: November 26, 2024 End: November 26, 2024 Dr. Coco Baer MD Referring Provider Active Start: November 26, 2024 End: November 26, 2024 Dr. Mayelin Garcia MD Attending Provider Active Start: November 26, 2024 End: November 26, 2024 Team Status: Inactive Member Role/Relationship Status Dates Dr. Coco Baer MD Primary Care Provider Acti ve Start: December 11, 2024 End: December 11, 2024 Dr. Coco Baer MD Referring Provider Active Start: December 11, 2024 End: December 11, 2024 Ekaterina Kim PALLIATIVE SENIOR NP, PALLIATIVE SENIOR NP-C Attending Provider Active Start: December 11, 2024 End: December 11, 2024 Team Status: Inactive Member Role/Relationship Status Dates Dr. Coco Baer MD Primary Care Provider Acti ve Start: September 17, 2024 End: September 17, 2024 Dr. Coco Baer MD Referring Provider Active Start: September 17, 2024 End: September 17, 2024 Ekaterina Kim PALLIATIVE SENIOR NP, PALLIATIVE SENIOR NP-C Attending Provider Active Start: September 17, 2024 [...] 2024 End: October 15, 2024 Team Status: Inactive Member Role/Relationship Status Dates Dr. Coco Baer MD Primary Care Provider Acti ve Start: October 15, 2024 End: October 15, 2024 Ekaterina Kim PALLIATIVE SENIOR NP, PALLIATIVE SENIOR NP-C Attending Provider Active Start: October 15, 2024 End: October 15, 2024 Team Status: Inactive Member Role/Relationship Status Dates Dr. Coco Baer MD Primary Care Provider Acti ve Start: October 29, 2024 End: October 29, 2024 Dr. Coco Baer MD Referring Provider Active Start: October 29, 2024 End: October 29, 2024 Dr. Karina Bravo DO Attending Provider Activ e Start: October 29, 2024 End: October 29, 2024 Team Status: Inactive Member Role/Relationship Status Dates Dr. Coco Baer MD Primary Care Provider Acti ve Start: November 13, 2024 End: November 13, 2024 Dr. Coco Baer MD Referring Provider Active Start: November 13, 2024 End: November 13, 2024 Ekaterina Kim NP, PALLIATIVE SENIOR NP-C Attending Provider Active Start: November 13, 2024 End: November 13, 2024 Team Status: Inactive Member Role/Relationship Status Dates Dr. Coco Baer MD Primary Care Provider Acti ve Start: November 26, 2024 End: November 26, 2024 Dr. Coco Baer MD Referring Provider Active Start: November 26, 2024 End: November 26, 2024 Dr. Mayelin Garcia MD Attending Provider Active Start: November 26, 2024 End: November 26, 2024 Team Status: Inactive Member Role/Relationship Status Dates Dr. Coco Baer MD Primary Care Provider Acti ve Start: December 11, 2024 End: December 11, 2024 Dr. Coco Baer MD Referring Provider Active Start: December 11, 2024 End: December 11, 2024 Ekaterina Kim PALLIATIVE SENIOR NP, PALLIATIVE SENIOR NP-C Attending Provider Active Start: December 11, 2024 End: December 11, 2024 Team Status: Inactive Member Role/Relationship Status Dates Dr. Coco Baer MD Primary Care Provider Acti ve Start: December 25, 2024 End: December 25, 2024 Dr. Coco Baer MD Referring Provider Active Start: December 25, 2024 End: December 25, 2024 Tomi Cavanaugh CNM Attending Provider Active S tart: December 25, 2024 End: December 25, 2024 Team Status: Active Member Role/Relationship Status Dates Dr. Coco Baer MD Primary care physician Act norma Team Status: Inactive Member Role/Relationship Status Dates Dr. Coco Baer MD Primary care physician Act norma Start: September 17, 2024 End: September 17, 2024 Dr. Coco Baer MD Referring Provider Active Start: September 17, 2024 End: September 17, 2024 Ekaterina Kim PALLIATIVE SENIOR NP, PALLIATIVE SENIOR NP-C Attending physician Active Start: September 17, 2024 End: September 17, 2024 Team Status: Inactive Member Role/Relationship Status Dates Dr. Coco Baer MD Primary care physician Act norma Start: October 15, 2024 End: October 15, 2024 Dr. Coco Baer MD Referring Provider Active Start: October 15, 2024 End: October 15, 2024 Tomi Cavanaugh CNM Attending physician Active Start: October 15, 2024 End: October 15, 2024 Team Status: Inactive Member Role/Relationship Status Dates Dr. Coco Baer MD Primary care physician Act norma Start: October 15, 2024 End: October 15, 2024 Ekaterina Kim PALLIATIVE SENIOR NP, PALLIATIVE SENIOR NP-C Attending physician Active Start: October 15, 2024 End: October 15, 2024 Team Status: Inactive Member Role/Relationship Status Dates Dr. Coco Baer MD Primary care physician Act norma Start: October 29, 2024 End: October 29, 2024 Dr. Coco Baer MD Referring Provider Active Start: October 29, 2024 End: October 29, 2024 Dr. Karina Bravo DO Attending physician Acti ve Start: October 29, 2024 End: October 29, 2024 Team Status: Inactive Member Role/Relationship Status Dates Dr. Coco Baer MD Primary care physician Act norma Start: November 13, 2024 End: November 13, 2024 Dr. Coco Baer MD Referring Provider Active Start: November 13, 2024 End: November 13, 2024 Ekaterina Kim PALLIATIVE SENIOR NP, PALLIATIVE SENIOR NP-C Attending physician Active Start: November 13, 2024 End: November 13, 2024 Team Status: Inactive Member Role/Relationship Status Dates Dr. Coco Baer MD Primary care physician Act norma Start: November 26, 2024 End: November 26, 2024 Dr. Coco Baer MD Referring Provider Active Start: November 26, 2024 End: November 26, 2024 Dr. Mayelin Garcia MD Attending physician Active Start: November 26, 2024 End: November 26, 2024 Team Status: Inactive Member Role/Relationship Status Dates Dr. Coco Baer MD Primary care physician Act norma Start: December 11, 2024 End: December 11, 2024 Dr. Coco Baer MD Referring Provider Active Start: December 11, 2024 End: December 11, 2024 Ekaterina Kim PALLIATIVE SENIOR NP, PALLIATIVE SENIOR NP-C Attending physician Active Start: December 11, 2024 End: December 11, 2024 Team Status: Inactive Member Role/Relationship Status Dates Dr. Coco Baer MD Primary care physician Act norma Start: December 25, 2024 End: December 25, 2024 Dr. Coco Baer MD Referring Provider Active Start: December 25, 2024 End: December 25, 2024 Tomi Cavanaugh CNM Attending physician Active Start: December 25, 2024 End: December 25, 2024 Team Status: Inactive Member Role/Relationship Status Dates Dr. Coco Baer MD Primary care physician Act norma Start: December 25, 2024 End: December 25, 2024 Tomi Cavanaugh CNM Attending physician Active Start: December 25, 2024 End: December 25, 2024 Tomi Cavanaugh CNM Referring Provider Active S tart: December 25, 2024 End: December 25, 2024 Team Status: Inactive Member Role/Relationship Status Dates Dr. Coco Baer MD Primary care physician Act norma Start: January 03, 2025 End: January 03, 2025 Dr. Coco Baer MD Referring Provider Active Start: January 03, 2025 End: January 03, 2025 Dr. Karina Bravo DO Attending physician Acti ve Start: January 03, 2025 End: January 03, 2025 Team Status: Active Member Role/Relationship Status Dates Dr. Coco Baer MD Primary care physician Act norma Start: January 08, 2025 Dr. Karina Bravo DO Attending physician Acti ve Start: January 08, 2025 Dr. Karina Bravo DO Referring Provider Activ e Start: January 08, 2025 Team Status: Inactive Member Role/Relationship Status Dates Dr. Coco Baer MD Primary care physician Act norma Start: January 10, 2025 End: January 10, 2025 Dr. Coco Baer MD Referring Provider Active Start: January 10, 2025 End: January 10, 2025 Dr. Mayelin Garcia MD Attending physician Active Start: January 10, 2025 End: January 10, 2025 FOR RECORDS PERTAINING TO PATIENTS WHO ARE [...] BE BASED ON THE PRIMARY CLINICAL RECORDS. [employer] provides no warranty or guarantee of the accuracy or completeness of information in this document.
[2025-01-28 19:30] VITALS: RESP 14; TEMP 36.8
[2025-01-28 19:34] VITALS: BP 138/84; PULSE 94
[2025-01-28 19:35] VITALS: PULSE 112; O2SAT 98
[2025-01-28 19:37] VITALS: BMI 38.0
--- OUTSIDE RECORDS SUMMARY | 2025-01-28 20:47 | XMS RPT_ITS | CCD ---
Author Organization [facility] Care Team Providers Care Sound Installation Worker Name Role Phone GIANCARLO STNE Jose Daniel Unavailable Unavailable SHANTFIDELINA BARRY Unavailable Unavailable JAYCOBPRINCE HESHAM H Unavailable Unavailable Dr. Ji Baer Primary Care Provider [phone] Dr. Ji Baer Referring Provider Dr. Karina Bravo Attending Provider [phone] Dr. Ji Baer Primary Care Provider [phone] Dr. Ji Baer Referring Provider TRISH Young Attending Provider Dr. Coco Baer MD Primary Care Provider Dr. Coco Baer MD Referring Provider Dr. Karina Bravo DO Attending Provider Dr. Karina Bravo DO Referring Provider Tomi Cavanaugh CNM Attending Provider [phone] Dr. Mayelin Garcia MD Attending Provider [phone] Dr. Mayelin Garcia MD Referring Provider Ekaterina Lagos Attending Provider [phone] TOMI CAVANAUGH [...] Keyur LEROY, Dr. Sen Referring Provider [phone] Jose LEROY, Dr. Dick Attending Provider Keyur LEORY, Dr. Sen [facility] Physicia n Julio OSHEA-C, Ekaterina Attending Physician [...] Unavailabl e Karina Bravo Attending Unavailabl e [facility] Unavailable [facility] Primary Care Unavailable Mayelin Garcia Referring Unavailable Mayelin Garcia Attending Unavailable [facility] Unavailable Julio INSURANCE OFFICE MANAGER, Ekaterina Attending Unavailable Vande VeldeKarina Attending Unavailabl e Vande Velde, Karina Admitting Unavailabl e Vande Velde, Karina Referring Unavailabl e [facility] Primary Care Unavailable [facility] Referring Unavailable Tomi Cavanaugh Attending Unavailable [facility] Primary Care Unavailable [facility] Primary Care Unavailable Mayelin Garcia Referring Unavailable Mayelin Garcia Attending Unavailable Andrewe Rubi, Karina Referring Unavailabl e Vande Velde, Karina Attending Unavailabl e [facility] Referring Unavailable [facility] Primary Care Unavailable Mayelin Garcia Attending Unavailable [facility] Referring Unavailable [facility] Primary Care Unavailable Tomi Cavanaugh Attending Unavailable [facility] Primary Care Unavailable [facility] Referring Unavailable Julio INSURANCE OFFICE MANAGER, Ekaterina Attending Unavailable [facility] Primary Care Unavailable [facility] Referring Unavailable Tomi Cavanaugh Attending Unavailable [facility] Referring Unavailable Mayelin Garcia Attending [facility]available [facility] Unavailable [facility] Primary Care Unavailable [facility] Referring Unavailable Julio INSURANCE OFFICE MANAGEREkaterina Attending Unavailable [facility] Primary Care Unavailable [facility] Referring Unavailable Tomi Cavanaugh Attending Unavailable Kam Venegas, Karina Attending Unavailabl e [facility] Unavailable [facility] Referring Unavailable [facility] Primary Care Unavailable [facility] Referring Unavailable Julio INSURANCE OFFICE MANAGER, Ekaterina Attending Unavailable [facility] Primary Care Unavailable [facility] Referring Unavailable Mayelin Garcia Attending Unavailable Vande VeldeKarina Attending Unavailabl e Vande Velde, Karina Referring Unavailabl e [facility] Unavailable Medications Current Medications Medication Drug [...] 2024 12:00am January 03, 2025 3:06pm Mv-Mn 167-Pn-Nj1-Dha-Epa-Fis h 180 mcg-35 mg- 25 mg-5 mg tablet,chewable (12 sources) Start: 05-29-2024 Mv-Mn 110-Fa-O e4-Wot-Ptv-Fish 180 mcg-35 mg- 25 mg-5 mg tablet,chewable Active {tbl} PO May 29, 2024 1:00am Complies with drug therapy Start: 05-29-2024 Start: 05-29-2024 Mv-Mn 110-Fa-O o5-Thx-Tme-Fish 180 mcg-35 mg- 25 mg-5 mg tablet,chewable Active {tbl} PO May 29, 2024 1:00am Pnv No.663-Ga-Jx1-Dha-Epa-Fi sh 180 mcg-35 mg- 25 mg-5 mg tablet,chewable (2 sources) Start: 05-29-2024 Pnv No.067-Tj-Vd2-Dha-Epa-Fi sh 180 mcg-35 mg- 25 mg-5 mg [...] 2023 1:00am July 22, 2023 4:30pm levonorgestrel 0.842807 mg/hr intrauterine system (20 sources) Progestin, Progestin-containing [...] PRR,, YESI , [place], having a girl "[place]" Other complications of (2 sources) Uterine size-date [...] (No Biometrics)on 01-23-2025 OB Limited (No Biometrics) [facility] Services [address] [place] [address] [id number] OB Limited (No Biometrics) MR#: [id number] Acct: [id number] Name: CHETNA TUCKER Rep #: [id number] : 1995 F 29 From: Robin lock MD PCP: Dr. Coco Baer MD Status: REG CLI Study: OB Limited (No Biometrics) Date of Exam: 01/23 Exam# [id number] Ordering Dr: Mayelin Garcia PROCEDURE: OB LIMITED [...] amniotic fluid index. Reading Location: [place] [address] CC: Dr. Coco Baer MD; Dr. Mayelin Garcia MD Early Childhood Lead Teacher: Signed Normal [facility] Drywall Installer Office Visit Reporton 01-22-2025 Drywall Installer Office Visit Report [facility] [address], [address] [place] [address] OFFICE VISIT Date of Service: 01/22/25 MR#: [id number] Acct: [id number] Name: CHETNA TUCKER Rep #: [id number] : 1995 Provider: Dr. Mayelin grullon MD Age/Sex: 29/F Location: [facility] Status: Signed Intake Vital Signs 11/13/24 13:46 01/17/25 15:06 01/22/25 14:50 Height 5 ft 9 in 5 ft 9 in 5 ft 9 in Weight: 256 lb 3 oz BMI 37.8 BP 123/88 H Intake Visit Reasons: 40 WK *HAPPY DUE DATE 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 Required: No Is patient in pain?: No [...] removal Seasonal allergies S/p nephrectomy Surgical History [place] teeth extracted History of nephrectomy, right Family [...] in: none frequency: 1-2 times per week dat/restoration: None seatbelt use: always do you feel safe at home: Yes additional social history: -[facility] History 1 Elective abortions Hx Para [...] and mo (more content not included)... Normal [facility] Drywall Installer Office Visit Reporton 01-17-2025 Drywall Installer Office Visit Report [facility]'s [address], [address] [place] [address] OFFICE VISIT Date of Service: 01/17/25 MR#: [id number] Acct: [id number] Name: CHETNA TUCKER Rep #: [id number] : 1995 Provider: ROZINA Nolan ams Age/Sex: 29/F Location[place] [facility] Status: Signed Intake Vital Signs 11/13/24 13:46 01/10/25 14:11 01/17/25 15:06 Height 5 ft 9 in 5 ft 9 in 5 ft 9 in Weight: 255 lb 4 oz BMI 37.7 BP 128/89 H Intake Visit Reasons: 39 WK OB Chief Complaint: 39wk OB 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 Required: No Is patient in pain?: No [...] removal Seasonal allergies S/p nephrectomy Surgical History [place] teeth extracted History of nephrectomy, right Family [...] in: none frequency: 1-2 times per week dat/restoration: None seatbelt use: always do you feel safe at home: Yes additional social history: -[facility] History 1 Elective abortions Hx Para [...] AFP next (more content not included)... Normal [facility] Drywall Installer Office Visit Reporton 01-10-2025 Drywall Installer Office Visit Report [facility] [address], [address] [place] [address] OFFICE VISIT Date of Service: 01/10/25 MR#: [id number] Acct: [id number] Name: CHETNA TUCKER Rep #: [id number] : 1995 Provider: Dr. Mayelin grullon MD Age/Sex: 29/F Location: [facility] Status: Signed Intake Vital Signs 11/13/24 13:46 01/03/25 14:43 01/10/25 14:11 Height 5 ft 9 in 5 ft 9 in 5 ft 9 in Weight: 251 lb 2 oz BMI 37.0 BP 114/81 H Intake Visit Reasons: 38 WK OB 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 Required: No Is patient in pain?: No [...] removal Seasonal allergies S/p nephrectomy Surgical History [place] teeth extracted History of nephrectomy, right Family [...] in: none frequency: 1-2 times per week dat/restoration: None seatbelt use: always do you feel safe at home: Yes additional social history: -[facility] History 1 Elective abortions Hx Para [...] fht and (more content not included)... Normal [facility] OB Limited With Biometricson 01-08-2025 OB Limited With Biometrics [facility] [address] [place] [address] OB Limited With Biometrics MR#: [id number] Acct: [id number] Name: CHETNA TUCKER Rep #: [id number] : 1995 F 29 From: Jon Odom MD PCP: Dr. Coco Baer MD Status: [facility] Study: OB Limited With Biometrics Date of Exam: 01/08 Exam# [id number] Ordering Dr: Karina Bravo DO PROCEDURE: OB [...] minute. No suspicious sonographic findings Reading Location: [id number] CC: Dr. Coco Baer MD; Dr. Karina Bravo DO Early Childhood Lead Teacher: Signed Normal [facility] Laboratory - Chemistry and C hemistry - challengeOrdered By: Karina Venegas on 01-03-2025 Glucose Ql (U) Negative [facility] Laboratory - UrinalysisOrder ed By: Karina Venegas on 01-03-2025 Protein Ql (U) Negative [facility] Drywall Installer Office Visit Reporton 01-03-2025 Drywall Installer Office Visit Report [facility] [address], [address] [place] [address] OFFICE VISIT Date of Service: 01/03/25 MR#: [id number] Acct: [id number] Name: CHETNA TUCKER Rep #: [id number] : 1995 Provider: Dr. Karina Shaikh DO Age/Sex: 29/F Location: [facility] Status: Signed Intake Vital Signs 11/13/24 13:46 12/25/24 15:03 01/03/25 14:43 Height 5 ft 9 in 5 ft 9 in 5 ft 9 in Weight: 253 lb BMI 37.3 BP 128/84 H Intake Visit Reasons: 37 WK OB Chief Complaint: 37wk OB 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 Required: No Is patient in pain?: No [...] removal Seasonal allergies S/p nephrectomy Surgical History [place] teeth extracted History of nephrectomy, right Family [...] in: none frequency: 1-2 times per week dat/restoration: None seatbelt use: always do you feel safe at home: Yes additional social history: -[facility] History 1 Elective abortions Hx Para [...] accepts AFP (more content not included)... Normal [facility] Rule out Beta Strep (Grp. B) on 12-27-2024 BERNADINE Group B Beta Streptococcus is not isolated. Normal [facility] Comment on above: Performed By: #### M 100.3400 #### [facility] [address] [place] [address]. [place], [address] Laboratory - Chemistry and C hemistry - challengeOrdered By: Tomi Cavanaugh on 12-25-2024 Glucose Ql (U) Negative [facility] Laboratory - UrinalysisOrder ed By: Tomi Cavanaugh on 12-25-2024 Protein Ql (U) Negative [facility] Drywall Installer Office Visit Reporton 12-25-2024 Drywall Installer Office Visit Report [facility] [address], [address] [place] [address] OFFICE VISIT Date of Service: 12/25/24 MR#: [id number] Acct: [id number] Name: CHETNA TUCKER Rep #: [id number] : 1995 Provider: ROZINA Nolan ams Age/Sex: 29/F Location: [facility] Status: Signed Intake Vital Signs 11/13/24 13:46 12/11/24 13:27 12/25/24 15:03 Height 5 ft 9 in 5 ft 9 in 5 ft 9 in Weight: 248 lb 8 oz BMI 36.6 BP 131/85 H Intake Visit Reasons: 36 WK OB Chief Complaint: 36wk OB 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 Required: No Is patient in pain?: No [...] removal Seasonal allergies S/p nephrectomy Surgical History [place] teeth extracted History of nephrectomy, right Family [...] in: none frequency: 1-2 times per week dat/restoration: None seatbelt use: always do you feel safe at home: Yes additional social history: -[facility] History 1 Elective abortions Hx Para [...] AFP next (more content not included)... Normal [facility] Screening beta-hemolytic Str eptococcus cultureOrdered By: Tomi Cavanaugh on 12-25-2024 Beta-hemolytic Streptococcus culture Group B Beta Streptococcus is not isolated. [facility] Laboratory - Chemistry and C hemistry - challengeOrdered By: Ekaterina Kim on 12-11-2024 Glucose Ql (U) Negative [facility] Laboratory - UrinalysisOrder ed By: Ekaterina Kim on 12-11-2024 Protein Ql (U) Negative [facility] Drywall Installer Office Visit Reporton 12-11-2024 Drywall Installer Office Visit Report [address], [address] [place] [address] OFFICE VISIT Date of Service: 12/11/24 MR#: [id number] Acct: [id number] Name: CHETNA TUCKER Rep #: [id number] : 1995 Provider: SIOBHAN noyola Age/Sex: 29/F Location[place] [facility] Status: Signed Intake Vital Signs 10/15/24 14:50 11/26/24 13:11 12/11/24 13:23 12/11/24 13:27 Height 5 ft 9 in 5 ft 9 in 5 ft 9 in 5 ft 9 in Weight: 248 lb 2 oz BMI 36.6 BP 124/82 H Intake Visit Reasons: 34wk ob Chief Complaint: 34 Week OB 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 Required: No Is patient in pain?: No [...] removal Seasonal allergies S/p nephrectomy Surgical History [place] teeth extracted History of nephrectomy, right Family [...] in: none frequency: 1-2 times per week dat/restoration: None seatbelt use: always do you feel safe at home: Yes additional social history: -[facility] History 1 Elective abortions Hx Para [...] movement noted. (more content not included)... Normal [facility] Laboratory - Chemistry and C hemistry - challengeOrdered By: Mayelin Garcia on 11-26-2024 Glucose Ql (U) Negative [facility] Laboratory - UrinalysisOrder ed By: Maeylin Garcia on 11-26-2024 Protein Ql (U) Negative [facility] Drywall Installer Office Visit Reporton 11-26-2024 Drywall Installer Office Visit Report [facility]'s [address], [address] [place] [address] OFFICE VISIT Date of Service: 11/26/24 MR#: [id number] Acct: [id number] Name: CHETNA TUCKER Rep #: [id number] : 1995 Provider: Dr. Mayelin grullon MD Age/Sex: 29/F Location: [facility] Status: Signed Intake Vital Signs 10/15/24 14:50 11/13/24 13:46 11/26/24 13:11 Height 5 ft 9 in 5 ft 9 in 5 ft 9 in Weight: 245 lb 8 oz BMI 36.2 BP 124/78 H Intake Visit Reasons: 32wk ob 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 Required: No Is patient in pain?: No [...] removal Seasonal allergies S/p nephrectomy Surgical History [place] teeth extracted History of nephrectomy, right Family [...] in: none frequency: 1-2 times per week dat/restoration: None seatbelt use: always do you feel safe at home: Yes additional social history: -[facility] History 1 Elective abortions Hx Para [...] and mo (more content not included)... Normal [facility] Laboratory - Chemistry and C hemistry - challengeOrdered By: Ekaterina Kim on 11-13-2024 Glucose Ql (U) Negative [facility] Laboratory - UrinalysisOrder ed By: Ekaterina Kim on 11-13-2024 Protein Ql (U) Negative [facility] Drywall Installer Office Visit Reporton 11-13-2024 Drywall Installer Office Visit Report [address], [address] [place] [address] OFFICE VISIT Date of Service: 11/13/24 MR#: [id number] Acct: [id number] Name: CHETNA TUCKER Rep #: [id number] : 1995 Provider: SIOBHAN noyola Age/Sex: 29/F Location: [facility] Status: Signed with Addenda ADDENDUM by Ekaterina Anglin on 11/13/24 at 1408 Office Procedure Documentation entered by Ekaterina Anglin 11/13/24 14:08: Immunizations Adacel(Tdap Adolesn/Adult)(PF) 2 Lf-(2.5-5-3-5)-5 Lf/0.5 mL IM syringe Performing Provider: Ekaterina Kim NP, SIOBHAN Performing Location: [facility] Administered by: Ekaterina Anglin on 11/13/24 14:07 Dose Route Admin Location Dispensed Lot Number Expiration Date [place] Man ufacturer 0.5 mL IM Left Deltoid 0.5 mL [id number] 10/08/26 46453-372-87 [employer] VIS Given Date VIS Provided [...] 30wk ob Chief Complaint: 30 Week OB 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 Required: No Is patient in pain?: No [...] removal Seasonal allergies S/p nephrectomy Surgical History [place] teeth extracted History of nephrectomy, right Family [...] in: none frequency: 1-2 times per week dat/restoration: None seatbelt use: always do you feel safe at home: Yes additional social history: -[facility] [place] [facility] History 1 Elective abortions Hx Para [...] Prot -???-???-? (more content not included)... Normal [facility] Laboratory - Chemistry and C hemistry - challengeOrdered By: Karina Venegas on 10-29-2024 Glucose Ql (U) Negative [facility] Laboratory - UrinalysisOrder ed By: Karina Venegas on 10-29-2024 Protein Ql (U) Negative [facility] Drywall Installer Office Visit Reporton 10-29-2024 Drywall Installer Office Visit Report [facility]'s [address], [address] [place] [address] OFFICE VISIT Date of Service: 10/29/24 MR#: [id number] Acct: [id number] Name: CHETNA TUCKER Rep #: [id number] : 1995 Provider: Dr. Karina Shaikh DO Age/Sex: 29/F Location: [facility] Status: Signed Intake Vital Signs 07/23/24 13:51 10/15/24 14:50 10/29/24 13:48 10/29/24 13:49 Height 5 ft 9 in 5 ft 9 in 5 ft 9 in 5 ft 9 in Weight: 243 lb BMI 35.9 BP 125/76 H Intake Visit Reasons: 28wk ob 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 Required: No Is patient in pain?: No [...] removal Seasonal allergies S/p nephrectomy Surgical History [place] teeth extracted History of nephrectomy, right Family History Mother Kidney disease Heart disease Hypertension Grandmother Heart disease Maternal Kidney disease Maternal Hypertension Maternal Diabetes Maternal Father Hypertension Social History adopted: No household members: spouse housing: house current occupational status: employed 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 Normal [facility] Absolute lymphocyte countOrd ered By: Ekaterina Kim on 10-15-2024 Lymphocytes Auto (Unsp spec) [#/Vol] 2.03 10*3/uL 0.83-4.51 [facility] Absolute neutrophil countOrd ered By: Ekaterina Kim on 10-15-2024 Neutrophils (Bld) [#/Vol] 7.4 10*3/uL 2.0-7.7 [facility] Automated lymphocyte count a s percentage of total leukocytesOrdered By: Ekaterina Ogtings on 10-15-2024 Lymphocytes/100 WBC Auto (Unsp spec) 20.7 % 19-41 [facility] Basophil percentageOrdered B y: Ekaterina Wagners on 10-15-2024 Basophils/100 WBC (Bld) 0.1 % 0-1 [facility] CBC W/Diff, Automatedon Absolute Lymph 2.03 X10 3/uL Normal 0.83-4.51 [facility] Comment on above: Performed By: #### L 100.0100, L501.0250, L509.8002, L3890.6006 #### [facility] [address] [place], [address] Absolute Neut 7.4 X10 3/uL Normal 2.0-7.7 [facility] Comment on above: Performed By: #### L 100.0100, L501.0250, L509.8002, L3890.6006 #### [facility] [address] [place], [address] Basophils/100 WBC (Bld) 0.1 % Normal 0-1 [facility] Comment on above: Performed By: #### L 100.0100, L501.0250, L509.8002, L3890.6006 #### [facility] [address] [place], [address] Eosinophils/100 WBC (Bld) 0.4 % Normal 0-5 [facility] Comment on above: Performed By: #### L 100.0100, L501.0250, L509.8002, L3890.6006 #### [facility] [address] [place], [address] Erythrocyte distribution width (RBC) [Ratio] 13.8 % Normal 11.6-14.6 [facility] Comment on above: Performed By: #### L 100.0100, L501.0250, L509.8002, L3890.6006 #### [facility] [address] [place], [address] Hematocrit (Bld) [Volume fraction] 33.8 % Low 37-47 [facility] Comment on above: Performed By: #### L 100.0100, L501.0250, L509.8002, L3890.6006 #### [facility] [address] [place], [address] Hemoglobin (Bld) [Mass/Vol] 11.3 g/dL Low 12.0-15.0 [facility] Comment on above: Performed By: #### L 100.0100, L501.0250, L509.8002, L3890.6006 #### [facility] [address] [place], [address] IG% 0.600 Normal 0.0-0.9 [facility] Comment on above: Result Comment: IG% - Immature Granulocytes (promyelocytes, myelocytes and metamyelocytes) > 1% indicates that a LEFT SHIFT is Present. Performed By: #### L 100.0100, L501.0250, L509.8002, L3890.6006 #### [facility] [address] [place], [address] Lymphocytes/100 WBC (Bld) 20.7 % Normal 19-41 [facility] Comment on above: Performed By: #### L 100.0100, L501.0250, L509.8002, L3890.6006 #### [facility] [address] [place], [address] MCH (RBC) [Entitic mass] 29.3 pg Normal 27.0-32.0 [facility] Comment on above: Performed By: #### L 100.0100, L501.0250, L509.8002, L3890.6006 #### [facility] [address] [place], [address] MCHC (RBC) [Mass/Vol] 33.4 g/dL Normal 32-36 [facility] Comment on above: Performed By: #### L 100.0100, L501.0250, L509.8002, L3890.6006 #### [facility] [address] [place], [address] MCV (RBC) [Entitic vol] 87.6 fL Normal 81-[address] [facility] Comment on above: Performed By: #### L 100.0100, L501.0250, L509.8002, L3890.6006 #### [facility] [address] [place], [address] Monocytes/100 WBC (Bld) 3.5 % Normal 0-[address] [facility] Comment on above: Performed By: #### L 100.0100, L501.0250, L509.8002, L3890.6006 #### [facility] [address] [place], [address] Neutrophils/100 WBC (Bld) 74.7 % High 47-70 [facility] Comment on above: Performed By: #### L 100.0100, L501.0250, L509.8002, L3890.6006 #### [facility] [address] [place], [address] Nucleated RBC (Bld) [#/Vol] 0 10*3/uL Normal 0-5 [facility] Comment on above: Performed By: #### L 100.0100, L501.0250, L509.8002, L3890.6006 #### [facility] [address] [place], [address] Platelet mean volume (Bld) [Entitic vol] 9.7 fL Normal 6.2-12.0 [facility] Comment on above: Performed By: #### L 100.0100, L501.0250, L509.8002, L3890.6006 #### [facility] [address] [place], [address] Platelets (Bld) [#/Vol] 252 10*3/uL Normal 150-450 [facility] Comment on above: Performed By: #### L 100.0100, L501.0250, L509.8002, L3890.6006 #### [facility] [address] [place], [address] RBC (Bld) [#/Vol] 3.86 10*6/uL Low 4.2-5.4 [facility] Comment on above: Performed By: #### L 100.0100, L501.0250, L509.8002, L3890.6006 #### [facility] [address] [place], [address] RDW SD 44.2 fl High 35.1-43.9 [facility] Comment on above: Performed By: #### L 100.0100, L501.0250, L509.8002, L3890.6006 #### [facility] [address] [place], [address] WBC (Bld) [#/Vol] 9.8 10*3/uL Normal 4.4-11.0 [facility] Comment on above: Performed By: #### L 100.0100, L501.0250, L509.8002, L3890.6006 #### [facility] [address] [place], [address] Eosinophil percentageOrdered By: Ekaterina Kim on 10-15-2024 Eosinophils/100 WBC (Bld) 0.4 % 0-5 [facility] Erythrocyte distribution wid th ratioOrdered By: Ekaterina Kim on 10-15-2024 Erythrocyte distribution width (RBC) [Ratio] 13.8 % 11.6-14.6 [facility] Erythrocyte distribution wid th standard deviationOrdered By: Ekaterina Julio on 10-15-2024 Erythrocyte distribution width (RBC) [Ratio] 44.2 fl High 35.1-43.9 [facility] Glucose Challenge Gest 1H 50 chuy 10-15-2024 GLU GEST 50g 1H 106 mg/dL Normal 70-140 [facility] Comment on above: Performed By: #### L 100.0100, L501.0250, L509.8002, L3890.6006 #### [facility] [address] [facility] [place], [address] Glucose measurement at 2 romeo rs post-dose gestational glucose tolerance testOrdered By: Ekaterina Kim on 10-15-2024 Glucose [Mass/Vol] 106 mg/dL 70-140 [facility] HIVon 10-15-2024 HIV Non-Reactive Normal Nonreactive [facility] Comment on above: Result Comment: Non- Reactive Reactive Repeatedly reactive samples must be confirmed according to CDC recommended confirmatory algorithms. The subresults for either HIVAG or AHIV can be used as an aid in the selection of the confirmation algorithm for reactive samples. Send out specimens with Reactive results to [facility] for confirmation. Order the HIV antibody detection and differentiation: #[id number] Performed By: #### L 100.0100, L501.0250, L509.8002, L3890.6006 ####[facility] [address] [place], [address] Hematocrit Auto (Bld) [Volum e fraction]Ordered By: Ekaterina Kim on 10-15-2024 Hematocrit (Bld) [Volume fraction] 33.8 % Low 37-47 [facility] Hemoglobin measurementOrdere d By: Ekaterina Kim on 10-15-2024 Hemoglobin (Bld) [Mass/Vol] 11.3 g/dL Low 12.0-15.0 [facility] Immature granulocytes/100 WB C Auto (Bld)Ordered By: Ekaterina Kim on 10-15-2024 Immature granulocytes/100 WBC (Bld) 0.600 % 0.0-0.9 [facility] Comment on above: IG% - Immature Granu locytes (promyelocytes, myelocytes and metamyelocytes) > 1% indicates that a LEFT SHIFT is Present. Laboratory - Chemistry and C hemistry - challengeOrdered By: oTmi Cavanaugh on 10-15-2024 Glucose Ql (U) Negative [facility] - UrinalysisOrder ed By: Tomi Cavanaugh on 10-15-2024 Protein Ql (U) Negative [facility] MCV (mean corpuscular volume ) determinationOrdered By: Ekaterina Kim on 10-15-2024 MCV (RBC) [Entitic vol] 87.6 fL 81-99 [facility] Mean corpuscular hemoglobin (MCH) determinationOrdered By: Ekaterina Kim on 10-15-2024 MCH (RBC) [Entitic mass] 29.3 pg 27.0-32.0 [facility] Mean corpuscular hemoglobin concentration (MCHC) determinationOrdered By: Ekaterina Kim on 10-15-2024 MCHC (RBC) [Mass/Vol] 33.4 g/dL 32-36 [facility] Mean platelet volume determi nationOrdered By: Ekaterina Kim on 10-15-2024 Platelet mean volume (Bld) [Entitic vol] 9.7 fL 6.2-12.0 [facility] Monocyte percentageOrdered B y: Ekaterina Kim on 10-15-2024 Monocytes/100 WBC (Bld) 3.5 % 0-10 [facility] Neutrophil percentageOrdered By: Ekaterina Kim on 10-15-2024 Neutrophils/100 WBC (Bld) 74.7 % High 47-70 [facility] No Panel InformationOrdered By: Ekaterina Kim on 10-15-2024 HIV (1&2) Antibody Non-Reactive Nonreactive [facility] Comment on above: Non-ReactiveReactive Repeatedly reactive samples must be confirmed according to CDC recommended confirmatory algorithms. The subresults for either HIVAG or AHIV can be used as an aid in the selection of the confirmation algorithm for reactive samples.Send out specimens with Reactive results to [facility] for confirmation.Order the HIV antibody detection and differentiation: #[id number] Nucleated red blood cell per centageOrdered By: Ekaterina Kim on 10-15-2024 Nucleated RBC/100 WBC (Bld) [Ratio] 0 % 0-5 [facility] Drywall Installer Office Visit Reporton 10-15-2024 Drywall Installer Office Visit Report [facility]'s [address], [address] [place] [address] OFFICE VISIT Date of Service: 10/15/24 MR#: [id number] Acct: [id number] Name: CHETNA TUCKER Rep #: [id number] : 1995 Provider: ROZINA Nolan ams Age/Sex: 29/F [place] [facility] [place]: Signed Intake Vital Signs 07/23/24 13:51 09/17/24 13:45 10/15/24 14:50 Height 5 ft 9 in 5 ft 9 in 5 ft 9 in Weight: 242 lb 8 oz BMI 35.8 BP 126/77 H Intake Visit Reasons: 26wk ob Chief Complaint: 26wk OB 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 Required: No Is patient in pain?: No [...] removal Seasonal allergies S/p nephrectomy Surgical History [place] teeth extracted History of nephrectomy, right Family [...] in: none frequency: 1-2 times per week dat/restoration: None seatbelt use: always do you feel safe at home: Yes additional social history: -[facility] History 1 Elective abortions Hx Para [...] ??- Negative (more content not included)... Normal [facility] Platelet countOrdered By: Georges Kim on 10-15-2024 Platelets (Bld) [#/Vol] 252 10*3/uL 150-450 [facility] RBC Auto (Bld) [#/Vol]Ordere d By: Ekaterina Kim on 10-15-2024 RBC (Bld) [#/Vol] 3.86 10*6/uL Low 4.2-5.4 [facility] Syphilis Antibodieson 2024 Syphilis Abs Non-Reactive Normal Nonreactive [facility] Comment on above: Performed By: #### L 100.0100, L501.0250, L509.8002, L3890.6006 ####[facility] [address] [place], [address] White blood cell (WBC) count Ordered By: Ekaterina Kim on 10-15-2024 WBC (Bld) [#/Vol] 9.8 10*3/uL 4.4-11.0 [facility] Progress Noteon 10-01-2024 [employer] Authentication Interface Message Text New patient 10/02/2024 RE: Chetna Rodriguez Kirkavery : 1995 AGE: 29 y.o. CSN#: [id number] Gestational Age: 24 Weeks Delivery Hospital: [facility] Reason for visit: Chief Complaint Patient [...] or performed in visit on 10/01/24 [facility] [place] [address] [email or web address] ------- Echocardiogram Report M-mode, complete 2D, complete spectral Doppler, and color Doppler PATIENT: Chetna Tucker STUDY DATE/TIME: Oct 01 2024 12:04PM HEIGHT: : 1995 WEIGHT: AGE: 29year(s) BSA/BMI: / 35kg/m^2 GENDER: F BP: 131 / 57 LOCATION: [facility] REFERRING PHYSICIAN: Aaron Lai ORDERING PROVIDER: Aaron Lai READING PHYSICIAN: JANET Elkins AGRICULTURAL EQUIPMENT OPERATOR: Jacqueline Ricks RDCS ------- SUMMARY: No significant [...] discussed with the patient. Recommendations: follow-up if cleaner wall hears a heart murmur or otherwise clinically indicated. ------- REASON FOR EXAM: Suboptimal cardiac views. ------- : : - Maternal age: 30yr. - : 1. - Parity: 0. - Estimated delivery date: 01/22/2025. - Gestational age: 23 nssuo6agia. ------- STUDY AND PROCEDURE DATA: The patient is . Procedure Description: New ([id number]) . Study status: Routine. Location: lab. Procedure: [...] a patent foramen ovale. There is a [id number]-xz-bbpu shunt. Left atrium: - The atrium is [...] is str (more content not included)... Normal [facility] Laboratory - Chemistry and C hemistry - challengeOrdered By: Ekaterina Kim on 09-17-2024 Glucose Ql (U) Negative [facility] - UrinalysisOrder ed By: Ekaterina Kim on 09-17-2024 Protein Ql (U) Negative [facility] Drywall Installer Office Visit Reporton 09-17-2024 Drywall Installer Office Visit Report [address], [address] [place] [address] OFFICE VISIT Date of Service: 09/17/24 MR#: [id number] Acct: [id number] Name: CHETNA TUCKER Rep #: [id number] : 1995 Provider: SIOBHAN noyola Age/Sex: 29/F [place] [facility] [place] Status: Signed Intake Vital Signs 07/23/24 13:51 08/20/24 13:44 09/17/24 13:45 Height 5 ft 9 in 5 ft 9 in 5 ft 9 in Weight: 242 lb BMI 35.7 BP 124/82 H Intake Visit Reasons: 22wk ob Chief Complaint: 22 Week OB 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 Required: No Is patient in pain?: No [...] removal Seasonal allergies S/p nephrectomy Surgical History [place] teeth extracted History of nephrectomy, right Family [...] in: none frequency: 1-2 times per week dat/restoration: None seatbelt use: always do you feel safe at home: Yes additional social history: -[facility] History 1 Elective abortions Hx Para [...] 121/82 Negative (more content not included)... Normal [facility] L3410.9992on 09-07-2024 [facility] Misc. Normal [facility] Comment on above: Order Comment: [id number] 1msAFP SERUM RT Result Comment: TEST RESULTS LIMITS AFP, Serum, Open Spina Bifida Results The MOM and risk factors of this report have been modified based on new information supplied to us by the client or their designated contact center representative. The Weight was changed from Not [...] AFP MoM 0.81 OS[place] 1 [place] [address] Interpretation Interpretation: Screen Negative This result is [...] Customer Services to discuss available options. The [employer] recommends amniocentesis be offered to women age 35 and older. Comment: Dulce Ramirez, Ph.D., [facility] Director References: Available Upon Request. Multiples Of Median Cutoffs For AFP Elevations Dawn 2.5 Black 2.8 IDD 2.0 Twins 4.5 Abbreviation Definitions IDD - Insulin Dep Diabetes OSBR - Open Spina Bifida Risk For further inquiries contact [facility] at [phone]. This test was developed and its performance characteristics determined by [employer]. It has not been cleared or approved by the Food and Drug Administration. TESTING PERFORMED AT [facility]. ORIGINAL REPORT ON FILE IN LAB CONTAINS ADDITIONAL TEST SITE INFORMATION. Performed By: #### L 3410.9992 ####[facility] [address] [place], [address] Laboratory - Chemistry and C hemistry - challengeOrdered By: Mayelin Garcia on 08-20-2024 Glucose Ql (U) Negative [facility] - UrinalysisOrder ed By: Mayelin Garcia on 08-20-2024 Protein Ql (U) Negative [facility] Drywall Installer Office Visit Reporton 08-20-2024 Drywall Installer Office Visit Report [facility]'s [address], [address] [place] [address] OFFICE VISIT Date of Service: 08/20/24 MR#: [id number] Acct: [id number] Name: CHETNA TUCKER Rep #: [id number] : 1995 Provider: Dr. Mayelin grullon MD Age/Sex: 28/F [place] [facility] [place]: Signed Intake Vital Signs 06/20/24 14:06 07/23/24 13:51 08/20/24 13:43 08/20/24 13:44 Height 5 ft 9 in 5 ft 9 in 5 ft 9 in 5 ft 9 in Weight: 235 lb 237 lb BMI 34.7 34.9 BP 133/85 H 121/82 H Intake Visit Reasons: 18wk ob 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 Required: No Is patient in pain?: No [...] removal Seasonal allergies S/p nephrectomy Surgical History [place] teeth extracted History of nephrectomy, right Family [...] in: none frequency: 1-2 times per week dat/restoration: None seatbelt use: always do you feel safe at home: Yes additional social history: -[facility]- [facility] History 1 Elective abortions Hx Para [...] lb (+ (more content not included)... Normal [facility] - Chemistry and C hemistry - challengeOrdered By: Tomi Cavanaugh on 07-23-2024 Glucose Ql (U) Negative [facility] - UrinalysisOrder ed By: Tomi Cavanaugh on 07-23-2024 Protein Ql (U) Negative [facility] Drywall Installer Office Visit Reporton 07-23-2024 Drywall Installer Office Visit Report [facility]'s [address], [address] [place] [address] OFFICE VISIT Date of Service: 07/23/24 MR#: [id number] Acct: [id number] Name: CHETNA TUCKER Rep #: [id number] : 1995 Provider: ROZINA Nolan ams Age/Sex: 28/F Location[place] [facility] [place] Status: Signed Intake Vital Signs 12/07/23 14:21 06/20/24 14:06 07/23/24 13:51 Height 5 ft 9 in 5 ft 9 in 5 ft 9 in Weight: 237 lb 4 oz 235 lb BMI 35.0 34.7 BP 128/84 H 133/85 H Intake Visit Reasons: 14wk OB Chief Complaint: 14wk OB 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 Required: No Is patient in pain?: No Allergies No Known Allergies Allergy (Verified 07/23/24 13:48) Medications ???Medication ???Instructions ???Recorded ???Confirmed ???Type PNV 178-FA 180 mcg-om3 35 mg-dha tab PO 05/29/24 07/23/24 History 25 mg-epa 5 mg-fish oil chew tablet Last Menstrual Period: 01/07/25 : No PFSH PFSH Medical History Encounter for IUD removal Seasonal allergies S/p nephrectomy Surgical History [place] teeth extracted History of nephrectomy, right Family [...] in: none frequency: 1-2 times per week dat/restoration: None seatbelt use: always do you feel safe at home: Yes additional social history: -[facility] History 1 Elective abortions Hx Para [...] additional co (more content not included)... Normal [facility] Absolute lymphocyte countOrd ered By: Karina Venegas on 07-04-2024 Lymphocytes Auto (Unsp spec) [#/Vol] 2.31 10*3/uL 0.83-4.51 [facility] Absolute neutrophil countOrd ered By: Karina Venegas on 07-04-2024 Neutrophils (Bld) [#/Vol] 7.1 10*3/uL 2.0-7.7 [facility] Automated lymphocyte count a s percentage of total leukocytesOrdered By: Karina Venegas on 07-04-2024 Lymphocytes/100 WBC Auto (Unsp spec) 23.3 % 19-41 [facility] Basophil percentageOrdered B y: Karnia Rubi on 07-04-2024 Basophils/100 WBC (Bld) 0.2 % 0-1 [facility] CBC W/Diff, Automatedon 06-10 Absolute Lymph 2.31 X10 3/uL Normal 0.83-4.51 [facility] Comment on above: Performed By: #### L 3890.6006, L509.4006, L501.9985, L3890.6102, BTS, L3890.6301, L100.0100, L509.8002, L900.0098 ####[facility] [address] [place], [place], [id number] Absolute Neut 7.1 X10 3/uL Normal 2.0-7.7 [facility] Comment on above: Performed By: #### L 3890.6006, L509.4006, L501.9985, L3890.6102, BTS, L3890.6301, L100.0100, L509.8002, L900.0098 ####[facility] [address] [place], [address] Basophils/100 WBC (Bld) 0.2 % Normal 0-1 [facility] Comment on above: Performed By: #### L 3890.6006, L509.4006, L501.9985, L3890.6102, BTS, L3890.6301, L100.0100, L509.8002, L900.0098 ####[facility] [address] [place], [address] Eosinophils/100 WBC (Bld) 0.5 % Normal 0-5 [facility] Comment on above: Performed By: #### L 3890.6006, L509.4006, L501.9985, L3890.6102, BTS, L3890.6301, L100.0100, L509.8002, L900.0098 ####[facility] [address] [place], [address] Erythrocyte distribution width (RBC) [Ratio] 12.9 % Normal 11.6-14.6 [facility] Comment on above: Performed By: #### L 3890.6006, L509.4006, L501.9985, L3890.6102, BTS, L3890.6301, L100.0100, L509.8002, L900.0098 ####[facility] [address] [place], [address] Hematocrit (Bld) [Volume fraction] 38.3 % Normal 37-47 [facility] Comment on above: Performed By: #### L 3890.6006, L509.4006, L501.9985, L3890.6102, BTS, L3890.6301, L100.0100, L509.8002, L900.0098 ####[facility] [address] [place], [address] Hemoglobin (Bld) [Mass/Vol] 13.2 g/dL Normal 12.0-15.0 [facility] Comment on above: Performed By: #### L 3890.6006, L509.4006, L501.9985, L3890.6102, BTS, L3890.6301, L100.0100, L509.8002, L900.0098 ####[facility] [address] [facility] [place], [address] IG% 0.300 Normal 0.0-0.9 [facility] Comment on above: Result Comment: IG% - Immature Granulocytes (promyelocytes, myelocytes and metamyelocytes) > 1% indicates that a LEFT SHIFT is Present. Performed By: #### L 3890.6006, L509.4006, L501.9985, L3890.6102, BTS, L3890.6301, L100.0100, L509.8002, L900.0098 ####[facility] [address] [place], [address] Lymphocytes/100 WBC (Bld) 23.3 % Normal 19-41 [facility] Comment on above: Performed By: #### L 3890.6006, L509.4006, L501.9985, L3890.6102, BTS, L3890.6301, L100.0100, L509.8002, L900.0098 ####[facility] [address] [place], [address] MCH (RBC) [Entitic mass] 29.0 pg Normal 27.0-32.0 [facility] Comment on above: Performed By: #### L 3890.6006, L509.4006, L501.9985, L3890.6102, BTS, L3890.6301, L100.0100, L509.8002, L900.0098 ####[facility] [address] [place], [address] MCHC (RBC) [Mass/Vol] 34.5 g/dL Normal 32-36 [facility] Comment on above: Performed By: #### L 3890.6006, L509.4006, L501.9985, L3890.6102, BTS, L3890.6301, L100.0100, L509.8002, L900.0098 ####[facility] [address] [facility] [place], [address] MCV (RBC) [Entitic vol] 84.2 fL Normal 81-99 [facility] Comment on above: Performed By: #### L 3890.6006, L509.4006, L501.9985, L3890.6102, BTS, L3890.6301, L100.0100, L509.8002, L900.0098 ####[facility] [address] [facility] [place], [address] Monocytes/100 WBC (Bld) 3.5 % Normal 0-10 [facility] Comment on above: Performed By: #### L 3890.6006, L509.4006, L501.9985, L3890.6102, BTS, L3890.6301, L100.0100, L509.8002, L900.0098 ####[facility] [address] [place], [address] Neutrophils/100 WBC (Bld) 72.2 % High 47-70 [facility] Comment on above: Performed By: #### L 3890.6006, L509.4006, L501.9985, L3890.6102, BTS, L3890.6301, L100.0100, L509.8002, L900.0098 ####[facility] [address] [place], [address] Nucleated RBC (Bld) [#/Vol] 0 10*3/uL Normal 0-5 [facility] Comment on above: Performed By: #### L 3890.6006, L509.4006, L501.9985, L3890.6102, BTS, L3890.6301, L100.0100, L509.8002, L900.0098 ####[facility] [address] [place], [address] Platelet mean volume (Bld) [Entitic vol] 9.4 fL Normal 6.2-12.0 [facility] Comment on above: Performed By: #### L 3890.6006, L509.4006, L501.9985, L3890.6102, BTS, L3890.6301, L100.0100, L509.8002, L900.0098 ####[facility] [address] [place], [address] Platelets (Bld) [#/Vol] 258 10*3/uL Normal 150-450 [facility] Comment on above: Performed By: #### L 3890.6006, L509.4006, L501.9985, L3890.6102, BTS, L3890.6301, L100.0100, L509.8002, L900.0098 ####[facility] [address] [place], [address] RBC (Bld) [#/Vol] 4.55 10*6/uL Normal 4.2-5.4 [facility] Comment on above: Performed By: #### L 3890.6006, L509.4006, L501.9985, L3890.6102, BTS, L3890.6301, L100.0100, L509.8002, L900.0098 ####[facility] [address] [place], [address] RDW SD 39.3 fl Normal 35.1-43.9 [facility] Comment on above: Performed By: #### L 3890.6006, L509.4006, L501.9985, L3890.6102, BTS, L3890.6301, L100.0100, L509.8002, L900.0098 ####[facility] [address] [place], [address] WBC (Bld) [#/Vol] 9.9 10*3/uL Normal 4.4-11.0 [facility] Comment on above: Performed By: #### L 3890.6006, L509.4006, L501.9985, L3890.6102, BTS, L3890.6301, L100.0100, L509.8002, L900.0098 ####[facility] [address] [place], [address] Eosinophil percentageOrdered By: Karina Venegas on 07-04-2024 Eosinophils/100 WBC (Bld) 0.5 % 0-5 [facility] Erythrocyte distribution wid th ratioOrdered By: Karina Venegas on 07-04-2024 Erythrocyte distribution width (RBC) [Ratio] 12.9 % 11.6-14.6 [facility] Erythrocyte distribution wid th standard deviationOrdered By: Karina Venegas on 07-04-2024 Erythrocyte distribution width (RBC) [Entitic vol] 39.3 fL 35.1-43.9 [facility] Erythrocyte distribution width (RBC) [Ratio] 39.3 fl 35.1-43.9 [facility] HBV surface Ag Ql (S)Ordered By: Karina Venegas on 07-04-2024 Hepatitis B Surface Antigen Non-Reactive Nonreactive [facility] Comment on above: Reactive: Presumptiv e evidence of HBV. Repeatedly reactive samples must be confirmed using a neutralization test ([facility] HBsAg Confirmatory Test)Non-Reactive: HBsAg not detected; does not exclude the possibility of exposure to HBV Hematocrit Auto (Bld) [Volum e fraction]Ordered By: Karina Venegas on 07-04-2024 Hematocrit (Bld) [Volume fraction] 38.3 % 37-47 [facility] Hemoglobin A1con 07-04-2024 HbA1c (Bld) [Mass fraction] 5.3 % Low <=5.6 [facility] Comment on above: Performed By: #### L 3890.6006, L509.4006, L501.9985, L3890.6102, BTS, L3890.6301, L100.0100, L509.8002, L900.0098 ####[facility] [address] [place], [address] Hemoglobin A1c percentageOrd ered By: Karina Venegas on 07-04-2024 HbA1c (Bld) [Mass fraction] 5.3 % Low >5.7 [facility] Hemoglobin measurementOrdere d By: Karina Venegas on 07-04-2024 Hemoglobin (Bld) [Mass/Vol] 13.2 g/dL 12.0-15.0 [facility] Hepatitis C antibodyOrdered By: Karina Venegas on 07-04-2024 Hepatitis C Antibody Non-Reactive Nonreactive [facility] Comment on above: Reactive: Presumptiv e evidence of antibodies to HCV. Follow CDC recommendations for supplemental testing.Non-Reactive: Antibodies to HCV were not detected; does not exclude the possibility of exposure to HCVReactive Results are presumptive evidence of antibodies to HCV. Follow CDC recommendations for supplemental testing.Order confirmation testing: HCV Quant by PCR testing - [facility]PCR #[id number] Non Reactive: < 0.8 Equivocal: >/= 0.8 to < 1.0 Reactive: >/= 1.0The CDC requires that a reactive/equivocal HCV antibody result be sent out for confirmation. HCV Quant by PCR testing. Immature granulocytes/100 WB C Auto (Bld)Ordered By: Karina Venegas on 07-04-2024 Immature granulocytes/100 WBC (Bld) 0.300 % 0.0-0.9 [facility] Comment on above: IG% - Immature Granu locytes (promyelocytes, myelocytes and metamyelocytes) > 1% indicates that a LEFT SHIFT is Present. L3890.6006on 07-04-2024 HIV Non-Reactive Normal Nonreactive [facility] Comment on above: Result Comment: Non- Reactive Reactive Repeatedly reactive samples must be confirmed according to CDC recommended confirmatory algorithms. The subresults for either HIVAG or AHIV can be used as an aid in the selection of the confirmation algorithm for reactive samples. [facility] specimens with [facility]. Order the HIV antibody detection and differentiation: [id number] Performed By: #### L 3890.6006, L509.4006, L501.9985, L3890.6102, BTS, L3890.6301, L100.0100, L509.8002, L900.0098 ####[facility] [address] [facility]. [place], [place], [id number] L3890.6102on 07-04-2024 HEP B Surf Ag Non-Reactive Normal Nonreactive [facility] Comment on above: Result Comment: Reac tive: Presumptive evidence of HBV. Repeatedly reactive samples must be confirmed using a neutralization test ([facility] HBsAg Confirmatory Test) Non-Reactive: HBsAg not detected; does not exclude the possibility of exposure to HBV Performed By: #### L 3890.6006, L509.4006, L501.9985, L3890.6102, BTS, L3890.6301, L100.0100, L509.8002, L900.0098 ####[facility] [address] [facility]. [place], [place], [id number] L3890.6301on 07-04-2024 Hepatitis C Ab Non-Reactive Normal Nonreactive [facility] Comment on above: Result Comment: Reac tive: Presumptive evidence of antibodies to HCV. Follow CDC recommendations for supplemental testing. Non-Reactive: Antibodies to HCV were not detected; does not exclude the possibility of exposure to HCV Reactive Results are presumptive evidence of antibodies to HCV. Follow CDC recommendations for supplemental testing. Order confirmation testing: HCV Quant by PCR testing - HCVPCR lc#[id number] Non Reactive: < 0.8 Equivocal: >/= 0.8 to < 1.0 Reactive: >/= 1.0 The CDC requires that a reactive/equivocal HCV antibody result be sent out for confirmation. HCV Quant by PCR testing. Performed By: #### L 3890.6006, L509.4006, L501.9985, L3890.6102, BTS, L3890.6301, L100.0100, L509.8002, L900.0098 ####[facility] [address] [place], [address] L509.4006on 07-04-2024 Rubella IgG REAC Normal Nonreactive [facility] Comment on above: Result Comment: Anti body Result: Interpretation Non-Reactive: Non-Immune Reactive: Immune The following results were obtained with the Elecsys Rubella IgG assay. Results from assays of other manufacturers cannot be used interchangeably. Performed By: #### L 3890.6006, L509.4006, L501.9985, L3890.6102, BTS, L3890.6301, L100.0100, L509.8002, L900.0098 ####[facility] [address] [place], [address] L509.8002on 07-04-2024 Syphilis Abs Non-Reactive Normal Nonreactive [facility] Comment on above: Performed By: #### L 3890.6006, L509.4006, L501.9985, L3890.6102, BTS, L3890.6301, L100.0100, L509.8002, L900.0098 ####[facility] [address] [facility] [place], [address] Laboratory - Microbiology an d Antimicrobial susceptibilityOrdered By: Karina Venegas on 07-04-2024 HBV surface Ag Ql (S) Non-Reactive Nonreactive [facility] Comment on above: Reactive: Presumptiv e evidence of HBV. Repeatedly reactive samples must be confirmed using a neutralization test (Elecsys HBsAg Confirmatory Test)Non-Reactive: HBsAg not detected; does not exclude the possibility of exposure to HBV Lymphocytes Auto (Unsp spec) [#/Vol]Ordered By: Karina Venegas on 07-04-2024 Lymphocytes (Bld) [#/Vol] 2.31 10*3/uL 0.83-4.51 [facility] Lymphocytes/100 WBC Auto (Un sp spec)Ordered By: Karina Venegas on 07-04-2024 Lymphocytes/100 WBC (Bld) 23.3 % 19-41 [facility] MCV (mean corpuscular volume ) determinationOrdered By: Karina Venegas on 07-04-2024 MCV (RBC) [Entitic vol] 84.2 fL 81-99 [facility] Mean corpuscular hemoglobin (MCH) determinationOrdered By: Karina Venegas on 07-04-2024 MCH (RBC) [Entitic mass] 29.0 pg 27.0-32.0 [facility] Mean corpuscular hemoglobin concentration (MCHC) determinationOrdered By: Karina Venegas on 07-04-2024 MCHC (RBC) [Mass/Vol] 34.5 g/dL 32-36 [facility] Mean platelet volume determi nationOrdered By: Karina Venegas on 07-04-2024 Platelet mean volume (Bld) [Entitic vol] 9.4 fL 6.2-12.0 [facility] Miscellaneous procedureOrder ed By: Karina Venegas on 07-04-2024 Miscellaneous Test Comment SEE SCANNED REPORT [facility] Monocyte percentageOrdered B y: Karina Venegas on 07-04-2024 Monocytes/100 WBC (Bld) 3.5 % 0-10 [facility] NATERAon 07-04-2024 NATURA SEE SCANNED REPORT Normal [facility] Comment on above: Order Comment: Comme nts: NIPT with gender carrier testing Performed By: #### L 3890.6006, L509.4006, L501.9985, L3890.6102, BTS, L3890.6301, L100.0100, L509.8002, L900.0098 ####[facility] [address] [place], [place], [id number] Neutrophil percentageOrdered By: Karina Venegas on 07-04-2024 Neutrophils/100 WBC (Bld) 72.2 % High 47-70 [facility] No Panel InformationOrdered By: Karina Venegas on 07-04-2024 HIV (1&2) Antibody Non-Reactive Nonreactive [facility] Comment on above: Non-ReactiveReactive Repeatedly reactive samples must be confirmed according to CDC recommended confirmatory algorithms. The subresults for either HIVAG or AHIV can be used as an aid in the selection of the confirmation algorithm for reactive samples.Send out specimens with Reactive results to [facility] for confirmation.Order the HIV antibody detection and differentiation: #[id number] Nucleated red blood cell per centageOrdered By: Karina Venegas on 07-04-2024 Nucleated RBC/100 WBC (Bld) [Ratio] 0 % 0-5 [facility] Platelet countOrdered By: Richmond Venegas on 07-04-2024 Platelets (Bld) [#/Vol] 258 10*3/uL 150-450 [facility] RBC Auto (Bld) [#/Vol]Ordere d By: Karina Venegas on 07-04-2024 RBC (Bld) [#/Vol] 4.55 10*6/uL 4.2-5.4 [facility] Rubella immune status determ ination by IgG antibody assayOrdered By: Karina Venegas on 07-04-2024 Rubella IgG Antibody REAC Nonreactive [facility] Comment on above: Antibody Result: Int erpretationNon-Reactive: Non-ImmuneReactive: ImmuneThe following results were obtained with the Elecsys Rubella IgG assay. Results from assays of other manufacturers cannot be used interchangeably. T. pallidum abOrdered By: Richmond Venegas on 07-04-2024 Syphilis Total Antibody Non-Reactive Nonreactiv e [facility] Type AND Screenon 07-04-2024 Ab SCREEN GEL Negative Normal [facility] Comment on above: Order Comment: PN Performed By: #### L 3890.6006, L509.4006, L501.9985, L3890.6102, BTS, L3890.6301, L100.0100, L509.8002, L900.0098 ####[facility] [address] [place], [place], [address] White blood cell (WBC) count Ordered By: Karina Venegas on 07-04-2024 WBC (Bld) [#/Vol] 9.9 10*3/uL 4.4-11.0 [facility] PAP I-G w/rfx hrHPV-Aptimaon 06-27-2024 ADEQ Comment Normal . [facility] Comment on above: Order Comment: Speci men Comment: [id number] Comment: Source.............CervixSpecimen Comment: LMP / Prev Treat...[id number] Comment: Other..............Specimen Comment: No. of containers..01 ThinPrep Vial Result Comment: Sati sfactory for evaluation. Endocervical and/or squamous metaplastic cells (endocervical component) are present. Performed By: #### M 100.2200, L7000.1800, L7400.0353 ####[facility] [address] [facility]. [place], [place], [id number] COMM . Normal . [facility] Comment on above: Order Comment: Speci men Comment: [id number] Comment: Source.............CervixSpecimen Comment: LMP / Prev Treat...[id number] Comment: Other..............Specimen Comment: No. of containers..01 ThinPrep Vial Performed By: #### M 100.2200, L7000.1800, L7400.0353 ####[facility] [address] [facility]. [place], [place], [address] COMMENT Comment Normal . [facility] Comment on above: Order Comment: Speci men Comment: [id number] Comment: Source.............CervixSpecimen Comment: LMP / Prev Treat...[id number] Comment: Other..............Specimen Comment: No. of containers..01 ThinPrep Vial Result Comment: This liquid based ThinPrep(R) pap test was screened with the use of an image guided system. Performed By: #### M 100.2200, L7000.1800, L7400.0353 ####[facility] [address] [place], [place], [id number] DIAG Comment Normal . [facility] Comment on above: Order Comment: Speci men Comment: [id number] Comment: Source.............CervixSpecimen Comment: LMP / Prev Treat...[id number] Comment: Other..............Specimen Comment: No. of containers..01 ThinPrep Vial Result Comment: NEGA TIVE FOR INTRAEPITHELIAL LESION OR MALIGNANCY. THIS SPECIMEN WAS RESCREENED PART OF OUR STREET CLEANER PROGRAM. Performed By: #### M 100.2200, L7000.1800, L7400.0353 ####[facility] [address] [place], [place], [id number] HPV RFLX Comment Normal . [facility] Comment on above: Order Comment: Speci men Comment: [id number] Comment: Source.............CervixSpecimen Comment: LMP / Prev Treat...[id number] Comment: Other..............Specimen Comment: No. of containers..01 ThinPrep Vial Result Comment: The HPV DNA reflex criteria were not met with this specimen result therefore, no HPV testing was performed. Performed at: [address] [id number] Plaster Block Layer: Kathleen Plata MD, Phone: [phone] Performed at: [facility] [address] [address] [place], [place] [id number] Plaster Block Layer: Hermann Zee MD, Phone: [phone] Performed By: #### M 100.2200, L7000.1800, L7400.0353 ####[facility] [address] [place], [place], [id number] PAPSMR Comment Normal . [facility] Comment on above: Order Comment: Speci men Comment: [id number] Comment: Source.............CervixSpecimen Comment: LMP / Prev Treat...[id number] Comment: Other..............Specimen Comment: No. of containers..01 ThinPrep [...] Performed By: #### M 100.2200, L7000.1800, L7400.0353 ####[facility] [address] [place], [place], [address] PERFORM Comment Normal . [facility] Comment on above: Order Comment: Speci men Comment: [id number] Comment: Source.............CervixSpecimen Comment: LMP / Prev Treat...[id number]=[id number] Comment: Other..............Specimen Comment: No. of containers..01 ThinPrep Vial Result Comment: Maisha Roberts Requirements Engineer (ASCP) Performed By: #### M 100.2200, L7000.1800, L7400.0353 ####[facility] [address] [place], [place], [address] QC REV Comment Normal . [facility] Comment on above: Order Comment: Speci men Comment: [id number] Comment: Source.............CervixSpecimen Comment: LMP / Prev Treat...[id number] Comment: Other..............Specimen Comment: No. of containers..01 ThinPrep Vial Result Comment: Robert Flowers, Requirements Engineer Performed By: #### M 100.2200, L7000.1800, L7400.0353 ####[facility] [address] [place], [address] Chlamydia/GC LANNY aptimaon CHLAMY,NUC ACID Negative Normal Negative [facility] Comment on above: Performed By: #### M 100.2200, L7000.1800, L7400.0353 ####[facility] [address] [place], [address] GC BY NUC ACID Negative Normal Negative [facility] Comment on above: Result Comment: Perf ormed at: =G - [facility] [id number] Plaster Block Layer: Kathleen Plata MD, Phone: [phone] Performed By: #### M 100.2200, L7000.1800, L7400.0353 ####[facility] [address] [place], [address] Urine Cultureon 06-21-2024 URC Culture exhibits no growth. Normal [facility] Comment on above: Performed By: #### M 100.2200, L7000.1800, L7400.0353 ####[facility] [address] [place], [address] C. trachomatis rRNA LANNY+prob e Ql (Unsp spec)Ordered By: Karina Venegas on 06-20-2024 Chlamydia DNA (LANNY) Negative Negative [facility] Cervical or vagninal specime n microscopic examination by cytology stain (reported asOrdered By: Karina Venegas on 06-20-2024 Cytology report Cyto stain Doc (Cvx/Vag) Comment . [facility] Comment on above: The Pap smear [...] rRNA LANNY+probe Ql (Unsp spec) Negative Negative [facility] Web Press Roll Tender Cyto stain Nom (C vx/Vag) [ID]Ordered By: Karina Venegas on 06-20-2024 Pap Smear Performed By Comment . [facility] Comment on above: Jovita Roberts, Cyto technologist (ASCP) Cytology report Cyto stain D oc (Cvx/Vag)Ordered By: Karina Venegas on 06-20-2024 Thin Prep Pap Smear Comment . [facility] Comment on above: The Pap smear is a s creening test designed to aid in thedetection of premalignant and malignant conditions of theuterine cervix. It is not a diagnostic procedure andshould not be used as the sole means of detecting cervicalcancer. Both false-positive and false-negative reports dooccur. Image-guided ThinPrep PapOrd ered By: Karina Venegas on 06-20-2024 Pap Smear Note Comment . [facility] Comment on above: This liquid based Th inPrep(R) pap test was screened withthe use of an image guided system. Image-guided liquid-based Pa pOrdered By: Karina Venegas on 06-20-2024 Pap Smear Diagnosis Comment . [facility] Comment on above: NEGATIVE FOR INTRAEP ITHELIAL LESION OR MALIGNANCY.THIS SPECIMEN WAS RESCREENED PART OF OUR STREET CLEANER PROGRAM. Image-guided liquid-based ce rvical Pap w high-risk HPV+reflex to HPV 16+18Ordered By: Karina Veneags on 06-20-2024 Human Papillomavirus Screen Comment . [facility] Comment on above: The HPV DNA reflex violet jacob were not met with this specimenresult therefore, no HPV testing was performed.Performed at: [facility] - [facility] [address] [id number] Director: Kathleen Plata MD, Phone: [phone] at: [facility] [place] [address] [place], [place] [id number] Director: Hermann Zee MD, Phone: [phone] Laboratory - CytologyOrdered By: Karina Venegas on 06-20-2024 Web Press Roll Tender Cyto stain Nom (Cvx/Vag) [ID] Comment . [facility] Comment on above: Jovita Roberts, Cyto technologist (ASCP) Laboratory - Miscellaneous t estsOrdered By: Karina Venegas on 06-20-2024 Service comment (Unsp spec) [Interp] . . [facility] Neisseria gonorrhoeae nuclei c acid detection by amplified probe techniqueOrdered By: Karina Venegas on 06-20-2024 N. gonorrhoeae DNA LANNY+probe Ql (Unsp spec) Negative Negative [facility] Comment on above: Performed at: =[facility] - [facility] [address] [id number] Director: Kathleen Plata MD, Phone: [phone] No Panel InformationOrdered By: Karina Venegas on 06-20-2024 Pap Smear QC Review Comment . [facility] Comment on above: Brenda Flowers, Cyto technologist Pap Smear Specimen Adequacy Comment . [facility] Comment on above: Satisfactory for mary luation. Endocervical and/or squamous metaplasticcells (endocervical component) are present. 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 Normal [facility] Service comment (Unsp spec) [Interp]Ordered By: Karina Venegas on 06-20-2024 Pap Smear Comment (3) . . [facility] Urine cultureOrdered By: Amalia Venegas on 06-20-2024 Bacteria identified Cx Nom (U) Culture exhibits no growth. [facility] Basophil percentageOrdered B y: Ji Baer on 04-13-2023 Chloride [Moles/Vol] 107 mmol/L 98-107 [facility] Glucose [Mass/Vol] 81 mg/dL 74-106 [facility] Potassium [Moles/Vol] 3.9 mmol/L 3.5-5.1 [facility] Sodium [Moles/Vol] 140 mmol/L 136-145 [facility] Laboratory - Chemistry and C hemistry - challengeOrdered By: Ji Baer on 04-13-2023 CO2 [Moles/Vol] 24.0 mmol/L 21.0-32.0 [facility] Urea nitrogen/Creatinine [Mass ratio] 17.9 mg/mg 10-20 [facility] Laboratory - Chemistry and C hemistry - challengeon 04-13-2023 Bilirubin Ql (U) Negative [facility] Glucose Ql (U) Negative [facility] HCG ( test) Ql (U) Negative [facility] Ketones Ql (U) Negative [facility] pH (U) 5.0 [pH] [facility] Specific gravity (U) [Rel density] 1.005 [facility] Urobilinogen (U) [Mass/Vol] 1 mg/dL [facility] Laboratory - Hematology and Cell countson 04-13-2023 Hemoglobin Ql (U) Trace [facility] Laboratory - Specimen inform ationon 04-13-2023 Clarity (U) Cloudy [facility] Color (U) STRAW [facility] Laboratory - Urinalysison Nitrite Ql (U) Negative [facility] Protein Ql (U) Negative [facility] No Panel InformationOrdered By: Ji Baer on 04-13-2023 Estimated GFR (MDRD) Amer 125 mL/min >60 [facility] Comment on above: GFR Calc Estimated GFR (MDRD) Non-Af Amer 103 mL/min >60 [facility] Comment on above: Non- GFR Calc No Panel Informationon 04-13 Urine Leukocytes Positive [facility] Urine Non-Hemolyzed Blood Non-Hemolyzed [facility] Serum or plasma calcium aubree urement (mass/volume)Ordered By: Ji Baer on 04-13-2023 Calcium [Mass/Vol] 9.5 mg/dL 8.5-10.1 [facility] Serum or plasma creatinine m easurement (mass/volume)Ordered By: Ji Baer on 04-13-2023 Creatinine [Mass/Vol] 0.73 mg/dL 0.55-1.02 [facility] Comment on above: The validity of the calculated GFR & GFRAA in patients over 70 years has not been determined. Clinical correlation is essential. Serum or plasma urea nitroge n measurement (mass/volume)Ordered By: Ji Baer on 04-13-2023 Urea nitrogen [Mass/Vol] 13 mg/dL 7-18 [facility] Thin prep Papanicolaou smear with manual screeningOrdered By: Ji Baer on 04-13-2023 Thin prep Papanicolaou smear with manual screening 9 5-15 [facility] Chlamydia trachomatis rRNA d etection by probe and target amplification methodon 07-17-2021 C. trachomatis rRNA LANNY+probe Ql (Unsp spec) Negative Negative [facility] Work Phone: Laboratory - Microbiology an d Antimicrobial susceptibilityon 07-17-2021 N. gonorrhoeae DNA LANNY+probe Ql (Unsp spec) Negative Negative [facility] Work Phone: Comment on above: Performed at: =[facility] [address] [id number] Director: Kathleen Plata MD, Phone: [phone] Laboratory - Chemistry and C hemistry - challengeon 03-24-2021 Free T4 [Mass/Vol] 0.92 ng/dL 0.76-1.46 [facility] Work Phone: No Panel Informationon 03-24 Thyroid Stimulating Hormone (TSH) 1.01 uIU/mL 0.358-3.74 [facility] Work Phone: .GFRon 06-01-2017 eGFR (non-black) mL/min/{1.73_m2} Normal [facility] [place] Comment on above: Result Comment: GFR Population [...] meters Performed By: #### B MP, GFR ####[place] [address] BMPon 06-01-2017 BUN/Creatinine Ratio 22.1 ratio High 10.0-22.0 [facility] ([place]) Comment on above: Performed By: #### B MP, GFR ####[place] [address] Calcium 9.6 mg/dL Normal 8.4-10.1 [facility] ([place]) Comment on above: Performed By: #### B MP, GFR ####[place] [address] Chloride 108 mmol/L Normal 98-110 [facility] ([place]) Comment on above: Performed By: #### B MP, GFR ####[place] [address] CO2 28 mmol/L Normal 22-32 [facility] ([place]) Comment on above: Performed By: #### B MP, GFR ####[place] [address] Creatinine 0.68 mg/dL Normal 0.50-1.20 [facility] ([place]) Comment on above: Performed By: #### B MP, GFR ####[place] [address] Electrolyte Balance 7.0 mEq/L Normal 4.0-15.0 [facility] ([place]) Comment on above: Performed By: #### B MP, GFR ####[place] [address] Glucose mass conc 107 mg/dL Normal 70-110 [facility] ([place]) Comment on above: Performed By: #### B MP, GFR ####[place] [address] Potassium molar conc 3.9 mmol/L Normal 3.5-5.0 [facility] ([place]) Comment on above: Performed By: #### B MP, GFR ####[place] [address] Sodium 143 mmol/L Normal 136-145 [facility] ([place]) Comment on above: Performed By: #### B MP, GFR ####[place] [address] Urea nitrogen 15.0 mg/dL Normal 8.0-22.0 [facility] ([place]) Comment on above: Performed By: #### B MP, GFR ####[address] [address] ED Note-Provideron 8 ED Note-Provider Normal [facility] ([place]) Pat Eduon 06-01-2017 Pat Edu Normal [facility] ([place]) Patient Summary Documentson 06-01-2017 Patient Summary Documents Normal [facility] ([place]) UAon 06-01-2017 UA Appear Cloudy Abnormal [facility] ([place]) Comment on above: Performed By: #### U A, UAMIC ####[address] [address] UA Blood Large Abnormal Neg-Trace [facility] ([place]) Comment on above: Performed By: #### U A, UAMIC ####[place] [address] UA Leuk Est Small Abnormal Negative [facility] ([place]) Comment on above: Performed By: #### U A, UAMIC ####[place] [address] UA Nitrite Negative Normal Negative [facility] ([place]) Comment on above: Performed By: #### U A, UAMIC ####[place] [address] UA pH 6.5 Normal 5.0 - 8.0 [facility] ([place]) Comment on above: Performed By: #### U A, UAMIC ####[place] [address] UA Protein 100 mg/dL Abnormal Negative [facility] ([place]) Comment on above: Performed By: #### U A, UAMIC ####[place] [address] UA Spec Grav 1.015 Normal [facility] ([place]) Comment on above: Performed By: #### U A, UAMIC ####[place] [address] UA Specimen Type Clean Catch Normal [facility] ([place]) Comment on above: Performed By: #### U A, UAMIC ####[place] [address] UA Urobilinogen 0.2 E.U./dL Normal [facility] ([place]) Comment on above: Performed By: #### U A, UAMIC ####[place] [address] Urine, color Straw Normal [facility] ([place]) Comment on above: Performed By: #### U A, UAMIC ####[place] [address] Urine, glucose Negative Normal Negative [facility] ([place]) Comment on above: Performed By: #### U A, UAMIC ####[place] [address] Urine, ketones presence Negative Normal Negative A [facility] ([place]) Comment on above: Performed By: #### U A, UAMIC ####[place] [address] Urine, urobilinogen Negative Normal Neg-Trace [facility] ([place]) Comment on above: Performed By: #### U A, UAMIC ####[place] [address] UAMICon 06-01-2017 UA Bacteria 4+ /hpf Abnormal Negative [facility] ([place]) Comment on above: Performed By: #### U A, UAMIC ####[place] [address] UA Squam Epithelial 0-2 Normal 0-20 [facility] ([place]) Comment on above: Performed By: #### U A, UAMIC ####[place] [address] UA WBC 50-100 Abnormal 0-5 [facility] ([place]) Comment on above: Performed By: #### U A, UAMIC ####[place] [address] Urine, erythrocytes 5-10 Abnormal 0-2 [facility] ([place]) Comment on above: Performed By: #### U A, UAMIC ####[place] [address] CNOVon 12-31-2016 CNOV Office Visit (UCWSTR) BENJAMIN CHETNA Lewis I ([id number]) 1995 FDate Time Provider Department12/31/16 3:30 PM VÍCTOR KELLEY) [facility] During your visit today, we recorded the following information about you: Temperature Pulse Respiration Blood pressure 97.9 degrees 72/minute 16/minute 120/80 Weight Last Period 86.7 kg 12/28/16Víctor Kelley CNP 12/31/2016 4:16 PM [facility] Chetna Gamez is a 21 year [...] spread bycoughs, sneezes, and direct contact, especially jxat-fz-pyei. A respiratorytract infection usually clears up in [...] 12/31/2016(No Known Allergies)Date Reviewed: 12/31/2016Reviewed by: Víctor RayP[facility]) [facility] AssessedReason for Visit: Head Congestion [234] Cmt: x4 daysPrimary Visit Diagnosis:URI, acute [J06.9]Order(s):flutica sone (FLONASE) 50 mcg/actuation nasal sprayUse 2 Sprays in each nostril once daily. Rinse mouth after use.Disp: 1 BottleRfl: 1 RAPID STREP TEST B/O [[id number]] Order #: [id number] as of 12/31/2016 Sig: FLUTICASONE 50 MCG/ACTUATION [...] by coughs, sneezes, and direct contact, especially [id number]. A respiratory tract infection usually clears up [...] use.Letter TextWoosterDepartment of Urgent CareVíctor Kelley CNP[address], [place] [address]Kctvu: [phone] Gamez CCF# [id number] [address] [facility] [id number] WHOM IT MAY CONCERN:This is to confirm that Chetna Gamez had an appointment [facility] by Trisha Suazo 12/31/2016.Sincerely yours,Víctor Kelley CNPEncounter Number: [id number] Status:Closed by VÍCTOR KELLEY CNP on 12/31/16 [facility] PROGRESSon 12-31-2016 PROGRESS HNO ID: [id number]: Víctor (Lesvia) Service: (none)Author Type: Nurse PractitionerType: Progress NotesFiled: 12/31/2016 4:16 PMNote Text:HPIHPI Chetna Gamez is a 21 year old female who presents today for CC ofsinus congestion. This started 4 days ago. Has tried multiple otcmedications with little relief. Risk factors [facility]. Denies possibility of being .Review of [...] agreeable to treatment plan.Víctor Kelley CNP [facility] Vital Signs Date Time Vital Sign Value Performing Clinician Faci marques 01-10-2025 14:11-0400 Body height 175.[address] Coco Baer MD Work Phone: [facility] 01-10-2025 14:11-0400 Body mass index (BMI) [Ratio] 37 kg/m2 Dr. Coco Baer MD Work Phone: 4(748)715-529485 [place] [address] 01-10-2025 14:11-0400 Body weight 113.[address] Coco Baer MD Work Phone: 9(656)078-402210 [place] [address] 01-10-2025 14:11-0400 Diastolic blood pressure 81 mm[Hg] Dr. Coco Baer MD Work Phone: 2(628)989-043210 [place] [address] 01-10-2025 14:11-0400 Systolic blood pressure 114 mm[Hg] Dr. Coco Baer MD Work Phone: 6(273)278-699310 [place] [address] 01-03-2025 14:43-0400 Body height 175.[address] Coco Baer MD Work Phone: 2(333)090-774310 [place] [address] 01-03-2025 14:43-0400 Body mass index (BMI) [Ratio] 37.3 kg/m2 Dr. Coco Baer MD Work Phone: 5(095)903-255410 [place] [address] 01-03-2025 14:43-0400 Body weight 114.[address] Coco Baer MD Work Phone: 1(127)495-515110 [place] [address] 01-03-2025 14:43-0400 Diastolic blood pressure 84 mm[Hg] Dr. Coco Baer MD Work Phone: 0(687)953-253185 [place] [address] 01-03-2025 14:43-0400 Systolic blood pressure 128 mm[Hg] Dr. Coco Baer MD Work Phone: 8(131)170-670110 [place] [address] 12-25-2024 15:03-0400 Body height 175.[address] Coco Baer MD Work Phone: 7(737)929-327310 [place] [address] 12-25-2024 15:03-0400 Body mass index (BMI) [Ratio] 36.6 kg/m2 Dr. Coco Baer MD Work Phone: 4(074)970-374185 [place] [address] 12-25-2024 15:03-0400 Body weight 112.[address] Coco Baer MD Work Phone: 1(864)289-568385 [place] [address] 12-25-2024 15:03-0400 Diastolic blood pressure 85 mm[Hg] Dr. Coco Baer MD Work Phone: 5(995)422-819408 [address] 12-25-2024 15:03-0400 Systolic blood pressure 131 mm[Hg] Dr. Coco Baer MD Work Phone: 2(971)269-237210 [place] [address] 12-11-2024 13:27-0400 Body height 175.[address] Coco Baer MD Work Phone: 7(217)292-617810 [place] [address] 12-11-2024 13:23-0400 Body mass index (BMI) [Ratio] 36.6 kg/m2 Dr. Coco Baer MD Work Phone: 9(826)155-372810 [place] [address] 12-11-2024 13:23-0400 Body weight 112.[address] Coco Baer MD Work Phone: 8(229)453-338510 [place] [address] 12-11-2024 13:23-0400 Diastolic blood pressure 82 mm[Hg] Dr. Coco Baer MD Work Phone: 2(380)540-861210 [place] [address] 12-11-2024 13:23-0400 Systolic blood pressure 124 mm[Hg] Dr. Coco Baer MD Work Phone: 9(776)400-194110 [place] [address] 11-26-2024 13:11-0400 Body height 175.[address] Coco Baer MD Work Phone: 7(836)938-666610 [place] [address] 11-26-2024 13:11-0400 Body mass index (BMI) [Ratio] 36.2 kg/m2 Dr. Coco Baer MD Work Phone: 9(547)616-004910 [place] [address] 11-26-2024 13:11-0400 Body weight 111.[address] Coco Baer MD Work Phone: 2(064)098-100910 [place] [address] 11-26-2024 13:11-0400 Diastolic blood pressure 78 mm[Hg] Dr. Coco Baer MD Work Phone: [facility] 11-26-2024 13:11-0400 Systolic blood pressure 124 mm[Hg] Dr. Coco Baer MD Work Phone: 3(155)431-728685 [place] [address] 11-13-2024 13:46-0400 Body height 175.[address] Coco Baer MD Work Phone: 8(075)612-236608 [address] 11-13-2024 13:43-0400 Body mass index (BMI) [Ratio] 35.7 kg/m2 Dr. Coco Baer MD Work Phone: 7(596)143-235410 [place] [address] 11-13-2024 13:43-0400 Body weight 109.[address] Coco Baer MD Work Phone: 2(303)763-539010 [place] [address] 11-13-2024 13:43-0400 Diastolic blood pressure 81 mm[Hg] Dr. Coco Baer MD Work Phone: 3(515)820-598810 [place] [address] 11-13-2024 13:43-0400 Systolic blood pressure 120 mm[Hg] Dr. Coco Baer MD Work Phone: 0(698)452-811208 [address] 10-29-2024 13:49-0400 Body height 175.[address] Coco Baer MD Work Phone: 8(158)188-291110 [place] [address] 10-29-2024 13:48-0400 Body mass index (BMI) [Ratio] 35.9 kg/m2 Dr. Coco Baer MD Work Phone: 5(573)506-282885 [place] [address] 10-29-2024 13:48-0400 Body weight 110.[address] Coco Baer MD Work Phone: 1(559)283-802110 [place] [address] 10-29-2024 13:48-0400 Diastolic blood pressure 76 mm[Hg] Dr. Coco Baer MD Work Phone: 8(376)244-209710 [place] [address] 10-29-2024 13:48-0400 Systolic blood pressure 125 mm[Hg] Dr. Coco Baer MD Work Phone: 8(349)769-538285 [place] [address] 10-15-2024 14:50-0400 Body height 175.[address] Coco Baer MD Work Phone: 8(916)168-282685 [place] [address] 10-15-2024 14:50-0400 Body mass index (BMI) [Ratio] 35.8 kg/m2 Dr. Coco Baer MD Work Phone: 9(505)531-004410 [place] [address] 10-15-2024 14:50-0400 Body weight 109.[address] Coco Baer MD Work Phone: 4(530)800-166310 [place] [address] 10-15-2024 14:50-0400 Diastolic blood pressure 77 mm[Hg] Dr. Coco Baer MD Work Phone: 8(477)479-704310 [place] [address] 10-15-2024 14:50-0400 Systolic blood pressure 126 mm[Hg] Dr. Coco Baer MD Work Phone: 3(078)310-079610 [place] [address] 09-17-2024 13:45-0400 Body height 175.[address] Coco Baer MD Work Phone: 6(322)016-417810 [place] [address] 09-17-2024 13:45-0400 Body mass index (BMI) [Ratio] 35.7 kg/m2 Dr. Coco Baer MD Work Phone: 0(665)382-152710 [place] [address] 09-17-2024 13:45-0400 Body weight 109.[address] Coco Baer MD Work Phone: 4(230)921-319410 [place] [address] 09-17-2024 13:45-0400 Diastolic blood pressure 82 mm[Hg] Dr. Coco Baer MD Work Phone: 0(080)395-901410 [place] [address] 09-17-2024 13:45-0400 Systolic blood pressure 124 mm[Hg] Dr. Coco Baer MD Work Phone: 4(019)355-980910 [place] [address] 08-20-2024 13:44-0400 Body height 175.[address] Coco Baer MD Work Phone: 5(977)590-419110 [place] [address] 08-20-2024 13:43-0400 Body mass index (BMI) [Ratio] 34.9 kg/m2 Dr. Coco Baer MD Work Phone: [facility] 08-20-2024 13:43-0400 Body weight 107.[address] Coco Baer MD Work Phone: [facility] 08-20-2024 13:43-0400 Diastolic blood pressure 82 mm[Hg] Dr. Coco Baer MD Work Phone: 8(746)817-964185 [place] [address] 08-20-2024 13:43-0400 Systolic blood pressure 121 mm[Hg] Dr. Coco Baer MD Work Phone: 7(410)137-613310 [place] [address] 07-23-2024 13:51-0400 Body mass index (BMI) [Ratio] 34.7 kg/m2 Dr. Coco Baer MD Work Phone: 3(110)794-723008 [address] 07-23-2024 13:51-0400 Body weight 106.[address] Coco Baer MD Work Phone: 1(024)627-948210 [place] [address] 07-23-2024 13:51-0400 Diastolic blood pressure 85 mm[Hg] Dr. Coco Baer MD Work Phone: 5(586)843-492208 [address] 07-23-2024 13:51-0400 Systolic blood pressure 133 mm[Hg] Dr. Coco Baer MD Work Phone: 2(534)969-482008 [address] 06-20-2024 14:06-0400 Body height 175.[address] Coco Baer MD Work Phone: 3(448)012-804708 [address] 06-20-2024 14:06-0400 Body mass index (BMI) [Ratio] 35 kg/m2 Dr. Coco Baer MD Work Phone: 6(405)708-813008 [address] 06-20-2024 14:06-0400 Body weight 107.[address] Coco Baer MD Work Phone: 7(839)833-736308 [address] 06-20-2024 14:06-0400 Diastolic blood pressure 84 mm[Hg] Dr. Coco Baer MD Work Phone: 0(628)263-170308 [address] 06-20-2024 14:06-0400 Systolic blood pressure 128 mm[Hg] Dr. Coco Baer MD Work Phone: [facility] 04-13-2023 11:42-0500 Body temperature 97.8 [degF] Dr. Ji Baer Work Phone: [facility] 04-13-2023 11:42-0500 Diastolic blood pressure 72 mm[Hg] Dr. Ji Baer Work Phone: [facility] 04-13-2023 11:42-0500 Heart rate 66 /min Dr. Ji Baer Work Phone: [facility] 04-13-2023 11:42-0500 Respiratory rate 16 /min Dr. Ji Baer Work Phone: [facility] 04-13-2023 11:42-0500 SaO2% (BldA) [Mass fraction] 100 % Dr. Ji Baer Work Phone: [facility] 04-13-2023 11:42-0500 Systolic blood pressure 102 mm[Hg] Dr. Ji Baer Work Phone: [facility] 07-17-2021 10:05-0400 Body height 175.[address] Ji Baer Work Phone: [facility] Work Phone: 07-17-2021 10:05-0400 Body mass index (BMI) [Ratio] 32.5 kg/m2 Dr. Ji Baer Work Phone: [facility] Work Phone: 07-17-2021 10:05-0400 Body weight 99.[address] Ji Baer Work Phone: [facility] Work Phone: 07-17-2021 10:05-0400 Diastolic blood pressure 90 mm[Hg] Dr. Ji Baer Work Phone: [facility] Work Phone: 07-17-2021 10:05-0400 Systolic blood pressure 124 mm[Hg] Dr. Ji Baer Work Phone: [facility] Work Phone: Encounters Encounter Date Encounter Type Care Provider Facility Start: 01-23-2025 ambulatory Coco Baer Faci lity:[facility] Start: 01-22-2025 End: 01-22-2025 ambulatory [facility] Facility:[facility] Start: 01-22-[address] [facility] Kam Venegas Fa cility:[facility] Start: 01-17-2025 End: 01-17-2025 ambulatory [facility] Facility:[facility] Start: 01-10-2025 End: 01-10-[address] Mayelin Garcia MD -[facility] Work Phone: Start: 01-10-2025 End: 01-10-[address] Coco Baer MD Work Phone: -[facility] Start: 01-08-[address] Karina Bravo DO -[facility] Work Phone: Start: 01-08-2025 End: 01-08-2025 ambulatory Karina Bravo Facility:[facility] Start: 01-03-2025 End: 01-03-[address] Karina Bravo DO -[facility] Work Phone: Start: 01-03-2025 End: 01-03-[address] Coco Baer MD Work Phone: -[facility] Start: 12-25-2024 End: 12-25-2024 Patient encounter procedure Tomi Cavanaugh CNM -[facility] Work Phone: Start: 12-25-2024 End: 12-25-[address] Coco Baer MD Work Phone: -[facility] Start: 12-25-2024 End: 12-25-2024 ambulatory Coco Baer Facility:[facility] Start: 12-11-2024 End: 12-11-2024 Patient encounter procedure Ekaterina MCCANN -[facility] Work Phone: Start: 12-11-2024 End: 12-11-[address] Coco Baer MD Work Phone: [facility] Start: 11-26-2024 End: 11-26-[address] Mayelin Garcia MD -[facility] Work Phone: Start: 11-26-2024 End: 11-26-[address] Coco Baer MD Work Phone: [facility] Start: 11-13-2024 End: 11-13-2024 Patient encounter procedure Ekaterina MCCANN -[facility] Work Phone: Start: 11-13-2024 End: 11-13-[address] Coco Baer MD Work Phone: [facility] Start: 10-29-2024 End: 10-29-[address] Karina Bravo DO -[facility] Work Phone: Start: 10-29-2024 End: 10-29-[address] Coco Baer MD Work Phone: [facility] Start: 10-15-2024 End: 10-15-2024 Patient encounter procedure Tomi Cavanaugh CNM -[facility] Work Phone: Start: 10-15-2024 End: 10-15-[address] Coco Baer MD Work Phone: [facility] Start: 10-15-2024 End: 10-15-2024 ambulatory Coco Baer Facility:[facility] Start: 10-01-2024 End: 10-01-2024 ambulatory ABR[facility] Start: 09-17-2024 End: 09-17-2024 Patient encounter procedure Ekaterina MCCANN -[facility] Work Phone: Start: 09-17-2024 End: 09-17-[address] Coco Baer MD Work Phone: [facility] Work Phone: Start: 08-28-2024 End: 08-28-2024 ambulatory TOMI Lewis MAO [facility] Start: 08-20-2024 End: 08-20-[address] Mayelin Garcia MD -[facility] Work Phone: Start: 08-20-2024 End: 08-20-[address] Coco Baer MD Work Phone: [facility] Work Phone: Start: 08-20-2024 End: 08-20-2024 ambulatory Coco Baer Facility:[facility] Start: 07-23-2024 End: 07-23-2024 Patient encounter procedure Tomi Cavanaugh CNM -[facility] Work Phone: Start: 07-23-2024 End: 07-23-2024 ambulatory Coco Baer Facility:[facility] Start: 07-04-2024 End: 07-04-[address] Coco Baer MD Work Phone: [facility] Work Phone: Start: 07-04-2024 End: 07-04-[address] Karina Bravo DO -Lab, [facility] Start: 07-04-2024 End: 07-04-2024 ambulatory Karina Bravo Facility:[facility] Start: 06-20-2024 End: 06-20-[address] Coco Baer MD Work Phone: [facility] Work Phone: Start: 06-20-2024 End: 06-20-[address] Karina Bravo DO -Laboratory, Specimen Work Phone: Start: 06-20-2024 End: 06-20-[address] Karina Bravo DO -[facility] Work Phone: Start: 06-20-2024 End: 06-20-2024 ambulatory Coco Baer Facility:[facility] Start: 06-20-2024 End: 06-20-2024 ambulatory Karina Bravo Facility:[facility] Start: 04-13-2023 End: 04-13-[address] Ji Baer Work Phone: [facility] Work Phone: Start: 04-13-2023 End: 04-13-[address] Ji Baer Work Phone: [facility] Work Phone: Start: 07-17-2021 End: 07-17-[address] [facility] Start: 07-17-2021 End: 07-17-[address] Ji Baer Work Phone: [facility] Start: 03-24-[address] Ji Baer Work Phone: [facility] Start: 06-01-2017 End: 06-01-2017 Emergency department patient visit [facility] Facility: Start: 12-31-2016 End: 12-31-2016 Ambulatory [facility] Procedures Date Procedure Procedure Detail Performing [...] us by the client or their designated contact center representative. The Weight was changed from Not [...] AFP MoM 0.81 OSBR Risk 1 [place] [id number] Interpretation: Screen NegativeThis result is screen negative [...] Customer Services to discuss available options. The [place] [employer] recommends amniocentesis be offered to women age 35 and older.Comment: Dulce Ramirez, Ph.D., DABCCDirectorReferences: Available Upon Request.Multiples Of Median Cutoffs For AFP ElevationsSingleton 2.5 Black 2.8IDD 2.0 Twins 4.5 Abbreviation DefinitionsIDD - Insulin Dep DiabetesOSBR - Open Spina Bifida RiskFor further inquiries contact [facility] at [phone].This test was developed and its performance characteristicsdetermined by [facility]. It has not been cleared or approvedby the Food and Drug Administration. TESTING PERFORMED AT [facility]. ORIGINAL REPORT ON FILE IN LAB [...] HCV Quant by PCR testing - HCVPCR #[id number] Non Reactive: < 0.8 Equivocal: >/= 0.8 [...] ALIGNANCY.THIS SPECIMEN WAS RESCREENED PART OF OUR STREET CLEANER PROGRAM. This liquid based Th inPrep(R) pap test was screened withthe use of an image guided system. The HPV DNA reflex c riteria were not met with this specimenresult therefore, no HPV testing was performed.Performed at: [address], [place] [id number] Director: Kathleen Plata MD, Phone: [phone] at: [facility] Cyto [id number] [place], [place] [id number] Director: Hermann Zee MD, Phone: [phone] Start: 06-20-[address] Coco Baer MD Work Phone: H/O: surgery S/p nephrectomy Dr. Joellen Baer Work Phone: Plan of Treatment Date Care Activity Detail Author Start: 01-08-2025 Ultrasound scan for growth [facility] Start: 01-08-2025 Patient encounter procedure Registered Clinical -Ultrasound [facility] Work Phone: Start: 01-03-2025 End: 01-03-2025 Patient encounter procedure Anxiety -[facility] Work Phone: Start: 10-15-2024 CBC W Auto Different ial panel - Blood [facility] Start: 10-15-2024 Measurement of gluco se 2 hours after glucose challenge for glucose tolerance test [facility] Start: 10-15-2024 Serologic test for syphilis [facility] Start: 10-15-2024 [facility] Start: 08-20-2024 Procedure [facility] CBC W Auto Different ial panel - Blood [facility] CBC W Auto Different ial panel - Blood [facility] Erythrocyte mean corpuscular volume determination [facility] Hematocrit [Volume Fraction] of Blood [facility] Hemoglobin [Mass/vol ume] in Blood [facility] Hemoglobin A1c/Hemoglobin.total in Blood [facility] Hepatitis B surface antigen measurement [facility] Hepatitis C antibody measurement [facility] HIV 1+2 Ab+HIV1 p24 Ag [Presence] in Serum or Plasma by Immunoassay [facility] Leukocytes [#/volume ] in Blood [facility] Mean corpuscular hemoglobin concentration determination [facility] Mean corpuscular hemoglobin determination [facility] Measurement of gluco se 2 hours after glucose challenge for glucose tolerance test [facility] Neutrophil count [facility] Neutrophil percent differential count [facility] Platelets [#/volume] in Blood [facility] Procedure [facility] Red blood cell count [facility] Red cell distributio n width determination [facility] Rubella IgG measurement [facility] Serologic test for syphilis [facility] Streptococcus agalac tiae [Presence] in Unspecified specimen by Organism specific culture [facility] Treponema sp Ab [Pre sence] in Serum [facility] Ultrasound scan for growth [facility] Immunizations Immunization Date Immunization Notes Care Provider Fa cility 11-13-2024 tetanus toxoid, reduced diphtheria toxoid, and acellular pertussis vaccine, adsorbed Dr. Coco Baer MD Work Phone: [facility] Payers Date Payer Category Payer Self-pay [id number] 2024 Unknown [id number] 2017 Unknown [id number] 1995 Unknown [id number] 2. [id number] 1997 Unknown [id number] . [id number] 1997 Unknown [id number] 2. 840.1.518991.3.579.2.479 Private Health Insurance [id number] Unknown [id number] 2.16.8 40.1.676058.3.579.2.462 Unknown [id number] 2.16.8 40.1.556585.3.579.2.462 Unknown [id number] 2.16.8 40.1.388723.3.579.2.462 Unknown [id number] 2.16.8 40.1.526923.3.579.2.462 Unknown [id number] 2.16.8 40.1.262653.3.579.2.462 Unknown [id number] 2.16.8 40.1.464469.3.579.2.462 Unknown [id number] 2.16.8 40.1.480681.3.579.2.462 Unknown [id number] 2.16.8 40.1.091532.3.579.2.462 Unknown [id number] 2.16.8 40.1.161725.3.579.2.462 Unknown [id number] 2.16.8 40.1.966800.3.579.2.462 Unknown [id number] 2.16.8 40.1.767512.3.579.2.462 Unknown [id number] 2.16.8 40.1.829340.3.579.2.462 Unknown [id number] 2.16.8 40.1.620333.3.579.2.462 Unknown [id number] 2.16.8 40.1.636599.3.579.2.462 Unknown [id number] 2.16.8 40.1.039762.3.579.2.462 Unknown [id number] 2.16.8 40.1.111728.3.579.2.462 Unknown [id number] 2.16.8 40.1.059974.3.579.2.462 Unknown [id number] 2.16.8 40.1.975731.3.579.2.462 Unknown [id number] 2.16.8 40.1.473635.3.579.2.462 Unknown [id number] 2.16.8 40.1.591642.3.579.2.462 Unknown [id number] 2.16.8 40.1.341245.3.579.2.462 Unknown [id number] 2.16.8 40.1.988749.3.579.2.462 Social History Date Type Detail Facility Start: 07-17-2021 End: 04-13-2023 Tobacco smoking status NHIS Unknown if ever smoked [facility] Start: 1995 Sex Assigned At Female [facility] Start: 05-29-2024 Tobacco smoking stat us NHIS Ex-smoker (finding) [facility] Start: 06-29-2024 End: 07-09-2024 Sex Female (finding) [facility] Sex Female [facility] Clinical Notes 06-20-2024 to 01-10-2025 Note Date & Type Note Facility 01-10-2025 Progress note [facility] 01-10-2025 Progress note Note Date/Time January 10, 2025 2:30pm [facility] [address], [address] [place] [address] OFFICE VISIT Date of Service: 01/10/25 MR#: [id number] Acct: [id number] Name: CHETNA TUCKER Rep # : [id number] : 1995 Provider: Dr. Guy Garcia MD Age/Sex: 29/F Location: [facility] Status: Signed Intake Vital Signs 11/13/24 13:46 01/03/25 14:43 01/10/25 14:11 Height 5 ft 9 in 5 ft 9 in 5 ft 9 in Weight: 251 lb 2 oz BMI 37.0 BP 114/81 H Intake Visit Reasons: 38 WK OB 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 Required: No Is patient in pain?: No [...] removal Seasonal allergies S/p nephrectomy Surgical History [place] teeth extracted History of nephrectomy, right Family History Mother Kidney disease Heart disease Hypertension Grandmother Heart disease Maternal Kidney disease Maternal Hypertension Maternal Diabetes Maternal Father Hypertension Social History adopted: No household members: spouse housing: house current occupational status: employed 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/hazards: No pets [...] in: none frequency: 1-2 times per week dat/restoration: None seatbelt use: always do you feel safe at home: Yes additional social history: -[facility] History 1 Elective abortions Hx Para [...] PRR,, YESI 01/22/25, [place]inoza, having a girl "[place]" (2) : Status: Acute Qualifiers: Weeks of [...] foley MD> Date _ Mayelin Garcia MD [facility] Signature: Date (if applicable) CC: ~ [facility] Work Phone: 1(872) 417-685209-25-2025 Progress [facility] [address], [address] [place] [address] OFFICE VISIT Date of Service: 01/03/25 MR#: [id number] Acct: [id number] Name: CHETNA TUCKER Rep # : [id number] : 1995 Provider: Dr. Moraima Bravo DO Age/Sex: 29/F Location: [facility] Status: Signed Intake Vital Signs 11/13/24 13:46 12/25/24 15:03 01/03/25 14:43 Height 5 ft 9 in 5 ft 9 in 5 ft 9 in Weight: 253 lb BMI 37.3 BP 128/84 H Intake Visit Reasons: 37 WK OB Chief Complaint: 37wk OB 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 Required: No Is patient in pain?: No [...] removal Seasonal allergies S/p nephrectomy Surgical History [place] teeth extracted History of nephrectomy, right Family History Mother Kidney disease Heart disease Hypertension Grandmother Heart disease Maternal Kidney disease Maternal Hypertension Maternal Diabetes Maternal Father Hypertension Social History adopted: No household members: spouse housing: house current occupational status: employed 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/hazards: No pets [...] in: none frequency: 1-2 times per week dat/restoration: None seatbelt use: always do you feel safe at home: Yes additional social history: -[facility]- [facility] History 1 Elective abortions Hx Para [...] PRR,, YESI 01/22/25, Espinoza, having a girl "[place]" (2) : Status: Acute Qualifiers: Weeks of [...] Calebignbryant Signature: Date (if applicable) CC: ~ [facility]09-25-2025 Progress note Author Karina Venegas [facility] Note Date/Time January 03, 2025 3:14pm [facility] [address] [place] [address], [address] [place] [address] OFFICE VISIT Date of Service: 01/03/25 MR#: [id number] Acct: [id number] Name: CHETNA TUCKER Rep # : [id number] : 1995 Provider: Dr. 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 Is patient in pain?: No [...] removal Seasonal allergies S/p nephrectomy Surgical History [place] teeth extracted History of nephrectomy, right Family [...] in: none frequency: 1-2 times per week dat/restoration: None seatbelt use: always do you feel safe at home: Yes additional social history: -[facility]- [facility] History 1 Elective abortions Hx Para [...] PRR,, YESI 01/22/25, Espinoza, having a girl "[place]" (2) : Status: Acute Qualifiers: Weeks of [...] Mercado Signature: Date (if applicable) CC: ~ [facility] [employer] [facility] [facility] Work Phone: [phone] 393-910109-16-2025 Progress [facility] [address] [place] [address] [address] [place] [address] OFFICE VISIT Date of Service: 12/25/24 MR#: [id number] Acct: [id number] Name: CHETNA TUCKER Rep # : [id number] : 1995 Provider: ROZINA Cavanaugh Age/Sex: 29/F [place] [facility] [place] Status: Signed Intake Vital Signs 11/13/24 13:46 12/11/24 13:27 12/25/24 15:03 Height 5 ft 9 in 5 ft 9 in 5 ft 9 in Weight: 248 lb 8 oz BMI 36.6 BP 131/85 H Intake Visit Reasons: 36 WK OB Chief Complaint: 36wk OB 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 Required: No Is patient in pain?: No [...] removal Seasonal allergies S/p nephrectomy Surgical History [place] teeth extracted History of nephrectomy, right Family [...] in: none frequency: 1-2 times per week dat/restoration: None seatbelt use: always do you feel safe at home: Yes additional social history: -[facility]- [facility] History 1 Elective abortions Hx Para [...] PRR,, YESI 01/22/25, Espinoza, having a girl "[place]" (2) : Status: Acute Qualifiers: Weeks of [...] Cosigner Signature: Date (if applicable) CC: ~ [facility]09-16-2025 Progress note Author Tomi Cavanaugh [facility] Note Date/Time December 25, 2024 3:32pm [facility] [address] [place] [address], [address] [place] [address] OFFICE VISIT Date of Service: 12/25/24 MR#: [id number] Acct: [id number] Name: CHETNA TUCKER Rep # : [id number] : 1995 Provider: ROZINA Cavanaugh Age/Sex: 29/F [place] [facility] [place] Status: Signed Intake Vital Signs 11/13/24 13:46 12/11/24 13:27 12/25/24 15:03 Height 5 ft 9 in 5 ft 9 in 5 ft 9 in Weight: 248 lb 8 oz BMI 36.6 BP 131/85 H Intake Visit Reasons: 36 WK OB Chief Complaint: 36wk OB 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 Required: No Is patient in pain?: No [...] removal Seasonal allergies S/p nephrectomy Surgical History [place] teeth extracted History of nephrectomy, right Family History Mother Kidney disease Heart disease Hypertension Grandmother Heart disease Maternal Kidney disease Maternal Hypertension Maternal Diabetes Maternal Father Hypertension Social History adopted: No household members: spouse housing: house 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 GA appropriate handout given. 12/25/24 8230 <Electronically signed by Tomi lewis CNM> Date _ Tomi Cavanaugh CNM Cosigner Signature: Date (if applicable) CC: ~ [facility] Work Phone: [phone]) [phone] Progress [facility] [address], [address] [place] [address] OFFICE VISIT Date of Service: 11/26/24 MR#: [id number] Acct: [id number] Name: CHETNA TUCKER Rep # : [id number] : 1995 Provider: Dr. 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 Is patient in pain?: No [...] removal Seasonal allergies S/p nephrectomy Surgical History [place] teeth extracted History of nephrectomy, right Family [...] in: none frequency: 1-2 times per week dat/restoration: None seatbelt use: always do you feel safe at home: Yes additional social history: -[facility] History 1 Elective abortions Hx Para [...] STEWARTP0, YESI 01/22/25, Espinoza, having a girl "[place]" (2) : Status: Acute Qualifiers: Weeks of [...] og LEROY> Date _ Mayelin Garcia MD [facility] Signature: Date (if applicable) CC: ~ [facility] [id number] [facility] [address] [place] [address], [address] [place] [address] OFFICE VISIT Date of Service: 11/13/24 MR#: [id number] Acct: [id number] Name: CHETNA TUCKER Rep # : [id number] : 1995 Provider: SIOBHAN Kim Age/Sex: 29/F Location: [facility] [place] Status: Signed Intake Vital Signs 10/15/24 14:50 10/29/24 13:49 11/13/24 13:43 11/13/24 13:46 Height 5 ft 9 in 5 ft 9 in 5 ft 9 in 5 ft 9 in Weight: 242 lb 1 oz BMI 35.7 BP 120/81 H Intake Visit Reasons: 30wk ob Chief Complaint: 30 Week OB 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 11/13/24 1403 s INSURANCE OFFICE MANAGER INSURANCE OFFICE MANAGER-C> Date _ Ekaterina Kim NP, NP-C Lauren Signature: Date (if applicable) CC: ~ [facility]08-05-2025 Progress note Author Ekaterina Kim [facility] Note Date/Time November 13, 2024 2:0 3pm [facility] [address] [place] [address], [address] [place] [address] OFFICE VISIT Date of Service: 11/13/24 MR#: [id number] Acct: [id number] Name: CHETNA TUCKER Rep # : [id number] : 1995 Provider: SIOBHAN Kim Age/Sex: 29/F Location: [facility] [place] Status: Signed Intake Vital Signs 10/15/24 14:50 10/29/24 13:49 11/13/24 13:43 11/13/24 13:46 Height 5 ft 9 in 5 ft 9 in 5 ft 9 in 5 ft 9 in Weight: 242 lb 1 oz BMI 35.7 BP 120/81 H Intake Visit Reasons: 30wk ob Chief Complaint: 30 Week OB 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 Required: No Is patient in pain?: No [...] removal Seasonal allergies S/p nephrectomy Surgical History [place] teeth extracted History of nephrectomy, right Family [...] in: none frequency: 1-2 times per week dat/restoration: None seatbelt use: always do you feel safe at home: Yes additional social history: -[facility]- [facility] History 1 Elective abortions Hx Para [...] PRR,, YESI 01/22/25, Espinoza, having a girl "[place]" (2) : Status: Acute Qualifiers: Weeks of [...] 1403 <Electronically signed by Ekaterina lewis NP INSURANCE OFFICE MANAGER-C> Date _ Ekaterina Kim NP INSURANCE OFFICE MANAGER-C Lauren Signature: Date (if applicable) CC: ~ [facility] Work Phone: 1([phone]) 566-152107-07-2025 [facility] [address] [place] [address], [address] [place] [address] OFFICE VISIT Date of Service: 10/15/24 MR#: [id number] Acct: [id number] Name: CHETNA TUCKER Rep # : [id number] : 1995 Provider: ROZINA Cavanaugh Age/Sex: 29/F Location: [facility] [place] Status: Signed Intake Vital Signs 07/23/24 13:51 09/17/24 13:45 10/15/24 14:50 Height 5 ft 9 in 5 ft 9 in 5 ft 9 in Weight: 242 lb 8 oz BMI 35.8 BP 126/77 H Intake Visit Reasons: 26wk ob Chief Complaint: 26wk OB 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 Required: No Is patient in pain?: No [...] removal Seasonal allergies S/p nephrectomy Surgical History [place] teeth extracted History of nephrectomy, right Family [...] in: none frequency: 1-2 times per week dat/restoration: None seatbelt use: always do you feel safe at home: Yes additional social history: -[facility]- [facility] History 1 Elective abortions Hx Para [...] Cosigner Signature: Date (if applicable) CC: ~ [facility]07-07-2025 Progress note Author Tomi Cavanaugh [facility] Note Date/Time October 15, 2024 3:25p [facility] [address], [address] [address] OFFICE VISIT Date of Service: 10/15/24 MR#: [id number] Acct: [id number] Name: CHETNA TUCKER Rep # : [id number] : 1995 Provider: ROZINA Cavanaugh Age/Sex: 29/F Location: [facility] [place] Status: Signed Intake Vital Signs 07/23/24 13:51 09/17/24 13:45 10/15/24 14:50 Height 5 ft 9 in 5 ft 9 in 5 ft 9 in Weight: 242 lb 8 oz BMI 35.8 BP 126/77 H Intake Visit Reasons: 26wk ob Chief Complaint: 26wk OB 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 Required: No Is patient in pain?: No [...] removal Seasonal allergies S/p nephrectomy Surgical History [place] teeth extracted History of nephrectomy, right Family [...] in: none frequency: 1-2 times per week dat/restoration: None seatbelt use: always do you feel safe at home: Yes additional social history: -[facility]- [facility] History 1 Elective abortions Hx Para [...] Cosigner Signature: Date (if applicable) CC: ~ [facility] [employer] [facility] Work Phone: [phone]) 521-745906-09-2025 Evaluation note* Diagnosis Onset Date Resolution Status [...] of high-risk acute December 25, 2024 3:00pm [facility] Work Phone: [phone] 630-902706-09-2025 Evaluation note* Diagnosis Onset Date Resolution Status [...] of high-risk acute January 03, 2025 2:40pm [facility] Work Phone: [phone] Evaluation note* Diagnosis Onset Date Resolution Status [...] Supervision of high-risk acute January 10 2:03pm [facility] Work Phone: [phone]) [phone] Evaluation note* Diagnosis Onset Date Resolution Status [...] of high-risk acute November 26 1:09pm [facility] Work Phone: [phone] Evaluation note* Diagnosis Onset Date Resolution Status [...] of high-risk acute December 11, 025 1:19pm [facility] Work Phone: [phone]) [phone] Evaluation note* Diagnosis Onset Date Resolution Status [...] of high-risk acute October 29, 2024 1:45pm [facility] Work Phone: [phone]) [phone] Evaluation note* Diagnosis Onset Date Resolution Status [...] of high-risk acute November 13, 2024 1:40pm [facility] Work Phone: [phone] NotePap Smear Specimen AdequacyMarch 2024 11:59pmComment.Satisfactory for evaluation. Endocervical and/or squamous metaplasticcells (endocervical component)are present.[facility] A#[id number] State East HospitalComment on above:Satisfactory for evaluation. Endocervical and/or squamous metaplasticcells (endocervical component)are present.06-20-2024 NotePap Smear Specimen AdequacyMar 2024 11:59pmComment.Satisfactory for evaluation. Endocervical and/or squamous metaplasticcells (endocervical component)are present.[facility] A#[id number] State East HospitalComment on above:Satisfactory for evaluation. Endocervical and/or squamous metaplasticcells (endocervical component)are present.06-20-2024 Evaluation note* Diagnosis Onset Date Resolution Status Admit Date Anxiety acute June 20 1:58pm Hidradenitis suppurativa acute June 20, 2024 1:58pm History of nicotine vaping acute June 20, 2024 1:58pm Obesity affecting acute June 20, 2024 1:58pm acute June 20 1:58pm Supervision of high-risk acute June 20, 2024 1:58pm [facility] Work Phone: [phone] Evaluation note* Diagnosis Onset Date Resolution Status [...] nicotine vaping inactive August 20, 2024 1:38pm [facility] Work Phone: [phone] Evaluation note* Diagnosis Onset Date Resolution Status [...] high-risk acute September 17, 2024 1 :33pm [facility] [employer] [facility] Work Phone: [phone] Evaluation note* Diagnosis Onset Date Resolution Status [...] high-risk acute October 15, 2024 2 :28pm [facility] Work Phone: Evaluation noteNo assessment information available [facility] Work Phone: Evaluation note* Diagnosis Onset Date Resolution Status Dysuria acute [facility] Work Phone: Progress note Author Mayelin Garcia [facility] Note Date/Time November 26, 2024 1: 28pm [facility] [address], [address] [place] [address] OFFICE VISIT Date of Service: 11/26/24 MR#: [id number] Acct: [id number] Name: CHETNA TUCKER Rep # : [id number] : 1995 Provider: Dr. 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 Work Phone: Reason for referral (narrative)No reason for referral information availableWPike [facility] Work Phone: Summary Purpose Family History [...] for Visit Chief Complaint HAIR LOSS Annual (VENEER SAWYER) Chief Complaint POSSIBLE UTI EORDER Reason for [...] section and content) DATE CREATED AUTHOR 10/05/2017 [facility] DATE CREATED AUTHOR AUTHOR'S ORGANIZ ATION 10/13/2017 [facility] DATE CREATED AUTHOR AUTHOR'S ORGANIZ ATION 10/03/2024 [facility] DATE CREATED AUTHOR AUTHOR'S ORGANIZ ATION 01/24/2025 [facility] Goals (unrecognized section and content) Type [...] 2024 End: September 17, 2024 Ekaterina Kim INSURANCE OFFICE MANAGER, INSURANCE OFFICE MANAGER-C Attending Provider Active Start: September 17, 2024 [...] 2024 End: August 20, 2024 Dr. Mayelin Garcai MD Referring Provider Active Start: August 20, 2024 End: August 20, 2024 Team Status: Inactive Member Role/Relationship Status Dates Dr. Coco Baer MD Primary Care Provider Acti ve Start: September 17, 2024 End: September 17, 2024 Dr. Coco Baer MD Referring Provider Active Start: September 17, 2024 End: September 17, 2024 Ekaterina Kim NP, INSURANCE OFFICE MANAGER-C Attending Provider Active Start: September 17, 2024 [...] ve Start: October 15, 2024 Ekaterina Kim INSURANCE OFFICE MANAGER, INSURANCE OFFICE MANAGER-C Attending Provider Active Start: October 15, 2024 Team Status: Inactive Member Role/Relationship Status Dates Dr. Coco Baer MD Primary Care Provider Acti ve Start: October 15, 2024 End: October 15, 2024 Ekaterina Kim INSURANCE OFFICE MANAGER, INSURANCE OFFICE MANAGER-C Attending Provider Active Start: October 15, 2024 [...] 2024 End: September 17, 2024 Ekaterina Kim INSURANCE OFFICE MANAGER, INSURANCE OFFICE MANAGER-C Attending Provider Active Start: September 17, 2024 [...] 2024 End: October 15, 2024 Ekaterina Kim INSURANCE OFFICE MANAGER, INSURANCE OFFICE MANAGER-C Attending Provider Active Start: October 15, 2024 [...] 2024 End: September 17, 2024 Ekaterina Kim INSURANCE OFFICE MANAGER, INSURANCE OFFICE MANAGER-C Attending Provider Active Start: September 17, 2024 [...] 2024 End: October 15, 2024 Ekaterina Kim INSURANCE OFFICE MANAGER, INSURANCE OFFICE MANAGER-C Attending Provider Active Start: October 15, 2024 [...] 2024 End: November 13, 2024 Ekaterina Kim INSURANCE OFFICE MANAGER, INSURANCE OFFICE MANAGER-C Attending Provider Active Start: November 13, 2024 [...] 2024 End: September 17, 2024 Ekaterina Kim INSURANCE OFFICE MANAGER, INSURANCE OFFICE MANAGER-C Attending Provider Active Start: September 17, 2024 [...] 2024 End: October 15, 2024 Ekaterina Kim INSURANCE OFFICE MANAGER, INSURANCE OFFICE MANAGER-C Attending Provider Active Start: October 15, 2024 [...] 2024 End: November 13, 2024 Ekaterina Kim INSURANCE OFFICE MANAGER, INSURANCE OFFICE MANAGER-C Attending Provider Active Start: November 13, 2024 [...] 2024 End: December 11, 2024 Ekaterina Kim INSURANCE OFFICE MANAGER, INSURANCE OFFICE MANAGER-C Attending Provider Active Start: December 11, 2024 End: December 11, 2024 Team Status: Inactive Member Role/Relationship Status Dates Dr. Coco Baer MD Primary Care Provider Acti ve Start: September 17, 2024 End: September 17, 2024 Dr. Coco Baer MD Referring Provider Active Start: September 17, 2024 End: September 17, 2024 Ekaterina Kim INSURANCE OFFICE MANAGER, INSURANCE OFFICE MANAGER-C Attending Provider Active Start: September 17, 2024 [...] 2024 End: October 15, 2024 Ekaterina Kim INSURANCE OFFICE MANAGER, INSURANCE OFFICE MANAGER-C Attending Provider Active Start: October 15, 2024 [...] End: November 13, 2024 Ekaterina Kim NP, INSURANCE OFFICE MANAGER-C Attending Provider Active Start: November 13, 2024 [...] 2024 End: December 11, 2024 Ekaterina Kim INSURANCE OFFICE MANAGER, INSURANCE OFFICE MANAGER-C Attending Provider Active Start: December 11, 2024 End: December 11, 2024 Team Status: Inactive Member Role/Relationship Status Dates Dr. Coco Baer MD Primary Care Provider Acti ve Start: December 25, 2024 End: December 25, 2024 Dr. Coco Baer MD Referring Provider Active Start: December 25, 2024 End: December 25, 2024 oTmi Cavanaugh CNM Attending Provider Active S tart: [...] 2024 End: September 17, 2024 Ekaterina Kim INSURANCE OFFICE MANAGER, INSURANCE OFFICE MANAGER-C Attending physician Active Start: September 17, 2024 [...] 2024 End: October 15, 2024 Ekaterina Kim INSURANCE OFFICE MANAGER, INSURANCE OFFICE MANAGER-C Attending physician Active Start: October 15, 2024 [...] 2024 End: November 13, 2024 Ekaterina Kim INSURANCE OFFICE MANAGER, INSURANCE OFFICE MANAGER-C Attending physician Active Start: November 13, 2024 [...] 2024 End: December 11, 2024 Ekaterina Kim INSURANCE OFFICE MANAGER, INSURANCE OFFICE MANAGER-C Attending physician Active Start: December 11, 2024 [...] BE BASED ON THE PRIMARY CLINICAL RECORDS. [employer] provides no warranty or guarantee of the accuracy or completeness of information in this document.
[2025-01-28 21:12] LABS: Hematocrit 36.1 % (37-47); Hemoglobin 12.3 g/dL (12.0-15.0); Immature Granulocytes Count 0.060 X10^3/uL (0.0-0.0); Mean Corp Hgb Conc 34.1 g/dL (32-36); Mean Corpuscular Volume 83.8 fL (81-99); Mean Platelet Vol. 10.1 fl (6.2-12.0); NRBC Flagged by Analyzer 0 % (0-5); Platelet Count 247 K/mm3 (150-450); RBC Distribution Width CV 15.4 % (11.6-14.6); RBC Distribution Width SD 46.3 fl (35.1-43.9); Red Blood Count 4.31 M/mm3 (4.2-5.4); White Blood Count 9.8 K/mm3 (4.4-11.0)
--- NOTE | 2025-01-28 21:15 | HP.PCM.OB_ITS ---
HPI - General General Date of Admission: 01/28/25 Date of Service: 01/28/25 HPI Narrative BRITANY ROMAN, is a 29 F 40.6 weeks who presents to unit for IOL for postdates. Plan for cytotec/hernandez bulb/pitocin. Maternal Data Information YESI Calculator Estimated Delivery Date Method Current WG Current Estimate 01/22/25 LMP (Certain) 40w 6d Other Estimates 01/23/25 Ultrasound #1 40w 5d Final YESI: 01/22/25 Final YESI Source: US >20 weeks Gestational age: 40.6 PFSH PFS Medical History History of nicotine vaping Hidradenitis suppurativa Encounter for IUD removal Seasonal allergies S/p nephrectomy Home Medications Medication Instructions Recorded Last Taken Type mv-mn 110-FA 180 mcg-om3 35 mg-dha tab PO 05/29/24 Unk nown History 25 mg-epa 5 mg-fish oil chew tablet breast pump #1 ea 11/13/24 Unknown Rx famotidine 20 mg tablet (Pepcid) 20 mg PO BID #60 tabs 01/03/25 Unknown Rx Allergy/AdvReac Type Severity Reaction Status Date / Time No Known Allergies Allergy Verified 01/22/25 14:50 Family History Mother Kidney disease Heart disease Hypertension Grandmother Heart disease Maternal Kidney disease Maternal Hypertension Maternal Diabetes Maternal Father Hypertension Surgical History Shubuta teeth extracted History of nephrectomy, right Social History adopted: No household members: spouse housing: house current occupational status: employed current occupation: [employer] current occupational exposures/hazards: No pets and animals: Yes (2) pets and animals: dog(s) history of recent travel: No sexually active: Yes Smoking Status: Former smoker quit date: 05/19/24 Electronic Cigarette Use: with nicotine how long ago did patient quit smokin weeks ago quit status: quit date established alcohol intake: current details: occasionally- not while drinking substance use type: does not use well-balanced diet: about half the time caffeine: Yes Type: coffee Number of servings: 1 eating out: 1-3 times/week during the past year weight has: remained stable what type of physical activity do you participate in: none frequency: 1-2 times per week dat/quaker: None seatbelt use: always do you feel safe at home: Yes additional social history: -Espinoza- [place] Sarah[place] History 1 Elective abortions Hx Para 0 Spontaneous abortions Hx # Term Pregnancies Ectopic pregnancies Hx # Pregnancies Multiple births # of living children Visit Details Expected Delivery Route/Plan Labor Preferences- CB/BF classes: yes labor support person: Espinoza labor intervention preferences: pain management options preferred:nitrous, epidural if requested cut cord/dad catch: cord : yes PP control planned: discussed discussed possible routes of delivery and associated risks: [] special requests: [] Plans Covid status: [] Flu vaccine: [] Tdap vaccine: given 11/13/24 Rhogam: na LARC form signed: yes movement and labor precautions reviewed. Problem list reviewed and updated with the most current plan of care details and appropriate orders placed. Relevant counseling for the gestational age provided. Continue routine care and follow up unless otherwise noted in visit notes/problem list details OB Flowsheet Initial Weight: 237 lb Date - - - - - - - - - - - - - EGA Weight BP Urine Prot - - - - - - - - - - - - - Glucose FHR FuHt Pres Dilation - - - - - - - - - - - - - Effaced St Visit Note 06/20/24 - - - - - -- - - - - - - - 9w 1d 237 lb 4 oz (+4 oz) 128/84 - - - - - - - - - - - - - 185 - - - - - - - - - - - - - JV- CRL consiste nt with LMP. desires NIPT. 07/23/24 - - - - - - - - - - - - - 13w 6d 235 lb (-2 lb) 133/85 Negative - - - - - - - - - - - - - Negative 160 - - - - - - - - - - - - - KW- no vb/crampi ng. US ordered. handheld US and fht and movement noted. KW- no vb/cramping. US order ed. handheld US and fht and movement noted. accepts AFP next visit 08/20/24 - - - - - - - - - - - - - 17w 6d 237 lb (+0 oz) 121/82 Negative - - - - - - - - - - - - - Negative 150 - - - - - - - - - - - - - SM- no vb crampi ng 09/17/24 - - - - - - - - - - - - - 21w 6d 242 lb (+5 lb) 124/82 Negative - - - - - - - - - - - - - Negative 161 - - - - - - - - - - - - - MH-No VB. Feels well. Has rpt US MFM today to complete anatomy 10/15/24 - - - - - - - - - - - - - 25w 6d 242 lb 8 oz (+5 lb 8 oz) 126/77 Negative - - - - - - - - - - - - - Negative 165 26 - - - - - - - - - - - - - KW- no vb/lof/ct x. good fm. 10/29/24 - - - - - - - - - - - - - 27w 6d 243 lb (+6 lb) 125/76 Negative - - - - - - - - - - - - - Negative 145 29 - - - - - - - - - - - - - JV- no lof, vagi nal bleeding, or cramping. normal gct 11/13/24 - - - - - - - - - - - - - 30w 0d 242 lb 1 oz (+5 lb 1 oz) 120/81 Negative - - - - - - - - - - - - - Negative 140 31 - - - -- - - - - - - - - - MH-No VB, LOF. G ood FM. tdap. 11/26/24 - - - - - - - - - - - - - 31w 6d 245 lb 8 oz (+8 lb 8 oz) 124/78 Negative - - - - - - - - - - - - - Negative 140 32 - - - - - - - - - - - - - SM no vb lof goo d fm no reg ctx. discussed heartburn ordered pepcid 12/11/24 - - - - - - - - - - - - - 34w 0d 248 lb 2 oz (+11 lb 2 oz) 124/82 Negative - - - - - - - - - - - - - Negative 152 34 - -- - - - - - - - - - - - MH-No VB, LOF. G ood FM. No concerns. 12/25/24 - - - - - - - - - - - - - 36w 0d 248 lb 8 oz (+11 lb 8 oz) 131/85 Negative - - - - - - - - - - - - - Negative 130 36 Cephalic 0 - - - - - - - - - - - - - -4 KW- no v b/lof/ctx. good fm. GBS today. bedside US for position 01/03/25 - - - - - - - - - - - - - 37w 2d 253 lb (+16 lb) 128/ Negative - - - - - - - - - - - - - Negative 144 37 Cephalic 0 - - - - - - - - - - - - - JV- no lof, vagi nal bleeding, or dec fm. growth scan ordered for maternal obesity. 01/10/25 - - - - - - - - - - - - - 38w 2d 251 lb 2 oz (+14 lb 2 oz) 114/81 Negative - - - - - - - - - - - - - Negative 160 39 Cephalic 0 - - - - - - - - - - - - - SM- no vb lof go od fm no reuglar ctx 01/17/25 - - - - - - - - - - - - - 39w 2d 255 lb 4 oz (+18 lb 4 oz) 128/ Negative - - - - - - - - - - - - - Negative 125 39 Cephalic 0 - - - - - - - - - - - - - KW- no vb/lof/ct x. good fm 01/22/25 - - - - - - - - - - - - - 40w 0d 256 lb 3 oz (+19 lb 3 oz) 123/88 Negative - - - - - - - - - - - - - Negative 130 39 0 - - - - - - - - - - - - - SM- no vb lof go od fm no reuglar ctx Notes Visit Date: 10/29/24 Last Updated by: Karina Bravo, DO 141 NST FHR Rate Baby A Baseline: 130 Variability:: Moderate Accelerations:: 15 x 15 Decelerations:: None FHR Category:: Category I Uterine Activity:: rare ROS Constitutional Constitutional: Denies change in weight, fatigue, fever(s), headache(s), poor appetite or weakness Eyes Eyes: Denies blurry vision, change in vision, floaters, seeing flashes or spots in vision ENT HEENT: Denies dizziness, headache(s), loss taste/smell or sore throat Cardiovascular Cardiovascular: Denies chest pain, dizziness, dyspnea, irregular heart rhythm, lightheadedness, palpitations or rapid heart rate Respiratory/Chest Respiratory/Chest: Denies change in mental status, chest tightness, cough, dyspnea or breast pain Gastrointestinal Gastrointestinal: Denies anorexia, chewing difficulty, constipation, diarrhea or weight changes Genitourinary Genitourinary: Denies difficulty urinating, dysuria, flank pain, genital pain, urinary frequency or urinary urgency Musculoskeletal Musculoskeletal: Denies back pain, difficulty walking, extremity pain, joint pain, muscle cramps or muscle weakness Integumentary Integumentary: Denies lesions or unusual bruising Neurologic Neurologic: Denies abnormal movements, abnormal speech, dizziness, numbness, seizure-like activity, syncope or weakness Psychiatric Psychiatric: Denies behavioral changes, change in appetite, confusion, depression, homicidal ideation, suicidal ideation or suicidal thoughts Endocrine Endocrinology: Denies excessive sweating, polydipsia or polyuria Hematologic/Lymphatic Hematologic/Lymphatic: Denies anemia Allergic/Immunologic Allergic/Immunologic: Denies itchy eyes, lip swelling, throat swelling, tongue swelling or wheezing Vital Signs Vital Signs Vital Signs: 01/28/25 19:30 01/28/25 19:30 01/28/25 19:30 Temperature 98.3 F Temperature Source Temporal Pulse Rate Respiratory Rate 14 Blood Pressure BP Systolic BP Diastolic Pulse Ox 01/28/25 19:34 01/28/25 19:34 01/28/25 19:35 Temperature Temperature Source Pulse Rate 94 112 H Respiratory Rate Blood Pressure 138/84 H BP Systolic 138 BP Diastolic 84 Pulse Ox 01/28/25 19:35 Temperature Temperature Source Pulse Rate Respiratory Rate Blood Pressure BP Systolic BP Diastolic Pulse Ox 98 Weight Weight: 257 lb 11.526 oz Body Mass Index (BMI) 38.0 Physical Exam Const alert, oriented x3 and no apparent distress General Appearance: cooperative Orientation / Consciousness: awake HEENT normocephalic Neck full ROM Lymph Lymphatic: no lymphadenopathy noted Chest inspection of chest normal Resp normal respiratory effort and normal air movement Effort and Inspection: able to speak in complete sentences and symmetric chest movement GI soft to palpation and non-tender Inspection: gravid Palpation: soft; Negative for tender external exam normal Back/Spine normal to inspection Extremity normal to inspection and full ROM Skin no rashes or lesions noted Psych mental status grossly normal Appearance: grossly normal Speech: normal speech Labs Labs Labs: Blood Type O POSITIVE Antibody Screen NEGATIVE Hct, (37-47) 36.1 % L Hgb, (12.0-15.0) 12.3 g/dL Obstetrics Ultrasound Syphilis Total Ab, (Nonreactive) Nonreactive Rubella IgG Antibody, (Nonreactive) REAC Hep Bs Antigen, (Nonreactive) Nonreactive Hepatitis C Antibody, (Nonreactive) Nonreactive Chlamydia DNA (LANNY), (Negative) Negative N.gonorrhoeae DNA (LANNY), (Negative) Negative HIV 1&2 Antibody, (Nonreactive) Nonreactive Glucose 1 Hr 50 gm, (70-140) 106 mg/dL Miscellaneous Test Assessment & Plan (1) Encounter for induction of labor: PLAN: Patient presents IOL, plan management for with pitocin/AROM. Pain management: plans epidural. GBS negative. Management of any complications: see list I have reviewed [facility] and made any clinically relevant updates. Dr Garcia aware of assessment, plan, and admission. (2) Uterine size-date discrepancy, third trimester: COMMENT: growth US ordered (3) Supervision of high-risk : QUALIFIERS: Trimester: third trimester Qualified Code(s): O09.93 - Supervision of high risk , unspecified, third trimester COMMENT: PRR,, YESI 01/22/25, Espinoza, having a girl "[place]" (4) : QUALIFIERS: Weeks of gestation: 40 weeks Qualified Code(s): Z3A.40 - 40 weeks gestation of COMMENT: GBS neg, NIPT low risk, carrier declined. AFP negative, nml growth (5) Obesity affecting : QUALIFIERS: Trimester: second trimester Obesity type affecting : unspecified obesity Qualified Code(s): O99.212 - Obesity complicating , second trimester COMMENT: HgbA1c (6) Anxiety: Charges/Coding Multi Select Codes Urinary/Genital Urinary/Genital CPT Codes: No Charge
[2025-01-28 21:56] LABS: Syphilis Antibodies Nonreactive (Nonreactive)
[2025-01-28 23:48] VITALS: RESP 16; TEMP 36.8
[2025-01-28 23:49] VITALS: BP 127/57; PULSE 83; O2SAT 98
[2025-01-29] VITALS (69 sets, daily range): BP systolic 98–146; BP diastolic 49–90; PULSE 74–141; RESP 16–18; TEMP 36.2–37.6; O2SAT 82–100
[2025-01-29] MEDS: Lactated Ringers 1,000 ML 50 ML IV (05:10)
[2025-01-29] MEDS: 0.9% Normal Saline Single 100 ML IV.SOLN. INTRA-UTER (08:16)
[2025-01-29] MEDS: Lactated Ringers 1,000 ML 999 ML IV ×2 (08:27→19:00)
[2025-01-29] MEDS: fentaNYL-bupivacaine (epidural) 100 ML BAG EPIDURAL ×2 (09:14→13:20)
[2025-01-29] MEDS: Oxytocin 15 Units/NS 250ml 15 UNITS/250 ML IV.SOLN 2 UNITS IV (09:45)
--- NOTE | 2025-01-29 12:31 | PCM.PN.BLA ---
Progress Note pt is comfortable with epidural, hernandez came out spontaneously. She consents to AROM current tracing: FHT: 150 Moderate variability reactive no decelerations category I tracing Leonidas: q3 min Contractions cx: 5/90/-1, membranes ruptured with light mec fluid. Tracing immediately after arom was late deceleration, now improved to moderate variability + accels without decels. A/P: [ 41 weeks IOL. continue pitocin
[2025-01-29] MEDS: Lactated Ringers 1,000 ML 200 ML IV (13:19)
[2025-01-29] MEDS: Oxytocin 15 Units/NS 250ml 15 UNITS/250 ML IV.SOLN 83 UNITS IV (18:53)
--- NOTE | 2025-01-29 18:54 | EX.PCM.OBVAG ---
Assessment & Plan (1) Encounter for induction of labor: (2) Supervision of high-risk : QUALIFIERS: Trimester: third trimester Qualified Code(s): O09.93 - Supervision of high risk , unspecified, third trimester COMMENT: PRR,, YESI 01/22/25, Espinoza, having a girl "[place]" (3) : QUALIFIERS: Weeks of gestation: 40 weeks Qualified Code(s): Z3A.40 - 40 weeks gestation of COMMENT: GBS neg, NIPT low risk, carrier declined. AFP negative, nml growth (4) Obesity affecting : QUALIFIERS: Trimester: second trimester Obesity type affecting : unspecified obesity Qualified Code(s): O99.212 - Obesity complicating , second trimester COMMENT: HgbA1c (5) Anxiety: Maternal Data Information YESI Calculator Estimated Delivery Date Method Current WG Current Estimate 01/22/25 LMP (Certain) 41w 0d Other Estimates 01/23/25 Ultrasound #1 40w 6d Final YESI: 01/22/25 Final YESI Source: LMP Gestational age: 41 weeks [place] Doctor Who Attended Delivery: Maddie Guerrero Vaginal Delivery Maternal Presentation Maternal Presentation: Medically Indicated Induction Type of Induction: Pitocin, Nunez Bulb, Amniotomy and Cytotec Medical Reason for Induction: Post term Vaginal Delivery Information Procedure Performed: Spontaneous Vaginal Delivery Surgeon/Practitioner: Karina Bravo Date of Procedure: 01/29/25 Pre-Procedure Diagnosis: 41 week gestation, Post-Procedure Diagnosis: 41 week gestation, Type of anesthesia: Epidural Estimated Blood Loss: 100cc Time of Delivery: 18:16 Findings Description of procedure: Patient began pushing and delivered the head in the PRASHANT presentation. The head was delivered atraumatically and a loose nuchal cord ×1 was identified and easily reduced over the 's head. The anterior and posterior shoulders delivered without complication followed by the rest of the infant and the infant was placed on the maternal abdomen. Delayed cord clamping was employed for approximately 60 seconds. Cord was clamped and cut and gentle traction was applied to the cord and the placenta delivered spontaneously immediately following it was noted to be intact with three-vessel cord. The perineum and vagina were inspected and noted to have a 1st degree perineal laceration, repaired with a 3-0vicryl. EBL was 100 cc. Patient and tolerated delivery well. Procedure findings: viable female "[place]" Presentation: Vertex Amniotic Membrane Rupture Type: Spontaneous Amniotic Fluid Description: Lightly stained meconium Placental Delivery Description: Spontaneous Placenta Disposition: [facility] Specimen collected: No Cord Vessel Description: 3 Vessels Cord Entanglement: Around neck x 1, loose Nuchal Cord Compression: Without compression Infant A Gender: Female (1 minute): 8 (5 minute): 9 Delayed Cord Clamping: Yes [employer] Clerk bed bug exterminator: No Post Vaginal Deli Medications given after delivery: IV Pitocin Episiotomy Description: None Laceration: 1st degree Complication Complications: No Multi Select Codes Urinary/Genital Urinary/Genital CPT Codes: 51513 Vaginal Delivery [facility]
--- NOTE | 2025-01-29 18:57 | DCINST_ITS ---
Discharge Instructions DC O2, CPAP, BIPAP needs Home O2 Discharge instructions: No Dressing / Incision Discharge Activity: Return to Normal Activity, May Not Drive (while taking narcotic pain medications.) and May Shower May resume sexual activity in: 4-6 weeks Dressing / Incision Call your doctor if your incision/area has: Continuous Slow Oozing, Sudden Increased Bleeding, Increased Pain/ Swelling, Increased Redness and Foul Smelling Discharge Follow Up Care Please Follow Up With: Karina Bravo, When: Call [phone] to make an appointment with your doctor in 6 weeks. If you had elevated blood pressure or 4th degree laceration, you will need to be seen in 2 weeks. Test Results: Test results from this visit will be discussed in further detail at your follow- up appointment, if applicable. Discharge Plan Admission Admit Date/Time: 01/28/25 19:17 Attending Provider: Karina Bravo Primary Care Provider: Mckinley Baer Discharge Orders/Prescriptions Prescriptions: No Action mv-mn [id number] 180 mcg-35 mg- 25 mg-5 mg tablet,chewable PO (DME) breast pump Device See Rx Instructions .ROUTE .MEDSUPPLY Qty: 1 0RF Rx Instructions: As directed famotidine [Pepcid] 20 mg tablet 20 mg PO BID Qty: 60 6RF Referrals / Follow Up: Mckinley Baer MD [Primary Care Provider, Family Practice]
[2025-01-29 20:33] LABS: Hematocrit 33.9 % (37-47); Hemoglobin 11.4 g/dL (12.0-15.0); Immature Granulocytes Count 0.090 X10^3/uL (0.0-0.0); Mean Corp Hgb Conc 33.6 g/dL (32-36); Mean Corpuscular Volume 85.4 fL (81-99); Mean Platelet Vol. 10.1 fl (6.2-12.0); NRBC Flagged by Analyzer 0 % (0-5); Platelet Count 220 K/mm3 (150-450); RBC Distribution Width CV 15.6 % (11.6-14.6); RBC Distribution Width SD 48.6 fl (35.1-43.9); Red Blood Count 3.97 M/mm3 (4.2-5.4); White Blood Count 16.4 K/mm3 (4.4-11.0)
[2025-01-30] VITALS: BP 128/67; PULSE 107; RESP 18; TEMP 36.3; O2SAT 97
[2025-01-30 04:00] VITALS: BP 137/73; PULSE 110; RESP 16; TEMP 36.4; O2SAT 95
--- NOTE | 2025-01-30 07:43 | PN.OBGYN_ITS ---
Subjective Subjective Patient doing well without complaints. Tolerating PO. Ambulating and voiding without difficulty. Feeding well. Denies chest pain, shortness of breath, calf pain/swelling, fevers, chills, lightheadedness. Objective Data Objective Data Vital Signs: Vital Signs Temp Pulse Resp BP Pulse Ox O2 Del Method 97.6 F L 110 H 16 137/73 H 95 Room Air 01/30/25 04:00 01/30/25 04:00 01/30/25 04:00 01/30/25 04:00 01/30/25 04:00 01/30/25 04:00 Oxygen Delivery Method Room Air Weight: 257 lb 11.526 oz Body Mass Index (BMI) 38.0 Intake & Output: Intake and Output for Last 24 Hours 01/28/25 01/29/25 01/30/25 23:59 23:59 23:59 Intake Total 3979.50 / 3979.50 Output Total 1800 / 1800 800 / 800 Balance 2179.50 / 2179.50 -800 / -800 Lab / Micro Data 01/29/25 19:45 Labs: Laboratory Results - last 24 hr 01/29/25 19:45: WBC 16.4 H, RBC 3.97 L, Hgb 11.4 L, Hct 33.9 L, MCV 85.4, MCH 28.7, MCHC 33.6, RDW Std Deviation 48.6 H, RDW Coeff of Caty 15.6 H, Plt Count 220, MPV 10.1, Immature Gran % (Auto) 0.500, Neut % (Auto) 90.1 H, Lymph % (Auto) 5.4 L, [place] % (Auto) 3.8, Eos % (Auto) 0.1, Baso % (Auto) 0.1, Absolute Neuts (auto) 14.8 H, Absolute Lymphs (auto) 0.88, Nucleated RBC % 0 ROS Constitutional Constitutional: Reports systems reviewed and no addt'l complaints, except as documented Cardiovascular Cardiovascular: Reports as per HPI Respiratory/Chest Respiratory/Chest: Reports as per HPI Genitourinary Genitourinary: Reports as per HPI Physical Exam Const alert and oriented x3 HEENT normocephalic Eyes PERRL Neck full ROM Resp normal respiratory effort GI soft to palpation GI Narrative: FF below U Assessment & Plan (1) Spontaneous vaginal delivery: COMMENT: JV [place] (2) Anxiety: COMMENT: stable PLAN: Plan s/p PPD # 1 1. routine post delivery care 2. breast feeding- support given 3. rh positive 4. rubella immune
[2025-01-30 08:19] VITALS: BP 126/74; PULSE 87; RESP 16; TEMP 36.3; O2SAT 98
[2025-01-30 12:20] VITALS: BP 125/80; PULSE 97; RESP 18; TEMP 36.5; O2SAT 97
[2025-01-30 16:41] VITALS: BP 136/78; PULSE 82; RESP 16; TEMP 36.3; O2SAT 97
[2025-01-30 19:41] VITALS: BP 131/74; PULSE 86; RESP 17; TEMP 36.4; O2SAT 98
[2025-01-31 02:00] VITALS: BP 129/64; PULSE 65; RESP 17; TEMP 36.4; O2SAT 100
--- NOTE | 2025-01-31 07:50 | PCM.PN.OB ---
Subjective Subjective Patient doing well without complaints. Tolerating PO. Ambulating and voiding without difficulty. Feeding well. Denies chest pain, shortness of breath, calf pain/swelling, fevers, chills, lightheadedness. Objective Data Objective Data Vital Signs: Vital Signs Temp Pulse Resp BP Pulse Ox O2 Del Method 97.5 F L 65 17 129/64 H 100 Room Air 01/31/25 02:00 01/31/25 02:00 01/31/25 02:00 01/31/25 02:00 01/31/25 02:00 01/31/25 02:00 Oxygen Delivery Method Room Air Weight: 257 lb 11.526 oz Body Mass Index (BMI) 38.0 Intake & Output: Intake and Output for Last 24 Hours 01/29/25 01/30/25 01/31/25 23:59 23:59 23:59 Intake Total 3979.50 / 3979.50 Output Total 1800 / 1800 800 / 800 Balance 2179.50 / 2179.50 -800 / -800 Lab / Micro Data 01/29/25 19:45 ROS Constitutional Constitutional: Reports systems reviewed and no addt'l complaints, except as documented Cardiovascular Cardiovascular: Reports as per HPI Respiratory/Chest Respiratory/Chest: Reports as per HPI Genitourinary Genitourinary: Reports as per HPI Physical Exam Const alert and oriented x3 HEENT normocephalic Eyes PERRL Neck full ROM Resp normal respiratory effort GI soft to palpation GI Narrative: FF below U Assessment & Plan (1) Spontaneous vaginal delivery: COMMENT: JANE Anderson (2) Anxiety: COMMENT: stable PLAN: Plan s/p PPD # 2 1. routine post delivery care 2. breast feeding- support given 3. rh positive 4. rubella immune 5. home today
[2025-01-31 08:05] VITALS: BP 124/80; PULSE 91; RESP 16; TEMP 36.3; O2SAT 98
[2025-01-31] MEDS: Hydrocortisone 2.5% Crm 1 APPLIC TOPICAL (08:26)
[2025-01-31] MEDS: GLYCERIN/WITCH HAZEL (TUCKS) MED..PAD 1 EACH TOPICAL (08:27)
--- NOTE | 2025-02-04 12:23 | PCM.DC.SUM ---
Providers Date of Admission: 01/28/25 Primary Care Physician: Dr. Mckinley Baer MD Reason For Visit: VAGINAL DELIVERY Diagnosis Discharge Diagnosis (1) Spontaneous vaginal delivery: Status: Acute Code(s): O80 - Encounter for full-term uncomplicated delivery (2) Anxiety: Status: Acute Code(s): F41.9 - Anxiety disorder, unspecified Plan s/p PPD # 2 1. routine post delivery care 2. breast feeding- support given 3. rh positive 4. rubella immune 5. home today Medications at Discharge Home Medications mv-mn 110-FA 180 mcg-om3 35 mg-dha 25 mg-epa 5 mg-fish oil chew tablet tab PO 05/29/24 breast pump #1 ea 11/13/24 famotidine 20 mg tablet (Pepcid) 20 mg PO BID reflux #60 tabs 01/03/25 Hospital Course Operations - (vaginal delivery) Procedures None Summary of Care Provided Hospital Course: IOL for size date discrepancy and . Normal hospital course and discharge on pp day #2 Weight / BMI Weight Weight: 257 lb 11.526 oz Body Mass Index (BMI) 38.0 ABG / Lab / Microbiology Data 01/29/25 19:45 D/C Instructions May resume sexual activity in: 4-6 weeks Call your doctor if your incision/area has: Continuous Slow Oozing, Sudden Increased Bleeding, Increased Pain/ Swelling, Increased Redness and Foul Smelling Discharge DC O2, CPAP, BIPAP Needs Home O2 Discharge instructions: No Please Follow Up With: Karina Bravo, DO When: Call [phone] to make an appointment with your doctor in 6 weeks. If you had elevated blood pressure or 4th degree laceration, you will need to be seen in 2 weeks. Meaningful Use Info Meaningful Use Meaningful Use Diagnoses (Choose all that apply): None applicable Discharge Plan Admission Admit Date/Time: 01/28/25 19:17 Attending Provider: Karina Bravo Primary Care Provider: Mckinley Baer Instructions Patient Instructions: After a Vaginal Delivery (WP) Discharge Orders/Prescriptions Prescriptions: No Action mv-mn [id number] 180 mcg-35 mg- 25 mg-5 mg tablet,chewable PO (DME) breast pump Device See Rx Instructions .ROUTE .MEDSUPPLY Qty: 1 0RF Rx Instructions: As directed famotidine [Pepcid] 20 mg tablet 20 mg PO BID Qty: 60 6RF Referrals / Follow Up: Mckinley Baer MD [Primary Care Provider, Family Practice] Disposition Disposition (needs filled in before D/C Order can be placed): Home, Self Care
--- NOTE | 2025-02-08 16:19 | NURSING ---
02/08/2025 called for follow up phone call, left voice mail message
== END 2025-01-31 09:35 | disposition home or self-care (01) | DRG 807 ==
PROVIDERS: Admitting Provider Advanced Practice Midwife; PCP Family Medicine; Referring Provider Advanced Practice Midwife; Visit Provider Obstetrics & Gynecology
DX: O48.0 Post-term pregnancy (principal); Z37.0 Single live birth; O99.344 Other mental disorders complicating childbirth; F41.9 Anxiety disorder, unspecified; O99.214 Obesity complicating childbirth; O26.843 Uterine size-date discrepancy, third trimester; Z87.891 Personal history of nicotine dependence; Z90.5 Acquired absence of kidney; Z3A.41 41 weeks gestation of pregnancy; O69.81X0 Labor and delivery complicated by cord around neck, without compression, not applicable or unspecified; O77.0 Labor and delivery complicated by meconium in amniotic fluid; O70.0 First degree perineal laceration during delivery
CPT/HCPCS: 59025; 59050; 85025; 86780; 86850; 86900; 86901; 99221; G0378; J2405